=== PATIENT | female | born 1930 | race Caucasian/White ===

== ENCOUNTER 2016-05-28 09:22 | Inpatient (IN) | payer OTHER ==
[~2016-05-28] VITALS: Ht 162.6 cm; Wt 70.2 kg
[~2016-05-28 09:22] MED LIST: AMLO-110 PO; ASPCH81X PO; CARV12.52 PO; GLIP-199 PO; HYDR25TA5 PO; ISR/30 PO; LOSA1TAB38 PO; MAGN400T6 PO; METF-384 PO; MULT-506 PO; SIMV20TA2 PO
[2016-05-28 10:20] VITALS: BP 138/69; PULSE 80; TEMP 36.6; O2SAT 95; Ht 162.6 cm; Wt 70.2 kg
[2016-05-28 11:13] VITALS: BP 124/74; PULSE 73; TEMP 36.6; O2SAT 95
[2016-05-28] MEDS ORDERED: DOCU-94 PO (11:26)
[2016-05-28] MEDS ORDERED: ACET325T30 PO (11:26)
[2016-05-28] MEDS ORDERED: ZNTT/150 PO (11:26)
[2016-05-28] MEDS ORDERED: ISOS20TA4 PO (11:26)
[2016-05-28] MEDS ORDERED: ONDA4TAB10 SL (11:26)
[2016-05-28] MEDS ORDERED: METO2.5T PO (11:26)
[2016-05-28] MEDS ORDERED: HYDR-5688 PO (11:26)
[2016-05-28] MEDS ORDERED: ALUM-80 PO (11:26)
[2016-05-28] MEDS ORDERED: INSU100I SQ (11:26)
[2016-05-28] MEDS ORDERED: INSDGI SC (11:26)
[2016-05-28] MEDS ORDERED: POTA10PO PO (11:26)
[2016-05-28] MEDS ORDERED: NITROGLYCERIN 0.4 MG SL PER TAB CHARGE SL PRN (11:30)
[2016-05-28] MEDS ORDERED: METO25TA3 PO (11:32)
[2016-05-28] MEDS ORDERED: POLY3350 PO (11:32)
[2016-05-28] MEDS ORDERED: PRT40 PO (11:32)
[2016-05-28] MEDS ORDERED: GLUCAGON FOR INJ 1 MG VIAL SQ PRN (11:45)
[2016-05-28] MEDS ORDERED: DEXTROSE 50% 50 ML SYR IV PRN (11:45)
[2016-05-28] MEDS ORDERED: GLUCOSE 10 TABS/TUBE PO PRN (11:45)
[2016-05-28] MEDS ORDERED: GLUCOSE 40% GEL 15 GM TUBE PO PRN (11:45)
[2016-05-28] MEDS ORDERED: HYDROCODONE/ACETAMOPHEN 5/325MG TAB PO PRN (11:45)
[2016-05-28 12:08] LABS: BASO % 0.6 %; BASO ABS # 0.03 K/uL (0-0.2); EOS % 5.4 %; HEMATOCRIT 31.6 % (37-47); IG% 0.2 %; LYMPH % 17.7 %; LYMPH ABS # 0.91 K/uL (1.2-3.4); MEAN CORPUSCULAR HEMOGLOBIN 24.7 pg (25-34); MEAN PLATELET VOLUME 9.3 fL (7.4-10.4); MONO % 9.7 %; NEUT % 66.4 %; PLATELET COUNT 177 K/uL (130-400); RED BLOOD COUNT 4.05 M/uL (4.2-5.4); WHITE BLOOD COUNT 5.14 K/uL (4.8-10.8)
[2016-05-28 12:11] LABS: COMPLETE YES; MEAN CORPUSCULAR HGB CONC 31.6 g/dl (32-36)
[2016-05-28 12:20] LABS: INR 1.1 (0.9-1.1); PROTHROMBIN TIME (PATIENT) 12.3 SECONDS (9.0-12.0)
[2016-05-28 12:31] LABS: ALT/SGPT 21 U/L (12-78); BLOOD UREA NITROGEN 30 mg/dl (7-18); CALCIUM 8.6 mg/dl (8.5-10.1); CARBON DIOXIDE 34 mmol/L (21-32); CHLORIDE 95 mmol/L (98-107); GLUCOSE 90 mg/dl (70-99); POTASSIUM 3.4 mmol/L (3.5-5.1); SODIUM 137 mmol/L (136-145)
[2016-05-28 12:40] LABS: ALB/GLOB RATIO 0.8 (0.9-2); ALKALINE PHOSPHATASE 75 U/L (45-117); AST/SGOT 29 U/L (15-37)
--- NOTE | 2016-05-28 12:50 | History and Physical ---
History & Physical Date & Time of Service: May 28, 2016 at 11:55 Chief Complaint: Congestive Heart Failure Primary Care Physician: Bernadette Pugh M.D. History of Present Illness Source: patient This is an 85 y/o female with PMHx of systolic CHF on Lasix, CAD, CKD stage 3, insulin-dependent DM 2, PAF, moderate MR, HTN, Dyslipidemia and other problems as outlined below who presents as a direct admission from cardiology (Dr. Hollis) office with worsening LE edema. Pt reports that she has noticed worsening LE edema for the past month. Her sxs are assoc with 30lb weight gain, occasional chest "heaviness" with exertion and SOB that is worse with exertion and laying flat. The SOB worsened to the point that patient was placed on 2L continuous oxygen. Patient was recently started on Lasix 20mg daily which only offered minimal relief of sxs. Patient was seen in the cardiology office this morning where it was recommended that patient go to the hospital for diuresis and close monitoring. Pt denies fever/chills, palpitations, wheezing, abd pain, N/V, bowel or bladder issues, lightheadedness/dizziness. Past Medical/Surgical History Medical Problems: (1) CAD (coronary artery disease) Status: Chronic (2) CKD (chronic kidney disease) stage 3, GFR 30-59 ml/min Status: Chronic (3) Diabetes mellitus type II, controlled Status: Chronic (4) Dyslipidemia Status: Chronic (5) GERD (gastroesophageal reflux disease) Status: Chronic (6) PAF (paroxysmal atrial fibrillation) Status: Chronic (7) Systolic CHF, chronic Status: Chronic Surgical Problems: (1) H/O heart artery stent Status: Resolved (2) History of appendectomy Status: Resolved (3) History of section Status: Resolved (4) History of cholecystectomy Status: Resolved (5) History of hysterectomy Status: Resolved (6) History of total left hip arthroplasty Status: Resolved Social History Smoking Status: Former Smoker (1 pack year history; quit in early 20s ) Alcohol Use: none Drug Use: none Housing status: [facility] ([facility]) Allergies Coded Allergies: Fexofenadine (Verified Allergy, Unknown, CONGESTION, 05/14/15) Home Medications Scheduled Acetaminophen (Acetaminophen), 2 TABS PO Q4 Alum & Mag Hydrox-Simethicone (Maalox Advanced Maximum S), 30 ML PO HS Aspirin (Aspirin Chewable), 81 MG PO QAM Docusate Sodium (Colace), 1 CAP PO BID Insulin Glargine (Lantus), 10 SC QPM Insulin Lispro (Human) (Humalog), 8 SQ before meals TID Isosorbide Mononitrate (Isosorbide Mononitrate), 30 MG PO DAILY Metolazone (Zaroxolyn), 2.5 MG PO 3XWK Metoprolol Succ (Toprol Xl) (Toprol-Xl), 0.5 TAB PO DAILY Ondasetron Odt (Zofran Odt), 4 MG SL Q8 Pantoprazole (Pantoprazole Sodium), 20 MG PO BID Polyethylene Glycol 3350 (Polyethylene Glycol 3350), 17 GM PO DAILY Potassium Chloride (Potassium Chloride), 1 TAB PO DAILY Ranitidine (Zantac), 150 MG PO BID Simvastatin (Zocor), 20 MG PO DAILY Scheduled PRN Hydrocodone/Acetaminophen 5MG/325MG ([place] 5MG/325MG), 1 TABLET PO Q4 PRN for Moderate Pain Review of Systems Constitutional: + fatigue, No chills, No fever, No sweats, No weakness Eyes: No worsening of vision ENT: No hearing loss Respiratory: + cough, + dyspnea at rest, + dyspnea on exertion, + shortness of breath, No sputum, No wheezing Cardiovascular: + edema, No claudication, No palpitations Abdomen: No constipation, No diarrhea, No nausea, No pain, No vomiting Musculoskeletal: + swelling, No calf pain Genitourinary - Female: No dysuria Neurologic: No weakness Psychiatric: No depression symptoms Endocrine: + fatigue Hematologic / Lymphatic: No abnormal bleeding/bruising Integumentary: No new/changing skin lesions Physical Exam Vital Signs Date Time Temp Pulse Resp B/P Pulse Ox O2 Delivery O2 Flow Rate FiO2 05/28/16 11:13 36.6 73 24 124/74 95 Nasal Cannula 2.0 Humidified Oxygen 05/28/16 10:20 36.6 80 22 138/69 95 Nasal Cannula 2.0 05/28/16 10:20 36.6 80 22 138/69 95 Nasal Cannula 2.0 Humidified Air General Appearance: WD/WN, no apparent distress, + pertinent finding (Pt is sitting up in bed with daughter at bedside) Head: normocephalic, atraumatic Eyes: normal inspection ENT: hearing grossly normal Neck: supple Respiratory/Chest: chest non-tender, no respiratory distress, no accessory muscle use, + crackles, + pertinent finding (no wheezing) Cardiovascular: regular rate, rhythm Abdomen/GI: normal bowel sounds, non tender, soft Back: normal inspection Extremities/Musculoskelatal: normal inspection, + pertinent finding (3+ pitting edema to bilat LE extending into thighs) Neurologic/Psych: alert, normal mood/affect, oriented x 3 Skin: normal color, warm/dry Diagnostics Laboratory Results Results Past 24 Hours Test 05/28/16 11:11 05/28/16 11:16 05/28/16 11:30 05/28/16 11:37 Range/Units Bedside Glucose 95 70-90 mg/dl Microbiology Results 05/28/16 MRSA DNA Surveillance Screen, Received Pending Impression Assessment and Plan ACUTE ON CHRONIC SYSTOLIC CHF EXACERBATION pt presented with worsening LE edema, SOB and cough; h/o mod mitral regurg and systolic CHF on Lasix and metolazone -admit to telemetry -vitals are stable; pt is saturating well on 2L -last echo 10/2015 EF 20% with dilated and hypokinetic LV with severe LV dysfunction. Anterior/septal and apical severe hypokinesis and mod mitral regurg -obtain initial bloodwork, CXR and EKG -hold Metolazone -start IV Lasix 40mg BID -consult cardiology, Dr. Salazar-pending input -cont supplemental O2 -monitor closely CKD STAGE 3 -baseline creatinine 1.4 -monitor prp closely while on IV Lasix and avoid nephrotoxic agents when able INSULIN-DEPENDENT DM 2 -recent A1C 6.4 -cont Lantus -start ISS -monitor BSG AC HS CAD -NSTEMI 07/2015 s/p stent placement -cont ASA, BB and statin -pt currently denies chest pain PAF -NSR on monitor -discontinued Xarelto 6 months ago due to GI bleed -cont ASA and BB GERD -cont ranitidine and PPI DYSLIPIDEMIA -cont statin DVT PROPHYLAXIS -subq heparin CODE STATUS -FULL CODE status per discussion with patient upon admission DISPO Pt seen in collaboration with Dr. Coelho. Please see her addendum for further details. Thanks! -Of note: patient will be followed by Dr. Valverde starting tomorrow morning. ADDENDUM: I have seen and examined the patient and have discussed the case with the provider above. I agree with the assessment and plan as stated with the following exceptions. 85 yo F with known ICM and EF of 20% presents with acute heart failure. She has had worsening SOB, abdominal and LE swelling with significant edema and weight gain over the last month. She lives at [facility] and was being seen by [facility] after NSTEMI last year, however, she had not sought care since the onset of symptoms until now. She is currently hypoxic without tachypnea. She obese with signs of right heart failure including pleural effusion (R>L), abdominal and LE edema. She was seen by Dr. Hollis as outpatient today who sent her into the hospital for IV diuresis. This was started at 40mg twice daily. Initial labs reveal an anemiairon studies ordered in am, mildly elevated troponin which may reflect strain from heart failurewill trend enzymes with ongoing chest painpatient is currently on good medical therapy for CAD which she has had for years including stents placed years ago per notes. Ordered updated TTE today which has not been updated since Oct 2015 (results as above). There is no discussion of ICD placement in the notes thus far, which will surely be addressed by the Cardiology team when they see her. Cont telemetry monitoring and appreciate Cards recs. Claire Coelho, DO Hospitalist Level of Care Telemetry Advanced Directives Existing Living Will: Yes Existing Power of Electric Sign Wirer: Yes Resuscitation Status FULL RESUSCITATION VTE Prophylaxis VTE Risk Assessment Done? Y/N: Yes Risk Level: High Given or contraindicated: Unfractionated heparin SQ
[2016-05-28] MEDS ORDERED: FUROSEMIDE 10 MG/ML 10 ML VIAL IV SCH (14:30)
--- NOTE | 2016-05-28 14:43 | DIAGNOSTIC IMAGING REPORT ---
CHEST ONE VIEW PORTABLE CLINICAL HISTORY: progressive SOB for past month dyspnea COMPARISON STUDY: No previous studies for comparison. FINDINGS: Moderate cardiac enlargement. Prominent pulmonary vasculature. Probable right and to lesser extent left pleural effusion. IMPRESSION: Pulmonary edema and/or congestive failure Electronically signed by: Lebron Greenfield M.D. 05/28/2016 2:41 PM Dictated Date/Time: 05/28/2016 2:41 PM
[2016-05-28] MEDS ORDERED: FUROSEMIDE INJ 40 MG in SYRINGE 0 ML IV ONE (15:00)
[2016-05-28] MEDS ORDERED: PERFLUTREN LIPID MICROSPHERE (DEFINITY) IV ONE (15:23)
[2016-05-28 15:43] VITALS: BP 124/62; PULSE 75; TEMP 37; O2SAT 98
[2016-05-28] MEDS ORDERED: SPIRONOLACTONE 25 MG TAB PO ONE (15:55)
--- NOTE | 2016-05-28 16:29 | CARDIOLOGY CONSULTATION ---
DATE OF CONSULTATION: 05/28/2016 REFERRING: Dr. Coelho. INDICATIONS: Decompensated congestive heart failure. PRIMARY CARE PHYSICIAN: Dr. Enio Phan. HISTORY OF PRESENT ILLNESS: The patient is an 85-year-old female here for first recent admission to [facility]. She carries a history per review of outpatient records of presumed ischemic cardiomyopathy with severe LV dysfunction, last echocardiography EF 15-20%. She carries a history of past atrial fibrillation on chronic anticoagulation with Xarelto, history of past GI bleed, chronic anemia. She is currently a resident of [facility]. She has been on oxygen for chronic hypoxia, wheelchair and bed bound due to marked disability. She was referred to the outpatient evaluation clinic for cardiology today and evaluation revealed evidence of acute on chronic decompensated heart failure, right greater than left with extended abdomen and lower extremity edema, and chronic dyspnea. She is referred for further management. The patient is a rather poor historian and additional information has been obtained from the chart, and discussing the patient, she notes occasional tightness in her chest, worsening shortness of breath over the past weeks, increasing abdominal bloating and girth. She has had difficulties of obstipation as well as pain in her lower extremities. She is not aware of any fevers or chills. Has been wearing oxygen recently per her description. She is unaware of her medications due to extended care facility administration. She notes no overt signs of bleeding. Notes no dizziness, lightheadedness, syncope or near syncope, though occasionally feels head swirl when sudden standing, but the patient now doing very little standing. REVIEW OF SYSTEMS: Otherwise unobtainable. ALLERGIES: NOTED TO BE FEXOFENADINE. MEDICATIONS: Prior to hospitalization per review of outpatient records, potassium chloride 20 mg p.o. daily, ranitidine 150 mg 2 tablets per day, metolazone 2.5 mg 3 days per week, hydrocodone p.r.n. pain, aspirin 81 mg per day, insulin, Lantus 100 units at bedtime and 100 units of Humulin t.i.d., furosemide 20 mg p.o. every day p.r.n. fluid retention, isosorbide mononitrate 30 mg p.o. every day, Colace 100 mg p.o. every day, metoprolol succinate 12.5 mg p.o. every day, Protonix 20 mg p.o. every day, simvastatin 20 mg p.o. every day. PAST MEDICAL HISTORY: As described above. In addition, the patient carries a history of longstanding type 2 diabetes mellitus insulin requiring with diabetic retinopathy, lumbar degenerative disease, chronic iron deficiency anemia, past decubitus ulcers. PAST SURGICAL HISTORY: Notable for prior , cholecystectomy, appendectomy, hysterectomy, photocoagulation of retinopathy, past history of prior coronary intervention in 2007. FAMILY HISTORY: Positive for diabetes and heart disease and renal disease. SOCIAL HISTORY: The patient is a current resident of [facility]. She is a lifelong nonsmoker. She is usually attended by family. She is a nondrinker. PHYSICAL EXAMINATION: GENERAL: The patient is an elderly female, currently denying acute distress but noting abdominal bloating and girth increased as well as lower extremity edema. VITAL SIGNS: Heart rate 73, blood pressure is 124/74, O2 saturation is 95% on 2 liters nasal cannula. HEENT: Normocephalic, atraumatic. Nares without discharge. Throat was clear. NECK: Supple without thyromegaly or lymphadenopathy. There is mild jugular venous distention at 30 degrees. LUNGS: Reveal few scattered crackles with diminished breath sounds diffusely. CARDIOVASCULAR: Regular. There is no S3 gallop. Apical heave is present with some displacement of PMI laterally. There is no audible murmur or rub. ABDOMEN: Soft with moderate distention. EXTREMITIES: Without cyanosis or clubbing. There is 2-3+ lower extremity edema and presacral edema present. NEUROLOGIC: The patient does answer some questions appropriately, is oriented to person and place. LABORATORY DATA: White cell count is 5.1, hemoglobin is 10.0, hematocrit 31.6, MCV 78. Sodium is 137, potassium is 3.4, chloride is 95, bicarbonate 34, BUN is 30, creatinine is 1.3. BNP is 26,000. Troponin is mildly elevated at 0.04, albumin level is 3.2. IMAGING DATA: Chest x-ray reveals cardiomegaly with increased vascular markings consistent with congestive heart failure and probable small pleural effusions. Echocardiogram preliminary demonstrates severe diffuse LV dysfunction, EF less than 15% with expanded apex, further review pending. IMPRESSION: An 85-year-old female with history of past congestive heart failure, past atrial fibrillation, currently in sinus rhythm, presents now with acute decompensated biventricular heart failure, right greater than left manifesting increased abdominal girth, bloating and lower extremity edema. Preliminary echo during imaging demonstrates severe diffuse left ventricular dysfunction, ejection fraction less than 15%. RECOMMENDATIONS: We will continue IV diuretics as ordered. Due to history of GI blood loss and anemia, we will hold all anticoagulation, though we would add low threshold for instituting it chronically given the degree of LV dysfunction. No signs of atrial fibrillation, currently or acute ischemia despite minimal elevation in troponin. We will supplement potassium and add in spironolactone. Overall, prognosis is extremely limited given the degree of LV dysfunction. We will follow patient in the hospital. May consider readdressing code status. In the interim, we will continue low dose Toprol without plans for any increase nitrates, diuretics as ordered and as described, potassium has been supplemented. We will add a low dose spironolactone given the right greater than left degree of heart failure. Oxygen supplementation will be manifest. [facility]
--- NOTE | 2016-05-28 17:26 | ECHOCARDIOGRAM REPORT ---
*NOTICE TO RECEIVING REPUBLICAN AGENCY This information is strictly Confidential and protected under [place] law. [place] law prohibits you from making any further disclosure of this information unless further disclosure is expressly permitted by the written consent of the person to whom it pertains or is authorized by law. A general authorization for the release of medical or other information is not sufficient for this purpose. Hospital accepts no responsibility if the information is made available to any other person, INCLUDING THE PATIENT. Interpretation Summary * Name: JOYCE GOMEZ Study Date: 05/28/2016 02:57 PM BP: 124/74 mmHg * Patient Location: C.2E\S\E203\S\1 HR: 73 * : 1930 (M/d/yyyy) Gender: Female Height: 64 in * Age: 85 yrs Ethnicity: CA Weight: 186 lb * Ordering Physician: Claire Coelho * Referring Physician: Bernadette Pugh * Performed By: Zaira Marie RDCS * * Reason For Study: CHF * BSA: 1.9 m2 * History: CHF * -- Conclusions -- * The left ventricle is moderately dilated. * Left ventricular systolic function is severely reduced. * There is septal akinesis. * There is apical dyskinesis. * There is severe global hypokinesis of the left ventricle. * Ejection Fraction = <15%. * The left atrium is mildly dilated. * There is mild to moderate mitral regurgitation. * There is moderate tricuspid regurgitation. Procedure Details * A contrast injection of Definity was performed to improve assessment of LV function. * Contrast was injected into an intravenous site in the right arm. * One vial of Definity ultrasound contrast was diluted in normal saline to a total volume of 10 ml. A total of '2' ml of solution was administered during imaging. * Lot # [id number] of Definity utilized for procedure. * Expiration date 1 MAY 10. * The attending nurse who injected the contrast agent was FUNMILAYO FONTANEZ. Left Ventricle * The left ventricle is moderately dilated. * Ejection Fraction = <15%. * Left ventricular systolic function is severely reduced. * There is severe global hypokinesis of the left ventricle. * There is septal akinesis. * There is apical dyskinesis. Atria * The left atrium is mildly dilated. * Right atrial size is normal. * There is no evidence of atrial septal defect, but resolution does not allow assessment for a patent foramen ovale. Mitral Valve * The mitral valve is grossly normal. * There is mild to moderate mitral regurgitation. Tricuspid Valve * The tricuspid valve is not well visualized, but is grossly normal. * There is moderate tricuspid regurgitation. Aortic Valve * Aortic valve sclerosis mild, without significant aortic valvular stenosis. * There is no significant aortic regurgitation. Pulmonic Valve * The pulmonic valve is not well visualized. Great Vessels * The inferior vena cava is severely dilated. MMode 2D Measurements and Calculations Ao root diam 3.3 cm Ao root area 8.6 cm\S\2 LA dimension 3.7 cm LA/Ao 1.1 LVAd ap4 53.8 cm\S\2 LVLd ap4 9.7 cm EDV(MOD-sp4) 234.1 ml EDV(sp4-el) 253.0 ml LVAs ap4 43.0 cm\S\2 LVLs ap4 9.0 cm ESV(MOD-sp4) 165.0 ml ESV(sp4-el) 173.4 ml EF(MOD-sp4) 29.5 % EF(sp4-el) 31.4 % LVAd ap2 51.9 cm\S\2 LVLd ap2 9.9 cm EDV(MOD-sp2) 226.3 ml EDV(sp2-el) 231.8 ml LVAs ap2 42.0 cm\S\2 LVLs ap2 9.1 cm ESV(MOD-sp2) 161.5 ml ESV(sp2-el) 164.7 ml EF(MOD-sp2) 28.6 % EF(sp2-el) 29.0 % LVLd %diff 1.5 % EDV(MOD-bp) 232.5 ml LVLs %diff 0.71 % ESV(MOD-bp) 163.9 ml EF(MOD-bp) 29.5 % SV(MOD-sp4) 69.1 ml SI(MOD-sp4) 36.4 ml/m\S\2 SV(MOD-sp2) 64.8 ml SI(MOD-sp2) 34.2 ml/m\S\2 SV(MOD-bp) 68.5 ml SI(MOD-bp) 36.1 ml/m\S\2 SV(sp4-el) 79.5 ml SI(sp4-el) 41.9 ml/m\S\2 SV(sp2-el) 67.1 ml SI(sp2-el) 35.4 ml/m\S\2 Doppler Measurements and Calculations MV E max miguelangel 86.8 cm/sec MV A max miguelangel 70.8 cm/sec MV E/A 1.2 MV dec time 0.15 sec Ao V2 max 99.0 cm/sec Ao max PG 3.9 mmHg Ao max PG (full) 2.5 mmHg LV V1 max PG 1.4 mmHg LV V1 max 60.1 cm/sec MR max miguelangel 427.8 cm/sec MR max PG 73.2 mmHg TR max miguelangel 218.4 cm/sec
[2016-05-28] MEDS: HEPARIN SOD 5000 UNIT/0.5 ML CARP SQ SCH ×2 (17:39→22:29)
[2016-05-28] MEDS: INSULIN ASPART 100 UNITS/ML 3 ML PEN SC SCH ×2 (17:42→20:40)
[2016-05-28 18:07] LABS: URINE APPEARANCE CLEAR (CLEAR); URINE BILIRUBIN NEG (NEG); URINE COLOR YELLOW; URINE EPITHELIAL CELL AUTO >30 /lpf (0-5); URINE NITRITE NEG (NEG); URINE PH 6.5 (4.5-7.5); URINE SPECIFIC GRAVITY 1.004 (1.000-1.030); UROBILINOGEN NEG (NEG)
[2016-05-28 18:16] LABS: MANUAL MICROSCOPIC REQUIRED? NO; REVIEW REQ? NO
[2016-05-28 19:45] VITALS: BP 131/63; PULSE 80; TEMP 36.8; O2SAT 97
[2016-05-28] MEDS: DOCUSATE SODIUM 100 MG CAP PO SCH (20:37)
[2016-05-28] MEDS: RANITIDINE HCL 150 MG TAB PO SCH (20:37)
[2016-05-28] MEDS: FUROSEMIDE INJ 40 MG in SYRINGE 0 ML IV SCH (20:37)
[2016-05-28] MEDS: ALUMINUM/MAGNESIUM/SIMETH (MAALOX MAX) 30 ML UDC PO SCH (20:38)
[2016-05-28] MEDS: INSULIN GLARGINE SOLOSTAR 100 UNITS/ML 3 ML PEN SC SCH (20:43)
[2016-05-28] MEDS ORDERED: PANTOprazole SOD 40 MG TAB PO SCH ×2 (21:00)
[2016-05-28 23:59] VITALS: O2SAT 97
[2016-05-29] VITALS (11 sets, daily range): BP systolic 99–121; BP diastolic 49–77; PULSE 75–84; TEMP 36.5–36.7; O2SAT 95–100
[2016-05-29] MEDS: ACETAMINOPHEN 325 MG TAB PO PRN (00:48)
[2016-05-29] MEDS ORDERED: HEPARIN IV LOW DOSE NO BOLUS SCH (02:00)
[2016-05-29 02:10] LABS: INR 1.2 (0.9-1.1); PARTIAL THROMBOPLASTIN RATIO 1.1; PROTHROMBIN TIME (PATIENT) 12.8 SECONDS (9.0-12.0)
[2016-05-29] MEDS: HEPARIN 25,000 UNIT/500ML D5W 500 ML IV PRN (02:12)
[2016-05-29] MEDS: DOCUSATE SODIUM 100 MG CAP PO SCH ×2 (07:59→20:56)
[2016-05-29] MEDS: POTASSIUM CHLORIDE PWD 20 MEQ PACK PO SCH (08:17)
[2016-05-29] MEDS: POLYETHYLENE (MIRALAX) 17 GM PACK PO SCH (08:18)
[2016-05-29] MEDS: ISOSORBIDE MONONITRATE 30 MG TABCR PO SCH (08:19)
[2016-05-29] MEDS: FUROSEMIDE INJ 40 MG in SYRINGE 0 ML IV SCH ×2 (08:20→20:56)
[2016-05-29] MEDS: ASPIRIN 81 MG ECTAB PO SCH (08:20)
[2016-05-29] MEDS: INSULIN ASPART 100 UNITS/ML 3 ML PEN SC SCH ×4 (08:23→21:00)
[2016-05-29] MEDS ORDERED: METOPROLOL SUCC 25MG EXT REL TAB PO SCH (09:00)
[2016-05-29] MEDS ORDERED: ISOSORBIDE MONONITRATE 20 MG TAB PO SCH (09:00)
[2016-05-29] MEDS ORDERED: SPIRONOLACTONE 25 MG TAB PO SCH (09:00)
[2016-05-29] MEDS ORDERED: PANTOprazole INJ 40 MG in SYRINGE 0 ML IV SCH (09:00)
[2016-05-29 09:16] LABS: FERRITIN 27.5 ng/ml (8.0-388.0); THYROID STIMULATING HORMONE 5.06 uIu/ml (0.300-4.500)
[2016-05-29] MEDS: RANITIDINE HCL 150 MG TAB PO SCH ×2 (10:24→20:58)
[2016-05-29 11:37] LABS: MEAN CELL VOLUME 77.5 fL (80-100); MEAN CORPUSCULAR HGB CONC 32.3 g/dl (32-36); MEAN PLATELET VOLUME 9.3 fL (7.4-10.4); PLATELET COUNT 166 K/uL (130-400); WHITE BLOOD COUNT 4.73 K/uL (4.8-10.8)
[2016-05-29 12:15] LABS: BUN/CREATININE RATIO 18.5 (10-20); CALCIUM 8.6 mg/dl (8.5-10.1); CREATININE 1.4 mg/dl (0.60-1.20)
--- NOTE | 2016-05-29 12:28 | Progress Note ---
Internal Med Progress Note Date of Service: May 29, 2016. Provider Documentation: SUBJECTIVE: Patient is feeling better than on admission. SOB improved. Cough + but no sputum production, leg/abdominal distension improved. Denies any chest pain, fever, chills, nausea, vomiting. Good urine output per foleys OBJECTIVE: Vital Signs-as noted below Exam: General Appearance: WD/WN, no apparent distress, Head: normocephalic, atraumatic ENT: hearing grossly normal Neck: supple Respiratory/Chest: chest non-tender, no respiratory distress, no accessory muscle use, + crackles, + pertinent finding (no wheezing) Cardiovascular: regular rate, rhythm; Murmur + Abdomen/GI: Soft, distension- improved, normal bowel sounds, non tender, soft Extremities/Musculoskelatal: normal inspection, + pertinent finding (3+ pitting edema to bilat LE extending into thighs) Neurologic/Psych: alert, normal mood/affect, oriented x 3 Lab data as noted below. ASSESSMENT & PLAN: ACUTE ON CHRONIC SYSTOLIC CHF EXACERBATION/ SEVERE CARDIOMYOPATHY WITH LVEF <15 % : Pt presented with worsening LE edema, SOB and cough; h/o mod mitral regurg and systolic CHF on Lasix and metolazone from Dr Hollis office. -Clinically improved - SOB better, leg swelling down, diuresing well -IV Lasix 40 mg BID (Day 2); Spironolactone daily -Troponin- 0.049,0.084, 0.094, Echo- LV- moderately dilated, severely reduced, septal/apical/severe global hypokinesis of left ventricle with EF <15%, LA- Mildly dilated, Mild-moderate MR, Moderate TR -Cardiology on board, appreciate inputs PAROXYSMAL ATRIAL FIBRILLATION Patient is in and out of Atrial fibrillation -Low dose IV Heparin started by cardiology. In past was taken off xarelto (6 months ago) due to GI bleeding/anemia and thought to be at a higher risk of bleeding -Continue with Beta james -Cardiology on board CKD STAGE 3 -baseline creatinine 1.4 , near baseline -monitor prp closely while on IV Lasix and avoid nephrotoxic agents when able ANEMIA,CHRONIC Likely iron deficiency. Had GI bleeding few months ago (no scopes done)- resolved spontaneously after stopping xarelto. -Ferritin/Iron low- Will start her on Ferrous sulphate. No signs of GI bleeding -Monitor INSULIN-DEPENDENT DM 2 -recent A1C 6.4 -cont Lantus -ISS , Accuchecks -monitor BSG AC HS CAD -NSTEMI 07/2015 s/p stent placement -Cont ASA, BB and statin -Pt currently denies chest pain GERD -Cont ranitidine and PPI BID- changed to PO DYSLIPIDEMIA -Cont statin DVT PROPHYLAXIS -Heparin IV CODE STATUS -FULL CODE status per discussion with patient upon admission DISPO Continue with tele monitoring PT/OT ordered Plan is back to [facility] once medically stable Vital Signs: Date Time Temp Pulse Resp B/P Pulse Ox O2 Delivery O2 Flow Rate FiO2 05/29/16 12:10 36.5 84 18 109/63 98 Nasal Cannula 2.0 05/29/16 08:00 98 Nasal Cannula 2.0 05/29/16 07:11 36.6 78 18 106/60 98 Nasal Cannula 2.0 05/29/16 04:00 Nasal Cannula 2.0 05/29/16 03:17 36.7 83 20 121/65 100 Nasal Cannula 2.0 05/29/16 00:32 36.6 77 28 114/73 97 Nasal Cannula 2.0 05/28/16 23:59 97 Nasal Cannula 2.0 05/28/16 20:00 Nasal Cannula 2.0 05/28/16 19:45 36.8 80 18 131/63 97 05/28/16 16:00 Nasal Cannula 2.0 05/28/16 15:43 37.0 75 16 124/62 98 Nasal Cannula 2.0 Lab Results: Results Past 24 Hours Test 05/28/16 16:06 05/28/16 17:35 05/28/16 17:37 05/28/16 20:09 Range/Units Bedside Glucose 151 259 70-90 mg/dl Creatine Kinase MB 1.4 0.5-3.6 ng/ml Troponin I 0.084 0-0.045 ng/ml Creatine Kinase MB Ratio 0-3.0 Test 05/28/16 23:37 05/29/16 00:03 05/29/16 01:53 05/29/16 06:43 Range/Units Creatine Kinase MB Ratio 0-3.0 Creatine Kinase MB 1.1 0.5-3.6 ng/ml Troponin I 0.094 0-0.045 ng/ml Prothrombin Time 12.8 9.0-12.0 SECONDS Prothromb Time International Ratio 1.2 0.9-1.1 Activated Partial Thromboplast Time 28.4 21.0-31.0 SECONDS Partial Thromboplastin Ratio 1.1 Bedside Glucose 119 70-90 mg/dl Test 05/29/16 08:20 05/29/16 11:04 05/29/16 11:27 Range/Units Activated Partial Thromboplast Time 51.8 21.0-31.0 SECONDS Partial Thromboplastin Ratio 2.0 Iron Level 30 35-150 mcg/dl Total Iron Binding Capacity 441 250-450 mcg/dl Ferritin 27.5 8.0-388.0 ng/ml 25-Hydroxy Vitamin D Total 41.2 30-100 ng/ml Thyroid Stimulating Hormone (TSH) 5.060 0.300-4.500 uIu/ml Bedside Glucose 200 70-90 mg/dl White Blood Count 4.73 4.8-10.8 K/uL Red Blood Count 4.00 4.2-5.4 M/uL Hemoglobin 10.0 12.0-16.0 g/dL Hematocrit 31.0 37-47 % Mean Corpuscular Volume 77.5 80-100 fL Mean Corpuscular Hemoglobin 25.0 25-34 pg Mean Corpuscular Hemoglobin Concent 32.3 32-36 g/dl RDW Standard Deviation 50.8 36.4-46.3 fL RDW Coefficient of Variation 17.9 11.5-14.5 % Platelet Count 166 130-400 K/uL Mean Platelet Volume 9.3 7.4-10.4 fL Sodium Level 137 136-145 mmol/L Potassium Level 3.0 3.5-5.1 mmol/L Chloride Level 94 98-107 mmol/L Carbon Dioxide Level 35 21-32 mmol/L Anion Gap 8.0 3-11 mmol/L Blood Urea Nitrogen 26 7-18 mg/dl Creatinine 1.40 0.60-1.20 mg/dl Est Creatinine Clear Calc Drug Dose 29.8 ml/min Estimated GFR () 39.1 Estimated GFR (Non- 33.7 BUN/Creatinine Ratio 18.5 10-20 Random Glucose 176 70-99 mg/dl Calcium Level 8.6 8.5-10.1 mg/dl Pro-B-Type Natriuretic Peptide 00305 0-1800 pg/ml
[2016-05-29] MEDS ORDERED: POTASSIUM CHLORIDE 10 MEQ TABCR PO STA (12:31)
--- NOTE | 2016-05-29 13:02 | PROGRESS NOTE ---
DATE: 05/29/2016 HISTORY OF PRESENT ILLNESS: The patient seen and examined. Chart and telemetry reviewed. Events of past evening noted with the patient lapsing into atrial fibrillation and intermittent this morning. The patient notes no overt symptoms or complaints, has diuresed overnight, feels less breathless, notes no chest pain, abdominal bloating and distention remains present though less pronounced, and lower extremity edema has improved. Both legs remain tender per patient. OBJECTIVE: VITAL SIGNS: Heart rate is 84. Blood pressure is 109/63. NECK: Thin. There is mild jugular venous distention at 30 degrees. LUNGS: Reveal mildly diminished breath sounds at the bases. CARDIOVASCULAR: Currently irregular. There is no S3 gallop. ABDOMEN: Soft with moderate distention. EXTREMITIES: Revealed 2+ lower extremity edema. LABORATORY STUDIES: Sodium is 137, potassium is 3.0, chloride 94, bicarbonate 35, BUN 26, and creatinine is 1.4. IMPRESSION: An 85-year-old female, with severe ischemic cardiomyopathy, admitted with severe decompensated acute on chronic biventricular heart failure, right greater than left, great than 20-pound weight gain. She carries a history of known ischemic heart disease as well as paroxysmal atrial fibrillation, previously anticoagulated, but held due to past history of gastrointestinal bleeding and microcytic anemia. RECOMMENDATIONS: Anticoagulation initiated last night with IV heparin. We would continue until clinical stability assured. In the interim, we will supplement potassium to get potassium elevate to hopefully aid in atrial fibrillation. We will increase Toprol-XL to 12.5 mg twice per day. Continue IV diuretics with anticipated additional dose this evening. We will hold a.m. dosing until reassessed. Spironolactone will be increased to 12.5 mg twice per day.
[2016-05-29] MEDS: SPIRONOLACTONE 25 MG TAB PO SCH (17:05)
[2016-05-29] MEDS: CIPROFLOXACIN 250 MG TAB PO SCH (17:06)
[2016-05-29] MEDS ORDERED: CIPROFLOXACIN 250 MG TAB PO SCH (18:00)
[2016-05-29] MEDS: PANTOprazole SOD 40 MG TAB PO SCH (20:57)
[2016-05-29] MEDS: METOPROLOL SUCC 25MG EXT REL TAB PO SCH (20:57)
[2016-05-29] MEDS: SIMVASTATIN 20 MG TAB PO SCH (20:58)
[2016-05-29] MEDS: INSULIN GLARGINE SOLOSTAR 100 UNITS/ML 3 ML PEN SC SCH (21:03)
[2016-05-29] MEDS: ALUMINUM/MAGNESIUM/SIMETH (MAALOX MAX) 30 ML UDC PO SCH (21:42)
[2016-05-30] VITALS (12 sets, daily range): BP systolic 93–126; BP diastolic 53–70; PULSE 66–75; TEMP 36.4–37; O2SAT 93–100
[2016-05-30] MEDS: CIPROFLOXACIN 250 MG TAB PO SCH ×2 (05:55→16:52)
[2016-05-30 06:35] LABS: HEMATOCRIT 31.2 % (37-47); MEAN CELL VOLUME 77.4 fL (80-100); MEAN CORPUSCULAR HEMOGLOBIN 24.3 pg (25-34); MEAN CORPUSCULAR HGB CONC 31.4 g/dl (32-36); PLATELET COUNT 175 K/uL (130-400); RED BLOOD COUNT 4.03 M/uL (4.2-5.4); WHITE BLOOD COUNT 4.74 K/uL (4.8-10.8)
[2016-05-30 06:54] LABS: PARTIAL THROMBOPLASTIN RATIO 3.1
[2016-05-30 07:01] LABS: BUN/CREATININE RATIO 20.2 (10-20); CALCIUM 8.7 mg/dl (8.5-10.1); CREATININE 1.3 mg/dl (0.60-1.20); POTASSIUM 2.9 mmol/L (3.5-5.1)
[2016-05-30] MEDS: INSULIN ASPART 100 UNITS/ML 3 ML PEN SC SCH ×4 (07:40→20:03)
[2016-05-30] MEDS: HEPARIN 25,000 UNIT/500ML D5W 500 ML IV PRN (07:40)
[2016-05-30] MEDS: PANTOprazole SOD 40 MG TAB PO SCH ×2 (07:42→19:53)
[2016-05-30] MEDS: METOPROLOL SUCC 25MG EXT REL TAB PO SCH ×2 (07:42→19:54)
[2016-05-30] MEDS: POTASSIUM CHLORIDE PWD 20 MEQ PACK PO SCH ×3 (07:43→13:01)
[2016-05-30] MEDS: SPIRONOLACTONE 25 MG TAB PO SCH ×2 (07:43→16:51)
[2016-05-30] MEDS: FERROUS SULFATE 325 MG TAB PO SCH (07:44)
[2016-05-30] MEDS: ASPIRIN 81 MG ECTAB PO SCH (07:44)
[2016-05-30] MEDS: ISOSORBIDE MONONITRATE 30 MG TABCR PO SCH (07:44)
[2016-05-30] MEDS: POLYETHYLENE (MIRALAX) 17 GM PACK PO SCH (07:45)
[2016-05-30] MEDS: DOCUSATE SODIUM 100 MG CAP PO SCH ×2 (07:45→19:53)
[2016-05-30] MEDS: FUROSEMIDE INJ 40 MG in SYRINGE 0 ML IV SCH ×2 (07:45→19:52)
[2016-05-30] MEDS: RANITIDINE HCL 150 MG TAB PO SCH ×2 (07:45→19:53)
--- NOTE | 2016-05-30 10:23 | PROGRESS NOTE ---
DATE: 05/30/2016 CARDIOLOGY CONSULTATION FOLLOWUP NOTE The patient seen and examined. Chart, medications, telemetry reviewed. SUBJECTIVE: The patient feels substantially improved today, did manifest a relatively good diuresis overnight, greater than 2 liters. Abdomen is less distended. Lower extremities are less tender. Notes no dizziness or lightheadedness. Not aware of any tachypalpitations. Notes no bleeding difficulties. PHYSICAL EXAMINATION: VITAL SIGNS: Heart rate is 73, blood pressure is 122/78. The patient had a very brief transient run of atrial arrhythmias this morning, but no sustained atrial fibrillation overnight. HEENT: Normocephalic, atraumatic. NECK: Thin. There is no jugular venous distension with the patient examined mostly upright. LUNGS: Reveal better aeration to the bases. CARDIOVASCULAR: Regular. There is no S3 gallop. There is a grade 2/6 systolic murmur. ABDOMEN: Soft, less distended but still with fluid retention. EXTREMITIES: Reveal 2-3+ indurated lower extremity edema. LABORATORY DATA: White cell count is 4.7, hemoglobin is 9.8. Sodium is 138, potassium is 2.9, chloride is 95, bicarbonate is 33, BUN is 26, creatinine is 1.3, glucose is 104. IMPRESSION: An 85-year-old female with severe left ventricular dysfunction secondary to ischemic cardiomyopathy admitted with acutely decompensated biventricular heart failure, right greater than left. The patient is gradually improving with IV diuretics. Will supplement potassium. Continue newly added spironolactone. Increased dose of metoprolol. Ultimate goal of keeping potassium above 4, for aiding arrhythmias. She will continue on IV anticoagulation until clinical stability assured. May consider reinstituting long-term anticoagulation with the patient previously on Xarelto, per review of records with attention to the patient's baseline microcytic anemia. MTDD
--- NOTE | 2016-05-30 10:29 | Progress Note ---
Internal Med Progress Note Date of Service: May 30, 2016. Provider Documentation: SUBJECTIVE: Patient is feeling better today. SOB improved. Cough + but no sputum production, leg/abdominal distension improved. Denies any chest pain, fever, chills, nausea, vomiting. Good urine output + OBJECTIVE: Vital Signs-as noted below Exam: General Appearance: WD/WN, no apparent distress, Head: normocephalic, atraumatic ENT: hearing grossly normal Neck: supple Respiratory/Chest: chest non-tender, no respiratory distress, no accessory muscle use, + crackles, + pertinent finding (no wheezing) Cardiovascular: regular rate, rhythm; Murmur + Abdomen/GI: Soft, distension- improved, normal bowel sounds, non tender, soft Extremities/Musculoskelatal: normal inspection, + pertinent finding (3+ pitting edema to bilat LE extending into thighs)- Improved Neurologic/Psych: alert, normal mood/affect, oriented x 3 Lab data as noted below. ASSESSMENT & PLAN: ACUTE ON CHRONIC SYSTOLIC CHF EXACERBATION (Biventricular Right >Left)/ SEVERE CARDIOMYOPATHY WITH LVEF <15% : Pt presented with worsening LE edema, SOB and cough; h/o mod mitral regurg and systolic CHF on Lasix and metolazone from Dr Hollis office. -Clinically improved - SOB better, leg swelling down, diuresing well -IV Lasix 40 mg BID (Day 3); Spironolactone increased to 12.5 mg PO BID, Toprol increased to 12.5 mg PO BID -Troponin- 0.049,0.084, 0.094, Echo- LV- moderately dilated, severely reduced, septal/apical/severe global hypokinesis of left ventricle with EF <15%, LA- Mildly dilated, Mild-moderate MR, Moderate TR -Cardiology on board, appreciate inputs HYPOKALEMIA K 2.9 today. Replace- 80 meq total (prefers powder over pill) -K daily supplement -Monitor Mg, K PAROXYSMAL ATRIAL FIBRILLATION Patient is in and out of Atrial fibrillation -Low dose IV Heparin started by cardiology. In past was taken off xarelto (6 months ago) due to GI bleeding/anemia and thought to be at a higher risk of bleeding -Continue with Beta james- increased toprol to 12.5 mg PO BID -Cardiology on board UTI, Klebsiella -On ciprofloxacin BID (Day 2) per c/s CKD STAGE 3 -baseline creatinine 1.4 , near baseline -monitor prp closely while on IV Lasix and avoid nephrotoxic agents when able ANEMIA,CHRONIC Likely iron deficiency. Had GI bleeding few months ago (no scopes done)- resolved spontaneously after stopping xarelto. -Ferritin/Iron low- Started her on Ferrous sulphate. No signs of GI bleeding -Monitor INSULIN-DEPENDENT DM 2 -Recent A1C 6.4 -cont Lantus -ISS , Accuchecks -monitor BSG AC HS CAD -NSTEMI 07/2015 s/p stent placement -Cont ASA, BB and statin -Pt currently denies chest pain GERD -Cont ranitidine and PPI BID- changed to PO DYSLIPIDEMIA -Cont statin DVT PROPHYLAXIS -Heparin IV CODE STATUS -FULL CODE status per discussion with patient upon admission DISPO Continue with tele monitoring PT/OT ordered Plan is back to [facility] once medically stable Vital Signs: Date Time Temp Pulse Resp B/P Pulse Ox O2 Delivery O2 Flow Rate FiO2 05/30/16 08:00 98 Nasal Cannula 2.0 05/30/16 07:00 36.5 73 15 122/58 96 Nasal Cannula 2.0 05/30/16 05:23 36.7 66 18 126/56 94 Nasal Cannula 2.0 05/30/16 04:19 100 Nasal Cannula 2.0 05/30/16 00:16 37.0 71 18 114/55 98 05/30/16 00:00 100 Nasal Cannula 2.0 05/29/16 20:00 100 Nasal Cannula 2.0 05/29/16 19:15 36.5 77 19 120/77 99 Nasal Cannula 2.0 05/29/16 16:00 100 Nasal Cannula 2.0 05/29/16 15:10 36.7 79 15 99/49 100 Nasal Cannula 2.0 05/29/16 14:01 75 95 Lab Results: Results Past 24 Hours Test 05/29/16 15:56 05/29/16 20:20 05/30/16 06:17 05/30/16 07:04 Range/Units Bedside Glucose 225 139 121 70-90 mg/dl White Blood Count 4.74 4.8-10.8 K/uL Red Blood Count 4.03 4.2-5.4 M/uL Hemoglobin 9.8 12.0-16.0 g/dL Hematocrit 31.2 37-47 % Mean Corpuscular Volume 77.4 80-100 fL Mean Corpuscular Hemoglobin 24.3 25-34 pg Mean Corpuscular Hemoglobin Concent 31.4 32-36 g/dl RDW Standard Deviation 50.8 36.4-46.3 fL RDW Coefficient of Variation 18.0 11.5-14.5 % Platelet Count 175 130-400 K/uL Mean Platelet Volume 9.0 7.4-10.4 fL Activated Partial Thromboplast Time 81.8 21.0-31.0 SECONDS Partial Thromboplastin Ratio 3.1 Sodium Level 138 136-145 mmol/L Potassium Level 2.9 3.5-5.1 mmol/L Chloride Level 95 98-107 mmol/L Carbon Dioxide Level 33 21-32 mmol/L Anion Gap 10.0 3-11 mmol/L Blood Urea Nitrogen 26 7-18 mg/dl Creatinine 1.30 0.60-1.20 mg/dl Est Creatinine Clear Calc Drug Dose 32.0 ml/min Estimated GFR () 42.7 Estimated GFR (Non- 36.9 BUN/Creatinine Ratio 20.2 10-20 Random Glucose 104 70-99 mg/dl Calcium Level 8.7 8.5-10.1 mg/dl Test 05/30/16 11:10 05/30/16 11:48 Range/Units Bedside Glucose 136 70-90 mg/dl White Blood Count 4.89 4.8-10.8 K/uL Red Blood Count 4.19 4.2-5.4 M/uL Hemoglobin 10.3 12.0-16.0 g/dL Hematocrit 32.4 37-47 % Mean Corpuscular Volume 77.3 80-100 fL Mean Corpuscular Hemoglobin 24.6 25-34 pg Mean Corpuscular Hemoglobin Concent 31.8 32-36 g/dl RDW Standard Deviation 51.1 36.4-46.3 fL RDW Coefficient of Variation 18.0 11.5-14.5 % Platelet Count 167 130-400 K/uL Mean Platelet Volume 8.6 7.4-10.4 fL Sodium Level 138 136-145 mmol/L Potassium Level 3.3 3.5-5.1 mmol/L Chloride Level 95 98-107 mmol/L Carbon Dioxide Level 34 21-32 mmol/L Anion Gap 9.0 3-11 mmol/L Blood Urea Nitrogen 27 7-18 mg/dl Creatinine 1.30 0.60-1.20 mg/dl Est Creatinine Clear Calc Drug Dose 32.0 ml/min Estimated GFR () 42.7 Estimated GFR (Non- 36.9 BUN/Creatinine Ratio 20.5 10-20 Random Glucose 150 70-99 mg/dl Calcium Level 8.8 8.5-10.1 mg/dl
[2016-05-30] MEDS ORDERED: POTASSIUM CHLORIDE 10 MEQ TABCR PO SCH (10:30)
[2016-05-30 11:58] LABS: HEMATOCRIT 32.4 % (37-47); MEAN CELL VOLUME 77.3 fL (80-100); MEAN CORPUSCULAR HEMOGLOBIN 24.6 pg (25-34); MEAN CORPUSCULAR HGB CONC 31.8 g/dl (32-36); MEAN PLATELET VOLUME 8.6 fL (7.4-10.4); PLATELET COUNT 167 K/uL (130-400); RED BLOOD COUNT 4.19 M/uL (4.2-5.4); WHITE BLOOD COUNT 4.89 K/uL (4.8-10.8)
[2016-05-30 12:27] LABS: BUN/CREATININE RATIO 20.5 (10-20); CALCIUM 8.8 mg/dl (8.5-10.1); CREATININE 1.3 mg/dl (0.60-1.20); POTASSIUM 3.3 mmol/L (3.5-5.1)
[2016-05-30 15:01] LABS: PARTIAL THROMBOPLASTIN RATIO 2.1
[2016-05-30] MEDS: SIMVASTATIN 20 MG TAB PO SCH (19:53)
[2016-05-30] MEDS: ALUMINUM/MAGNESIUM/SIMETH (MAALOX MAX) 30 ML UDC PO SCH (19:53)
[2016-05-30] MEDS: INSULIN GLARGINE SOLOSTAR 100 UNITS/ML 3 ML PEN SC SCH (20:03)
[2016-05-31 04:26] VITALS: BP 103/65; PULSE 77; TEMP 36.4; O2SAT 97
[2016-05-31] MEDS: CIPROFLOXACIN 250 MG TAB PO SCH ×2 (05:28→17:23)
[2016-05-31 06:13] LABS: HEMATOCRIT 30.8 % (37-47); MEAN CELL VOLUME 76.8 fL (80-100); MEAN CORPUSCULAR HEMOGLOBIN 24.7 pg (25-34); MEAN CORPUSCULAR HGB CONC 32.1 g/dl (32-36); MEAN PLATELET VOLUME 9.2 fL (7.4-10.4); PLATELET COUNT 174 K/uL (130-400); RED BLOOD COUNT 4.01 M/uL (4.2-5.4); WHITE BLOOD COUNT 4.62 K/uL (4.8-10.8)
[2016-05-31 06:54] LABS: BUN/CREATININE RATIO 23.4 (10-20); CALCIUM 8.3 mg/dl (8.5-10.1); CREATININE 1.3 mg/dl (0.60-1.20); MAGNESIUM 2.3 mg/dl (1.8-2.4); POTASSIUM 4.3 mmol/L (3.5-5.1)
[2016-05-31 07:45] VITALS: BP 104/52; PULSE 71; TEMP 36.7; O2SAT 99
[2016-05-31] MEDS: POLYETHYLENE (MIRALAX) 17 GM PACK PO SCH (07:45)
[2016-05-31] MEDS: PANTOprazole SOD 40 MG TAB PO SCH ×2 (07:45→21:21)
[2016-05-31] MEDS: SPIRONOLACTONE 25 MG TAB PO SCH ×2 (07:45→17:23)
[2016-05-31] MEDS: ISOSORBIDE MONONITRATE 30 MG TABCR PO SCH (07:45)
[2016-05-31] MEDS: ASPIRIN 81 MG ECTAB PO SCH (07:45)
[2016-05-31] MEDS: FUROSEMIDE INJ 40 MG in SYRINGE 0 ML IV SCH ×2 (07:45→21:21)
[2016-05-31] MEDS: POTASSIUM CHLORIDE PWD 20 MEQ PACK PO SCH (07:45)
[2016-05-31] MEDS: FERROUS SULFATE 325 MG TAB PO SCH (07:45)
[2016-05-31] MEDS: DOCUSATE SODIUM 100 MG CAP PO SCH ×2 (07:45→21:21)
[2016-05-31] MEDS: RANITIDINE HCL 150 MG TAB PO SCH ×2 (07:46→21:21)
[2016-05-31] MEDS: METOPROLOL SUCC 25MG EXT REL TAB PO SCH ×2 (07:46→21:22)
[2016-05-31] MEDS: INSULIN ASPART 100 UNITS/ML 3 ML PEN SC SCH ×4 (07:58→21:23)
[2016-05-31 09:14] LABS: PARTIAL THROMBOPLASTIN RATIO 2.2
--- NOTE | 2016-05-31 11:16 | Cardiology Follow-Up ---
Subjective Subjective Date of Service: May 31, 2016. Pt evaluation today including: conversation w/ patient, physical exam, chart review, lab review, review of studies, review of inpatient medication list Additional Details: Pt seen and examined, oob in chair. States that legs are still swollen and painful but improved from admission. Still dyspnic with minimal exertion but not at rest. Denies cp, palpitations, lightheadedness or dizziness. Tele reviewed: atrial fibrillation without other arrhythmia Review of Systems Respiratory: + dyspnea on exertion, + shortness of breath, No cough, No dyspnea at rest, No hemoptysis, No problem reported, No see HPI, No sputum, No wheezing Cardiac: + PND, + edema, + orthopnea, No chest pain, No claudication, No palpitations, No problem reported, No see HPI Objective Vital Signs Last Vital Signs Documentation Date Time Temp Pulse Resp B/P Pulse Ox O2 Delivery O2 Flow Rate FiO2 05/31/16 08:01 Nasal Cannula 2.0 05/31/16 07:45 36.7 71 20 104/52 99 Physical Exam: General Appearance: WD/WN, no apparent distress Eyes: bilateral eyes EOMI, bilateral eyes PERRL, bilateral eyes normal inspection ENT: normal ENT inspection, TMs normal, pharynx normal, + pertinent finding ( somewhat hard of hearing) Neck: supple, no adenopathy, thyroid normal, no JVD, no carotid bruits, trachea midline Respiratory/Chest: chest non-tender, no respiratory distress, no accessory muscle use, + crackles, + rhonchi Cardiovascular: no JVD, no murmur, + irregularly irregular Abdomen: normal bowel sounds, non tender, soft, no organomegaly, no pulsatile mass Extremities: + calf tenderness, + inflammation, + pedal edema (+1 b/l pitting edema) Neurologic/Psychiatric: cut off sawyer II-XII nml as tested, no motor/sensory deficits, alert, normal mood/affect, oriented x 3 Skin: normal color, warm/dry, no rash Lymphatic: no adenopathy Assessment and Plan 1. acute decompensated systolic heart failure diuresing well will cont with current bid lasix dosing cont spironolactone strict I/O's daily weight on same scale 2. cad stable cont asa, simvastatin, toprol, imdur 3. atrial fibrillation converted from sinus last pm tolerating wll rates controlled on heparin gtt, previously on Xarelto will cont heparin for now cont to monitor on tele
[2016-05-31 11:45] VITALS: BP 122/49; PULSE 77; TEMP 36.6; O2SAT 97
[2016-05-31 12:09] LABS: HEMATOCRIT 31.8 % (37-47); MEAN CELL VOLUME 78.7 fL (80-100); MEAN CORPUSCULAR HEMOGLOBIN 24.5 pg (25-34); MEAN CORPUSCULAR HGB CONC 31.1 g/dl (32-36); MEAN PLATELET VOLUME 9.6 fL (7.4-10.4); PLATELET COUNT 173 K/uL (130-400); RED BLOOD COUNT 4.04 M/uL (4.2-5.4)
[2016-05-31 12:38] LABS: BUN/CREATININE RATIO 19.3 (10-20); CALCIUM 8.6 mg/dl (8.5-10.1); CREATININE 1.5 mg/dl (0.60-1.20); POTASSIUM 4.1 mmol/L (3.5-5.1)
--- NOTE | 2016-05-31 12:48 | Progress Note ---
Internal Med Progress Note Date of Service: May 31, 2016. Provider Documentation: SUBJECTIVE: Patient is feeling better today. SOB improved. Cough + but no sputum production, leg/abdominal distension improved. Denies any chest pain, fever, chills, nausea, vomiting. Good urine output + OBJECTIVE: Vital Signs-as noted below Exam: General Appearance: AAOX2, No apparent distress, Head: normocephalic, atraumatic ENT: hearing grossly normal Neck: supple Respiratory/Chest: chest non-tender, no respiratory distress, no accessory muscle use, + crackles, + pertinent finding (no wheezing) Cardiovascular: regular rate, rhythm; Murmur + Abdomen/GI: Soft, distension- improved, normal bowel sounds, non tender, soft Extremities/Musculoskelatal: normal inspection, + pertinent finding (3+ pitting edema to bilat LE extending into thighs)- Improved Neurologic/Psych: alert, normal mood/affect, oriented x 3 Lab data as noted below. ASSESSMENT & PLAN: ACUTE ON CHRONIC SYSTOLIC CHF EXACERBATION (Biventricular Right >Left)/ SEVERE CARDIOMYOPATHY WITH LVEF <15% : Pt presented with worsening LE edema, SOB and cough; h/o mod mitral regurg and systolic CHF on Lasix and metolazone from Dr Hollis office. -Clinically improved - SOB better, leg swelling down, diuresing well -IV Lasix 40 mg BID (Day 4); Spironolactone increased to 12.5 mg PO BID, Toprol increased to 12.5 mg PO BID on 05/29/16 -Troponin- 0.049,0.084, 0.094, Echo- LV- moderately dilated, severely reduced, septal/apical/severe global hypokinesis of left ventricle with EF <15%, LA- Mildly dilated, Mild-moderate MR, Moderate TR -Cardiology on board, appreciate inputs HYPOKALEMIA Resolved. -K daily supplement while on lasix PAROXYSMAL ATRIAL FIBRILLATION Patient is in and out of Atrial fibrillation -Low dose IV Heparin started by cardiology. In past was taken off xarelto (6 months ago) due to GI bleeding/anemia and thought to be at a higher risk of bleeding -Continue with Beta james- increased toprol to 12.5 mg PO BID -Cardiology on board UTI, Klebsiella -On ciprofloxacin BID (Day 3) per c/s CKD STAGE 3 -baseline creatinine 1.4 , near baseline -monitor prp closely while on IV Lasix and avoid nephrotoxic agents when able ANEMIA, CHRONIC : Likely iron deficiency. Had GI bleeding few months ago (no scopes done)- resolved spontaneously after stopping xarelto. -Ferritin/Iron low- Started her on Ferrous sulphate. No signs of GI bleeding -Monitor INSULIN-DEPENDENT DM 2 -Recent A1C 6.4 -cont Lantus -ISS , Accuchecks -monitor BSG AC HS CAD -NSTEMI 07/2015 s/p stent placement -Cont ASA, BB and statin -Pt currently denies chest pain GERD -Cont ranitidine and PPI BID- changed to PO DYSLIPIDEMIA -Cont statin DVT PROPHYLAXIS -Heparin IV CODE STATUS -FULL CODE status per discussion with patient upon admission DISPO Continue with tele monitoring PT/OT ordered Plan is back to [facility] once medically stable Vital Signs: Date Time Temp Pulse Resp B/P Pulse Ox O2 Delivery O2 Flow Rate FiO2 05/31/16 12:24 Nasal Cannula 2.0 05/31/16 11:45 36.6 77 20 122/49 97 2.0 05/31/16 08:01 Nasal Cannula 2.0 05/31/16 07:45 36.7 71 20 104/52 99 2.0 05/31/16 04:26 36.4 77 28 103/65 97 3.0 05/31/16 04:06 Nasal Cannula 2.0 05/31/16 00:00 Nasal Cannula 2.0 05/30/16 23:50 36.5 71 34 116/56 98 Nasal Cannula 3.0 05/30/16 20:00 Nasal Cannula 2.0 05/30/16 18:55 36.4 75 18 104/66 93 Nasal Cannula 2.0 05/30/16 16:00 98 Nasal Cannula 2.0 05/30/16 15:00 36.5 75 23 93/70 94 Nasal Cannula 2.0 Lab Results: Results Past 24 Hours Test 05/30/16 14:29 05/30/16 16:17 05/30/16 19:53 05/31/16 05:30 Range/Units Activated Partial Thromboplast Time 54.0 21.0-31.0 SECONDS Partial Thromboplastin Ratio 2.1 Bedside Glucose 171 220 70-90 mg/dl White Blood Count 4.62 4.8-10.8 K/uL Red Blood Count 4.01 4.2-5.4 M/uL Hemoglobin 9.9 12.0-16.0 g/dL Hematocrit 30.8 37-47 % Mean Corpuscular Volume 76.8 80-100 fL Mean Corpuscular Hemoglobin 24.7 25-34 pg Mean Corpuscular Hemoglobin Concent 32.1 32-36 g/dl RDW Standard Deviation 50.8 36.4-46.3 fL RDW Coefficient of Variation 18.1 11.5-14.5 % Platelet Count 174 130-400 K/uL Mean Platelet Volume 9.2 7.4-10.4 fL Sodium Level 138 136-145 mmol/L Potassium Level 4.3 3.5-5.1 mmol/L Chloride Level 96 98-107 mmol/L Carbon Dioxide Level 35 21-32 mmol/L Anion Gap 7.0 3-11 mmol/L Blood Urea Nitrogen 30 7-18 mg/dl Creatinine 1.30 0.60-1.20 mg/dl Est Creatinine Clear Calc Drug Dose 31.6 ml/min Estimated GFR () 42.7 Estimated GFR (Non- 36.9 BUN/Creatinine Ratio 23.4 10-20 Random Glucose 96 70-99 mg/dl Calcium Level 8.3 8.5-10.1 mg/dl Magnesium Level 2.3 1.8-2.4 mg/dl Test 05/31/16 06:40 05/31/16 08:45 05/31/16 11:26 05/31/16 11:36 Range/Units Bedside Glucose 108 179 70-90 mg/dl Activated Partial Thromboplast Time 56.3 21.0-31.0 SECONDS Partial Thromboplastin Ratio 2.2 White Blood Count 4.90 4.8-10.8 K/uL Red Blood Count 4.04 4.2-5.4 M/uL Hemoglobin 9.9 12.0-16.0 g/dL Hematocrit 31.8 37-47 % Mean Corpuscular Volume 78.7 80-100 fL Mean Corpuscular Hemoglobin 24.5 25-34 pg Mean Corpuscular Hemoglobin Concent 31.1 32-36 g/dl RDW Standard Deviation 51.7 36.4-46.3 fL RDW Coefficient of Variation 18.2 11.5-14.5 % Platelet Count 173 130-400 K/uL Mean Platelet Volume 9.6 7.4-10.4 fL Sodium Level 138 136-145 mmol/L Potassium Level 4.1 3.5-5.1 mmol/L Chloride Level 96 98-107 mmol/L Carbon Dioxide Level 33 21-32 mmol/L Anion Gap 9.0 3-11 mmol/L Blood Urea Nitrogen 29 7-18 mg/dl Creatinine 1.50 0.60-1.20 mg/dl Est Creatinine Clear Calc Drug Dose 27.4 ml/min Estimated GFR () 35.9 Estimated GFR (Non- 31.0 BUN/Creatinine Ratio 19.3 10-20 Random Glucose 153 70-99 mg/dl Calcium Level 8.6 8.5-10.1 mg/dl
[2016-05-31 15:59] VITALS: BP 107/66; PULSE 70; TEMP 36.5; O2SAT 97
[2016-05-31 19:55] VITALS: BP 109/83; PULSE 81; TEMP 36.7; O2SAT 96
[2016-05-31] MEDS: ALUMINUM/MAGNESIUM/SIMETH (MAALOX MAX) 30 ML UDC PO SCH (21:00)
[2016-05-31] MEDS: SIMVASTATIN 20 MG TAB PO SCH (21:21)
[2016-05-31] MEDS: INSULIN GLARGINE SOLOSTAR 100 UNITS/ML 3 ML PEN SC SCH (21:24)
[2016-05-31] MEDS: HEPARIN 25,000 UNIT/500ML D5W 500 ML IV PRN (21:44)
[2016-05-31 23:05] VITALS: BP 123/55; PULSE 77; TEMP 36.8; O2SAT 97
[2016-06-01 04:00] VITALS: BP 118/51; PULSE 74; TEMP 36.5; O2SAT 99
[2016-06-01] MEDS: CIPROFLOXACIN 250 MG TAB PO SCH ×2 (05:43→17:28)
[2016-06-01 06:52] LABS: PARTIAL THROMBOPLASTIN RATIO 1.9
[2016-06-01] MEDS: INSULIN ASPART 100 UNITS/ML 3 ML PEN SC SCH ×4 (07:00→20:36)
[2016-06-01 07:45] VITALS: BP 105/56; PULSE 70; TEMP 36.9; O2SAT 97
[2016-06-01] MEDS: FUROSEMIDE INJ 40 MG in SYRINGE 0 ML IV SCH ×2 (08:18→20:35)
[2016-06-01] MEDS: ASPIRIN 81 MG ECTAB PO SCH (08:19)
[2016-06-01] MEDS: SPIRONOLACTONE 25 MG TAB PO SCH ×2 (08:19→17:28)
[2016-06-01] MEDS: DOCUSATE SODIUM 100 MG CAP PO SCH ×2 (08:19→20:35)
[2016-06-01] MEDS: FERROUS SULFATE 325 MG TAB PO SCH (08:19)
[2016-06-01] MEDS: POTASSIUM CHLORIDE PWD 20 MEQ PACK PO SCH (08:19)
[2016-06-01] MEDS: POLYETHYLENE (MIRALAX) 17 GM PACK PO SCH (08:19)
[2016-06-01] MEDS: RANITIDINE HCL 150 MG TAB PO SCH ×2 (08:19→20:35)
[2016-06-01] MEDS: PANTOprazole SOD 40 MG TAB PO SCH ×2 (08:19→20:35)
[2016-06-01] MEDS: METOPROLOL SUCC 25MG EXT REL TAB PO SCH ×2 (08:19→20:35)
[2016-06-01] MEDS: ISOSORBIDE MONONITRATE 30 MG TABCR PO SCH (09:00)
[2016-06-01 10:35] VITALS: BP 115/67; PULSE 74; TEMP 36.4; O2SAT 96
--- NOTE | 2016-06-01 11:57 | Progress Note ---
Internal Med Progress Note Date of Service: Jun 01, 2016. Provider Documentation: SUBJECTIVE: Patient is feeling better today. SOB improved. Cough + but no sputum production, leg/abdominal distension improved. Denies any chest pain, fever, chills, nausea, vomiting. Good urine output + On low dose IV Heparin OBJECTIVE: Vital Signs-as noted below Exam: General Appearance: AAOX2, No apparent distress, Head: normocephalic, atraumatic ENT: hearing grossly normal Neck: supple Respiratory/Chest: chest non-tender, no respiratory distress, no accessory muscle use, + crackles, + pertinent finding (no wheezing) Cardiovascular: regular rate, rhythm; Murmur + Abdomen/GI: Soft, distension- improved, normal bowel sounds, non tender, soft Extremities/Musculoskelatal: normal inspection, + pertinent finding (3+ pitting edema to bilat LE extending into thighs)- Improved slightly, sensitive to touch Neurologic/Psych: alert, normal mood/affect, oriented x 3 Lab data as noted below. ASSESSMENT & PLAN: ACUTE ON CHRONIC SYSTOLIC CHF EXACERBATION (Biventricular Right >Left)/ SEVERE CARDIOMYOPATHY WITH LVEF <15% : Pt presented with worsening LE edema, SOB and cough; h/o mod mitral regurg and systolic CHF on Lasix and metolazone from Dr Hollis office. -Clinically improved - SOB better, leg swelling down, diuresing well -IV Lasix 40 mg BID (Day 5); Spironolactone increased to 12.5 mg PO BID, Toprol increased to 12.5 mg PO BID on 05/29/16 -Troponin- 0.049,0.084, 0.094, Echo- LV- moderately dilated, severely reduced, septal/apical/severe global hypokinesis of left ventricle with EF <15%, LA- Mildly dilated, Mild-moderate MR, Moderate TR -Cardiology on board, appreciate inputs PLAN: Hold IV lasix. Re assess in AM and switch to PO. Discussed with cardiology. Appreciate inputs TOMMY ON CKD STAGE 3 - Slight increase in creatinine today- 1.5 -baseline creatinine 1.4 . -Lasix mx as above -monitor prp closely while on IV Lasix and avoid nephrotoxic agents when able HYPOKALEMIA Resolved. -K daily supplement while on lasix PAROXYSMAL ATRIAL FIBRILLATION Patient is in and out of Atrial fibrillation -Low dose IV Heparin started by cardiology. In past was taken off xarelto (6 months ago) due to GI bleeding/anemia and thought to be at a higher risk of bleeding -Continue with Beta james- increased toprol to 12.5 mg PO BID -Cardiology on board UTI, Klebsiella -On ciprofloxacin BID (Day 05/27) per c/s ANEMIA, CHRONIC : Likely iron deficiency. Had GI bleeding few months ago (no scopes done)- resolved spontaneously after stopping xarelto. -Ferritin/Iron low- Started her on Ferrous sulphate. No signs of GI bleeding -Monitor INSULIN-DEPENDENT DM 2 -Recent A1C 6.4 -cont Lantus -ISS , Accuchecks -monitor BSG AC HS CAD -NSTEMI 07/2015 s/p stent placement -Cont ASA, BB and statin -Pt currently denies chest pain GERD -Cont ranitidine and PPI BID- changed to PO DYSLIPIDEMIA -Cont statin DVT PROPHYLAXIS -Heparin IV CODE STATUS -FULL CODE status per discussion with patient upon admission DISPO Continue with tele monitoring PT/OT ordered Plan is back to [facility] once medically stable Vital Signs: Date Time Temp Pulse Resp B/P Pulse Ox O2 Delivery O2 Flow Rate FiO2 06/01/16 10:35 36.4 74 24 115/67 96 2.0 06/01/16 08:01 Nasal Cannula 2.0 06/01/16 07:45 36.9 70 24 105/56 97 2.0 06/01/16 04:00 36.5 74 16 118/51 99 Nasal Cannula 3.0 06/01/16 04:00 Nasal Cannula 2.0 06/01/16 00:00 Nasal Cannula 2.0 05/31/16 23:05 36.8 77 16 123/55 97 Nasal Cannula 2.0 Humidified Oxygen 05/31/16 20:00 Nasal Cannula 2.0 05/31/16 19:55 36.7 81 31 109/83 96 Nasal Cannula 3.0 05/31/16 16:01 Nasal Cannula 2.0 05/31/16 15:59 36.5 70 30 107/66 97 Nasal Cannula 3.0 05/31/16 12:24 Nasal Cannula 2.0 Lab Results: Results Past 24 Hours Test 05/31/16 16:38 05/31/16 20:31 06/01/16 05:25 06/01/16 06:41 Range/Units Bedside Glucose 126 162 141 70-90 mg/dl Activated Partial Thromboplast Time 48.3 21.0-31.0 SECONDS Partial Thromboplastin Ratio 1.9 Test 06/01/16 11:23 Range/Units Bedside Glucose 208 70-90 mg/dl
[2016-06-01] MEDS ORDERED: AMIODARONE IV BOLUS / DRIP IV STA (12:31)
--- NOTE | 2016-06-01 12:31 | Cardiology Follow-Up ---
Subjective Subjective Date of Service: Jun 01, 2016. Pt evaluation today including: conversation w/ patient, physical exam, chart review, lab review, review of studies, review of inpatient medication list Additional Details: Pt seen and examined, oob in chair eating lunch. States that she's feeling better, LE edema/pain improving but not yet resolved. Breathing also improving. Denies cp, palpitations, lightheadedness or dizziness. Tele reviewed: atrial fibrillation, rate controlled. Review of Systems Respiratory: + dyspnea on exertion, + shortness of breath, No cough, No dyspnea at rest, No hemoptysis, No problem reported, No see HPI, No sputum, No wheezing Cardiac: + PND, + edema, + orthopnea, No chest pain, No claudication, No palpitations, No problem reported, No see HPI Objective Vital Signs Last Vital Signs Documentation Date Time Temp Pulse Resp B/P Pulse Ox O2 Delivery O2 Flow Rate FiO2 06/01/16 12:21 Nasal Cannula 2.0 06/01/16 10:35 36.4 74 24 115/67 96 Physical Exam: General Appearance: WD/WN, no apparent distress Eyes: bilateral eyes EOMI, bilateral eyes PERRL, bilateral eyes normal inspection ENT: normal ENT inspection, TMs normal, pharynx normal, + pertinent finding ( somewhat hard of hearing) Neck: supple, no adenopathy, thyroid normal, no JVD, no carotid bruits, trachea midline Respiratory/Chest: chest non-tender, no respiratory distress, no accessory muscle use, + crackles, + rhonchi Cardiovascular: no JVD, no murmur, + irregularly irregular Abdomen: normal bowel sounds, non tender, soft, no organomegaly, no pulsatile mass Extremities: + calf tenderness, + inflammation, + pedal edema (+1 b/l pitting edema) Neurologic/Psychiatric: acute care assistant II-XII nml as tested, no motor/sensory deficits, alert, normal mood/affect, oriented x 3 Skin: normal color, warm/dry, no rash Lymphatic: no adenopathy Assessment and Plan 1. acute decompensated systolic heart failure diuresing well now prerenal will hold further diuretics and follow volume status clinically cont spironolactone strict I/O's daily weight on same scale 2. cad stable cont asa, simvastatin, toprol, imdur 3. atrial fibrillation converted from sinus last 3/10 tolerating well rates controlled on heparin gtt, previously on Xarelto will cont heparin for now will attempt chemical cardioversion with IV amio was documented to be in sinus this admission so, low risk for HECTOR thrombus formation cont to monitor on tele
[2016-06-01] MEDS ORDERED: AMIODARONE / D5W 100 ML IV SCH (13:00)
[2016-06-01] MEDS ORDERED: AMIODARONE / D5W 200 ML IV SCH (13:10)
[2016-06-01 15:10] VITALS: BP 102/53; PULSE 66; TEMP 36.5; O2SAT 100
[2016-06-01 19:30] VITALS: BP 108/85; PULSE 65; TEMP 36.8; O2SAT 99
[2016-06-01] MEDS: AMIODARONE / D5W 200 ML IV SCH (19:50)
[2016-06-01] MEDS: ALUMINUM/MAGNESIUM/SIMETH (MAALOX MAX) 30 ML UDC PO SCH (20:32)
[2016-06-01] MEDS: SIMVASTATIN 20 MG TAB PO SCH (20:35)
[2016-06-01] MEDS: INSULIN GLARGINE SOLOSTAR 100 UNITS/ML 3 ML PEN SC SCH (20:36)
[2016-06-02] VITALS: BP 115/66; PULSE 64; TEMP 37; O2SAT 98
[2016-06-02 04:00] VITALS: BP 112/56; PULSE 62; TEMP 36.8; O2SAT 100
[2016-06-02] MEDS: CIPROFLOXACIN 250 MG TAB PO SCH ×2 (05:31→17:28)
[2016-06-02 06:21] LABS: PARTIAL THROMBOPLASTIN RATIO 1.8
[2016-06-02 06:35] LABS: BUN/CREATININE RATIO 18.9 (10-20); CALCIUM 8.4 mg/dl (8.5-10.1); CREATININE 1.7 mg/dl (0.60-1.20); POTASSIUM 4.2 mmol/L (3.5-5.1)
[2016-06-02] MEDS ORDERED: HEPARIN IV BOLUS 3,000 UNIT in SYRINGE 0 ML IV ONE (06:45)
[2016-06-02] MEDS: ISOSORBIDE MONONITRATE 30 MG TABCR PO SCH (07:26)
[2016-06-02] MEDS: FERROUS SULFATE 325 MG TAB PO SCH (07:26)
[2016-06-02] MEDS: POTASSIUM CHLORIDE PWD 20 MEQ PACK PO SCH (07:26)
[2016-06-02] MEDS: PANTOprazole SOD 40 MG TAB PO SCH ×2 (07:26→20:05)
[2016-06-02] MEDS: POLYETHYLENE (MIRALAX) 17 GM PACK PO SCH (07:26)
[2016-06-02] MEDS: RANITIDINE HCL 150 MG TAB PO SCH ×2 (07:26→20:02)
[2016-06-02] MEDS: SPIRONOLACTONE 25 MG TAB PO SCH ×2 (07:26→15:49)
[2016-06-02] MEDS: ASPIRIN 81 MG ECTAB PO SCH (07:26)
[2016-06-02] MEDS: DOCUSATE SODIUM 100 MG CAP PO SCH ×2 (07:26→20:02)
[2016-06-02] MEDS: METOPROLOL SUCC 25MG EXT REL TAB PO SCH ×2 (07:26→20:01)
[2016-06-02 07:43] VITALS: BP 106/59; PULSE 60; TEMP 36.6; O2SAT 100
[2016-06-02] MEDS: FUROSEMIDE INJ 40 MG in SYRINGE 0 ML IV SCH (08:49)
[2016-06-02] MEDS: INSULIN ASPART 100 UNITS/ML 3 ML PEN SC SCH ×4 (08:49→19:58)
[2016-06-02] MEDS: AMIODARONE / D5W 200 ML IV SCH ×2 (08:51→19:58)
[2016-06-02 11:18] VITALS: BP 109/59; PULSE 58; TEMP 36.3; O2SAT 97
--- NOTE | 2016-06-02 12:13 | Progress Note ---
Internal Med Progress Note Date of Service: Jun 02, 2016. Provider Documentation: SUBJECTIVE: Patient is feeling better today. SOB improved. Cough + but no sputum production, leg/abdominal distension improved. Denies any chest pain, fever, chills, nausea, vomiting. Good urine output + On low dose IV Heparin OBJECTIVE: Vital Signs-as noted below Exam: General Appearance: AAOX2, No apparent distress, Head: normocephalic, atraumatic ENT: hearing grossly normal Neck: supple Respiratory/Chest: chest non-tender, no respiratory distress, no accessory muscle use, + crackles, + pertinent finding (no wheezing) Cardiovascular: regular rate, rhythm; Murmur + Abdomen/GI: Soft, distension- improved, normal bowel sounds, non tender, soft Extremities/Musculoskelatal: normal inspection, + pertinent finding (3+ pitting edema to bilat LE extending into thighs)- Improved slightly, sensitive to touch Neurologic/Psych: alert, normal mood/affect, oriented x 3 Lab data as noted below. ASSESSMENT & PLAN: ACUTE ON CHRONIC SYSTOLIC CHF EXACERBATION (Biventricular Right >Left)/ SEVERE CARDIOMYOPATHY WITH LVEF <15% : Slow improvement Pt presented with worsening LE edema, SOB and cough; h/o mod mitral regurg and systolic CHF on Lasix and metolazone from Dr Hollis office. -Clinically improved - SOB better, leg swelling down, diuresing well -IV Lasix 40 mg BID (Day 6); Spironolactone increased to 12.5 mg PO BID, Toprol increased to 12.5 mg PO BID on 05/29/16 -Troponin- 0.049,0.084, 0.094, Echo- LV- moderately dilated, severely reduced, septal/apical/severe global hypokinesis of left ventricle with EF <15%, LA- Mildly dilated, Mild-moderate MR, Moderate TR -Cardiology on board, appreciate inputs PLAN: Hold lasix today as creatinine going up and received IV lasix one dose in AM. Continue with spironolactone 12.5 mg PO BID. Monitor creatinine closely. TOMMY ON CKD STAGE 3 - Slight increase in creatinine today- 1.7 -baseline creatinine 1.4 . -Lasix mx as above -monitor prp closely while on Lasix and avoid nephrotoxic agents when able ATRIAL FIBRILLATION -- Patient is in and out of Atrial fibrillation -Low dose IV Heparin started by cardiology. In past was taken off xarelto (6 months ago) due to GI bleeding/anemia and thought to be at a higher risk of bleeding -Continue with Beta james- increased toprol to 12.5 mg PO BID -Started on IV Amiodarone on 06/02/[address] Honeycutt -Cardiology on board UTI, Klebsiella -On ciprofloxacin BID (Day 4) per c/s ANEMIA, CHRONIC : Likely iron deficiency. Had GI bleeding few months ago (no scopes done)- resolved spontaneously after stopping xarelto. -Ferritin/Iron low- Started her on Ferrous sulphate. No signs of GI bleeding -Monitor INSULIN-DEPENDENT DM 2 -Recent A1C 6.4 -cont Lantus -ISS , Accuchecks -monitor BSG AC HS CAD -NSTEMI 07/2015 s/p stent placement -Cont ASA, BB (toprol dose increased as above) and statin -Pt currently denies chest pain GERD -Cont ranitidine and PPI BID- changed to PO DYSLIPIDEMIA -Cont statin DVT PROPHYLAXIS -Heparin IV CODE STATUS -FULL CODE status per discussion with patient upon admission DISPO Continue with tele monitoring PT/OT ordered [facility] once medically stable- bed on hold Updated daughter by bedside. Vital Signs: Date Time Temp Pulse Resp B/P Pulse Ox O2 Delivery O2 Flow Rate FiO2 06/02/16 12:02 Nasal Cannula 2.0 06/02/16 11:18 36.3 58 25 109/59 97 3.0 06/02/16 08:01 Nasal Cannula 2.0 06/02/16 07:43 36.6 60 28 106/59 100 2.0 06/02/16 04:00 Nasal Cannula 2.0 06/02/16 04:00 36.8 62 20 112/56 100 Nasal Cannula 3.0 06/02/16 00:00 Nasal Cannula 2.0 06/02/16 00:00 37.0 64 18 115/66 98 Nasal Cannula 3.0 06/01/16 20:00 Nasal Cannula 2.0 06/01/16 19:30 36.8 65 24 108/85 99 Nasal Cannula 3.0 06/01/16 16:08 Nasal Cannula 2.0 06/01/16 15:10 36.5 66 33 102/53 100 Nasal Cannula 3.0 06/01/16 12:21 Nasal Cannula 2.0 Lab Results: Results Past 24 Hours Test 06/01/16 15:58 06/01/16 20:12 06/02/16 05:20 06/02/16 06:31 Range/Units Bedside Glucose 174 278 190 70-90 mg/dl Activated Partial Thromboplast Time 45.5 21.0-31.0 SECONDS Partial Thromboplastin Ratio 1.8 Sodium Level 136 136-145 mmol/L Potassium Level 4.2 3.5-5.1 mmol/L Chloride Level 94 98-107 mmol/L Carbon Dioxide Level 33 21-32 mmol/L Anion Gap 9.0 3-11 mmol/L Blood Urea Nitrogen 32 7-18 mg/dl Creatinine 1.70 0.60-1.20 mg/dl Est Creatinine Clear Calc Drug Dose 24.3 ml/min Estimated GFR () 30.9 Estimated GFR (Non- 26.6 BUN/Creatinine Ratio 18.9 10-20 Random Glucose 158 70-99 mg/dl Calcium Level 8.4 8.5-10.1 mg/dl Test 06/02/16 11:16 Range/Units Bedside Glucose 159 70-90 mg/dl
[2016-06-02 13:53] LABS: PARTIAL THROMBOPLASTIN RATIO 4.1
[2016-06-02] MEDS: HEPARIN 25,000 UNIT/500ML D5W 500 ML IV PRN ×2 (15:02→21:52)
[2016-06-02 15:05] VITALS: BP 102/62; PULSE 78; TEMP 36.8; O2SAT 98
[2016-06-02 19:05] VITALS: BP 114/59; PULSE 67; TEMP 36.9; O2SAT 98
[2016-06-02] MEDS: INSULIN GLARGINE SOLOSTAR 100 UNITS/ML 3 ML PEN SC SCH (19:57)
[2016-06-02] MEDS: SIMVASTATIN 20 MG TAB PO SCH (20:01)
[2016-06-02] MEDS: ALUMINUM/MAGNESIUM/SIMETH (MAALOX MAX) 30 ML UDC PO SCH (20:02)
[2016-06-02 21:31] LABS: PARTIAL THROMBOPLASTIN RATIO 1.6
[2016-06-02] MEDS ORDERED: HEPARIN IV BOLUS 4,500 UNIT in SYRINGE 0 ML IV ONE (22:00)
[2016-06-02] MEDS: ONDANSETRON INJ 2 MG/ML 2 ML VIAL IV PRN (23:38)
[2016-06-03] VITALS (9 sets, daily range): BP systolic 100–126; BP diastolic 50–85; PULSE 57–82; TEMP 36.2–36.5; O2SAT 91–99
[2016-06-03 04:06] LABS: HEMATOCRIT 31.6 % (37-47); MEAN CELL VOLUME 76.1 fL (80-100); MEAN CORPUSCULAR HEMOGLOBIN 24.6 pg (25-34); MEAN CORPUSCULAR HGB CONC 32.3 g/dl (32-36); MEAN PLATELET VOLUME 9.4 fL (7.4-10.4); PLATELET COUNT 141 K/uL (130-400); RED BLOOD COUNT 4.15 M/uL (4.2-5.4); WHITE BLOOD COUNT 6.54 K/uL (4.8-10.8)
[2016-06-03 04:23] LABS: BUN/CREATININE RATIO 18.2 (10-20); CALCIUM 8.3 mg/dl (8.5-10.1); CREATININE 1.8 mg/dl (0.60-1.20); POTASSIUM 4.5 mmol/L (3.5-5.1)
[2016-06-03 04:33] LABS: PARTIAL THROMBOPLASTIN RATIO 5.4
[2016-06-03] MEDS: CIPROFLOXACIN 250 MG TAB PO SCH (05:49)
[2016-06-03 06:18] LABS: PARTIAL THROMBOPLASTIN RATIO 2.6
[2016-06-03] MEDS: HEPARIN 25,000 UNIT/500ML D5W 500 ML IV PRN ×2 (06:27→14:33)
[2016-06-03] MEDS: INSULIN ASPART 100 UNITS/ML 3 ML PEN SC SCH ×4 (08:15→21:54)
[2016-06-03] MEDS: AMIODARONE / D5W 200 ML IV SCH (08:15)
[2016-06-03] MEDS: SPIRONOLACTONE 25 MG TAB PO SCH ×2 (08:24→18:33)
[2016-06-03] MEDS: PANTOprazole SOD 40 MG TAB PO SCH ×2 (08:25→21:56)
[2016-06-03] MEDS: ISOSORBIDE MONONITRATE 30 MG TABCR PO SCH (08:25)
[2016-06-03] MEDS: METOPROLOL SUCC 25MG EXT REL TAB PO SCH ×2 (08:26→21:53)
[2016-06-03] MEDS: DOCUSATE SODIUM 100 MG CAP PO SCH ×2 (08:26→21:53)
[2016-06-03] MEDS: ASPIRIN 81 MG ECTAB PO SCH (08:27)
[2016-06-03] MEDS: FERROUS SULFATE 325 MG TAB PO SCH (08:27)
[2016-06-03] MEDS: RANITIDINE HCL 150 MG TAB PO SCH ×2 (08:28→21:54)
[2016-06-03] MEDS: POTASSIUM CHLORIDE PWD 20 MEQ PACK PO SCH (08:28)
[2016-06-03] MEDS: POLYETHYLENE (MIRALAX) 17 GM PACK PO SCH (08:31)
--- NOTE | 2016-06-03 10:59 | Cardiology Follow-Up ---
Subjective Subjective Date of Service: Jun 03, 2016. Pt evaluation today including: conversation w/ patient, physical exam, chart review, lab review, review of studies, review of inpatient medication list Additional Details: Pt seen and examined, oob in chair, sleeping. States legs are still painful to the touch but otherwise feels well. Denies cp, sob, palpitations, lightheadedness or dizziness. Tele reviewed: alternating sinus with pac's and afib rate controlled Review of Systems Respiratory: + dyspnea on exertion, + shortness of breath, No cough, No dyspnea at rest, No hemoptysis, No problem reported, No see HPI, No sputum, No wheezing Cardiac: + PND, + edema, + orthopnea, No chest pain, No claudication, No palpitations, No problem reported, No see HPI Objective Vital Signs Last Vital Signs Documentation Date Time Temp Pulse Resp B/P Pulse Ox O2 Delivery O2 Flow Rate FiO2 06/03/16 07:44 36.3 61 24 126/67 96 Nasal Cannula 2.0 Physical Exam: General Appearance: WD/WN, no apparent distress Eyes: bilateral eyes EOMI, bilateral eyes PERRL, bilateral eyes normal inspection ENT: normal ENT inspection, TMs normal, pharynx normal, + pertinent finding ( somewhat hard of hearing) Neck: supple, no adenopathy, thyroid normal, no JVD, no carotid bruits, trachea midline Respiratory/Chest: chest non-tender, no respiratory distress, no accessory muscle use, + crackles, + rhonchi Cardiovascular: no JVD, no murmur, + irregularly irregular Abdomen: normal bowel sounds, non tender, soft, no organomegaly, no pulsatile mass Extremities: + calf tenderness, + inflammation, + pedal edema (+1 b/l pitting edema) Neurologic/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 acute decompensated systolic heart failure diuresed well does not examine as volume overloaded cont to hold lasix, follow volume status clinically 2. cad stable cont asa, simvastatin, toprol, imdur 3. atrial fibrillation paroxysmal will change amio to po cont heparin for now but not fci anticoagulation candidate secondary to unsteady gait and history of GI bleed 4. LE erythma concern for cellulitis will ask wound care to evaluate cont to monitor on tele
--- NOTE | 2016-06-03 12:07 | Progress Note ---
Medicine Progress Note Date & Time of Visit: Jun 03, 2016 at 11:58. Subjective patient seen resting in bedside chair states her appetite is poor today, reports some nausea last BM yesterday denies chest pain, dyspnea, palpitations, dizziness has mild leg pain no other symptoms Objective Last 8 Hrs Date Time Temp Pulse Resp B/P Pulse Ox O2 Delivery O2 Flow Rate FiO2 06/03/16 11:51 36.2 57 19 117/62 93 Nasal Cannula 2.0 06/03/16 08:00 96 Nasal Cannula 2.0 06/03/16 07:44 36.3 61 24 126/67 96 Nasal Cannula 2.0 06/03/16 04:00 36.5 64 22 111/63 98 Nasal Cannula 2.0 06/03/16 04:00 Nasal Cannula 2.0 Physical Exam: General- oriented x 2, not in distress, speaks in sentences with no effort Eyes- EOMI, anicteric Neck- supple, no JVD, no adenopathy Lungs- clear to auscultation b/l Heart- normal rate, regular rhythm; no murmurs Abdomen- normal bowel sounds, soft, nontender Extremities-grade 2 lower leg edema with moderate erythema, warmth, tenderness Neuro- alert, oriented x 2, no other gross deficits Skin- warm & dry Laboratory Results: Last 24 Hours Test 06/02/16 13:00 06/02/16 15:50 06/02/16 19:53 06/02/16 21:10 Activated Partial Thromboplast Time 107.8 SECONDS 40.7 SECONDS Partial Thromboplastin Ratio 4.1 1.6 Bedside Glucose 171 mg/dl 289 mg/dl Test 06/03/16 03:55 06/03/16 05:46 06/03/16 06:44 06/03/16 10:32 White Blood Count 6.54 K/uL Red Blood Count 4.15 M/uL Hemoglobin 10.2 g/dL Hematocrit 31.6 % Mean Corpuscular Volume 76.1 fL Mean Corpuscular Hemoglobin 24.6 pg Mean Corpuscular Hemoglobin Concent 32.3 g/dl RDW Standard Deviation 51.1 fL RDW Coefficient of Variation 18.5 % Platelet Count 141 K/uL Mean Platelet Volume 9.4 fL Activated Partial Thromboplast Time 141.0 SECONDS 67.1 SECONDS Partial Thromboplastin Ratio 5.4 2.6 Sodium Level 135 mmol/L Potassium Level 4.5 mmol/L Chloride Level 95 mmol/L Carbon Dioxide Level 36 mmol/L Anion Gap 4.0 mmol/L Blood Urea Nitrogen 33 mg/dl Creatinine 1.80 mg/dl Est Creatinine Clear Calc Drug Dose 22.9 ml/min Estimated GFR () 28.8 Estimated GFR (Non- 24.9 BUN/Creatinine Ratio 18.2 Random Glucose 150 mg/dl Calcium Level 8.3 mg/dl Bedside Glucose 145 mg/dl 218 mg/dl Test 06/03/16 11:40 Assessment & Plan ACUTE ON CHRONIC SYSTOLIC CHF EXACERBATION (Biventricular Right >Left)/ SEVERE CARDIOMYOPATHY WITH LVEF <15% : Pt presented with worsening LE edema, SOB and cough; h/o mod mitral regurg and systolic CHF on Lasix and metolazone from Dr Hollis office. -IV Lasix 40 mg BID Spironolactone increased to 12.5 mg PO BID, Toprol increased to 12.5 mg PO BID on 05/29/16 -Troponin- 0.049,0.084, 0.094, Echo- LV- moderately dilated, severely reduced, septal/apical/severe global hypokinesis of left ventricle with EF <15%, LA- Mildly dilated, Mild-moderate MR, Moderate TR -- Lasix IV on hold due to elevated Crea on Spironolactone -- monitor Cardio on board TOMMY ON CKD STAGE 3 - baseline creatinine 1.4 now 1.8 - hold Lasix ATRIAL FIBRILLATION -Low dose IV Heparin started by cardiology. In past was taken off xarelto (6 months ago) due to GI bleeding/anemia and thought to be at a higher risk of bleeding increased toprol to 12.5 mg PO BID -Started on IV Amiodarone on 06/02/16--> changed to PO -Cardiology on board UTI, Klebsiella -On ciprofloxacin BID (Day 07/25) per c/s will be changed to Cefuroxime Day 1 to cover possible Lower Leg Cellulitis as well Possible Lower Leg Cellulitis start Cefuroxime Day 1 wound care consult ANEMIA, CHRONIC : Likely iron deficiency - History of GI bleeding few months ago (no scopes done)- resolved spontaneously after stopping xarelto. -Ferritin/Iron low- Started her on Ferrous sulphate. No signs of GI bleeding - Hg stable INSULIN-DEPENDENT DM 2 -Recent A1C 6.4 -cont Lantus -ISS , Accuchecks -monitor BSG AC HS CAD -NSTEMI 07/2015 s/p stent placement -Cont ASA, BB (toprol dose increased as above) and statin - stable GERD -Cont ranitidine and PPI BID- changed to PO DYSLIPIDEMIA -Cont statin DVT PROPHYLAXIS -Heparin IV CODE STATUS -FULL CODE status per discussion with patient upon admission DISPO Continue with tele monitoring PT/OT ordered Plan is back to [facility] once medically stable- bed on hold Current Inpatient Medications: Current Inpatient Medications Medications (Trade) Dose Ordered Sig/Brock Route Start Time Stop Time Status Last Admin Dose Admin Acetaminophen (Tylenol Tab) 650 mg Q4H PRN PO 05/28/16 11:30 06/27/16 11:29 05/29/16 00:48 650 MG Ondansetron HCl (Zofran Inj) 4 mg Q6H PRN IV 05/28/16 11:30 06/27/16 11:29 06/02/16 23:38 4 MG Nitroglycerin (Nitrostat Tab) 0.4 mg UD PRN SL 05/28/16 11:30 06/27/16 11:29 Insulin Aspart (novoLOG ASPART) SLIDING SCALE If C... ACHS SC 05/28/16 16:15 06/27/16 16:14 06/03/16 08:15 4 UNITS Glucose (Glucose 40% Gel) 15-30 GRAMS 15 GRAMS... UD PRN PO 05/28/16 11:45 06/27/16 11:44 Glucose (Glucose Chew Tab) 4-8 Tablets 4 Tabl... UD PRN PO 05/28/16 11:45 06/27/16 11:44 Dextrose (Dextrose 50% 50ML Syringe) 25-50ML OF 50% DW IV FOR... UD PRN IV 05/28/16 11:45 06/27/16 11:44 Glucagon (Glucagon Inj) 1 mg UD PRN SQ 05/28/16 11:45 06/27/16 11:44 Al Hydrox/Mg Hydrox/Simethicone (Maalox Max Susp) 30 ml HS PO 05/28/16 21:00 06/27/16 20:59 Aspirin (Ecotrin Tab) 81 mg QAM PO 05/29/16 09:00 06/28/16 08:59 3/14/17 08:27 81 MG Docusate Sodium (coLACE CAP) 100 mg BID PO 05/28/16 21:00 06/27/16 20:59 06/03/16 08:26 100 MG Acetaminophen/ Hydrocodone Bitart ([place] 5/325 Tab) 1 tab Q4 PRN PO 05/28/16 11:45 06/11/16 11:44 Insulin Glargine (Lantus Solostar Pen) 10 unit QPM SC 05/28/16 21:00 06/27/16 20:59 06/02/16 19:57 10 UNIT Potassium Chloride (Klor-Con Pwd) 20 meq DAILY PO 05/29/16 09:00 06/28/16 08:59 06/03/16 08:28 20 MEQ Ranitidine HCl (zANTac TAB) 150 mg BID PO 05/28/16 21:00 06/27/16 20:59 06/03/16 08:28 150 MG Simvastatin (Zocor Tab) 20 mg PM PO 05/29/16 21:00 06/28/16 20:59 06/02/16 20:01 20 MG Polyethylene (Miralax Powder Packet) 17 gm DAILY PO 05/29/16 09:00 06/28/16 08:59 06/03/16 08:31 17 GM Isosorbide Mononitrate 30 mg 30 mg DAILY PO 05/29/16 09:00 06/28/16 08:59 06/03/16 08:25 30 MG Heparin Sodium/ Dextrose (Heparin 25,000 Unit/500ml D5W) 500 ml @ 10 mls/hr Q24H PRN IV 05/29/16 02:00 06/28/16 01:59 06/03/16 06:27 10 MLS/HR Pantoprazole Sodium (Protonix Tab) 40 mg BID PO 05/29/16 21:00 06/28/16 20:59 06/03/16 08:25 40 MG Spironolactone (Aldactone Tab) 12.5 mg BID17 PO 05/29/16 17:00 06/28/16 16:59 06/03/16 08:24 12.5 MG Metoprolol Succinate (Toprol Xl Tab) 12.5 mg BID PO 05/29/16 21:00 06/28/16 20:59 06/03/16 08:26 12.5 MG Ferrous Sulfate (Feosol Tab) 325 mg QAM PO 05/30/16 09:00 06/29/16 08:59 06/03/16 08:27 325 MG Ciprofloxacin (Ciprofloxacin Tab) 250 mg Q12H PO 05/29/16 18:00 06/03/16 17:59 06/03/16 05:49 250 MG Amiodarone HCl (Cordarone Tab) 200 mg BID PO 06/03/16 21:00 07/03/16 20:59
[2016-06-03 12:13] LABS: PARTIAL THROMBOPLASTIN RATIO 1.6
[2016-06-03] MEDS ORDERED: [UNRECOGNIZED DRUG - REMARK] PRN (13:00)
[2016-06-03] MEDS: ACETAMINOPHEN 325 MG TAB PO PRN (13:05)
[2016-06-03] MEDS ORDERED: HEPARIN IV BOLUS 4,500 UNIT in SYRINGE 0 ML IV ONE (13:15)
[2016-06-03] MEDS ORDERED: CEFUROXIME AXETIL 500 MG TAB PO ONE (13:30)
[2016-06-03 15:31] LABS: BASO % 0.6 %; BASO ABS # 0.04 K/uL (0-0.2); EOS % 2.3 %; HEMATOCRIT 30.4 % (37-47); IG% 0.2 %; LYMPH % 17.6 %; LYMPH ABS # 1.15 K/uL (1.2-3.4); MEAN CELL VOLUME 77.7 fL (80-100); MEAN CORPUSCULAR HEMOGLOBIN 25.1 pg (25-34); MEAN PLATELET VOLUME 9.5 fL (7.4-10.4); MONO % 12.7 %; NEUT % 66.6 %; PLATELET COUNT 139 K/uL (130-400); RED BLOOD COUNT 3.91 M/uL (4.2-5.4); WHITE BLOOD COUNT 6.55 K/uL (4.8-10.8)
[2016-06-03 15:36] LABS: COMPLETE YES; MEAN CORPUSCULAR HGB CONC 32.2 g/dl (32-36)
--- NOTE | 2016-06-03 15:41 | DIAGNOSTIC IMAGING REPORT ---
CT OF THE HEAD WITHOUT CONTRAST CLINICAL HISTORY: Altered mental status. Evaluate for cerebrovascular accident. COMPARISON STUDY: No previous studies for comparison. CT DOSE: 2174.50 mGy.cm TECHNIQUE: Helical axial images of the head were obtained without IV contrast. Automated exposure control was utilized for the study. FINDINGS: This exam is mildly compromised by motion artifact. No acute intracranial hemorrhage, midline shift or mass effect is present. Ventricular system is normal. The basilar cisterns are patent. There are no extra axial collections. White matter hypodensities likely reflect small vessel disease. There are no findings to suggest acute dural sinus thrombosis or acute territorial infarct. Visualized portions of the sinuses and mastoid air cells are clear. There are no significant calvarial abnormalities. IMPRESSION: No acute intracranial findings. Findings discussed with Dr. Santana at 3:15 PM. Electronically signed by: Chris Jurado M.D. 06/03/2016 3:40 PM Dictated Date/Time: 06/03/2016 3:05 PM
[2016-06-03 15:47] LABS: ARTERIAL BLOOD GAS HCO3 30 mmol/L (19-24); ARTERIAL BLOOD GAS PO2 135 mmHg (80-95); ARTERIAL BLOOD GAS pH 7.49 (7.35-7.45)
[2016-06-03 15:48] LABS: ALLEN TEST POS (POS); ARTERIAL BLOOD GAS BASE EXCESS 5.7 mEq/L (-9-1.8); O2 ADMINISTRATION 2L O2
[2016-06-03 15:49] LABS: ALB/GLOB RATIO 0.8 (0.9-2); BUN/CREATININE RATIO 18.6 (10-20); CALCIUM 8.6 mg/dl (8.5-10.1); CREATININE 1.7 mg/dl (0.60-1.20); MAGNESIUM 2.3 mg/dl (1.8-2.4); POTASSIUM 4.3 mmol/L (3.5-5.1)
[2016-06-03 15:58] LABS: INR 1.3 (0.9-1.1); PROTHROMBIN TIME (PATIENT) 14.6 SECONDS (9.0-12.0)
[2016-06-03 15:59] LABS: PARTIAL THROMBOPLASTIN RATIO > 11.0
[2016-06-03] MEDS ORDERED: PHARMACIST DISCHARGE MED REC CONSULT PRN (16:15)
--- NOTE | 2016-06-03 16:20 | Progress Note ---
Medicine Progress Note Date & Time of Visit: Jun 03, 2016 at 16:21. Subjective delayed entry date of service as noted above around 240pm, RN called me as patient was having altered mental status on exam, patient was awake, alert, but appears anxious, not following commands, tries to speak but is unable to moves all extremities equally- no sedatives, narcotics, BSG normal stroke alert called CT head: no bleed, acute CVA Telestroke Conference performed with Dr. Ellsworth from [place] agree with possible ischemic CVA not TPA candidate as patient's PTT is supratherapeutic recommend additional Mg , goal 2.5-3--> Mg 1g IV given small volume of IV fluids--> NSS 250cc given resume Heparin according to protocol, continue Aspirin Carotid US at around 345, patient started to become conversant, alert, oriented x [address] Ellsworth updated continue above recommendations a/p> POSSIBLE TIA in the Setting of A fib - management as noted above Objective Last 8 Hrs Date Time Temp Pulse Resp B/P Pulse Ox O2 Delivery O2 Flow Rate FiO2 06/03/16 12:00 95 Nasal Cannula 2.0 06/03/16 11:51 36.2 57 19 117/62 93 Nasal Cannula 2.0 Laboratory Results: Last 24 Hours Test 06/02/16 19:53 06/02/16 21:10 06/03/16 03:55 06/03/16 05:46 Bedside Glucose 289 mg/dl Activated Partial Thromboplast Time 40.7 SECONDS 141.0 SECONDS 67.1 SECONDS Partial Thromboplastin Ratio 1.6 5.4 2.6 White Blood Count 6.54 K/uL Red Blood Count 4.15 M/uL Hemoglobin 10.2 g/dL Hematocrit 31.6 % Mean Corpuscular Volume 76.1 fL Mean Corpuscular Hemoglobin 24.6 pg Mean Corpuscular Hemoglobin Concent 32.3 g/dl RDW Standard Deviation 51.1 fL RDW Coefficient of Variation 18.5 % Platelet Count 141 K/uL Mean Platelet Volume 9.4 fL Sodium Level 135 mmol/L Potassium Level 4.5 mmol/L Chloride Level 95 mmol/L Carbon Dioxide Level 36 mmol/L Anion Gap 4.0 mmol/L Blood Urea Nitrogen 33 mg/dl Creatinine 1.80 mg/dl Est Creatinine Clear Calc Drug Dose 22.9 ml/min Estimated GFR () 28.8 Estimated GFR (Non- 24.9 BUN/Creatinine Ratio 18.2 Random Glucose 150 mg/dl Calcium Level 8.3 mg/dl Test 06/03/16 06:44 06/03/16 10:32 06/03/16 11:40 06/03/16 14:42 Bedside Glucose 145 mg/dl 218 mg/dl 199 mg/dl Activated Partial Thromboplast Time 40.4 SECONDS Partial Thromboplastin Ratio 1.6 Test 06/03/16 15:11 06/03/16 16:11 White Blood Count 6.55 K/uL Red Blood Count 3.91 M/uL Hemoglobin 9.8 g/dL Hematocrit 30.4 % Mean Corpuscular Volume 77.7 fL Mean Corpuscular Hemoglobin 25.1 pg Mean Corpuscular Hemoglobin Concent 32.2 g/dl Platelet Count 139 K/uL Mean Platelet Volume 9.5 fL Neutrophils (%) (Auto) 66.6 % Lymphocytes (%) (Auto) 17.6 % Monocytes (%) (Auto) 12.7 % Eosinophils (%) (Auto) 2.3 % Basophils (%) (Auto) 0.6 % Neutrophils # (Auto) 4.37 K/uL Lymphocytes # (Auto) 1.15 K/uL Monocytes # (Auto) 0.83 K/uL Eosinophils # (Auto) 0.15 K/uL Basophils # (Auto) 0.04 K/uL RDW Standard Deviation 52.0 fL RDW Coefficient of Variation 18.7 % Immature Granulocyte % (Auto) 0.2 % Immature Granulocyte # (Auto) 0.01 K/uL Prothrombin Time 14.6 SECONDS Prothromb Time International Ratio 1.3 Activated Partial Thromboplast Time > 300.0 SECONDS Partial Thromboplastin Ratio > 11.0 Arterial Blood pH 7.49 Arterial Blood Partial Pressure CO2 40 mmHg Arterial Blood Partial Pressure O2 135 mmHg Arterial Blood HCO3 30 mmol/L Arterial Blood Oxygen Saturation 99.0 % Arterial Blood Base Excess 5.7 mEq/L Arterial Blood Gas Delivery 2L O2 Chance Test POS Sodium Level 134 mmol/L Potassium Level 4.3 mmol/L Chloride Level 94 mmol/L Carbon Dioxide Level 32 mmol/L Anion Gap 8.0 mmol/L Blood Urea Nitrogen 32 mg/dl Creatinine 1.70 mg/dl Est Creatinine Clear Calc Drug Dose 24.2 ml/min Estimated GFR () 30.9 Estimated GFR (Non- 26.6 BUN/Creatinine Ratio 18.6 Random Glucose 144 mg/dl Calcium Level 8.6 mg/dl Magnesium Level 2.3 mg/dl Total Bilirubin 0.5 mg/dl Aspartate Amino Transf (AST/SGOT) 19 U/L Alanine Aminotransferase (ALT/SGPT) 19 U/L Alkaline Phosphatase 74 U/L Total Protein 6.4 gm/dl Albumin 2.8 gm/dl Globulin 3.6 gm/dl Albumin/Globulin Ratio 0.8 Assessment & Plan Current Inpatient Medications: Current Inpatient Medications Medications (Trade) Dose Ordered Sig/Brock Route Start Time Stop Time Status Last Admin Dose Admin Acetaminophen (Tylenol Tab) 650 mg Q4H PRN PO 05/28/16 11:30 06/27/16 11:29 06/03/16 13:05 650 MG Ondansetron HCl (Zofran Inj) 4 mg Q6H PRN IV 05/28/16 11:30 06/27/16 11:29 06/02/16 23:38 4 MG Nitroglycerin (Nitrostat Tab) 0.4 mg UD PRN SL 05/28/16 11:30 06/27/16 11:29 Insulin Aspart (novoLOG ASPART) SLIDING SCALE If C... ACHS SC 05/28/16 16:15 06/27/16 16:14 06/03/16 12:21 5 UNITS Glucose (Glucose 40% Gel) 15-30 GRAMS 15 GRAMS... UD PRN PO 05/28/16 11:45 06/27/16 11:44 Glucose (Glucose Chew Tab) 4-8 Tablets 4 Tabl... UD PRN PO 05/28/16 11:45 06/27/16 11:44 Dextrose (Dextrose 50% 50ML Syringe) 25-50ML OF 50% DW IV FOR... UD PRN IV 05/28/16 11:45 06/27/16 11:44 Glucagon (Glucagon Inj) 1 mg UD PRN SQ 05/28/16 11:45 06/27/16 11:44 Al Hydrox/Mg Hydrox/Simethicone (Maalox Max Susp) 30 ml HS PO 05/28/16 21:00 06/27/16 20:59 Aspirin (Ecotrin Tab) 81 mg QAM PO 05/29/16 09:00 06/28/16 08:59 06/03/16 08:27 81 MG Docusate Sodium (coLACE CAP) 100 mg BID PO 05/28/16 21:00 06/27/16 20:59 06/03/16 08:26 100 MG Insulin Glargine (Lantus Solostar Pen) 10 unit QPM SC 05/28/16 21:00 06/27/16 20:59 06/02/16 19:57 10 UNIT Potassium Chloride (Klor-Con Pwd) 20 meq DAILY PO 05/29/16 09:00 06/28/16 08:59 06/03/16 08:28 20 MEQ Ranitidine HCl (zANTac TAB) 150 mg BID PO 05/28/16 21:00 06/27/16 20:59 06/03/16 08:28 150 MG Simvastatin (Zocor Tab) 20 mg PM PO 05/29/16 21:00 06/28/16 20:59 06/02/16 20:01 20 MG Polyethylene (Miralax Powder Packet) 17 gm DAILY PO 05/29/16 09:00 06/28/16 08:59 06/03/16 08:31 17 GM Isosorbide Mononitrate 30 mg 30 mg DAILY PO 05/29/16 09:00 06/28/16 08:59 06/03/16 08:25 30 MG Heparin Sodium/ Dextrose (Heparin 25,000 Unit/500ml D5W) 500 ml @ 13 mls/hr Q24H PRN IV 05/29/16 02:00 06/28/16 01:59 06/03/16 14:33 13 MLS/HR Pantoprazole Sodium (Protonix Tab) 40 mg BID PO 05/29/16 21:00 06/28/16 20:59 06/03/16 08:25 40 MG Metoprolol Succinate (Toprol Xl Tab) 12.5 mg BID PO 05/29/16 21:00 06/28/16 20:59 06/03/16 08:26 12.5 MG Ferrous Sulfate (Feosol Tab) 325 mg QAM PO 05/30/16 09:00 06/29/16 08:59 06/03/16 08:27 325 MG Ciprofloxacin (Ciprofloxacin Tab) 250 mg Q12H PO 05/29/16 18:00 06/03/16 17:59 06/03/16 05:49 250 MG Amiodarone HCl (Cordarone Tab) 200 mg BID PO 06/03/16 21:00 07/03/16 20:59 Spironolactone (Aldactone Tab) 12.5 mg BID17 PO 06/03/16 17:00 07/03/16 16:59 Miscellaneous Information 1 ea UD PRN N/A 06/03/16 13:00 07/03/16 12:59 Cefuroxime Axetil 500 mg 500 mg QAM PO 06/04/16 09:00 06/13/16 08:59 Magnesium Sulfate/ Prmx (Magnesium Sulfate/Premixed D5W) 100 ml @ 100 mls/hr TODAY@1630 ONCE IV 06/03/16 16:30 06/03/16 17:29
[2016-06-03] MEDS ORDERED: MAGNESIUM SULFATE 1GM / D5W 1 GM in PREMIXED IN D5W 100 ML IV ONE (16:30)
[2016-06-03 18:22] LABS: PARTIAL THROMBOPLASTIN RATIO 2.6
[2016-06-03] MEDS: ALUMINUM/MAGNESIUM/SIMETH (MAALOX MAX) 30 ML UDC PO SCH (21:00)
[2016-06-03] MEDS: SIMVASTATIN 20 MG TAB PO SCH (21:54)
[2016-06-03] MEDS: AMIODARONE 200 MG TAB PO SCH (21:55)
[2016-06-03] MEDS: INSULIN GLARGINE SOLOSTAR 100 UNITS/ML 3 ML PEN SC SCH (21:58)
--- NOTE | 2016-06-03 23:04 | DIAGNOSTIC IMAGING REPORT ---
ULTRASOUND OF THE CAROTID ARTERIES CLINICAL HISTORY: Change in mental status. COMPARISON STUDY: No priors. TECHNIQUE: Real-time, grayscale, and color Doppler sonography of the carotid arteries is performed. Images are reviewed in the transverse and longitudinal planes. FINDINGS: Blood pressures were not assessed due to portable examination. The carotid arteries are patent bilaterally and demonstrate antegrade flow. There is moderate echogenic shadowing atherosclerotic plaque seen bilaterally. Normal doppler arterial waveforms are seen throughout. The cardiac pulsations appear irregularly irregular on the tracings. Velocity measurements are listed below. Common carotid peak systolic velocity (cm/sec): RIGHT: 35 LEFT: 73 ICA proximal peak systolic velocity (cm/sec): RIGHT: 49 LEFT: 100 ICA mid peak systolic velocity (cm/sec): RIGHT: 50 LEFT: 92 ICA distal peak systolic velocity (cm/sec): RIGHT: 45 LEFT: 72 ICA/CC peak systolic ratio: RIGHT: 1.4 LEFT: 1.4 Antegrade flow was shown in the vertebral arteries. The external carotid arteries are patent. IMPRESSION: 1. Atherosclerotic plaque with no sonographic evidence of hemodynamically significant stenosis in the right or left carotid arterial system. 2. Antegrade flow is shown in the vertebral arteries. 3. The cardiac pulsations appear irregularly irregular. Correlate clinically and with EKG for evidence of atrial fibrillation/arrhythmia. Electronically signed by: Anish Guerra M.D. 06/03/2016 11:02 PM Dictated Date/Time: 06/03/2016 11:00 PM
[2016-06-04] VITALS (8 sets, daily range): BP systolic 102–136; BP diastolic 56–86; PULSE 61–73; TEMP 36.4–36.8; O2SAT 95–100
[2016-06-04 01:19] LABS: PARTIAL THROMBOPLASTIN RATIO 1.6
[2016-06-04] MEDS: HEPARIN 25,000 UNIT/500ML D5W 500 ML IV PRN ×2 (01:42→17:18)
[2016-06-04] MEDS ORDERED: HEPARIN IV BOLUS 4,500 UNIT in SYRINGE 0 ML IV ONE ×2 (01:45→17:00)
[2016-06-04 07:40] LABS: BASO % 0.5 %; BASO ABS # 0.03 K/uL (0-0.2); COMPLETE YES; EOS % 5.1 %; HEMATOCRIT 30.4 % (37-47); IG% 0.2 %; LYMPH % 16.1 %; LYMPH ABS # 0.89 K/uL (1.2-3.4); MEAN CELL VOLUME 77.6 fL (80-100); MEAN CORPUSCULAR HGB CONC 32.2 g/dl (32-36); MONO % 16.1 %; PLATELET COUNT 133 K/uL (130-400); RED BLOOD COUNT 3.92 M/uL (4.2-5.4); WHITE BLOOD COUNT 5.54 K/uL (4.8-10.8)
[2016-06-04] MEDS: INSULIN ASPART 100 UNITS/ML 3 ML PEN SC SCH ×4 (07:57→21:31)
[2016-06-04] MEDS: ISOSORBIDE MONONITRATE 30 MG TABCR PO SCH (07:58)
[2016-06-04] MEDS: POLYETHYLENE (MIRALAX) 17 GM PACK PO SCH (07:58)
[2016-06-04] MEDS: PANTOprazole SOD 40 MG TAB PO SCH ×2 (07:58→21:00)
[2016-06-04] MEDS: POTASSIUM CHLORIDE PWD 20 MEQ PACK PO SCH (07:58)
[2016-06-04] MEDS: CEFUROXIME AXETIL 500 MG TAB PO SCH (07:59)
[2016-06-04] MEDS: SPIRONOLACTONE 25 MG TAB PO SCH ×2 (07:59→17:59)
[2016-06-04 08:00] LABS: PARTIAL THROMBOPLASTIN RATIO 4.2
[2016-06-04] MEDS: RANITIDINE HCL 150 MG TAB PO SCH ×2 (08:00→21:30)
[2016-06-04] MEDS: AMIODARONE 200 MG TAB PO SCH ×2 (08:00→21:00)
[2016-06-04] MEDS: FERROUS SULFATE 325 MG TAB PO SCH (08:00)
[2016-06-04 08:07] LABS: BUN/CREATININE RATIO 19.9 (10-20); CALCIUM 8.5 mg/dl (8.5-10.1); CREATININE 1.6 mg/dl (0.60-1.20); MAGNESIUM 2.6 mg/dl (1.8-2.4); POTASSIUM 4.4 mmol/L (3.5-5.1)
[2016-06-04] MEDS: ASPIRIN 81 MG ECTAB PO SCH (08:09)
[2016-06-04] MEDS: METOPROLOL SUCC 25MG EXT REL TAB PO SCH ×2 (08:09→21:30)
[2016-06-04] MEDS: DOCUSATE SODIUM 100 MG CAP PO SCH ×2 (08:09→21:00)
[2016-06-04] MEDS: ACETAMINOPHEN 325 MG TAB PO PRN (10:35)
--- NOTE | 2016-06-04 12:36 | Progress Note ---
Medicine Progress Note Date & Time of Visit: Jun 04, 2016 at 12:28. Subjective patient seen sitting up in chair, having lunch no recurrence of aphasia or other neuro symptoms denies dyspnea, chest pain, cough no leg pain no other symptoms Objective Last 8 Hrs Date Time Temp Pulse Resp B/P Pulse Ox O2 Delivery O2 Flow Rate FiO2 06/04/16 12:00 Nasal Cannula 2.5 06/04/16 11:43 36.5 66 16 129/66 96 Nasal Cannula 2.0 06/04/16 08:00 Nasal Cannula 2.5 06/04/16 07:47 36.5 67 18 123/57 95 Nasal Cannula 2.0 Physical Exam: General- oriented x 2, not in distress, speaks in sentences with no effort Eyes- anicteric Neck- no JVD, no adenopathy Lungs- clear to auscultation , no rales/wheezes bilaterally Heart- normal rate, regular rhythm; no murmurs Abdomen- normal bowel sounds, soft, nontender Extremities-grade 2 lower leg edema with mild erythema, warmth, tenderness Neuro- alert, oriented x 2, no other gross deficits Skin- warm & dry Laboratory Results: Last 24 Hours Test 06/03/16 14:42 06/03/16 15:11 06/03/16 16:16 06/03/16 16:34 Bedside Glucose 199 mg/dl 114 mg/dl White Blood Count 6.55 K/uL Red Blood Count 3.91 M/uL Hemoglobin 9.8 g/dL Hematocrit 30.4 % Mean Corpuscular Volume 77.7 fL Mean Corpuscular Hemoglobin 25.1 pg Mean Corpuscular Hemoglobin Concent 32.2 g/dl Platelet Count 139 K/uL Mean Platelet Volume 9.5 fL Neutrophils (%) (Auto) 66.6 % Lymphocytes (%) (Auto) 17.6 % Monocytes (%) (Auto) 12.7 % Eosinophils (%) (Auto) 2.3 % Basophils (%) (Auto) 0.6 % Neutrophils # (Auto) 4.37 K/uL Lymphocytes # (Auto) 1.15 K/uL Monocytes # (Auto) 0.83 K/uL Eosinophils # (Auto) 0.15 K/uL Basophils # (Auto) 0.04 K/uL RDW Standard Deviation 52.0 fL RDW Coefficient of Variation 18.7 % Immature Granulocyte % (Auto) 0.2 % Immature Granulocyte # (Auto) 0.01 K/uL Prothrombin Time 14.6 SECONDS Prothromb Time International Ratio 1.3 Activated Partial Thromboplast Time > 300.0 SECONDS 102.8 SECONDS Partial Thromboplastin Ratio > 11.0 4.0 Arterial Blood pH 7.49 Arterial Blood Partial Pressure CO2 40 mmHg Arterial Blood Partial Pressure O2 135 mmHg Arterial Blood HCO3 30 mmol/L Arterial Blood Oxygen Saturation 99.0 % Arterial Blood Base Excess 5.7 mEq/L Arterial Blood Gas Delivery 2L O2 Chance Test POS Sodium Level 134 mmol/L Potassium Level 4.3 mmol/L Chloride Level 94 mmol/L Carbon Dioxide Level 32 mmol/L Anion Gap 8.0 mmol/L Blood Urea Nitrogen 32 mg/dl Creatinine 1.70 mg/dl Est Creatinine Clear Calc Drug Dose 24.2 ml/min Estimated GFR () 30.9 Estimated GFR (Non- 26.6 BUN/Creatinine Ratio 18.6 Random Glucose 144 mg/dl Calcium Level 8.6 mg/dl Magnesium Level 2.3 mg/dl Total Bilirubin 0.5 mg/dl Aspartate Amino Transf (AST/SGOT) 19 U/L Alanine Aminotransferase (ALT/SGPT) 19 U/L Alkaline Phosphatase 74 U/L Total Protein 6.4 gm/dl Albumin 2.8 gm/dl Globulin 3.6 gm/dl Albumin/Globulin Ratio 0.8 Test 06/03/16 17:45 06/03/16 21:20 06/04/16 00:52 06/04/16 06:55 Activated Partial Thromboplast Time 67.8 SECONDS 40.9 SECONDS Partial Thromboplastin Ratio 2.6 1.6 Bedside Glucose 115 mg/dl 115 mg/dl Test 06/04/16 07:33 06/04/16 11:27 White Blood Count 5.54 K/uL Red Blood Count 3.92 M/uL Hemoglobin 9.8 g/dL Hematocrit 30.4 % Mean Corpuscular Volume 77.6 fL Mean Corpuscular Hemoglobin 25.0 pg Mean Corpuscular Hemoglobin Concent 32.2 g/dl Platelet Count 133 K/uL Mean Platelet Volume 10.0 fL Neutrophils (%) (Auto) 62.0 % Lymphocytes (%) (Auto) 16.1 % Monocytes (%) (Auto) 16.1 % Eosinophils (%) (Auto) 5.1 % Basophils (%) (Auto) 0.5 % Neutrophils # (Auto) 3.44 K/uL Lymphocytes # (Auto) 0.89 K/uL Monocytes # (Auto) 0.89 K/uL Eosinophils # (Auto) 0.28 K/uL Basophils # (Auto) 0.03 K/uL RDW Standard Deviation 52.2 fL RDW Coefficient of Variation 18.6 % Immature Granulocyte % (Auto) 0.2 % Immature Granulocyte # (Auto) 0.01 K/uL Activated Partial Thromboplast Time 109.9 SECONDS Partial Thromboplastin Ratio 4.2 Sodium Level 133 mmol/L Potassium Level 4.4 mmol/L Chloride Level 96 mmol/L Carbon Dioxide Level 30 mmol/L Anion Gap 7.0 mmol/L Blood Urea Nitrogen 32 mg/dl Creatinine 1.60 mg/dl Est Creatinine Clear Calc Drug Dose 25.8 ml/min Estimated GFR () 33.2 Estimated GFR (Non- 28.7 BUN/Creatinine Ratio 19.9 Random Glucose 117 mg/dl Calcium Level 8.5 mg/dl Magnesium Level 2.6 mg/dl Bedside Glucose 210 mg/dl Assessment & Plan ACUTE ON CHRONIC SYSTOLIC CHF EXACERBATION (Biventricular Right >Left)/ SEVERE CARDIOMYOPATHY WITH LVEF <15% : Pt presented with worsening LE edema, SOB and cough; h/o mod mitral regurg and systolic CHF on Lasix and metolazone from Dr Hollis office. -IV Lasix 40 mg BID Spironolactone increased to 12.5 mg PO BID, Toprol increased to 12.5 mg PO BID on 05/29/16 -Troponin- 0.049,0.084, 0.094, Echo- LV- moderately dilated, severely reduced, septal/apical/severe global hypokinesis of left ventricle with EF <15%, LA- Mildly dilated, Mild-moderate MR, Moderate TR -- Lasix IV on hold due to elevated Crea on Spironolactone -- monitor Cardio on board TOMMY ON CKD STAGE 3 - baseline creatinine 1.4 now 1.6 - Lasix on Hold ATRIAL FIBRILLATION - In past was taken off xarelto (6 months ago) due to GI bleeding/anemia and thought to be at a higher risk of bleeding -Low dose IV Heparin started increased toprol to 12.5 mg PO BID IV Amiodarone on 06/02/16--> changed to PO -Cardiology on board POSSIBLE TIA in the setting of Atrial Fibrillation - (+) aphasia lasting for about an hour yesterday CT head: no bleed, no new CVA Telestroke conference performed- not a tpa candidate, recommend to resume Heparin and continue Aspirin Carotid US: no significant stenosis - Neurology consulted UTI, Klebsiella -On ciprofloxacin BID (Day 07/25) per c/s changed to Cefuroxime Day 2 to cover possible Lower Leg Cellulitis as well Possible Lower Leg Cellulitis Cefuroxime Day 2 wound care consult -- improving ANEMIA, CHRONIC : Likely iron deficiency - History of GI bleeding few months ago, requiring blood transfusion, declined EGD/Colonoscopy- resolved spontaneously after stopping xarelto. -Ferritin/Iron low- Started her on Ferrous sulphate - Hg stable INSULIN-DEPENDENT DM 2 -Recent A1C 6.4 -cont Lantus -ISS , Accuchecks -monitor BSG AC HS CAD -NSTEMI 07/2015 s/p stent placement -Cont ASA, BB (toprol dose increased as above) and statin - stable GERD -Cont ranitidine and PPI BID- changed to PO DYSLIPIDEMIA -Cont statin DVT PROPHYLAXIS -Heparin IV CODE STATUS -FULL CODE status per discussion with patient upon admission DISPO Continue with tele monitoring PT/OT ordered Plan is back to [facility] once medically stable- bed on hold Current Inpatient Medications: Current Inpatient Medications Medications (Trade) Dose Ordered Sig/Brock Route Start Time Stop Time Status Last Admin Dose Admin Acetaminophen (Tylenol Tab) 650 mg Q4H PRN PO 05/28/16 11:30 06/27/16 11:29 06/04/16 10:35 650 MG Ondansetron HCl (Zofran Inj) 4 mg Q6H PRN IV 05/28/16 11:30 06/27/16 11:29 06/02/16 23:38 4 MG Nitroglycerin (Nitrostat Tab) 0.4 mg UD PRN SL 05/28/16 11:30 06/27/16 11:29 Insulin Aspart (novoLOG ASPART) SLIDING SCALE If C... ACHS SC 05/28/16 16:15 06/27/16 16:14 06/04/16 11:59 3 UNITS Glucose (Glucose 40% Gel) 15-30 GRAMS 15 GRAMS... UD PRN PO 05/28/16 11:45 06/27/16 11:44 Glucose (Glucose Chew Tab) 4-8 Tablets 4 Tabl... UD PRN PO 05/28/16 11:45 06/27/16 11:44 Dextrose (Dextrose 50% 50ML Syringe) 25-50ML OF 50% DW IV FOR... UD PRN IV 05/28/16 11:45 06/27/16 11:44 Glucagon (Glucagon Inj) 1 mg UD PRN SQ 05/28/16 11:45 06/27/16 11:44 Al Hydrox/Mg Hydrox/Simethicone (Maalox Max Susp) 30 ml HS PO 05/28/16 21:00 06/27/16 20:59 Aspirin (Ecotrin Tab) 81 mg QAM PO 05/29/16 09:00 06/28/16 08:59 06/04/16 08:09 81 MG Docusate Sodium (coLACE CAP) 100 mg BID PO 05/28/16 21:00 06/27/16 20:59 06/04/16 08:09 100 MG Insulin Glargine (Lantus Solostar Pen) 10 unit QPM SC 05/28/16 21:00 06/27/16 20:59 06/03/16 21:58 10 UNIT Potassium Chloride (Klor-Con Pwd) 20 meq DAILY PO 05/29/16 09:00 06/28/16 08:59 06/04/16 07:58 20 MEQ Ranitidine HCl (zANTac TAB) 150 mg BID PO 05/28/16 21:00 06/27/16 20:59 06/04/16 08:00 150 MG Simvastatin (Zocor Tab) 20 mg PM PO 05/29/16 21:00 06/28/16 20:59 06/03/16 21:54 20 MG Polyethylene (Miralax Powder Packet) 17 gm DAILY PO 05/29/16 09:00 06/28/16 08:59 06/04/16 07:58 17 GM Isosorbide Mononitrate 30 mg 30 mg DAILY PO 05/29/16 09:00 06/28/16 08:59 06/04/16 07:58 30 MG Heparin Sodium/ Dextrose (Heparin 25,000 Unit/500ml D5W) 500 ml @ 9 mls/hr Q24H PRN IV 05/29/16 02:00 06/28/16 01:59 Future hold 06/04/16 01:42 12 MLS/HR Pantoprazole Sodium (Protonix Tab) 40 mg BID PO 05/29/16 21:00 06/28/16 20:59 06/04/16 07:58 40 MG Metoprolol Succinate (Toprol Xl Tab) 12.5 mg BID PO 05/29/16 21:00 06/28/16 20:59 06/04/16 08:09 12.5 MG Ferrous Sulfate (Feosol Tab) 325 mg QAM PO 05/30/16 09:00 06/29/16 08:59 06/04/16 08:00 325 MG Amiodarone HCl (Cordarone Tab) 200 mg BID PO 06/03/16 21:00 07/03/16 20:59 06/04/16 08:00 200 MG Spironolactone (Aldactone Tab) 12.5 mg BID17 PO 06/03/16 17:00 07/03/16 16:59 06/04/16 07:59 12.5 MG Miscellaneous Information 1 ea UD PRN N/A 06/03/16 13:00 07/03/16 12:59 Cefuroxime Axetil (Ceftin Tab) 500 mg QAM PO 06/04/16 09:00 06/13/16 08:59 06/04/16 07:59 500 MG Miscellaneous Information (Pharmacist Discharge Med Rec Consult) 1 ea UD PRN N/A 06/03/16 16:15 07/03/16 16:14
--- NOTE | 2016-06-04 14:01 | Neurology Consultation ---
Neurology Consultation Date of Consultation: Jun 04, 2016. Attending Physician: Steven Santana MD Primary Care Physician: Bernadette Pugh M.D. Reason for Consultation: possible acute CVA History of Present Illness Source: patient, hospital records Laila is an 85 year old female PMH of systolic CHF on Lasix, CAD, CKD stage 3, insulin-dependent DM 2, PAF, moderate MR, HTN, Dyslipidemia.. She was admitted from cardiology (Dr. Hollis) office with worsening LE edema , chest "heaviness " with exertion and SOB that is worse with exertion and laying flat.. Yesterday she had an episode of aphasia and weakness and was unresponsive. A stroke alert 06/03/16 at 1455 was called for evaluation. IT was found that her PTT was high so tPa was not offered. she was back to baseline at 1655 per nursing notes. Denies fever/chills, palpitations, wheezing, abd pain, N/V, bowel or bladder issues, lightheadedness/dizziness. She is sitting bedside and states she has been unable to ambulate for several weakness due to LE edema. Social History Alcohol Use: none Drug Use: none Allergies Coded Allergies: Fexofenadine (Verified Allergy, Unknown, CONGESTION, 05/14/15) Hydromorphone (Verified Adverse Reaction, Unknown, Lethargic, 06/05/16) MD order Pain medication on 11 to 7 shift. Patient received once at 2AM with relief. When this RN came in, patient was crying in pain. Restless with agitation. Mental status unchanged. VSS. Medication was given per order. Monitor closely r/t renal function. MD was made aware of medication and pain. Order received to hold Dilaudid and other medication ordered r/t kidney function. Found lethargic with VSS. MD was made aware and Narcan was ordered. Current Inpatient Medications Current Inpatient Medications Medications (Trade) Dose Ordered Sig/Brock Route Start Time Stop Time Status Last Admin Dose Admin Acetaminophen (Tylenol Tab) 650 mg Q4H PRN PO 05/28/16 11:30 06/27/16 11:29 06/04/16 10:35 650 MG Ondansetron HCl (Zofran Inj) 4 mg Q6H PRN IV 05/28/16 11:30 06/27/16 11:29 06/02/16 23:38 4 MG Nitroglycerin (Nitrostat Tab) 0.4 mg UD PRN SL 05/28/16 11:30 06/27/16 11:29 Insulin Aspart (novoLOG ASPART) SLIDING SCALE If C... ACHS SC 05/28/16 16:15 06/27/16 16:14 06/04/16 11:59 3 UNITS Glucose (Glucose 40% Gel) 15-30 GRAMS 15 GRAMS... UD PRN PO 05/28/16 11:45 06/27/16 11:44 Glucose (Glucose Chew Tab) 4-8 Tablets 4 Tabl... UD PRN PO 05/28/16 11:45 06/27/16 11:44 Dextrose (Dextrose 50% 50ML Syringe) 25-50ML OF 50% DW IV FOR... UD PRN IV 05/28/16 11:45 06/27/16 11:44 Glucagon (Glucagon Inj) 1 mg UD PRN SQ 05/28/16 11:45 06/27/16 11:44 Al Hydrox/Mg Hydrox/Simethicone (Maalox Max Susp) 30 ml HS PO 05/28/16 21:00 06/27/16 20:59 Aspirin (Ecotrin Tab) 81 mg QAM PO 05/29/16 09:00 06/28/16 08:59 06/04/16 08:09 81 MG Docusate Sodium (coLACE CAP) 100 mg BID PO 05/28/16 21:00 06/27/16 20:59 06/04/16 08:09 100 MG Insulin Glargine (Lantus Solostar Pen) 10 unit QPM SC 05/28/16 21:00 06/27/16 20:59 06/03/16 21:58 10 UNIT Potassium Chloride (Klor-Con Pwd) 20 meq DAILY PO 05/29/16 09:00 06/28/16 08:59 06/04/16 07:58 20 MEQ Ranitidine HCl (zANTac TAB) 150 mg BID PO 05/28/16 21:00 06/27/16 20:59 06/04/16 08:00 150 MG Simvastatin (Zocor Tab) 20 mg PM PO 05/29/16 21:00 06/28/16 20:59 06/03/16 21:54 20 MG Polyethylene (Miralax Powder Packet) 17 gm DAILY PO 05/29/16 09:00 06/28/16 08:59 06/04/16 07:58 17 GM Isosorbide Mononitrate 30 mg 30 mg DAILY PO 05/29/16 09:00 06/28/16 08:59 06/04/16 07:58 30 MG Heparin Sodium/ Dextrose (Heparin 25,000 Unit/500ml D5W) 500 ml @ 9 mls/hr Q24H PRN IV 05/29/16 02:00 06/28/16 01:59 Future hold 06/04/16 01:42 12 MLS/HR Pantoprazole Sodium (Protonix Tab) 40 mg BID PO 05/29/16 21:00 06/28/16 20:59 06/04/16 07:58 40 MG Metoprolol Succinate (Toprol Xl Tab) 12.5 mg BID PO 05/29/16 21:00 06/28/16 20:59 06/04/16 08:09 12.5 MG Ferrous Sulfate (Feosol Tab) 325 mg QAM PO 05/30/16 09:00 06/29/16 08:59 06/04/16 08:00 325 MG Amiodarone HCl (Cordarone Tab) 200 mg BID PO 06/03/16 21:00 07/03/16 20:59 06/04/16 08:00 200 MG Spironolactone (Aldactone Tab) 12.5 mg BID17 PO 06/03/16 17:00 07/03/16 16:59 06/04/16 07:59 12.5 MG Miscellaneous Information 1 UD PRN N/A 06/03/16 13:00 07/03/16 12:59 Cefuroxime Axetil (Ceftin Tab) 500 mg QAM PO 06/04/16 09:00 06/13/16 08:59 06/04/16 07:59 500 MG Miscellaneous Information (Pharmacist Discharge Med Rec Consult) 1 UD PRN N/A 06/03/16 16:15 07/03/16 16:14 Tramadol HCl (Ultram Tab) 50 mg Q8H PRN PO 06/04/16 13:15 07/04/16 13:14 Physical Exam Vital Signs (Past 24 Hrs): Date Time Temp Pulse Resp B/P Pulse Ox O2 Delivery O2 Flow Rate FiO2 06/04/16 12:00 Nasal Cannula 2.5 06/04/16 11:43 36.5 66 16 129/66 96 Nasal Cannula 2.0 06/04/16 08:00 Nasal Cannula 2.5 06/04/16 07:47 36.5 67 18 123/57 95 Nasal Cannula 2.0 06/04/16 04:06 36.8 61 22 108/60 97 Nasal Cannula 3.0 06/04/16 04:00 Nasal Cannula 2.5 06/04/16 00:01 36.7 61 22 127/57 100 Nasal Cannula 3.0 06/03/16 23:59 Nasal Cannula 2.0 06/03/16 20:00 Nasal Cannula 2.5 06/03/16 19:20 36.5 82 20 107/83 91 Nasal Cannula 2.5 06/03/16 17:57 36.5 60 18 100/50 99 Nasal Cannula 2.5 06/03/16 16:00 99 Nasal Cannula 2.0 Physical Exam: Constitutional: appearance pale NAD Ears, Nose, Mouth and Throat: mucous membranes moist, no injection and skin normal, eyes normal Cardiovascular: irregular irregular Respiratory: clear to auscultation (CTA) and no rales, rhonchi or wheeze Musculoskeletal: 2++ pitting edema to thigh, tender with palpation of right LE Skin: no stigmata of neurocutaneous disease noted and normal and intact Eyes: extraocular muscles intact (EOMI) and pupils equal, round and reactive to light (PERRL), miotic NEUROLOGIC EXAMINATION: Mental status: Alert and interactive Oriented 2017, [facility], lives at [facility] Oriented to person Speech fluent with no evidence of aphasia Cranial Nerves smile eye brow raise symmetric tongue midline Reflexes: Deep tendon reflexes were symmetrical and graded 2/5. Plantar responses were flexor. Sensory: cool deficit LE bilaterally, GT proprioception in tact. 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 triceps 5/5 bilaterally, able to lift legs against gravity but can not sustain against gravity Laboratory Results Past 24 Hours: 06/04/16 07:33 Red Blood Count 3.92, Mean Corpuscular Volume 77.6, Mean Corpuscular Hemoglobin 25.0, Mean Corpuscular Hemoglobin Concent 32.2, Mean Platelet Volume 10.0, Neutrophils (%) (Auto) 62.0, Lymphocytes (%) (Auto) 16.1, Monocytes (%) (Auto) 16.1, Eosinophils (%) (Auto) 5.1, Basophils (%) (Auto) 0.5, Neutrophils # (Auto ) 3.44, Lymphocytes # (Auto) 0.89, Monocytes # (Auto) 0.89, Eosinophils # (Auto ) 0.28, Basophils # (Auto) 0.03 06/04/16 07:33 Test 06/03/16 15:11 06/04/16 07:33 06/04/16 11:27 Prothrombin Time 14.6 SECONDS (9.0-12.0) Prothromb Time International Ratio 1.3 (0.9-1.1) Arterial Blood pH 7.49 (7.35-7.45) Arterial Blood Partial Pressure CO2 40 mmHg (35-46) Arterial Blood Partial Pressure O2 135 mmHg (80-95) Arterial Blood HCO3 30 mmol/L (19-24) Arterial Blood Oxygen Saturation 99.0 % (90-95) Arterial Blood Base Excess 5.7 mEq/L (-9-1.8) Arterial Blood Gas Delivery 2L O2 Chance Test POS (POS) Total Bilirubin 0.5 mg/dl (0.2-1) Aspartate Amino Transf (AST/SGOT) 19 U/L (15-37) Alanine Aminotransferase (ALT/SGPT) 19 U/L (12-78) Alkaline Phosphatase 74 U/L (45-117) Total Protein 6.4 gm/dl (6.4-8.2) Albumin 2.8 gm/dl (3.4-5.0) Globulin 3.6 gm/dl (2.5-4.0) Albumin/Globulin Ratio 0.8 (0.9-2) White Blood Count 5.54 K/uL (4.8-10.8) Red Blood Count 3.92 M/uL (4.2-5.4) Hemoglobin 9.8 g/dL (12.0-16.0) Hematocrit 30.4 % (37-47) Mean Corpuscular Volume 77.6 fL (80-100) Mean Corpuscular Hemoglobin 25.0 pg (25-34) Mean Corpuscular Hemoglobin Concent 32.2 g/dl (32-36) Platelet Count 133 K/uL (130-400) Mean Platelet Volume 10.0 fL (7.4-10.4) Neutrophils (%) (Auto) 62.0 % Lymphocytes (%) (Auto) 16.1 % Monocytes (%) (Auto) 16.1 % Eosinophils (%) (Auto) 5.1 % Basophils (%) (Auto) 0.5 % Neutrophils # (Auto) 3.44 K/uL (1.4-6.5) Lymphocytes # (Auto) 0.89 K/uL (1.2-3.4) Monocytes # (Auto) 0.89 K/uL (0.11-0.59) Eosinophils # (Auto) 0.28 K/uL (0-0.5) Basophils # (Auto) 0.03 K/uL (0-0.2) RDW Standard Deviation 52.2 fL (36.4-46.3) RDW Coefficient of Variation 18.6 % (11.5-14.5) Immature Granulocyte % (Auto) 0.2 % Immature Granulocyte # (Auto) 0.01 K/uL (0.00-0.02) Activated Partial Thromboplast Time 109.9 SECONDS (21.0-31.0) Partial Thromboplastin Ratio 4.2 Anion Gap 7.0 mmol/L (3-11) Est Creatinine Clear Calc Drug Dose 25.8 ml/min Estimated GFR () 33.2 Estimated GFR (Non- 28.7 BUN/Creatinine Ratio 19.9 (10-20) Calcium Level 8.5 mg/dl (8.5-10.1) Magnesium Level 2.6 mg/dl (1.8-2.4) Bedside Glucose 210 mg/dl (70-90) Imaging TTE- The left ventricle is moderately dilated. Left ventricular systolic function is severely reduced. There is septal akinesis. There is apical dyskinesis. There is severe global hypokinesis of the left ventricle. Ejection Fraction = <15%. The left atrium is mildly dilated. There is mild to moderate mitral regurgitation. There is moderate tricuspid regurgitation. Procedure Details A contrast injection of Definity was performed to improve assessment of LV function. Contrast was injected into an intravenous site in the right arm. NO ASD carotid doppler-. Atherosclerotic plaque with no sonographic evidence of hemodynamically significant stenosis in the right or left carotid arterial system. Antegrade flow is shown in the vertebral arteries. The cardiac pulsations appear irregularly irregular. Correlate clinically and with EKG for evidence of atrial fibrillation/arrhythmia. CT head-No acute intracranial findings Impression 85 year old female with possible CVA Plan 1. CT head- no acute findings 2. PT/OT speech therapy for discharge needs 3. EEG pending 4. carotid doppler with no significant stenosis some arthrosclerosis plaques 5. continue aspirin 81 mg - was previously on Xarelto but stopped for GI bleed 6. cardiology on board patient with EF 15 7. MRI would be helpful to define area of infarct 8. optimize medical management 9. further recommendations to follow I have seen and discussed above patient with Dr Carley Ng, neurology Pt seen and examined, exam nonfocal. No prior hx of stroke. Pt has a fib and had transient episode of aphasia while therapeutic on heparin. The pt is not currently able to be ambulated but was previously taken off Xarelto bc of fall risk. In this setting I would simply continue asa and confirm that there is no carotid stenosis. RACH Ng MD
[2016-06-04 16:05] LABS: PARTIAL THROMBOPLASTIN RATIO 1.5
[2016-06-04] MEDS: ALUMINUM/MAGNESIUM/SIMETH (MAALOX MAX) 30 ML UDC PO SCH (20:44)
[2016-06-04] MEDS: SIMVASTATIN 20 MG TAB PO SCH (21:30)
[2016-06-04] MEDS: INSULIN GLARGINE SOLOSTAR 100 UNITS/ML 3 ML PEN SC SCH (21:30)
[2016-06-04] MEDS ORDERED: HALOPERIDOL 1 MG TAB PO PRN (22:30)
[2016-06-04] MEDS: HALOPERIDOL LACTATE 5 MG/ML 1 ML VIAL IM PRN (22:39)
[2016-06-05] VITALS (11 sets, daily range): BP systolic 110–146; BP diastolic 52–88; PULSE 61–103; TEMP 36.3–36.7; O2SAT 90–100
[2016-06-05] MEDS: ACETAMINOPHEN 325 MG TAB PO PRN (00:20)
[2016-06-05] MEDS: HYDROmorphone INJ 0.5 MG/0.5 ML SYR IV PRN ×2 (02:09→07:50)
[2016-06-05 04:25] LABS: BASO % 0.3 %; BASO ABS # 0.02 K/uL (0-0.2); COMPLETE YES; EOS % 0.6 %; HEMATOCRIT 29.9 % (37-47); IG% 0.2 %; LYMPH % 9.7 %; MEAN CELL VOLUME 78.1 fL (80-100); MEAN CORPUSCULAR HEMOGLOBIN 25.3 pg (25-34); MEAN CORPUSCULAR HGB CONC 32.4 g/dl (32-36); MONO % 12.1 %; NEUT % 77.1 %; PLATELET COUNT 147 K/uL (130-400); RED BLOOD COUNT 3.83 M/uL (4.2-5.4)
[2016-06-05 04:45] LABS: PARTIAL THROMBOPLASTIN RATIO 1.5
[2016-06-05 04:51] LABS: BUN/CREATININE RATIO 19.9 (10-20); CALCIUM 8.6 mg/dl (8.5-10.1); CREATININE 1.8 mg/dl (0.60-1.20); MAGNESIUM 2.7 mg/dl (1.8-2.4); POTASSIUM 5.1 mmol/L (3.5-5.1)
[2016-06-05] MEDS ORDERED: HEPARIN IV BOLUS 4,500 UNIT in SYRINGE 0 ML IV ONE (05:15)
--- NOTE | 2016-06-05 07:33 | DIAGNOSTIC IMAGING REPORT ---
CT OF THE ABDOMEN AND PELVIS WITHOUT CONTRAST CLINICAL HISTORY: Back pain. Congestive heart failure. COMPARISON STUDY: No previous studies for comparison. TECHNIQUE: Axial images of the abdomen and pelvis were obtained without IV contrast. Images were reviewed in the axial, sagittal, and coronal planes. FINDINGS: Generalized anasarca is noted. Visualized portions of the chest demonstrate large right and moderate left pleural effusions with associated airspace opacities that likely reflect compressive atelectasis. There is moderate cardiomegaly and extensive coronary artery calcification. Evaluation of the abdomen and pelvis is suboptimal given the lack of IV and oral contrast. There is a small amount of ascites. There is sigmoid diverticulosis without evidence for acute diverticulitis. There is no evidence for a bowel obstruction. Unenhanced images of the liver, spleen, adrenal glands are unremarkable. There is no pneumatosis, free air or portal venous gas. There is no lymphadenopathy. Images of the pelvis are degraded by streak artifact from a left hip arthroplasty. A Ward balloon is present within the bladder. Multilevel degenerative changes within the lumbar spine are noted. There is mild loss of height with irregularity and lucency within the inferior endplate of T12. There is no retropulsion. There is extensive atherosclerotic plaque. Left psoas atrophy is incidentally noted. IMPRESSION: 1. Large right and moderate left pleural effusions with subtotal right lower lobe collapse. This likely reflects compressive atelectasis. 2. Generalized anasarca with a small amount of ascites. 3. Suboptimal evaluation given the lack of IV and oral contrast. 4. No bowel obstruction. 5. Mild loss of height with lucency and irregularity of the inferior endplate of T12. This may reflect a subacute compression fracture. Moderate to severe multilevel degenerative disc disease of the lumbar spine. 6. Moderate cardiomegaly and extensive coronary artery calcification. Mild ground glass opacity within the lungs which favors pulmonary edema. Electronically signed by: Chris Jurado M.D. 06/05/2016 7:31 AM Dictated Date/Time: 06/05/2016 7:22 AM
--- NOTE | 2016-06-05 08:52 | Progress Note ---
Medicine Progress Note Date & Time of Visit: Jun 05, 2016 at 08:45. Subjective reported increased pain last night CT abd/pelvis showed anasarca, possible T12 compression fracture this AM,main symptom is lower back pain no leg pain, weakness denies hip pain no chest pain, dyspnea, palpitations, dizziness no other symptoms Objective Last 8 Hrs Date Time Temp Pulse Resp B/P Pulse Ox O2 Delivery O2 Flow Rate FiO2 06/05/16 07:01 36.3 66 23 120/78 99 Nasal Cannula 4.0 06/05/16 04:00 96 Nasal Cannula 4.0 06/05/16 03:21 96 Nasal Cannula 4.0 06/05/16 03:10 36.6 61 18 124/69 97 Nasal Cannula 4.0 Humidified Oxygen Physical Exam: General- oriented x 2, not in distress, speaks in sentences with no effort Eyes- anicteric Neck- no JVD, Lungs- decreased breath sounds on the right mid-base, clear on the left, no wheeze Heart- normal rate, regular rhythm; no murmurs Abdomen- normal bowel sounds, soft, nontender Extremities-grade 2 lower leg edema with mild erythema, warmth, tenderness Neuro- alert, oriented x 2, no other gross deficits Skin- warm & dry Laboratory Results: Last 24 Hours Test 06/04/16 11:27 06/04/16 15:40 06/04/16 16:17 06/04/16 20:13 Bedside Glucose 210 mg/dl 192 mg/dl 225 mg/dl Activated Partial Thromboplast Time 38.5 SECONDS Partial Thromboplastin Ratio 1.5 Test 06/05/16 04:15 06/05/16 06:41 White Blood Count 6.20 K/uL Red Blood Count 3.83 M/uL Hemoglobin 9.7 g/dL Hematocrit 29.9 % Mean Corpuscular Volume 78.1 fL Mean Corpuscular Hemoglobin 25.3 pg Mean Corpuscular Hemoglobin Concent 32.4 g/dl Platelet Count 147 K/uL Mean Platelet Volume 10.0 fL Neutrophils (%) (Auto) 77.1 % Lymphocytes (%) (Auto) 9.7 % Monocytes (%) (Auto) 12.1 % Eosinophils (%) (Auto) 0.6 % Basophils (%) (Auto) 0.3 % Neutrophils # (Auto) 4.78 K/uL Lymphocytes # (Auto) 0.60 K/uL Monocytes # (Auto) 0.75 K/uL Eosinophils # (Auto) 0.04 K/uL Basophils # (Auto) 0.02 K/uL RDW Standard Deviation 52.5 fL RDW Coefficient of Variation 18.5 % Immature Granulocyte % (Auto) 0.2 % Immature Granulocyte # (Auto) 0.01 K/uL Activated Partial Thromboplast Time 39.6 SECONDS Partial Thromboplastin Ratio 1.5 Sodium Level 132 mmol/L Potassium Level 5.1 mmol/L Chloride Level 94 mmol/L Carbon Dioxide Level 34 mmol/L Anion Gap 4.0 mmol/L Blood Urea Nitrogen 36 mg/dl Creatinine 1.80 mg/dl Est Creatinine Clear Calc Drug Dose 22.9 ml/min Estimated GFR () 28.8 Estimated GFR (Non- 24.9 BUN/Creatinine Ratio 19.9 Random Glucose 191 mg/dl Calcium Level 8.6 mg/dl Magnesium Level 2.7 mg/dl Bedside Glucose 198 mg/dl Assessment & Plan ACUTE ON CHRONIC SYSTOLIC CHF EXACERBATION (Biventricular Right >Left)/ SEVERE CARDIOMYOPATHY WITH LVEF <15% : Pt presented with worsening LE edema, SOB and cough; h/o mod mitral regurg and systolic CHF on Lasix and metolazone from Dr Hollis office. -IV Lasix 40 mg BID Spironolactone increased to 12.5 mg PO BID, Toprol increased to 12.5 mg PO BID on 05/29/16 -Troponin- 0.049,0.084, 0.094, Echo- LV- moderately dilated, severely reduced, septal/apical/severe global hypokinesis of left ventricle with EF <15%, LA- Mildly dilated, Mild-moderate MR, Moderate TR -- Lasix IV on hold due to elevated Crea on Spironolactone -- discussed with Cardiology Xaroxylyn to be started today TOMMY ON CKD STAGE 3 - baseline creatinine 1.4 now 1.8 - Lasix on Hold Xaroxylyn to be started today ATRIAL FIBRILLATION - In past was taken off xarelto (6 months ago) due to GI bleeding/anemia and thought to be at a higher risk of bleeding -Low dose IV Heparin started increased toprol to 12.5 mg PO BID IV Amiodarone on 06/02/16--> changed to PO -Cardiology on board POSSIBLE TIA in the setting of Atrial Fibrillation - (+) aphasia lasting for about an hour yesterday CT head: no bleed, no new CVA Telestroke conference performed- not a tpa candidate, recommend to resume Heparin and continue Aspirin Carotid US: no significant stenosis - Neurology consulted, appreciate the recommendations - not a good watermaster candidate for anticoagulation continue Aspirin Low Back Pain, Intermittent L Hip Pain - CT abd/pelvis: possible T12 compression fracture - check left hip xray - start Lidoderm patch PRN tramadol PRN dilaudid for very severe pain Possible Lower Leg Cellulitis Cefuroxime Day 3 wound care consult -- improving UTI, Klebsiella -On ciprofloxacin BID (Day 07/25) per c/s changed to Cefuroxime to cover possible Lower Leg Cellulitis as well ANEMIA, CHRONIC : Likely iron deficiency - History of GI bleeding few months ago, requiring blood transfusion, declined EGD/Colonoscopy- resolved spontaneously after stopping xarelto. -Ferritin/Iron low- Started her on Ferrous sulphate - Hg stable INSULIN-DEPENDENT DM 2 -Recent A1C 6.4 -cont Lantus -ISS , Accuchecks -monitor BSG AC HS CAD -NSTEMI 07/2015 s/p stent placement -Cont ASA, BB (toprol dose increased as above) and statin - stable GERD -Cont ranitidine and PPI BID- changed to PO DYSLIPIDEMIA -Cont statin DVT PROPHYLAXIS -Heparin IV CODE STATUS -FULL CODE status per discussion with patient upon admission DISPO Continue with tele monitoring PT/OT ordered Plan is back to [facility] once medically stable- bed on hold Current Inpatient Medications: Current Inpatient Medications Medications (Trade) Dose Ordered Sig/Brock Route Start Time Stop Time Status Last Admin Dose Admin Acetaminophen (Tylenol Tab) 650 mg Q4H PRN PO 05/28/16 11:30 06/27/16 11:29 06/05/16 00:20 650 MG Ondansetron HCl (Zofran Inj) 4 mg Q6H PRN IV 05/28/16 11:30 06/27/16 11:29 06/02/16 23:38 4 MG Nitroglycerin (Nitrostat Tab) 0.4 mg UD PRN SL 05/28/16 11:30 06/27/16 11:29 Insulin Aspart (novoLOG ASPART) SLIDING SCALE If C... ACHS SC 05/28/16 16:15 06/27/16 16:14 06/04/16 17:54 2 UNITS Glucose (Glucose 40% Gel) 15-30 GRAMS 15 GRAMS... UD PRN PO 05/28/16 11:45 06/27/16 11:44 Glucose (Glucose Chew Tab) 4-8 Tablets 4 Tabl... UD PRN PO 05/28/16 11:45 06/27/16 11:44 Dextrose (Dextrose 50% 50ML Syringe) 25-50ML OF 50% DW IV FOR... UD PRN IV 05/28/16 11:45 06/27/16 11:44 Glucagon (Glucagon Inj) 1 mg UD PRN SQ 05/28/16 11:45 06/27/16 11:44 Al Hydrox/Mg Hydrox/Simethicone (Maalox Max Susp) 30 ml HS PO 05/28/16 21:00 06/27/16 20:59 Aspirin (Ecotrin Tab) 81 mg QAM PO 05/29/16 09:00 06/28/16 08:59 06/04/16 08:09 81 MG Docusate Sodium (coLACE CAP) 100 mg BID PO 05/28/16 21:00 06/27/16 20:59 06/04/16 08:09 100 MG Insulin Glargine (Lantus Solostar Pen) 10 unit QPM SC 05/28/16 21:00 06/27/16 20:59 06/03/16 21:58 10 UNIT Potassium Chloride (Klor-Con Pwd) 20 meq DAILY PO 05/29/16 09:00 06/28/16 08:59 06/04/16 07:58 20 MEQ Ranitidine HCl (zANTac TAB) 150 mg BID PO 05/28/16 21:00 06/27/16 20:59 06/04/16 08:00 150 MG Simvastatin (Zocor Tab) 20 mg PM PO 05/29/16 21:00 06/28/16 20:59 06/03/16 21:54 20 MG Polyethylene (Miralax Powder Packet) 17 gm DAILY PO 05/29/16 09:00 06/28/16 08:59 06/04/16 07:58 17 GM Isosorbide Mononitrate 30 mg 30 mg DAILY PO 05/29/16 09:00 06/28/16 08:59 06/04/16 07:58 30 MG Heparin Sodium/ Dextrose (Heparin 25,000 Unit/500ml D5W) 500 ml @ 15 mls/hr Q24H PRN IV 05/29/16 02:00 06/28/16 01:59 Future hold 06/04/16 17:18 12 MLS/HR Pantoprazole Sodium (Protonix Tab) 40 mg BID PO 05/29/16 21:00 06/28/16 20:59 06/04/16 07:58 40 MG Metoprolol Succinate (Toprol Xl Tab) 12.5 mg BID PO 05/29/16 21:00 06/28/16 20:59 06/04/16 08:09 12.5 MG Ferrous Sulfate (Feosol Tab) 325 mg QAM PO 05/30/16 09:00 06/29/16 08:59 06/04/16 08:00 325 MG Amiodarone HCl (Cordarone Tab) 200 mg BID PO 06/03/16 21:00 07/03/16 20:59 06/04/16 08:00 200 MG Spironolactone (Aldactone Tab) 12.5 mg BID17 PO 06/03/16 17:00 07/03/16 16:59 06/04/16 17:59 12.5 MG Miscellaneous Information 1 ea UD PRN N/A 06/03/16 13:00 07/03/16 12:59 Cefuroxime Axetil (Ceftin Tab) 500 mg QAM PO 06/04/16 09:00 06/13/16 08:59 06/04/16 07:59 500 MG Miscellaneous Information (Pharmacist Discharge Med Rec Consult) 1 ea UD PRN N/A 06/03/16 16:15 07/03/16 16:14 Tramadol HCl (Ultram Tab) 50 mg Q8H PRN PO 06/04/16 13:15 07/04/16 13:14 Haloperidol (Haldol Tab) 2 mg Q4H PRN PO 06/04/16 22:30 07/04/16 22:29 Haloperidol Lactate (Haldol Inj) 2 mg Q2H PRN IM 06/04/16 22:30 07/04/16 22:29 06/04/16 22:39 2 MG Hydromorphone HCl (Dilaudid Inj) 0.5 mg Q3H PRN IV 06/05/16 01:45 06/19/16 01:44 06/05/16 07:50 0.5 MG
[2016-06-05] MEDS ORDERED: METOLAZONE 2.5 MG TAB PO ONE (09:00)
--- NOTE | 2016-06-05 09:04 | PROGRESS NOTE ---
DATE: 06/05/2016 FOLLOWUP VISIT SUBJECTIVE: The patient is an 85-year-old with severe systolic heart failure. She had an uneventful evening; however, this morning she is complaining that she has fluid in her belly and legs. Her diuretics were held several days ago and have not been restarted. At [facility] she is on Zaroxolyn 3 times per week. OBJECTIVE: VITAL SIGNS: Blood pressure is 120/80, pulse is regular at 66. GENERAL: She is afebrile. HEENT: She is normocephalic. Pupils are equal and reactive to light. Extraocular muscles are intact bilaterally. NECK: The neck veins are flat. Carotids have good upstrokes bilaterally without bruits. Thyroid is nonpalpable. RESPIRATORY: Breath sounds are equal bilaterally. CARDIOVASCULAR: Heart has a regular rhythm. There are diminished heart sounds. No S3, S4. ABDOMEN: Abdomen is distended. Bowel sounds are present. NEUROLOGIC: Grossly intact. SKIN: Warm to touch. EXTREMITIES: The lower extremities have edema to mid calves bilaterally. LYMPH NODES: Negative to palpation. LABORATORY DATA: Potassium is 5.1, creatinine is 1.8, hemoglobin is 9.7. IMPRESSION: 1. Decompensated systolic heart failure. 2. Severe cardiomyopathy with an estimated left ventricular ejection fraction of 15%. 3. CAD. 4. Atrial fibrillation. 5. Recent TIA while on heparin. 6. History of GI bleeding while anticoagulated. RECOMMENDATIONS: The neurology note is appreciated. I agree with conservative management. We will restart patient's diuretics and I will give her a dose of Zaroxolyn today and see what her response is.
[2016-06-05] MEDS: SPIRONOLACTONE 25 MG TAB PO SCH ×2 (10:26→17:35)
[2016-06-05] MEDS: CEFUROXIME AXETIL 500 MG TAB PO SCH (10:27)
[2016-06-05] MEDS: DOCUSATE SODIUM 100 MG CAP PO SCH ×2 (10:28→20:16)
[2016-06-05] MEDS: AMIODARONE 200 MG TAB PO SCH ×2 (10:29→20:16)
[2016-06-05] MEDS: ASPIRIN 81 MG ECTAB PO SCH (10:30)
[2016-06-05] MEDS: FERROUS SULFATE 325 MG TAB PO SCH (10:30)
[2016-06-05] MEDS: ISOSORBIDE MONONITRATE 30 MG TABCR PO SCH (10:31)
[2016-06-05] MEDS: POTASSIUM CHLORIDE PWD 20 MEQ PACK PO SCH (10:31)
[2016-06-05] MEDS ORDERED: NALOXONE HCL 0.4 MG/1 ML VIAL/CARP ONE (10:32)
[2016-06-05] MEDS ORDERED: NALOXONE HCL 0.4 MG/1 ML VIAL/CARP IV STA (10:33)
[2016-06-05] MEDS: POLYETHYLENE (MIRALAX) 17 GM PACK PO SCH (10:34)
[2016-06-05 11:06] LABS: PARTIAL THROMBOPLASTIN RATIO 5.2
--- NOTE | 2016-06-05 11:37 | ELECTROENCEPHALOGRAPH REPORT ---
FOR: Dr. Santana. CLINICAL DIAGNOSIS: Confusion and possible cerebrovascular accident. ELECTROENCEPHALOGRAM DIAGNOSIS: Essentially normal during wakefulness. DESCRIPTION OF TRACING: This EEG was done as a bedside recording. No activation procedures were utilized. A simultaneous video analysis of patient's movement and behavior was obtained. There is a quite a bit of muscle movement activity early on in the recording and this does recur periodically thereafter, but there are long intervals of time during which the recording is artifact free. During this interval, there appears to be evidence for a background rhythm in the alpha range of up to 10 Hz of maximum frequency and 30 microvolts of maximum amplitude. This is maximum posterior head regions and bilaterally symmetrical. Polymorphic mid frequency theta activity is seen over all head regions without clear focal or regional predominance. Anterior head region maximum bilaterally symmetrical low voltage fast activity in the beta range is present. At no time during the waking tracing is there evidence for potentially epileptogenic activity in the form of polyspike or spike wave bursts, focal sharp waves or focal spikes. INTERPRETATION: This EEG is essentially normal during wakefulness without evidence for focal or generalized abnormalities and without evidence for potentially epileptogenic activity.
[2016-06-05] MEDS ORDERED: HYDROmorphone INJ 0.5 MG/0.5 ML SYR IV PRN (11:45)
--- NOTE | 2016-06-05 11:53 | DIAGNOSTIC IMAGING REPORT ---
CT SCAN OF THE BRAIN WITHOUT IV CONTRAST CLINICAL HISTORY: Change in mental status. COMPARISON STUDY: CT of the brain dated 06/03/2016. TECHNIQUE: Unenhanced axial CT scan of the brain is performed from the vertex to the skull base. The skull base was scanned twice due to motion artifact. CT DOSE: 1601.70 mGy.cm FINDINGS: Brain parenchyma: There are age-related involutional changes noting moderate subcortical and periventricular microangiopathic change. There is no hemorrhage, mass effect, or evidence of acute territorial ischemia by CT criteria. Foote-white matter is preserved. No extra-axial fluid collection is seen. Ventricles, sulci, cisterns: Prominent secondary to involutional change. Intracranial vasculature: There is atherosclerotic calcification of the cavernous carotid and vertebral arteries. Calvarium: Unremarkable. Sinuses and mastoids: The visualized paranasal sinuses are clear. The mastoid air cells are well pneumatized. Orbits: The bony orbits are grossly intact. There are bilateral ocular lens implants. IMPRESSION: There is no hemorrhage, mass effect, or evidence of acute territorial ischemia by CT criteria noting a motion degraded examination. Electronically signed by: Anish Guerra M.D. 06/05/2016 11:52 AM Dictated Date/Time: 06/05/2016 11:50 AM
[2016-06-05] MEDS ORDERED: NURSING VERBAL MED ORDER ONE (12:00)
[2016-06-05] MEDS: PANTOprazole SOD 40 MG TAB PO SCH ×2 (12:37→20:16)
[2016-06-05] MEDS: LIDODERM (LIDOCAINE) PATCH 5% TD SCH (12:37)
[2016-06-05] MEDS: METOPROLOL SUCC 25MG EXT REL TAB PO SCH ×2 (12:38→20:16)
[2016-06-05] MEDS: RANITIDINE HCL 150 MG TAB PO SCH ×2 (12:39→20:16)
[2016-06-05] MEDS: TRAMADOL HCL 50 MG TAB PO PRN (12:44)
[2016-06-05 12:53] LABS: PARTIAL THROMBOPLASTIN RATIO 2.7
[2016-06-05] MEDS: INSULIN ASPART 100 UNITS/ML 3 ML PEN SC SCH ×4 (13:08→20:08)
[2016-06-05] MEDS ORDERED: CYCLOBENZAPRINE HCL 5 MG TAB PO ONE (13:56)
--- NOTE | 2016-06-05 14:04 | DIAGNOSTIC IMAGING REPORT ---
PELVIS AND LEFT HIP RADIOGRAPHS CLINICAL HISTORY: Left hip pain. Evaluate for fracture. COMPARISON: CT of the abdomen and pelvis June 05, 2016. FINDINGS: Alignment of the total left hip arthroplasty is anatomic. There is no acute fracture within the pelvis or the hips. Sacroiliac joints and symphysis pubis are intact. There is extensive vascular calcification. IMPRESSION: 1. No acute fracture within the pelvis or hips. 2. Status post total left hip arthroplasty. Hardware intact. No periprosthetic fracture identified. Electronically signed by: Chris Jurado M.D. 06/05/2016 2:03 PM Dictated Date/Time: 06/05/2016 1:58 PM
[2016-06-05] MEDS ORDERED: ACETAMINOPHEN IV 100 ML IV ONE (14:15)
--- NOTE | 2016-06-05 14:47 | Neurology Progress Notes ---
Neurology Progress Note Date of Service Jun 05, 2016. Jeff Ulloa is an 85 year old female PMH of systolic CHF on Lasix, CAD, CKD stage 3, insulin-dependent DM 2, PAF, moderate MR, HTN, Dyslipidemia.. She was admitted from cardiology (Dr. Hollis) office with worsening LE edema , chest "heaviness " with exertion and SOB that is worse with exertion and laying flat.. Yesterday she had an episode of aphasia and weakness and was unresponsive. A stroke alert 06/03/16 at 1455 was called for evaluation. IT was found that her PTT was high so tPa was not offered. she was back to baseline at 1655 per nursing notes. Today her daughters are in the room and she is awake and alert. She is lying in bed today and states she is comfortable right now. She has been having ongoing back and hip pain states she is having some SOB. She really couldn't eat today her stomach was upset and she vomited this am and she just doesn't feel like eating now. Denies fever/chills, palpitations, wheezing, abd pain, bowel or bladder issues, lightheadedness/dizziness. Objective Date Time Temp Pulse Resp B/P Pulse Ox O2 Delivery O2 Flow Rate FiO2 06/05/16 14:28 103 32 140/53 06/05/16 12:00 36.7 78 18 135/64 90 Nasal Cannula 5.0 06/05/16 12:00 90 Nasal Cannula 5.0 06/05/16 08:00 94 Nasal Cannula 4.0 06/05/16 07:01 36.3 66 23 120/78 99 Nasal Cannula 4.0 06/05/16 04:00 96 Nasal Cannula 4.0 06/05/16 03:21 96 Nasal Cannula 4.0 06/05/16 03:10 36.6 61 18 124/69 97 Nasal Cannula 4.0 Humidified Oxygen 06/04/16 23:59 96 Nasal Cannula 4.0 06/04/16 23:06 36.4 73 22 136/86 100 Nasal Cannula 4.0 Humidified Oxygen 06/04/16 20:00 Nasal Cannula 3.0 06/04/16 19:43 36.6 67 20 126/64 98 Nasal Cannula 3.0 06/04/16 16:00 Nasal Cannula 3.0 06/04/16 14:55 36.6 61 20 102/56 98 Nasal Cannula 3.0 Last 24 Hours Test 06/04/16 15:40 06/04/16 16:17 06/04/16 20:13 06/05/16 04:15 Activated Partial Thromboplast Time 38.5 SECONDS 39.6 SECONDS Partial Thromboplastin Ratio 1.5 1.5 Bedside Glucose 192 mg/dl 225 mg/dl White Blood Count 6.20 K/uL Red Blood Count 3.83 M/uL Hemoglobin 9.7 g/dL Hematocrit 29.9 % Mean Corpuscular Volume 78.1 fL Mean Corpuscular Hemoglobin 25.3 pg Mean Corpuscular Hemoglobin Concent 32.4 g/dl Platelet Count 147 K/uL Mean Platelet Volume 10.0 fL Neutrophils (%) (Auto) 77.1 % Lymphocytes (%) (Auto) 9.7 % Monocytes (%) (Auto) 12.1 % Eosinophils (%) (Auto) 0.6 % Basophils (%) (Auto) 0.3 % Neutrophils # (Auto) 4.78 K/uL Lymphocytes # (Auto) 0.60 K/uL Monocytes # (Auto) 0.75 K/uL Eosinophils # (Auto) 0.04 K/uL Basophils # (Auto) 0.02 K/uL RDW Standard Deviation 52.5 fL RDW Coefficient of Variation 18.5 % Immature Granulocyte % (Auto) 0.2 % Immature Granulocyte # (Auto) 0.01 K/uL Sodium Level 132 mmol/L Potassium Level 5.1 mmol/L Chloride Level 94 mmol/L Carbon Dioxide Level 34 mmol/L Anion Gap 4.0 mmol/L Blood Urea Nitrogen 36 mg/dl Creatinine 1.80 mg/dl Est Creatinine Clear Calc Drug Dose 22.9 ml/min Estimated GFR () 28.8 Estimated GFR (Non- 24.9 BUN/Creatinine Ratio 19.9 Random Glucose 191 mg/dl Calcium Level 8.6 mg/dl Magnesium Level 2.7 mg/dl Test 06/05/16 06:41 06/05/16 10:31 06/05/16 11:10 06/05/16 12:30 Bedside Glucose 198 mg/dl 232 mg/dl Activated Partial Thromboplast Time 134.0 SECONDS 68.9 SECONDS Partial Thromboplastin Ratio 5.2 2.7 Imaging: follow up CT head- There is no hemorrhage, mass effect, or evidence of acute territorial ischemia by CT criteria noting a motion degraded examination. This EEG is essentially normal during wakefulness without evidence for focal or generalized abnormalities and without evidence for potentially epileptogenic activity. Exam: Physical Exam: Constitutional: appearance nourished, obese, speech with breathy sounds Ears, Nose, Mouth and Throat: mucous membranes moist, no injection and skin normal, eyes normal Cardiovascular: normal S-1 and S-2 and regular rate and rhythm Respiratory: clear to auscultation (CTA) and no rales, ronchi or wheeze Musculoskeletal: 2++ pitting edema bilaterally LE to hips, Skin: oozing and erythema at level of ankles and tender to touch Eyes: extraocular muscles intact (EOMI) and pupils equal, round and reactive to light (PERRL) NEUROLOGIC EXAMINATION: Mental status: Alert and interactive Oriented to full date and location Oriented to person Speech fluent with no evidence of aphasia Cranial Nerves facial symmetry, tongue midline Sensory: to cool touch or light touch Coordination: finger to nose without bi pass Gait/Stance: Posture lying in bed Motor: Negative for pronator drift of out stretched arms with eyes closed. 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 ACHS SC 05/28/16 16:15 06/27/16 16:14 06/05/16 13:14 2 UNITS Glucose (Glucose 40% Gel) 15-30 GRAMS 15 GRAMS... UD PRN PO 05/28/16 11:45 06/27/16 11:44 Glucose (Glucose Chew Tab) 4-8 Tablets 4 Tabl... UD PRN PO 05/28/16 11:45 06/27/16 11:44 Dextrose (Dextrose 50% 50ML Syringe) 25-50ML OF 50% DW IV FOR... UD PRN IV 05/28/16 11:45 06/27/16 11:44 Glucagon (Glucagon Inj) 1 mg UD PRN SQ 05/28/16 11:45 06/27/16 11:44 Al Hydrox/Mg Hydrox/Simethicone (Maalox Max Susp) 30 ml HS PO 05/28/16 21:00 06/27/16 20:59 Aspirin (Ecotrin Tab) 81 mg QAM PO 05/29/16 09:00 06/28/16 08:59 06/05/16 10:30 81 MG Docusate Sodium (coLACE CAP) 100 mg BID PO 05/28/16 21:00 06/27/16 20:59 06/05/16 10:28 100 MG Insulin Glargine (Lantus Solostar Pen) 10 unit QPM SC 05/28/16 21:00 06/27/16 20:59 06/03/16 21:58 10 UNIT Potassium Chloride (Klor-Con Pwd) 20 meq DAILY PO 05/29/16 09:00 06/28/16 08:59 06/05/16 10:31 20 MEQ Ranitidine HCl (zANTac TAB) 150 mg BID PO 05/28/16 21:00 06/27/16 20:59 06/05/16 12:39 150 MG Simvastatin (Zocor Tab) 20 mg PM PO 05/29/16 21:00 06/28/16 20:59 06/03/16 21:54 20 MG Polyethylene (Miralax Powder Packet) 17 gm DAILY PO 05/29/16 09:00 06/28/16 08:59 06/05/16 10:34 17 GM Isosorbide Mononitrate 30 mg 30 mg DAILY PO 05/29/16 09:00 06/28/16 08:59 06/05/16 10:31 30 MG Heparin Sodium/ Dextrose (Heparin 25,000 Unit/500ml D5W) 500 ml @ 11 mls/hr Q24H PRN IV 05/29/16 02:00 06/28/16 01:59 Future hold 06/04/16 17:18 12 MLS/HR Pantoprazole Sodium (Protonix Tab) 40 mg BID PO 05/29/16 21:00 06/28/16 20:59 06/05/16 12:37 40 MG Metoprolol Succinate (Toprol Xl Tab) 12.5 mg BID PO 05/29/16 21:00 06/28/16 20:59 06/05/16 12:38 12.5 MG Ferrous Sulfate (Feosol Tab) 325 mg QAM PO 05/30/16 09:00 06/29/16 08:59 06/05/16 10:30 325 MG Amiodarone HCl (Cordarone Tab) 200 mg BID PO 06/03/16 21:00 07/03/16 20:59 06/05/16 10:29 200 MG Spironolactone (Aldactone Tab) 12.5 mg BID17 PO 06/03/16 17:00 07/03/16 16:59 06/05/16 10:26 12.5 MG Miscellaneous Information 1 ea UD PRN N/A 06/03/16 13:00 07/03/16 12:59 Cefuroxime Axetil (Ceftin Tab) 500 mg QAM PO 06/04/16 09:00 06/13/16 08:59 06/05/16 10:27 500 MG Miscellaneous Information (Pharmacist Discharge Med Rec Consult) 1 ea UD PRN N/A 06/03/16 16:15 07/03/16 16:14 Tramadol HCl (Ultram Tab) 50 mg Q8H PRN PO 06/04/16 13:15 07/04/16 13:14 06/05/16 12:44 50 MG Haloperidol (Haldol Tab) 2 mg Q4H PRN PO 06/04/16 22:30 07/04/16 22:29 Haloperidol Lactate (Haldol Inj) 2 mg Q2H PRN IM 06/04/16 22:30 07/04/16 22:29 06/04/16 22:39 2 MG Lidocaine (Lidoderm Patch 5%) 1 patch QAM TD 06/05/16 09:00 07/05/16 08:59 06/05/16 12:37 1 PATCH Miscellaneous (Remove Lidoderm Patch) 1 ea DAILY@21 N/A 06/05/16 21:00 07/05/16 20:59 Cyclobenzaprine HCl (Flexeril Tab) 5 mg TID PRN PO 06/05/16 14:00 07/05/16 13:59 Impression 85 year old female with possible CVA Plan 1. CT head- no acute findings 2. PT/OT speech therapy for discharge needs 3. EEG no seizure activity 4. carotid doppler with no significant stenosis some arthrosclerosis plaques 5. continue aspirin 81 mg - was previously on Xarelto but stopped for GI bleed 6. cardiology on board patient with EF 15 7. MRI would be helpful to define area of infarct 8. optimize medical management 9. will sign off for now will be available if questions concerns I have discussed above patient with Dr Carley Ng, neurology L MCA TIAon asa and heparin at time in setting afib. No carotid stenosis. Agree with antiplt tx. Will sign off, RACH Ng MD
[2016-06-05] MEDS: ONDANSETRON INJ 2 MG/ML 2 ML VIAL IV PRN (15:06)
[2016-06-05 20:05] LABS: PARTIAL THROMBOPLASTIN RATIO 1.7
[2016-06-05] MEDS: INSULIN GLARGINE SOLOSTAR 100 UNITS/ML 3 ML PEN SC SCH (20:09)
[2016-06-05] MEDS: SIMVASTATIN 20 MG TAB PO SCH (20:16)
[2016-06-05] MEDS: CYCLOBENZAPRINE HCL 5 MG TAB PO PRN (20:17)
[2016-06-05] MEDS: ALUMINUM/MAGNESIUM/SIMETH (MAALOX MAX) 30 ML UDC PO SCH (20:17)
[2016-06-05] MEDS ORDERED: HEPARIN IV BOLUS 3,000 UNIT in SYRINGE 0 ML IV ONE (21:45)
[2016-06-05] MEDS: HEPARIN 25,000 UNIT/500ML D5W 500 ML IV PRN (21:49)
[2016-06-06] VITALS (7 sets, daily range): BP systolic 105–123; BP diastolic 54–63; PULSE 65–74; TEMP 36.2–37.3; O2SAT 95–98
[2016-06-06 04:05] LABS: BASO % 0.5 %; BASO ABS # 0.03 K/uL (0-0.2); COMPLETE YES; EOS % 3.2 %; HEMATOCRIT 28.7 % (37-47); IG% 0.3 %; LYMPH % 16.5 %; LYMPH ABS # 1.04 K/uL (1.2-3.4); MEAN CELL VOLUME 75.9 fL (80-100); MEAN CORPUSCULAR HEMOGLOBIN 24.6 pg (25-34); MEAN CORPUSCULAR HGB CONC 32.4 g/dl (32-36); MEAN PLATELET VOLUME 9.4 fL (7.4-10.4); MONO % 14.9 %; NEUT % 64.6 %; PLATELET COUNT 151 K/uL (130-400); RED BLOOD COUNT 3.78 M/uL (4.2-5.4); WHITE BLOOD COUNT 6.32 K/uL (4.8-10.8)
[2016-06-06 04:23] LABS: BUN/CREATININE RATIO 22.4 (10-20); CALCIUM 8.3 mg/dl (8.5-10.1); CREATININE 1.9 mg/dl (0.60-1.20); MAGNESIUM 2.7 mg/dl (1.8-2.4); POTASSIUM 4.9 mmol/L (3.5-5.1)
[2016-06-06 04:25] LABS: PARTIAL THROMBOPLASTIN RATIO 2.9
[2016-06-06] MEDS: HEPARIN 25,000 UNIT/500ML D5W 500 ML IV PRN ×3 (06:35→22:22)
[2016-06-06] MEDS: INSULIN ASPART 100 UNITS/ML 3 ML PEN SC SCH ×4 (07:00→21:02)
[2016-06-06] MEDS: LIDODERM (LIDOCAINE) PATCH 5% TD SCH (07:54)
[2016-06-06] MEDS: PANTOprazole SOD 40 MG TAB PO SCH ×2 (07:54→19:55)
[2016-06-06] MEDS: DOCUSATE SODIUM 100 MG CAP PO SCH ×2 (07:54→19:52)
[2016-06-06] MEDS: SPIRONOLACTONE 25 MG TAB PO SCH ×2 (07:55→17:00)
[2016-06-06] MEDS: AMIODARONE 200 MG TAB PO SCH ×2 (07:56→19:56)
[2016-06-06] MEDS: CEFUROXIME AXETIL 500 MG TAB PO SCH (07:56)
[2016-06-06] MEDS: ASPIRIN 81 MG ECTAB PO SCH (07:56)
[2016-06-06] MEDS: ISOSORBIDE MONONITRATE 30 MG TABCR PO SCH (07:57)
[2016-06-06] MEDS: FERROUS SULFATE 325 MG TAB PO SCH (07:57)
[2016-06-06] MEDS: POTASSIUM CHLORIDE PWD 20 MEQ PACK PO SCH (07:58)
[2016-06-06] MEDS: POLYETHYLENE (MIRALAX) 17 GM PACK PO SCH (07:58)
[2016-06-06] MEDS: METOPROLOL SUCC 25MG EXT REL TAB PO SCH ×2 (07:58→19:56)
[2016-06-06] MEDS: RANITIDINE HCL 150 MG TAB PO SCH ×2 (07:58→19:55)
[2016-06-06] MEDS: CYCLOBENZAPRINE HCL 5 MG TAB PO PRN (07:59)
[2016-06-06] MEDS: TRAMADOL HCL 50 MG TAB PO PRN (08:00)
[2016-06-06] MEDS: HYDROCODONE/ACETAMOPHEN 5/325MG TAB PO PRN ×3 (09:37→18:34)
--- NOTE | 2016-06-06 09:40 | Pain Management Consultation ---
Pain Management Consultation Date of Consultation Jun 06, 2016. Reason for Consultation Low back/right hip pain History Mrs. Nicole is an 85 year old white female that has been admitted to the [facility] for an acute CHF exacerbation. Patient states that she has been developing right low back and right hip pain over the last several days. She describes a sharp and stabbing pain that is intermittent. Pain episodes occur every 5 minutes or so. Patient rates her pain 10/10. There are no alleviating symptoms. Patient has taken Tramadol 50mg once last night and once this morning which has not been effective towards diminishing her pain. Patient states that the pain radiates along the right lateral thigh. She does not recall experiencing this pain before. She does have chronic leg weakness. + urinary catheter is present. No bowel incontinence, saddle anesthesia, foot drop, or falls. Case discussed with Dr. Saucedo Past Medical/Surgical History (1) CHF exacerbation (2) Dyslipidemia (3) Diabetes mellitus type II, controlled (4) CKD (chronic kidney disease) stage 3, GFR 30-59 ml/min (5) CAD (coronary artery disease) (6) Systolic CHF, chronic (7) PAF (paroxysmal atrial fibrillation) (8) GERD (gastroesophageal reflux disease) (9) H/O heart artery stent (10) History of section (11) History of hysterectomy (12) History of appendectomy (13) History of total left hip arthroplasty (14) History of cholecystectomy Social / Work History Smoking Status: Never smoker Smokeless Tobacco Use: No Alcohol Use: none Drug Use: none Marital Status: (has one daughter) Housing Status: halfway ([facility]) Occupation: retired Allergies Coded Allergies: Fexofenadine (Verified Allergy, Unknown, CONGESTION, 05/14/15) Hydromorphone (Verified Adverse Reaction, Unknown, Lethargic, 06/05/16) MD order Pain medication on 11 to 7 shift. Patient received once at 2AM with relief. When this RN came in, patient was crying in pain. Restless with agitation. Mental status unchanged. VSS. Medication was given per order. Monitor closely r/t renal function. MD was made aware of medication and pain. Order received to hold Dilaudid and other medication ordered r/t kidney function. Found lethargic with VSS. MD was made aware and Narcan was ordered. Medications Current Inpatient Medications Medications (Trade) Dose Ordered Sig/Brock Route Start Time Stop Time Status Last Admin Dose Admin Acetaminophen (Tylenol Tab) 650 mg Q4H PRN PO 05/28/16 11:30 06/27/16 11:29 06/05/16 00:20 650 MG Ondansetron HCl (Zofran Inj) 4 mg Q6H PRN IV 05/28/16 11:30 06/27/16 11:29 06/05/16 15:06 4 MG Nitroglycerin (Nitrostat Tab) 0.4 mg UD PRN SL 05/28/16 11:30 06/27/16 11:29 Insulin Aspart (novoLOG ASPART) SLIDING SCALE If C... ACHS SC 05/28/16 16:15 06/27/16 16:14 06/05/16 20:08 2 UNITS Glucose (Glucose 40% Gel) 15-30 GRAMS 15 GRAMS... UD PRN PO 05/28/16 11:45 06/27/16 11:44 Glucose (Glucose Chew Tab) 4-8 Tablets 4 Tabl... UD PRN PO 05/28/16 11:45 06/27/16 11:44 Dextrose (Dextrose 50% 50ML Syringe) 25-50ML OF 50% DW IV FOR... UD PRN IV 05/28/16 11:45 06/27/16 11:44 Glucagon (Glucagon Inj) 1 mg UD PRN SQ 05/28/16 11:45 06/27/16 11:44 Al Hydrox/Mg Hydrox/Simethicone (Maalox Max Susp) 30 ml HS PO 05/28/16 21:00 06/27/16 20:59 Aspirin (Ecotrin Tab) 81 mg QAM PO 05/29/16 09:00 06/28/16 08:59 06/06/16 07:56 81 MG Docusate Sodium (coLACE CAP) 100 mg BID PO 05/28/16 21:00 06/27/16 20:59 06/06/16 07:54 100 MG Insulin Glargine (Lantus Solostar Pen) 10 unit QPM SC 05/28/16 21:00 06/27/16 20:59 06/05/16 20:09 10 UNIT Potassium Chloride (Klor-Con Pwd) 20 meq DAILY PO 05/29/16 09:00 06/28/16 08:59 06/06/16 07:58 20 MEQ Ranitidine HCl (zANTac TAB) 150 mg BID PO 05/28/16 21:00 06/27/16 20:59 06/06/16 07:58 150 MG Simvastatin (Zocor Tab) 20 mg PM PO 05/29/16 21:00 06/28/16 20:59 06/05/16 20:16 20 MG Polyethylene (Miralax Powder Packet) 17 gm DAILY PO 05/29/16 09:00 06/28/16 08:59 06/06/16 07:58 17 GM Isosorbide Mononitrate 30 mg 30 mg DAILY PO 05/29/16 09:00 06/28/16 08:59 06/06/16 07:57 30 MG Heparin Sodium/ Dextrose (Heparin 25,000 Unit/500ml D5W) 500 ml @ 11 mls/hr Q24H PRN IV 05/29/16 02:00 06/28/16 01:59 Future hold 06/06/16 06:35 11 MLS/HR Pantoprazole Sodium (Protonix Tab) 40 mg BID PO 05/29/16 21:00 06/28/16 20:59 06/06/16 07:54 40 MG Metoprolol Succinate (Toprol Xl Tab) 12.5 mg BID PO 05/29/16 21:00 06/28/16 20:59 06/06/16 07:58 12.5 MG Ferrous Sulfate (Feosol Tab) 325 mg QAM PO 05/30/16 09:00 06/29/16 08:59 06/06/16 07:57 325 MG Amiodarone HCl (Cordarone Tab) 200 mg BID PO 06/03/16 21:00 07/03/16 20:59 06/06/16 07:56 200 MG Spironolactone (Aldactone Tab) 12.5 mg BID17 PO 06/03/16 17:00 07/03/16 16:59 06/06/16 07:55 12.5 MG Miscellaneous Information 1 ea UD PRN N/A 06/03/16 13:00 07/03/16 12:59 Cefuroxime Axetil (Ceftin Tab) 500 mg QAM PO 06/04/16 09:00 06/13/16 08:59 06/06/16 07:56 500 MG Tramadol HCl (Ultram Tab) 50 mg Q8H PRN PO 06/04/16 13:15 07/04/16 13:14 06/06/16 08:00 50 MG Haloperidol (Haldol Tab) 2 mg Q4H PRN PO 06/04/16 22:30 07/04/16 22:29 Haloperidol Lactate (Haldol Inj) 2 mg Q2H PRN IM 06/04/16 22:30 07/04/16 22:29 06/04/16 22:39 2 MG Lidocaine (Lidoderm Patch 5%) 1 patch QAM TD 06/05/16 09:00 07/05/16 08:59 06/06/16 07:54 1 PATCH Miscellaneous (Remove Lidoderm Patch) 1 ea DAILY@21 N/A 06/05/16 21:00 07/05/16 20:59 06/05/16 20:17 1 EA Cyclobenzaprine HCl (Flexeril Tab) 5 mg TID PRN PO 06/05/16 14:00 07/05/16 13:59 06/06/16 07:59 5 MG Review of Systems Denies any constitutional, cardiac, pulmonary, neurological, GI, , extremity, endocrine, neuro, ENT, dermatological, or musculoskeletal complaints other than stated in HPI Physical Exam Height & Weight: Height 5 feet, 4.00 inches. Weight 85.200 (Kilograms) 187 (Pounds) Last Vital Signs Documentation Date Time Temp Pulse Resp B/P Pulse Ox O2 Delivery O2 Flow Rate FiO2 06/06/16 07:16 36.7 67 22 115/54 98 Nasal Cannula 3.0 Exam: GENERAL: Mrs. Nicole is an 85 y/o white female that appears her stated age. Speech and cognition is intact. Patient is tearful and inconsolable. Patient appears to be in acute distress. HEAD: Normocephalic; atraumatic. EYES: Pupils are round, equal, and reactive to light; EOM intact. ENT: No external ear discharge or lesions. No rhinorrhea or epistaxis. Dry buccal mucosa. CHEST: Regular chest respiration and excursion. EXTREMITIES: There is 4/5 strength of the bilateral legs. Lifting up legs increases pain/hip pain. 2+ pitting edema of the lower extremities. No tenderness of the right greater trochanteric bursa. Fair ROM of the right hip but patient is guarding in fear of pain. BACK: Loss of lumbar lordosis. There is no tenderness of the midline, SI joints , or facet joints. No paravertebral, quadratus lumborum spasm or trigger points. NEURO: CN II-XII grossly intact with no focal deficits noted. AAO x 3 SKIN: No lesions, erythema, or rashes noted. + multiple areas of ecchymosis. Laboratory / Imaging Results Laboratory Results (Last CBC): 06/06/16 04:00 Red Blood Count 3.78 L, Mean Corpuscular Volume 75.9 L, Mean Corpuscular Hemoglobin 24.6 L, Mean Corpuscular Hemoglobin Concent 32.4, Mean Platelet Volume 9.4, Neutrophils (%) (Auto) 64.6, Lymphocytes (%) (Auto) 16.5, Monocytes (%) (Auto) 14.9, Eosinophils (%) (Auto) 3.2, Basophils (%) (Auto) 0.5, Neutrophils # (Auto) 4.09, Lymphocytes # (Auto) 1.04 L, Monocytes # (Auto) 0.94 H, Eosinophils # (Auto) 0.20, Basophils # (Auto) 0.03 Imagin06/05/[address] 1. Large right and moderate left pleural effusions with subtotal right lower lobe collapse. This likely reflects compressive atelectasis. 2. Generalized anasarca with a small amount of ascites. 3. Suboptimal evaluation given the lack of IV and oral contrast. 4. No bowel obstruction. 5. Mild loss of height with lucency and irregularity of the inferior endplate of T12. This may reflect a subacute compression fracture. Moderate to severe multilevel degenerative disc disease of the lumbar spine. 6. Moderate cardiomegaly and extensive coronary artery calcification. Mild ground glass opacity within the lungs which favors pulmonary edema. 06/05/16 Pelvis x-ray 1. No acute fracture within the pelvis or hips. 2. Status post total left hip arthroplasty. Hardware intact. No periprosthetic fracture identified. Assessment 1. Myofascial pain 2. Low back/hip pain 3. Subacute T12 compression fracture 4. Acute Congestive Heart Failure Exacerbation 5. Coronary Artery Disease 6. Diabetes Mellitus 7. Chronic Kidney Disease Recommendations 1. According to records, at home medications included Hydrocodone which the patient states she was able to previously tolerate. Will plan to discontinue Tramadol as she does not find it efficacious and will initiate patient on Hydrocodone 5/325 x 4 hrs PRN pain. 2. Initiate the patient on Gabapentin 100mg BID for possible neuropathic component to pain. 3. Continue Lidocaine patches Dragon Voice Recognition This chart was completed in part utilizing [employer]io Voice Recognition Software. Random word insertions, pronoun errors, and incomplete sentences are an occasional consequence of this system due to software limitations and ambient noise. Any questions or concerns about the content, text or information contained within the body of this dictation should be directly addressed to the provider for clarification. Additional Copies To Bernadette Pugh M.D.
--- NOTE | 2016-06-06 09:44 | PROGRESS NOTE ---
DATE: 06/06/2016 FOLLOWUP VISIT SUBJECTIVE: The patient is an 85-year-old with severe systolic heart failure. Last evening she was given Dilaudid for hip discomfort and later on required Narcan due to unresponsiveness. Yesterday, I started her on Zaroxolyn which she had been taking as an outpatient. She has not had much response from this medication and her weight is up again today. She is sitting in a chair. She is alert but not completely oriented. OBJECTIVE: VITAL SIGNS: Blood pressure is 115/50, pulse is regular at 67, she is afebrile. HEENT: She is normocephalic. Pupils are equal and reactive to light. Extraocular muscles are intact bilaterally. NECK: The neck veins are flat. Carotids have good upstrokes bilaterally without bruits. Thyroid is nonpalpable. RESPIRATORY: Breath sounds equal bilaterally and clear to auscultation. CARDIOVASCULAR: Heart has a regular rhythm. No systolic murmurs or rubs. GASTROINTESTINAL: Abdomen is distended. Bowel sounds are present. NEUROLOGIC: Grossly intact. EXTREMITIES: Have edema of the legs bilaterally. SKIN: Warm to touch. LYMPH NODES: Negative to palpation. LABORATORY DATA: Potassium is 5.1, creatinine is 1.9, BUN 43. Hemoglobin is 9.3. IMPRESSION: 1. Decompensated systolic heart failure. 2. Severe cardiomyopathy with an estimated left ventricular ejection fraction 15%. 3. Atrial fibrillation. 4. Coronary artery disease. 5. Recent transient ischemic attack while on heparin. 6. History of gastrointestinal bleeding with outpatient anticoagulation. RECOMMENDATIONS: As mentioned above, she did not have a good response with the Zaroxolyn. I am going to add Lasix to her medical regimen. Hopefully, she will start to diurese.
[2016-06-06] MEDS ORDERED: FUROSEMIDE INJ 40 MG in SYRINGE 0 ML IV ONE (10:00)
[2016-06-06] MEDS: GABAPENTIN 100 MG CAP PO SCH ×2 (11:06→19:55)
[2016-06-06 11:18] LABS: PARTIAL THROMBOPLASTIN RATIO 1.3
[2016-06-06] MEDS: ONDANSETRON INJ 2 MG/ML 2 ML VIAL IV PRN (11:19)
[2016-06-06] MEDS ORDERED: HEPARIN IV BOLUS 4,500 UNIT in SYRINGE 0 ML IV ONE (13:00)
[2016-06-06] MEDS: ALUMINUM/MAGNESIUM/SIMETH (MAALOX MAX) 30 ML UDC PO SCH (19:53)
[2016-06-06] MEDS: SIMVASTATIN 20 MG TAB PO SCH (19:56)
[2016-06-06] MEDS ORDERED: FUROSEMIDE INJ 40 MG in SYRINGE 0 ML IV SCH (21:00)
[2016-06-06] MEDS: INSULIN GLARGINE SOLOSTAR 100 UNITS/ML 3 ML PEN SC SCH (21:02)
[2016-06-07] MEDS: HYDROCODONE/ACETAMOPHEN 5/325MG TAB PO PRN ×2 (01:17→15:50)
--- NOTE | 2016-06-07 02:01 | Progress Note ---
Medicine Progress Note Date & Time of Visit: Jun 07, 2016 at 02:01. delayed entry date of service 06/06/16 Subjective seen with daughter at bedside main symptom is low back pain no leg weakness/numbness denies chest pain, dyspnea Objective Last 8 Hrs Date Time Temp Pulse Resp B/P Pulse Ox O2 Delivery O2 Flow Rate FiO2 06/07/16 00:00 Nasal Cannula 4.0 06/06/16 22:57 36.2 69 22 111/59 97 Nasal Cannula 2.0 06/06/16 20:00 Nasal Cannula 4.0 06/06/16 18:57 37.3 65 22 105/60 98 Nasal Cannula 2.0 Physical Exam: General- oriented x 2, not in distress, speaks in sentences with no effort Lungs- decreased breath sounds on the right mid-base, clear on the left, no wheezing Heart- normal rate, regular rhythm; no murmurs Abdomen- normal bowel sounds, soft, nontender Extremities-grade 1-2 lower leg edema with mild erythema, warmth, tenderness Neuro- alert, oriented x 2, no other gross deficits Skin- warm & dry Laboratory Results: Last 24 Hours Test 06/06/16 04:00 06/06/16 06:59 06/06/16 10:56 06/06/16 11:36 White Blood Count 6.32 K/uL Red Blood Count 3.78 M/uL Hemoglobin 9.3 g/dL Hematocrit 28.7 % Mean Corpuscular Volume 75.9 fL Mean Corpuscular Hemoglobin 24.6 pg Mean Corpuscular Hemoglobin Concent 32.4 g/dl Platelet Count 151 K/uL Mean Platelet Volume 9.4 fL Neutrophils (%) (Auto) 64.6 % Lymphocytes (%) (Auto) 16.5 % Monocytes (%) (Auto) 14.9 % Eosinophils (%) (Auto) 3.2 % Basophils (%) (Auto) 0.5 % Neutrophils # (Auto) 4.09 K/uL Lymphocytes # (Auto) 1.04 K/uL Monocytes # (Auto) 0.94 K/uL Eosinophils # (Auto) 0.20 K/uL Basophils # (Auto) 0.03 K/uL RDW Standard Deviation 51.2 fL RDW Coefficient of Variation 18.7 % Immature Granulocyte % (Auto) 0.3 % Immature Granulocyte # (Auto) 0.02 K/uL Activated Partial Thromboplast Time 74.8 SECONDS 34.4 SECONDS Partial Thromboplastin Ratio 2.9 1.3 Sodium Level 134 mmol/L Potassium Level 4.9 mmol/L Chloride Level 95 mmol/L Carbon Dioxide Level 31 mmol/L Anion Gap 8.0 mmol/L Blood Urea Nitrogen 43 mg/dl Creatinine 1.90 mg/dl Est Creatinine Clear Calc Drug Dose 21.8 ml/min Estimated GFR () 27.0 Estimated GFR (Non- 23.3 BUN/Creatinine Ratio 22.4 Random Glucose 167 mg/dl Calcium Level 8.3 mg/dl Magnesium Level 2.7 mg/dl Bedside Glucose 185 mg/dl 200 mg/dl Test 06/06/16 16:04 06/06/16 19:45 06/06/16 20:42 Bedside Glucose 219 mg/dl 211 mg/dl Activated Partial Thromboplast Time 129.0 SECONDS Partial Thromboplastin Ratio 5.0 Assessment & Plan ACUTE ON CHRONIC SYSTOLIC CHF EXACERBATION (Biventricular Right >Left)/ SEVERE CARDIOMYOPATHY WITH LVEF <15% : Pt presented with worsening LE edema, SOB and cough; h/o mod mitral regurg and systolic CHF on Lasix and metolazone from Dr Hollis office. -IV Lasix 40 mg BID Spironolactone increased to 12.5 mg PO BID, Toprol increased to 12.5 mg PO BID on 05/29/16 -Troponin- 0.049,0.084, 0.094, Echo- LV- moderately dilated, severely reduced, septal/apical/severe global hypokinesis of left ventricle with EF <15%, LA- Mildly dilated, Mild-moderate MR, Moderate TR -- Lasix IV restarted on Spironolactone -- monitor crea TOMMY ON CKD STAGE 3 - baseline creatinine 1.4 now 1.8 - Lasix restarted monitor crea ATRIAL FIBRILLATION - In past was taken off xarelto (6 months ago) due to GI bleeding/anemia and thought to be at a higher risk of bleeding -Low dose IV Heparin started increased toprol to 12.5 mg PO BID IV Amiodarone on 06/02/16--> changed to PO -Cardiology on board POSSIBLE TIA in the setting of Atrial Fibrillation - (+) aphasia lasting for about an hour yesterday CT head: no bleed, no new CVA Telestroke conference performed- not a tpa candidate, recommend to resume Heparin and continue Aspirin Carotid US: no significant stenosis - Neurology consulted, appreciate the recommendations - 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 continue Aspirin Low Back Pain, Intermittent L Hip Pain - CT abd/pelvis: possible T12 compression fracture - left hip xray: no fracture - Lidoderm patch PRN tramadol PRN [place] Gabapentin started - appreciate pain management recommendations Possible Lower Leg Cellulitis Cefuroxime Day 4 wound care consult -- improving UTI, Klebsiella -On ciprofloxacin BID (Day 07/25) per c/s changed to Cefuroxime to cover possible Lower Leg Cellulitis as well ANEMIA, CHRONIC : Likely iron deficiency - History of GI bleeding few months ago, requiring blood transfusion, declined EGD/Colonoscopy- resolved spontaneously after stopping xarelto. -Ferritin/Iron low- Started her on Ferrous sulphate - Hg stable INSULIN-DEPENDENT DM 2 -Recent A1C 6.4 -cont Lantus -ISS , Accuchecks -monitor BSG AC HS CAD -NSTEMI 07/2015 s/p stent placement -Cont ASA, BB (toprol dose increased as above) and statin - stable GERD -Cont ranitidine and PPI BID- changed to PO DYSLIPIDEMIA -Cont statin DVT PROPHYLAXIS -Heparin IV CODE STATUS -FULL CODE status per discussion with patient upon admission DISPO Continue with tele monitoring PT/OT ordered Plan is back to [facility] once medically stable- bed on hold Current Inpatient Medications: Current Inpatient Medications Medications (Trade) Dose Ordered Sig/Brock Route Start Time Stop Time Status Last Admin Dose Admin Acetaminophen (Tylenol Tab) 650 mg Q4H PRN PO 05/28/16 11:30 06/27/16 11:29 06/05/16 00:20 650 MG Ondansetron HCl (Zofran Inj) 4 mg Q6H PRN IV 05/28/16 11:30 06/27/16 11:29 06/06/16 11:19 4 MG Nitroglycerin (Nitrostat Tab) 0.4 mg UD PRN SL 05/28/16 11:30 06/27/16 11:29 Insulin Aspart (novoLOG ASPART) SLIDING SCALE If C... ACHS SC 05/28/16 16:15 06/27/16 16:14 06/06/16 21:02 2 UNITS Glucose (Glucose 40% Gel) 15-30 GRAMS 15 GRAMS... UD PRN PO 05/28/16 11:45 06/27/16 11:44 Glucose (Glucose Chew Tab) 4-8 Tablets 4 Tabl... UD PRN PO 05/28/16 11:45 06/27/16 11:44 Dextrose (Dextrose 50% 50ML Syringe) 25-50ML OF 50% DW IV FOR... UD PRN IV 05/28/16 11:45 06/27/16 11:44 Glucagon (Glucagon Inj) 1 mg UD PRN SQ 05/28/16 11:45 06/27/16 11:44 Al Hydrox/Mg Hydrox/Simethicone (Maalox Max Susp) 30 ml HS PO 05/28/16 21:00 06/27/16 20:59 Aspirin (Ecotrin Tab) 81 mg QAM PO 05/29/16 09:00 06/28/16 08:59 06/06/16 07:56 81 MG Docusate Sodium (coLACE CAP) 100 mg BID PO 05/28/16 21:00 06/27/16 20:59 06/06/16 07:54 100 MG Insulin Glargine (Lantus Solostar Pen) 10 unit QPM SC 05/28/16 21:00 06/27/16 20:59 06/06/16 21:02 10 UNIT Potassium Chloride (Klor-Con Pwd) 20 meq DAILY PO 05/29/16 09:00 06/28/16 08:59 06/06/16 07:58 20 MEQ Ranitidine HCl (zANTac TAB) 150 mg BID PO 05/28/16 21:00 06/27/16 20:59 06/06/16 19:55 150 MG Simvastatin (Zocor Tab) 20 mg PM PO 05/29/16 21:00 06/28/16 20:59 06/06/16 19:56 20 MG Polyethylene (Miralax Powder Packet) 17 gm DAILY PO 05/29/16 09:00 06/28/16 08:59 06/06/16 07:58 17 GM Isosorbide Mononitrate 30 mg 30 mg DAILY PO 05/29/16 09:00 06/28/16 08:59 06/06/16 07:57 30 MG Heparin Sodium/ Dextrose (Heparin 25,000 Unit/500ml D5W) 500 ml @ 10 mls/hr Q24H PRN IV 05/29/16 02:00 06/28/16 01:59 Future hold 06/06/16 22:22 10 MLS/HR Pantoprazole Sodium (Protonix Tab) 40 mg BID PO 05/29/16 21:00 06/28/16 20:59 06/06/16 19:55 40 MG Metoprolol Succinate (Toprol Xl Tab) 12.5 mg BID PO 05/29/16 21:00 06/28/16 20:59 06/06/16 19:56 12.5 MG Ferrous Sulfate (Feosol Tab) 325 mg QAM PO 05/30/16 09:00 06/29/16 08:59 06/06/16 07:57 325 MG Amiodarone HCl (Cordarone Tab) 200 mg BID PO 06/03/16 21:00 07/03/16 20:59 06/06/16 19:56 200 MG Spironolactone (Aldactone Tab) 12.5 mg BID17 PO 06/03/16 17:00 07/03/16 16:59 06/06/16 17:00 12.5 MG Miscellaneous Information 1 ea UD PRN N/A 06/03/16 13:00 07/03/16 12:59 Cefuroxime Axetil (Ceftin Tab) 500 mg QAM PO 06/04/16 09:00 06/13/16 08:59 06/06/16 07:56 500 MG Haloperidol (Haldol Tab) 2 mg Q4H PRN PO 06/04/16 22:30 07/04/16 22:29 06/06/16 12:34 2 MG Haloperidol Lactate (Haldol Inj) 2 mg Q2H PRN IM 06/04/16 22:30 07/04/16 22:29 06/04/16 22:39 2 MG Lidocaine (Lidoderm Patch 5%) 1 patch QAM TD 06/05/16 09:00 07/05/16 08:59 06/06/16 07:54 1 PATCH Miscellaneous (Remove Lidoderm Patch) 1 ea DAILY@21 N/A 06/05/16 21:00 07/05/16 20:59 06/06/16 19:52 1 EA Cyclobenzaprine HCl (Flexeril Tab) 5 mg TID PRN PO 06/05/16 14:00 07/05/16 13:59 06/06/16 07:59 5 MG Acetaminophen/ Hydrocodone Bitart ([place] 5/325 Tab) 1 tab Q4 PRN PO 06/06/16 08:45 06/20/16 08:44 06/07/16 01:17 1 TAB Gabapentin 100 mg 100 mg BID PO 06/06/16 09:00 07/06/16 08:59 06/06/16 19:55 100 MG Furosemide/Syringe (Lasix Inj/ Syringe) 4 ml @ 4 mls/min BID17 IV 06/06/16 21:00 07/06/16 20:59 06/06/16 19:54 4 MLS/MIN
[2016-06-07 03:37] LABS: BASO % 0.4 %; BASO ABS # 0.03 K/uL (0-0.2); COMPLETE YES; EOS % 3.8 %; HEMATOCRIT 28.1 % (37-47); IG% 0.3 %; LYMPH % 10.9 %; LYMPH ABS # 0.77 K/uL (1.2-3.4); MEAN CELL VOLUME 75.9 fL (80-100); MEAN CORPUSCULAR HEMOGLOBIN 25.1 pg (25-34); MEAN CORPUSCULAR HGB CONC 33.1 g/dl (32-36); MEAN PLATELET VOLUME 9.3 fL (7.4-10.4); MONO % 17.1 %; NEUT % 67.5 %; PLATELET COUNT 161 K/uL (130-400); WHITE BLOOD COUNT 7.08 K/uL (4.8-10.8)
[2016-06-07 03:43] VITALS: BP 103/61; PULSE 63; TEMP 36.4; O2SAT 98
[2016-06-07 03:50] LABS: PARTIAL THROMBOPLASTIN RATIO 1.7
[2016-06-07 03:58] LABS: BUN/CREATININE RATIO 23.7 (10-20); CALCIUM 8.3 mg/dl (8.5-10.1); MAGNESIUM 2.5 mg/dl (1.8-2.4); POTASSIUM 4.2 mmol/L (3.5-5.1)
[2016-06-07] MEDS ORDERED: HEPARIN IV BOLUS 3,000 UNIT in SYRINGE 0 ML IV ONE (04:15)
[2016-06-07] MEDS: HEPARIN 25,000 UNIT/500ML D5W 500 ML IV PRN (04:26)
[2016-06-07 07:48] VITALS: BP 111/72; PULSE 60; TEMP 36.2; O2SAT 98
[2016-06-07] MEDS: POTASSIUM CHLORIDE PWD 20 MEQ PACK PO SCH (09:31)
[2016-06-07] MEDS: METOPROLOL SUCC 25MG EXT REL TAB PO SCH ×2 (09:31→21:00)
[2016-06-07] MEDS: ASPIRIN 81 MG ECTAB PO SCH (09:31)
[2016-06-07] MEDS: POLYETHYLENE (MIRALAX) 17 GM PACK PO SCH (09:31)
[2016-06-07] MEDS: LIDODERM (LIDOCAINE) PATCH 5% TD SCH (09:31)
[2016-06-07] MEDS: ISOSORBIDE MONONITRATE 30 MG TABCR PO SCH (09:31)
[2016-06-07] MEDS: PANTOprazole SOD 40 MG TAB PO SCH ×2 (09:32→21:18)
[2016-06-07] MEDS: RANITIDINE HCL 150 MG TAB PO SCH ×2 (09:32→21:17)
[2016-06-07] MEDS: AMIODARONE 200 MG TAB PO SCH ×2 (09:32→21:17)
[2016-06-07] MEDS: SPIRONOLACTONE 25 MG TAB PO SCH ×2 (09:32→17:21)
[2016-06-07] MEDS: GABAPENTIN 100 MG CAP PO SCH ×2 (09:32→21:18)
[2016-06-07] MEDS: CEFUROXIME AXETIL 500 MG TAB PO SCH (09:33)
[2016-06-07] MEDS: DOCUSATE SODIUM 100 MG CAP PO SCH ×2 (09:33→21:16)
[2016-06-07] MEDS: FERROUS SULFATE 325 MG TAB PO SCH (09:33)
--- NOTE | 2016-06-07 09:33 | CARDIOLOGY PROGRESS NOTE ---
DATE: 06/07/2016 DATE: 06/07/2016. FOLLOW-UP VISIT SUBJECTIVE: The patient is an 85-year-old with severe systolic heart failure. She was admitted with decompensated CHF. Yesterday we increased her diuretics. Her I\T\O did not reflect any improvement in her urine output; however, her weight is down and I wonder about the accuracy of the I\T\O. She is lying comfortably in bed. She has no complaints. OBJECTIVE: VITAL SIGNS: Blood pressure is 110/70, pulse is regular at 60. She is afebrile. GENERAL: She is alert. HEAD, EYES, EARS, NOSE, AND THROAT: She is normocephalic. Pupils are equal and reactive to light. Extraocular muscles are intact bilaterally. NECK: The neck veins are flat. Carotids have good upstrokes bilaterally without bruits. Thyroid is nonpalpable. RESPIRATORY: Breath sounds equal bilaterally and clear to auscultation. CARDIOVASCULAR: Heart has a regular rhythm. Normal S1, S2. No S3, S4. No cardiac rubs or murmurs. GASTROINTESTINAL: Abdomen is soft, nontender without organomegaly. It seems to be less distended today. EXTREMITIES: Decreased edema. NEUROLOGIC: Grossly intact. SKIN: Warm to touch. LYMPH NODES: Negative to palpation. LABORATORY DATA: Creatinine is 2.0, BUN is 47. Potassium is 4.2, hemoglobin is 9.3. IMPRESSION: 1. Decompensated systolic heart failure. 2. Severe cardiomyopathy with an estimated left ventricular ejection fraction 15%. 3. Atrial fibrillation. 4. Coronary artery disease. 5. Recent transient ischemic attack while on heparin. 6. History of gastroesophageal bleeding with outpatient anticoagulation. RECOMMENDATIONS: The patient's creatinine has increased a bit, although I still believe that this is her baseline. I will decrease her furosemide to 40 mg IV daily. Although the I\T\O does not reflect it, it appears that she is less volume overloaded with her edema improving and her weight trending down.
[2016-06-07] MEDS: INSULIN ASPART 100 UNITS/ML 3 ML PEN SC SCH ×4 (09:34→21:25)
[2016-06-07 10:42] LABS: PARTIAL THROMBOPLASTIN RATIO 2.6
[2016-06-07 11:56] VITALS: BP 117/63; PULSE 59; TEMP 36.6; O2SAT 100
[2016-06-07 15:06] VITALS: BP 117/59; PULSE 61; TEMP 36.4; O2SAT 100
[2016-06-07 19:28] VITALS: BP 124/58; PULSE 60; TEMP 37.2; O2SAT 96
[2016-06-07] MEDS: ALUMINUM/MAGNESIUM/SIMETH (MAALOX MAX) 30 ML UDC PO SCH (21:00)
[2016-06-07] MEDS: SIMVASTATIN 20 MG TAB PO SCH (21:17)
[2016-06-07] MEDS: INSULIN GLARGINE SOLOSTAR 100 UNITS/ML 3 ML PEN SC SCH (21:25)
[2016-06-07 23:42] VITALS: BP 113/59; PULSE 62; TEMP 36.5; O2SAT 97
[2016-06-08] VITALS (8 sets, daily range): BP systolic 111–129; BP diastolic 53–72; PULSE 61–69; TEMP 36.4–37.7; O2SAT 97–99
[2016-06-08 05:59] LABS: BASO % 0.3 %; BASO ABS # 0.03 K/uL (0-0.2); COMPLETE YES; EOS % 5.2 %; HEMATOCRIT 29.4 % (37-47); IG% 0.2 %; LYMPH % 9.7 %; LYMPH ABS # 0.84 K/uL (1.2-3.4); MEAN CELL VOLUME 78.8 fL (80-100); MEAN CORPUSCULAR HEMOGLOBIN 25.7 pg (25-34); MEAN CORPUSCULAR HGB CONC 32.7 g/dl (32-36); MEAN PLATELET VOLUME 9.8 fL (7.4-10.4); MONO % 14.3 %; NEUT % 70.3 %; PLATELET COUNT 183 K/uL (130-400); RED BLOOD COUNT 3.73 M/uL (4.2-5.4); WHITE BLOOD COUNT 8.63 K/uL (4.8-10.8)
[2016-06-08 06:10] LABS: PARTIAL THROMBOPLASTIN RATIO 1.4
[2016-06-08 06:34] LABS: BUN/CREATININE RATIO 24.8 (10-20); CALCIUM 8.4 mg/dl (8.5-10.1); CREATININE 1.9 mg/dl (0.60-1.20); MAGNESIUM 2.7 mg/dl (1.8-2.4); POTASSIUM 4.4 mmol/L (3.5-5.1)
[2016-06-08] MEDS: INSULIN ASPART 100 UNITS/ML 3 ML PEN SC SCH ×4 (07:00→20:40)
[2016-06-08] MEDS: RANITIDINE HCL 150 MG TAB PO SCH ×2 (08:15→20:35)
[2016-06-08] MEDS: FUROSEMIDE INJ 40 MG in SYRINGE 0 ML IV SCH (08:15)
[2016-06-08] MEDS: POTASSIUM CHLORIDE PWD 20 MEQ PACK PO SCH (08:16)
[2016-06-08] MEDS: SPIRONOLACTONE 25 MG TAB PO SCH ×2 (08:16→16:26)
[2016-06-08] MEDS: AMIODARONE 200 MG TAB PO SCH ×2 (08:16→20:36)
[2016-06-08] MEDS: GABAPENTIN 100 MG CAP PO SCH ×2 (08:16→20:36)
[2016-06-08] MEDS: FERROUS SULFATE 325 MG TAB PO SCH (08:17)
[2016-06-08] MEDS: METOPROLOL SUCC 25MG EXT REL TAB PO SCH ×2 (08:17→20:36)
[2016-06-08] MEDS: ISOSORBIDE MONONITRATE 30 MG TABCR PO SCH (08:18)
[2016-06-08] MEDS: CEFUROXIME AXETIL 500 MG TAB PO SCH (08:18)
[2016-06-08] MEDS: DOCUSATE SODIUM 100 MG CAP PO SCH ×2 (08:18→20:36)
[2016-06-08] MEDS: POLYETHYLENE (MIRALAX) 17 GM PACK PO SCH (08:19)
[2016-06-08] MEDS: ASPIRIN 81 MG ECTAB PO SCH (08:19)
[2016-06-08] MEDS: PANTOprazole SOD 40 MG TAB PO SCH ×2 (08:20→20:36)
[2016-06-08] MEDS: LIDODERM (LIDOCAINE) PATCH 5% TD SCH (08:20)
--- NOTE | 2016-06-08 12:24 | PROGRESS NOTE ---
DATE: 06/08/2016 FOLLOWUP VISIT SUBJECTIVE: The patient is an 85-year-old with severe systolic heart failure. She has been slowly improving. Her diuretics were increased and her weight is trending down. She is alert, but not very conversive. Her family is with her today and overall, she seems to be doing better. OBJECTIVE: GENERAL: She is alert. VITAL SIGNS: Blood pressure is 110/70. Pulse is regular at 60. She is afebrile. HEENT: She is normocephalic. Pupils are equal and reactive to light. Extraocular muscles are intact bilaterally. NECK: The neck veins are flat. Carotids have good upstrokes bilaterally without bruits. Thyroid is nonpalpable. RESPIRATORY: Breath sounds equal bilaterally and clear to auscultation. CARDIOVASCULAR: Heart has a regular rhythm. Normal S1 and S2. No S3 or S4. No cardiac rubs or murmurs. GASTROINTESTINAL: Abdomen is soft and nontender without organomegaly. EXTREMITIES: Free of edema, digit clubbing, or cyanosis. NEUROLOGIC: Grossly intact. SKIN: Warm to touch. LYMPH NODES: Negative to palpation. LABORATORY DATA: Creatinine is 1.9. IMPRESSION: 1. Decompensated systolic heart failure. 2. Severe cardiomyopathy with an estimated left ventricular ejection fraction of 15%. 3. Atrial fibrillation. 4. Coronary artery disease. 5. Recent transient ischemic attack while on heparin. 6. History of gastroesophageal bleeding on outpatient anticoagulation. RECOMMENDATIONS: Clinically, the patient is slowly improving. I think we can make medication adjustments and hopefully, place her back in a fdc when appropriate.
[2016-06-08 13:26] LABS: PARTIAL THROMBOPLASTIN RATIO 1.3
[2016-06-08] MEDS ORDERED: HEPARIN IV BOLUS 4,500 UNIT in SYRINGE 0 ML IV ONE (14:45)
--- NOTE | 2016-06-08 18:56 | Progress Note ---
Medicine Progress Note Date & Time of Visit: Jun 08, 2016 at 18:51. Subjective seen resting in bed, more alert, in good spirits states pain is better breathing is about the same, has occasional cough no other symptoms Objective Last 8 Hrs Date Time Temp Pulse Resp B/P Pulse Ox O2 Delivery O2 Flow Rate FiO2 06/08/16 16:00 Nasal Cannula 2.0 06/08/16 15:23 36.4 61 18 116/55 99 Nasal Cannula 4.0 Humidified Oxygen 06/08/16 12:00 Nasal Cannula 2.0 06/08/16 11:08 37.3 65 20 119/58 98 2.0 Physical Exam: General- oriented x 2, not in distress, speaks in sentences with no effort Lungs- decreased breath sounds on the right base, clear left, no wheezing Heart- normal rate, regular rhythm; no murmurs Abdomen- normal bowel sounds, soft, nontender Extremities-grade 1-2 lower leg edema with mild erythema, warmth, tenderness Neuro- alert, oriented x 2, no other gross deficits Skin- warm & dry Laboratory Results: Last 24 Hours Test 06/07/16 20:33 06/08/16 05:10 06/08/16 06:56 06/08/16 11:08 Bedside Glucose 194 mg/dl 108 mg/dl 127 mg/dl White Blood Count 8.63 K/uL Red Blood Count 3.73 M/uL Hemoglobin 9.6 g/dL Hematocrit 29.4 % Mean Corpuscular Volume 78.8 fL Mean Corpuscular Hemoglobin 25.7 pg Mean Corpuscular Hemoglobin Concent 32.7 g/dl Platelet Count 183 K/uL Mean Platelet Volume 9.8 fL Neutrophils (%) (Auto) 70.3 % Lymphocytes (%) (Auto) 9.7 % Monocytes (%) (Auto) 14.3 % Eosinophils (%) (Auto) 5.2 % Basophils (%) (Auto) 0.3 % Neutrophils # (Auto) 6.06 K/uL Lymphocytes # (Auto) 0.84 K/uL Monocytes # (Auto) 1.23 K/uL Eosinophils # (Auto) 0.45 K/uL Basophils # (Auto) 0.03 K/uL RDW Standard Deviation 55.1 fL RDW Coefficient of Variation 19.3 % Immature Granulocyte % (Auto) 0.2 % Immature Granulocyte # (Auto) 0.02 K/uL Activated Partial Thromboplast Time 36.7 SECONDS Partial Thromboplastin Ratio 1.4 Sodium Level 134 mmol/L Potassium Level 4.4 mmol/L Chloride Level 95 mmol/L Carbon Dioxide Level 34 mmol/L Anion Gap 5.0 mmol/L Blood Urea Nitrogen 47 mg/dl Creatinine 1.90 mg/dl Est Creatinine Clear Calc Drug Dose 21.8 ml/min Estimated GFR () 27.0 Estimated GFR (Non- 23.3 BUN/Creatinine Ratio 24.8 Random Glucose 110 mg/dl Calcium Level 8.4 mg/dl Magnesium Level 2.7 mg/dl Test 06/08/16 12:47 06/08/16 16:11 Activated Partial Thromboplast Time 33.9 SECONDS Partial Thromboplastin Ratio 1.3 Bedside Glucose 143 mg/dl Assessment & Plan ACUTE ON CHRONIC SYSTOLIC CHF EXACERBATION (Biventricular Right >Left)/ SEVERE CARDIOMYOPATHY WITH LVEF <15% : Pt presented with worsening LE edema, SOB and cough; h/o mod mitral regurg and systolic CHF on Lasix and metolazone from Dr Hollis office. -IV Lasix 40 mg BID Spironolactone increased to 12.5 mg PO BID, Toprol increased to 12.5 mg PO BID on 05/29/16 -Troponin- 0.049,0.084, 0.094, Echo- LV- moderately dilated, severely reduced, septal/apical/severe global hypokinesis of left ventricle with EF <15%, LA- Mildly dilated, Mild-moderate MR, Moderate TR -- Lasix IV restarted diuresing gradually weight decreased on Spironolactone -- repeat CXR in AM monitor crea TOMMY ON CKD STAGE 3 - baseline creatinine 1.4 now 1.9 - Lasix restarted monitor crea ATRIAL FIBRILLATION - In past was taken off xarelto (6 months ago) due to GI bleeding/anemia and thought to be at a higher risk of bleeding -Low dose IV Heparin toprol to 12.5 mg PO BID IV Amiodarone on 06/02/16--> changed to PO -Cardiology on board POSSIBLE TIA in the setting of Atrial Fibrillation - (+) aphasia lasting for about an hour yesterday CT head: no bleed, no new CVA Telestroke conference performed- not a tpa candidate, recommend to resume Heparin and continue Aspirin Carotid US: no significant stenosis - Neurology consulted, appreciate the recommendations - not a good fdc candidate for anticoagulation continue Aspirin Low Back Pain, Intermittent L Hip Pain - CT abd/pelvis: possible T12 compression fracture - left hip xray: no fracture - Lidoderm patch PRN tramadol PRN [place] Gabapentin started - improving - appreciate pain management recommendations Possible Lower Leg Cellulitis Cefuroxime Day 5 wound care consult -- improving UTI, Klebsiella -On ciprofloxacin BID (Day 07/25) per c/s changed to Cefuroxime to cover possible Lower Leg Cellulitis as well ANEMIA, CHRONIC : Likely iron deficiency - History of GI bleeding few months ago, requiring blood transfusion, declined EGD/Colonoscopy- resolved spontaneously after stopping xarelto. -Ferritin/Iron low- Started her on Ferrous sulphate - Hg stable INSULIN-DEPENDENT DM 2 -Recent A1C 6.4 -cont Lantus -ISS , Accuchecks -monitor BSG AC HS CAD -NSTEMI 07/2015 s/p stent placement -Cont ASA, BB (toprol dose increased as above) and statin - stable GERD -Cont ranitidine and PPI BID- changed to PO DYSLIPIDEMIA -Cont statin DVT PROPHYLAXIS -Heparin IV CODE STATUS -FULL CODE status per discussion with patient upon admission DISPO Continue with tele monitoring PT/OT ordered Plan is back to [facility] once medically stable- bed on hold Current Inpatient Medications: Current Inpatient Medications Medications (Trade) Dose Ordered Sig/Brock Route Start Time Stop Time Status Last Admin Dose Admin Acetaminophen (Tylenol Tab) 650 mg Q4H PRN PO 05/28/16 11:30 06/27/16 11:29 06/05/16 00:20 650 MG Ondansetron HCl (Zofran Inj) 4 mg Q6H PRN IV 05/28/16 11:30 06/27/16 11:29 06/06/16 11:19 4 MG Nitroglycerin (Nitrostat Tab) 0.4 mg UD PRN SL 05/28/16 11:30 06/27/16 11:29 Insulin Aspart (novoLOG ASPART) SLIDING SCALE If C... ACHS SC 05/28/16 16:15 06/27/16 16:14 06/08/16 17:14 2 UNITS Glucose (Glucose 40% Gel) 15-30 GRAMS 15 GRAMS... UD PRN PO 05/28/16 11:45 06/27/16 11:44 Glucose (Glucose Chew Tab) 4-8 Tablets 4 Tabl... UD PRN PO 05/28/16 11:45 06/27/16 11:44 Dextrose (Dextrose 50% 50ML Syringe) 25-50ML OF 50% DW IV FOR... UD PRN IV 05/28/16 11:45 06/27/16 11:44 Glucagon (Glucagon Inj) 1 mg UD PRN SQ 05/28/16 11:45 06/27/16 11:44 Al Hydrox/Mg Hydrox/Simethicone (Maalox Max Susp) 30 ml HS PO 05/28/16 21:00 06/27/16 20:59 Aspirin (Ecotrin Tab) 81 mg QAM PO 05/29/16 09:00 06/28/16 08:59 06/08/16 08:19 81 MG Docusate Sodium (coLACE CAP) 100 mg BID PO 05/28/16 21:00 06/27/16 20:59 06/07/16 21:16 100 MG Insulin Glargine (Lantus Solostar Pen) 10 unit QPM SC 05/28/16 21:00 06/27/16 20:59 06/07/16 21:25 10 UNIT Potassium Chloride (Klor-Con Pwd) 20 meq DAILY PO 05/29/16 09:00 06/28/16 08:59 06/08/16 08:16 20 MEQ Ranitidine HCl (zANTac TAB) 150 mg BID PO 05/28/16 21:00 06/27/16 20:59 06/08/16 08:15 150 MG Simvastatin (Zocor Tab) 20 mg PM PO 05/29/16 21:00 06/28/16 20:59 06/07/16 21:17 20 MG Polyethylene (Miralax Powder Packet) 17 gm DAILY PO 05/29/16 09:00 06/28/16 08:59 06/07/16 09:31 17 GM Isosorbide Mononitrate 30 mg 30 mg DAILY PO 05/29/16 09:00 06/28/16 08:59 06/08/16 08:18 30 MG Heparin Sodium/ Dextrose (Heparin 25,000 Unit/500ml D5W) 500 ml @ 14 mls/hr Q24H PRN IV 05/29/16 02:00 06/28/16 01:59 Future hold 06/07/16 04:26 11 MLS/HR Pantoprazole Sodium (Protonix Tab) 40 mg BID PO 05/29/16 21:00 06/28/16 20:59 06/08/16 08:20 40 MG Metoprolol Succinate (Toprol Xl Tab) 12.5 mg BID PO 05/29/16 21:00 06/28/16 20:59 06/08/16 08:17 12.5 MG Ferrous Sulfate (Feosol Tab) 325 mg QAM PO 05/30/16 09:00 06/29/16 08:59 06/08/16 08:17 325 MG Amiodarone HCl (Cordarone Tab) 200 mg BID PO 06/03/16 21:00 07/03/16 20:59 06/08/16 08:16 200 MG Spironolactone (Aldactone Tab) 12.5 mg BID17 PO 06/03/16 17:00 07/03/16 16:59 06/08/16 16:26 12.5 MG Miscellaneous Information 1 ea UD PRN N/A 06/03/16 13:00 07/03/16 12:59 Cefuroxime Axetil (Ceftin Tab) 500 mg QAM PO 06/04/16 09:00 06/13/16 08:59 06/08/16 08:18 500 MG Haloperidol (Haldol Tab) 2 mg Q4H PRN PO 06/04/16 22:30 07/04/16 22:29 06/06/16 12:34 2 MG Haloperidol Lactate (Haldol Inj) 2 mg Q2H PRN IM 06/04/16 22:30 07/04/16 22:29 06/04/16 22:39 2 MG Lidocaine (Lidoderm Patch 5%) 1 patch QAM TD 06/05/16 09:00 07/05/16 08:59 06/08/16 08:20 1 PATCH Miscellaneous (Remove Lidoderm Patch) 1 ea DAILY@21 N/A 06/05/16 21:00 07/05/16 20:59 06/07/16 21:10 1 EA Cyclobenzaprine HCl (Flexeril Tab) 5 mg TID PRN PO 06/05/16 14:00 07/05/16 13:59 06/06/16 07:59 5 MG Acetaminophen/ Hydrocodone Bitart ([place] 5/325 Tab) 1 tab Q4 PRN PO 06/06/16 08:45 06/20/16 08:44 06/07/16 15:50 1 TAB Gabapentin 100 mg 100 mg BID PO 06/06/16 09:00 07/06/16 08:59 06/08/16 08:16 100 MG Furosemide/Syringe (Lasix Inj/ Syringe) 4 ml @ 4 mls/min DAILY@0900 IV 06/08/16 09:00 07/08/16 08:59 06/08/16 08:15 4 MLS/MIN
[2016-06-08] MEDS: ALUMINUM/MAGNESIUM/SIMETH (MAALOX MAX) 30 ML UDC PO SCH (20:35)
[2016-06-08] MEDS: SIMVASTATIN 20 MG TAB PO SCH (20:35)
[2016-06-08] MEDS: INSULIN GLARGINE SOLOSTAR 100 UNITS/ML 3 ML PEN SC SCH (20:39)
[2016-06-08 21:50] LABS: PARTIAL THROMBOPLASTIN RATIO 3.2
[2016-06-09] VITALS (14 sets, daily range): BP systolic 96–126; BP diastolic 50–67; PULSE 59–68; TEMP 36.5–36.8; O2SAT 95–100
[2016-06-09] MEDS: HEPARIN 25,000 UNIT/500ML D5W 500 ML IV PRN ×2 (00:44→06:26)
[2016-06-09 05:33] LABS: PARTIAL THROMBOPLASTIN RATIO 1.7
[2016-06-09] MEDS ORDERED: HEPARIN IV BOLUS 3,000 UNIT in SYRINGE 0 ML IV ONE (06:30)
--- NOTE | 2016-06-09 07:51 | DIAGNOSTIC IMAGING REPORT ---
SINGLE VIEW CHEST CLINICAL HISTORY: Cough. FINDINGS: An AP, portable, semierect chest radiograph is compared to study dated 05/28/2016. The examination is degraded by portable technique, large body habitus, and patient rotation. The heart is enlarged and there is atherosclerotic calcification of the thoracic aorta. There is pulmonary vascular congestion and interstitial edema. There are layering pleural effusions with bibasilar consolidation. No pneumothorax is seen. The skeletal structures are osteopenic. Advanced arthritic change is noted in the shoulders. IMPRESSION: 1. Cardiomegaly with evidence of congestive failure and interstitial edema. This is similar in appearance to the 05/28/2016 examination. 2. Layering pleural effusions with bibasilar consolidation. This likely represents atelectasis. Clinical correlation will be required. Electronically signed by: Anish Guerra M.D. 06/09/2016 7:50 AM Dictated Date/Time: 06/09/2016 7:49 AM
[2016-06-09] MEDS: FUROSEMIDE INJ 40 MG in SYRINGE 0 ML IV SCH (08:04)
[2016-06-09] MEDS: LIDODERM (LIDOCAINE) PATCH 5% TD SCH (08:04)
[2016-06-09] MEDS: PANTOprazole SOD 40 MG TAB PO SCH ×2 (08:05→20:49)
[2016-06-09] MEDS: RANITIDINE HCL 150 MG TAB PO SCH ×2 (08:05→20:48)
[2016-06-09] MEDS: METOPROLOL SUCC 25MG EXT REL TAB PO SCH ×2 (08:05→20:47)
[2016-06-09] MEDS: POTASSIUM CHLORIDE PWD 20 MEQ PACK PO SCH (08:05)
[2016-06-09] MEDS: ASPIRIN 81 MG ECTAB PO SCH (08:05)
[2016-06-09] MEDS: GABAPENTIN 100 MG CAP PO SCH ×2 (08:06→20:48)
[2016-06-09] MEDS: FERROUS SULFATE 325 MG TAB PO SCH (08:06)
[2016-06-09] MEDS: ISOSORBIDE MONONITRATE 30 MG TABCR PO SCH (08:06)
[2016-06-09] MEDS: CEFUROXIME AXETIL 500 MG TAB PO SCH (08:07)
[2016-06-09] MEDS: SPIRONOLACTONE 25 MG TAB PO SCH ×2 (08:07→17:11)
[2016-06-09] MEDS: AMIODARONE 200 MG TAB PO SCH ×2 (08:07→20:49)
[2016-06-09] MEDS: POLYETHYLENE (MIRALAX) 17 GM PACK PO SCH (08:09)
[2016-06-09] MEDS: DOCUSATE SODIUM 100 MG CAP PO SCH ×2 (08:09→20:47)
[2016-06-09] MEDS: INSULIN ASPART 100 UNITS/ML 3 ML PEN SC SCH ×4 (08:13→20:45)
[2016-06-09 08:30] LABS: BUN/CREATININE RATIO 26.6 (10-20); CALCIUM 8.3 mg/dl (8.5-10.1); CREATININE 1.7 mg/dl (0.60-1.20); POTASSIUM 4.7 mmol/L (3.5-5.1)
[2016-06-09 09:52] LABS: BASO % 0.1 %; BASO ABS # 0.01 K/uL (0-0.2); EOS % 4.8 %; HEMATOCRIT 27.8 % (37-47); IG% 0.3 %; LYMPH % 11.4 %; LYMPH ABS # 0.88 K/uL (1.2-3.4); MEAN CELL VOLUME 77.2 fL (80-100); MEAN CORPUSCULAR HEMOGLOBIN 24.7 pg (25-34); MEAN PLATELET VOLUME 10.2 fL (7.4-10.4); NEUT % 67.4 %; PLATELET COUNT 193 K/uL (130-400); WHITE BLOOD COUNT 7.73 K/uL (4.8-10.8)
[2016-06-09 10:39] LABS: ACANTHOCYTES 1+; COMPLETE YES
--- NOTE | 2016-06-09 10:42 | PROGRESS NOTE ---
DATE: 06/09/2016 SUBJECTIVE: The patient is an elderly 85-year-old female admitted with decompensated systolic heart failure. She has been diuresing and although her I and O and daily weights do not reflect her clinical course, she is slowly improving. She had severe abdominal distention and extremity edema which is slowly improving. She is more alert today. OBJECTIVE: GENERAL: She is alert and oriented. VITAL SIGNS: Blood pressure is 114/53, pulse is regular at 60. She is afebrile. HEENT: She is normocephalic. Pupils are equal and reactive to light. Extraocular muscles are intact bilaterally. NECK: The neck veins are flat. Carotids have good upstrokes bilaterally without bruits. Thyroid is nonpalpable. RESPIRATORY: Breath sounds equal bilaterally and clear to auscultation. CARDIOVASCULAR: Heart has a regular rhythm. Normal S1, S2. No S3, S4. No cardiac rubs or murmurs. GASTROINTESTINAL: Abdomen is soft, nontender without organomegaly. EXTREMITIES: There is no fluid wave. NEUROLOGIC: Grossly intact. EXTREMITIES: Decreased edema. SKIN: Warm to touch. LYMPH NODES: Negative to palpation. IMPRESSION: 1. Decompensated systolic heart failure, improving. 2. Severe cardiomyopathy with an estimated left ventricular ejection fraction 15%. 3. Atrial fibrillation. 4. Coronary artery disease. 5. Recent transient ischemic attack while on heparin. 6. History of gastroesophageal bleeding on outpatient anticoagulation. RECOMMENDATIONS: As outlined above, the patient is slowly clinically improving. I think that we should continue her current therapy.
[2016-06-09 12:32] LABS: PARTIAL THROMBOPLASTIN RATIO 2.1
--- NOTE | 2016-06-09 18:02 | Progress Note ---
Medicine Progress Note Date & Time of Visit: Jun 09, 2016 at 17:55. Subjective resting in bed has episodes of confusion on exam oriented x 2, cooperative denies chest pain, dyspnea hip and back pain better today no other symptoms Objective Last 8 Hrs Date Time Temp Pulse Resp B/P Pulse Ox O2 Delivery O2 Flow Rate FiO2 06/09/16 15:44 36.6 61 20 107/62 98 Nasal Cannula 2.0 06/09/16 15:12 62 99 06/09/16 12:00 Nasal Cannula 2.0 06/09/16 11:11 36.6 59 20 116/50 99 Nasal Cannula 3.0 Physical Exam: General- oriented x 2, not in distress, speaks in sentences with no effort Lungs- decreased breath sounds on the right base, clear on the left, no wheezes Heart- normal rate, regular rhythm; no murmurs Abdomen- normal bowel sounds, soft, nontender Extremities-grade 1-2 lower leg edema with mild erythema, warmth, tenderness Neuro- alert, oriented x 2, no other gross deficits Skin- warm & dry Laboratory Results: Last 24 Hours Test 06/08/16 20:15 06/08/16 20:55 06/09/16 05:09 06/09/16 06:27 Bedside Glucose 194 mg/dl 159 mg/dl Activated Partial Thromboplast Time 83.6 SECONDS 45.3 SECONDS Partial Thromboplastin Ratio 3.2 1.7 White Blood Count 7.73 K/uL Red Blood Count 3.60 M/uL Hemoglobin 8.9 g/dL Hematocrit 27.8 % Mean Corpuscular Volume 77.2 fL Mean Corpuscular Hemoglobin 24.7 pg Mean Corpuscular Hemoglobin Concent 32.0 g/dl Platelet Count 193 K/uL Mean Platelet Volume 10.2 fL Neutrophils (%) (Auto) 67.4 % Lymphocytes (%) (Auto) 11.4 % Monocytes (%) (Auto) 16.0 % Eosinophils (%) (Auto) 4.8 % Basophils (%) (Auto) 0.1 % Neutrophils # (Auto) 5.21 K/uL Lymphocytes # (Auto) 0.88 K/uL Monocytes # (Auto) 1.24 K/uL Eosinophils # (Auto) 0.37 K/uL Basophils # (Auto) 0.01 K/uL RDW Standard Deviation 54.2 fL RDW Coefficient of Variation 19.6 % Immature Granulocyte % (Auto) 0.3 % Immature Granulocyte # (Auto) 0.02 K/uL Acanthocytes 1+ Sodium Level 132 mmol/L Potassium Level 4.7 mmol/L Chloride Level 95 mmol/L Carbon Dioxide Level 30 mmol/L Anion Gap 7.0 mmol/L Blood Urea Nitrogen 45 mg/dl Creatinine 1.70 mg/dl Est Creatinine Clear Calc Drug Dose 24.5 ml/min Estimated GFR () 30.9 Estimated GFR (Non- 26.6 BUN/Creatinine Ratio 26.6 Random Glucose 152 mg/dl Calcium Level 8.3 mg/dl Test 06/09/16 11:35 06/09/16 11:50 06/09/16 16:21 Bedside Glucose 302 mg/dl 182 mg/dl Activated Partial Thromboplast Time 55.1 SECONDS Partial Thromboplastin Ratio 2.1 Assessment & Plan ACUTE ON CHRONIC SYSTOLIC CHF EXACERBATION (Biventricular Right >Left)/ SEVERE CARDIOMYOPATHY WITH LVEF <15% : Pt presented with worsening LE edema, SOB and cough; h/o mod mitral regurg and systolic CHF on Lasix and metolazone from Dr Hollis office. -IV Lasix 40 mg BID Spironolactone increased to 12.5 mg PO BID, Toprol increased to 12.5 mg PO BID on 05/29/16 -Troponin- 0.049,0.084, 0.094, Echo- LV- moderately dilated, severely reduced, septal/apical/severe global hypokinesis of left ventricle with EF <15%, LA- Mildly dilated, Mild-moderate MR, Moderate TR -- Lasix IV restarted 06/06/16 diuresing gradually weight decreasing leg swelling improved CXR about the same though also on Spironolactone -- continue Lasix 40mg IV daily further diuretic dose per Cardiology monitor crea TOMMY ON CKD STAGE 3 - baseline creatinine 1.4 now 1.7-1.9 monitor crea ATRIAL FIBRILLATION - In past was taken off xarelto (6 months ago) due to GI bleeding/anemia and thought to be at a higher risk of bleeding - continued on Low dose IV Heparin toprol 12.5 mg PO BID Amiodarone PO -Cardiology on board POSSIBLE TIA in the setting of Atrial Fibrillation - 06/03/16 (+) aphasia lasting for about an hour CT head: no bleed, no new CVA Telestroke conference performed- not a tpa candidate, recommend to resume Heparin and continue Aspirin Carotid US: no significant stenosis - Neurology consulted - not a good long-term candidate for anticoagulation continue Aspirin Low Back Pain, Intermittent L Hip Pain - CT abd/pelvis: possible T12 compression fracture - left hip xray: no fracture - Lidoderm patch PRN tramadol PRN [place] Gabapentin started - improving - pain management consulted Possible Lower Leg Cellulitis Cefuroxime Day 08/27 wound care consult -- leg erythema/warmth/tenderness resolved monitor UTI, Klebsiella -received ciprofloxacin BID (Day 07/25) per c/s changed to Cefuroxime to cover possible Lower Leg Cellulitis as well ANEMIA, CHRONIC : Likely iron deficiency - History of GI bleeding few months ago, requiring blood transfusion, declined EGD/Colonoscopy- resolved spontaneously after stopping xarelto. -Ferritin/Iron low- Started her on Ferrous sulphate - Hg stable INSULIN-DEPENDENT DM 2 -Recent A1C 6.4 -cont Lantus -ISS , Accuchecks -monitor BSG AC HS CAD -NSTEMI 07/2015 s/p stent placement -Cont ASA, BB (toprol dose increased as above) and statin - stable GERD -Cont ranitidine and PPI BID DYSLIPIDEMIA -Cont statin DVT PROPHYLAXIS -Heparin IV drip CODE STATUS -FULL CODE status per discussion with patient upon admission DISPO Continue with tele monitoring [facility] once medically [facility]- bed on hold Current Inpatient Medications: Current Inpatient Medications Medications (Trade) Dose Ordered Sig/Brock Route Start Time Stop Time Status Last Admin Dose Admin Acetaminophen (Tylenol Tab) 650 mg Q4H PRN PO 05/28/16 11:30 06/27/16 11:29 06/05/16 00:20 650 MG Ondansetron HCl (Zofran Inj) 4 mg Q6H PRN IV 05/28/16 11:30 06/27/16 11:29 06/06/16 11:19 4 MG Nitroglycerin (Nitrostat Tab) 0.4 mg UD PRN SL 05/28/16 11:30 06/27/16 11:29 Insulin Aspart (novoLOG ASPART) SLIDING SCALE If C... ACHS SC 05/28/16 16:15 06/27/16 16:14 06/09/16 17:14 2 UNITS Glucose (Glucose 40% Gel) 15-30 GRAMS 15 GRAMS... UD PRN PO 05/28/16 11:45 06/27/16 11:44 Glucose (Glucose Chew Tab) 4-8 Tablets 4 Tabl... UD PRN PO 05/28/16 11:45 06/27/16 11:44 Dextrose (Dextrose 50% 50ML Syringe) 25-50ML OF 50% DW IV FOR... UD PRN IV 05/28/16 11:45 06/27/16 11:44 Glucagon (Glucagon Inj) 1 mg UD PRN SQ 05/28/16 11:45 06/27/16 11:44 Al Hydrox/Mg Hydrox/Simethicone (Maalox Max Susp) 30 ml HS PO 05/28/16 21:00 06/27/16 20:59 06/08/16 20:35 30 ML Aspirin (Ecotrin Tab) 81 mg QAM PO 05/29/16 09:00 06/28/16 08:59 06/09/16 08:05 81 MG Docusate Sodium (coLACE CAP) 100 mg BID PO 05/28/16 21:00 06/27/16 20:59 06/07/16 21:16 100 MG Insulin Glargine (Lantus Solostar Pen) 10 unit QPM SC 05/28/16 21:00 06/27/16 20:59 06/08/16 20:39 10 UNIT Potassium Chloride (Klor-Con Pwd) 20 meq DAILY PO 05/29/16 09:00 06/28/16 08:59 06/09/16 08:05 20 MEQ Ranitidine HCl (zANTac TAB) 150 mg BID PO 05/28/16 21:00 06/27/16 20:59 06/09/16 08:05 150 MG Simvastatin (Zocor Tab) 20 mg PM PO 05/29/16 21:00 06/28/16 20:59 06/08/16 20:35 20 MG Polyethylene (Miralax Powder Packet) 17 gm DAILY PO 05/29/16 09:00 06/28/16 08:59 06/07/16 09:31 17 GM Isosorbide Mononitrate 30 mg 30 mg DAILY PO 05/29/16 09:00 06/28/16 08:59 06/09/16 08:06 30 MG Heparin Sodium/ Dextrose (Heparin 25,000 Unit/500ml D5W) 500 ml @ 12 mls/hr Q24H PRN IV 05/29/16 02:00 06/28/16 01:59 Future hold 06/09/16 06:26 12 MLS/HR Pantoprazole Sodium (Protonix Tab) 40 mg BID PO 05/29/16 21:00 06/28/16 20:59 06/09/16 08:05 40 MG Metoprolol Succinate (Toprol Xl Tab) 12.5 mg BID PO 05/29/16 21:00 06/28/16 20:59 06/09/16 08:05 12.5 MG Ferrous Sulfate (Feosol Tab) 325 mg QAM PO 05/30/16 09:00 06/29/16 08:59 06/09/16 08:06 325 MG Amiodarone HCl (Cordarone Tab) 200 mg BID PO 06/03/16 21:00 07/03/16 20:59 06/09/16 08:07 200 MG Spironolactone (Aldactone Tab) 12.5 mg BID17 PO 06/03/16 17:00 07/03/16 16:59 06/09/16 17:11 12.5 MG Miscellaneous Information 1 ea UD PRN N/A 06/03/16 13:00 07/03/16 12:59 Cefuroxime Axetil (Ceftin Tab) 500 mg QAM PO 06/04/16 09:00 06/13/16 08:59 06/09/16 08:07 500 MG Haloperidol (Haldol Tab) 2 mg Q4H PRN PO 06/04/16 22:30 07/04/16 22:29 06/06/16 12:34 2 MG Haloperidol Lactate (Haldol Inj) 2 mg Q2H PRN IM 06/04/16 22:30 07/04/16 22:29 06/04/16 22:39 2 MG Lidocaine (Lidoderm Patch 5%) 1 patch QAM TD 06/05/16 09:00 07/05/16 08:59 06/09/16 08:04 1 PATCH Miscellaneous (Remove Lidoderm Patch) 1 ea DAILY@21 N/A 06/05/16 21:00 07/05/16 20:59 06/08/16 20:36 1 EA Cyclobenzaprine HCl (Flexeril Tab) 5 mg TID PRN PO 06/05/16 14:00 07/05/16 13:59 06/06/16 07:59 5 MG Acetaminophen/ Hydrocodone Bitart ([place] 5/325 Tab) 1 tab Q4 PRN PO 06/06/16 08:45 06/20/16 08:44 06/07/16 15:50 1 TAB Gabapentin 100 mg 100 mg BID PO 06/06/16 09:00 07/06/16 08:59 06/09/16 08:06 100 MG Furosemide/Syringe (Lasix Inj/ Syringe) 4 ml @ 4 mls/min DAILY@0900 IV 06/08/16 09:00 07/08/16 08:59 06/09/16 08:04 4 MLS/MIN
[2016-06-09] MEDS: INSULIN GLARGINE SOLOSTAR 100 UNITS/ML 3 ML PEN SC SCH (20:46)
[2016-06-09] MEDS: SIMVASTATIN 20 MG TAB PO SCH (20:48)
[2016-06-09] MEDS: ALUMINUM/MAGNESIUM/SIMETH (MAALOX MAX) 30 ML UDC PO SCH (20:51)
[2016-06-09] MEDS ORDERED: ALBUT/IPRATROP 3MG/0.5MG NEB 3 ML VIAL INH PRN (21:15)
[2016-06-09] MEDS ORDERED: ALBUT/IPRATROP 3MG/0.5MG NEB 3 ML VIAL INH STA (21:20)
--- NOTE | 2016-06-09 22:32 | DIAGNOSTIC IMAGING REPORT ---
CHEST ONE VIEW PORTABLE CLINICAL HISTORY: Abnormal physical examination. Cough. COMPARISON STUDY: Earlier in the day FINDINGS: The heart remains clinically enlarged. There are bilateral pleural effusions. There is radiographic evidence of congestive failure/fluid overload. There are bibasal opacities likely are presenting compressive atelectatic change.[ There is mild prominence of the right paratracheal soft tissues. IMPRESSION: Cardiomegaly, bilateral pleural effusions, and radiographic evidence of congestive failure/fluid overload. Electronically signed by: Jeromy Quinones M.D. 06/09/2016 10:31 PM Dictated Date/Time: 06/09/2016 10:30 PM
[2016-06-10] VITALS (15 sets, daily range): BP systolic 110–126; BP diastolic 43–75; PULSE 62–68; TEMP 36.3–36.8; O2SAT 2–99
[2016-06-10] MEDS: HYDROCODONE/ACETAMOPHEN 5/325MG TAB PO PRN (02:34)
[2016-06-10] MEDS: FUROSEMIDE INJ 40 MG in SYRINGE 0 ML IV SCH (07:13)
[2016-06-10 07:16] LABS: PARTIAL THROMBOPLASTIN RATIO 1.2
[2016-06-10 07:30] LABS: BUN/CREATININE RATIO 27.9 (10-20); CALCIUM 8.4 mg/dl (8.5-10.1); CREATININE 1.5 mg/dl (0.60-1.20); POTASSIUM 4.9 mmol/L (3.5-5.1)
[2016-06-10 09:27] LABS: BASO % 0.3 %; BASO ABS # 0.02 K/uL (0-0.2); COMPLETE YES; EOS % 5.2 %; HEMATOCRIT 28.9 % (37-47); HOWELL-JOLLY BODIES OCCASIONAL; IG% 0.3 %; LYMPH % 14.3 %; LYMPH ABS # 0.96 K/uL (1.2-3.4); MEAN CELL VOLUME 79.2 fL (80-100); MEAN CORPUSCULAR HEMOGLOBIN 25.2 pg (25-34); MEAN CORPUSCULAR HGB CONC 31.8 g/dl (32-36); MEAN PLATELET VOLUME 9.5 fL (7.4-10.4); MONO % 14.6 %; NEUT % 65.3 %; PLATELET COUNT 196 K/uL (130-400); PLT ESTIMATE NORMAL; POIKILOCYTOSIS PRESENT; RED BLOOD COUNT 3.65 M/uL (4.2-5.4); WHITE BLOOD COUNT 6.71 K/uL (4.8-10.8)
[2016-06-10] MEDS: INSULIN ASPART 100 UNITS/ML 3 ML PEN SC SCH ×4 (09:32→21:00)
[2016-06-10] MEDS: SPIRONOLACTONE 25 MG TAB PO SCH ×2 (09:40→18:19)
[2016-06-10] MEDS: PANTOprazole SOD 40 MG TAB PO SCH ×2 (09:40→21:04)
[2016-06-10] MEDS: POLYETHYLENE (MIRALAX) 17 GM PACK PO SCH (09:40)
[2016-06-10] MEDS: GABAPENTIN 100 MG CAP PO SCH ×2 (09:40→21:04)
[2016-06-10] MEDS: DOCUSATE SODIUM 100 MG CAP PO SCH ×2 (09:41→21:03)
[2016-06-10] MEDS: POTASSIUM CHLORIDE PWD 20 MEQ PACK PO SCH (09:41)
[2016-06-10] MEDS: METOPROLOL SUCC 25MG EXT REL TAB PO SCH ×2 (09:41→21:05)
[2016-06-10] MEDS: FERROUS SULFATE 325 MG TAB PO SCH (09:41)
[2016-06-10] MEDS: RANITIDINE HCL 150 MG TAB PO SCH ×2 (09:41→21:06)
[2016-06-10] MEDS: AMIODARONE 200 MG TAB PO SCH ×2 (09:42→21:04)
[2016-06-10] MEDS: ASPIRIN 81 MG ECTAB PO SCH (09:42)
[2016-06-10] MEDS: CEFUROXIME AXETIL 500 MG TAB PO SCH (09:42)
[2016-06-10] MEDS: ISOSORBIDE MONONITRATE 30 MG TABCR PO SCH (09:42)
[2016-06-10] MEDS: LIDODERM (LIDOCAINE) PATCH 5% TD SCH (09:43)
--- NOTE | 2016-06-10 12:01 | PROGRESS NOTE ---
DATE: 06/10/2016 FOLLOWUP VISIT SUBJECTIVE: The patient is an 85-year-old female with decompensated systolic heart failure with severe cardiomyopathy and an estimated left ventricular ejection fraction of 15%. She also has cardiorenal syndrome. She has been diuresing. She seems to be improving, but slowly. She has no new complaints this morning. OBJECTIVE: GENERAL: She is alert. VITAL SIGNS: Blood pressure is 110/50 and pulse is regular at 60. She is afebrile. HEENT: She is normocephalic. Pupils are equal and reactive to light. Extraocular muscles are intact bilaterally. NECK: The neck veins are flat. Carotids have good upstrokes bilaterally without bruits. Thyroid is nonpalpable. RESPIRATORY: Breath sounds equal bilaterally and clear to auscultation. CARDIOVASCULAR: Heart has a regular rhythm. Normal S1 and S2. No S3 or S4. No cardiac rubs or murmurs. GASTROINTESTINAL: Abdomen is soft. There is no fluid wave. EXTREMITIES: There is edema of the lower extremities bilaterally. NEUROLOGIC: Grossly intact. SKIN: Warm to touch. LYMPH NODES: Negative to palpation. IMPRESSION: 1. Decompensated systolic heart failure. 2. Severe cardiomyopathy with an estimated left ventricular ejection fraction of 15%. 3. Atrial fibrillation. 4. Coronary artery disease. 5. Transient ischemic attack while on heparin. 6. History of gastrointestinal bleeding, on an outpatient anticoagulation. RECOMMENDATIONS: Today, I will give the patient additional diuretics with Zaroxolyn. Our options are to start her on low-dose dobutamine to help augment her cardiac output and hopefully have her put out more urine, which will ____ her heart and make it more efficient. The other option is to give her albumin followed by her diuretics. We will see what her response is to the Zaroxolyn.
[2016-06-10] MEDS ORDERED: METOLAZONE 5 MG TAB PO ONE (12:30)
[2016-06-10] MEDS ORDERED: HEPARIN IV BOLUS 4,500 UNIT in SYRINGE 0 ML IV ONE (12:30)
[2016-06-10] MEDS: HEPARIN 25,000 UNIT/500ML D5W 500 ML IV PRN ×2 (12:46→13:29)
--- NOTE | 2016-06-10 13:24 | Progress Note ---
Internal Med Progress Note Date of Service: Jun 10, 2016. Provider Documentation: SUBJECTIVE: Patient is feeling better today. SOB improved. Cough + but no sputum production, leg/abdominal distension improved. Denies any chest pain, fever, chills, nausea, vomiting. Good urine output + On low dose IV Heparin OBJECTIVE: Vital Signs-as noted below Exam: General Appearance: AAOX2, No apparent distress, Head: normocephalic, atraumatic ENT: hearing grossly normal Neck: supple Respiratory/Chest: chest non-tender, no respiratory distress, no accessory muscle use, + crackles, + pertinent finding (no wheezing) Cardiovascular: regular rate, rhythm; Murmur + Abdomen/GI: Soft, distension- improved, normal bowel sounds, non tender, soft Extremities/Musculoskelatal: normal inspection, + pertinent finding (3+ pitting edema to bilat LE extending into thighs)- Improved slightly, sensitive to touch Neurologic/Psych: alert, normal mood/affect, oriented x 3 Lab data as noted below. ASSESSMENT & PLAN: ACUTE ON CHRONIC SYSTOLIC CHF EXACERBATION (Biventricular Right >Left) / SEVERE CARDIOMYOPATHY WITH LVEF <15% : Pt presented with worsening LE edema, SOB and cough; h/o mod mitral regurg and systolic CHF on Lasix and metolazone from Dr Hollis office. Slow improvement. -Still on IV lasix 40 mg daily (re started on 06/06/16); Spironolactone increased to 12.5 mg PO BID this admission, Added metolazone 5 mg daily. Toprol increased to 12.5 mg PO BID on 05/29/16 -Troponin- 0.049,0.084, 0.094, Echo- LV- moderately dilated, severely reduced, septal/apical/severe global hypokinesis of left ventricle with EF <15%, LA- Mildly dilated, Mild-moderate MR, Moderate TR -Repeat CXR about the same PLAN: Per cardiology- options are low dose dobutamine vs albumin followed by diuretics. Will defer mx to cardiology TOMMY ON CKD STAGE 3 - baseline creatinine 1.4 - Now 1.7-1.9-expected to rise with diuresis - Monitor ATRIAL FIBRILLATION - In past was taken off Xarelto (6 months ago) due to GI bleeding/anemia and thought to be at a higher risk of bleeding - continued on Low dose IV Heparin - Continue on toprol 12.5 mg PO BID; Amiodarone PO 200 mg BID - Cardiology on board POSSIBLE TIA In the setting of Atrial Fibrillation - 06/03/16 (+) aphasia lasting for about an hour - CT head: no bleed, no new CVA - Telestroke conference performed- not a TPA candidate, recommend to resume Heparin and continue Aspirin - Work up- Carotid US: no significant stenosis - Neurology consulted - 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 Gabapentin started - Appreciate pain mx consult POSSIBLE LOWER EXTREMITY CELLULITIS Cefuroxime Day 09/26- redness, tenderness resolved. wound care consult UTI, Klebsiella -received ciprofloxacin BID (Day 07/25) per c/s changed to Cefuroxime to cover possible Lower Leg Cellulitis as well ANEMIA, CHRONIC : Likely iron deficiency - History of GI bleeding few months ago, requiring blood transfusion, declined EGD/Colonoscopy- resolved spontaneously after stopping xarelto. -Ferritin/Iron low- Started her on Ferrous sulphate - Hg stable INSULIN-DEPENDENT DM 2 -Recent A1C 6.4 -cont Lantus -ISS , Accuchecks -monitor BSG AC HS CAD -NSTEMI 07/2015 s/p stent placement -Cont ASA, BB (toprol dose increased as above) and statin - stable GERD -Cont ranitidine and PPI BID DYSLIPIDEMIA -Cont statin DVT PROPHYLAXIS -Heparin IV drip CODE STATUS -FULL CODE status per discussion with patient upon admission DISPO Continue with tele monitoring Plan is back to [facility] once medically stable- bed on hold Vital Signs: Date Time Temp Pulse Resp B/P Pulse Ox O2 Delivery O2 Flow Rate FiO2 06/10/16 12:01 36.4 66 31 117/75 95 Nasal Cannula 2.0 06/10/16 12:00 95 Nasal Cannula 2.0 06/10/16 08:00 Nasal Cannula 2.0 06/10/16 07:36 36.3 62 33 117/43 97 Room Air 06/10/16 04:00 99 Nasal Cannula 2.0 06/10/16 02:31 36.5 62 25 117/52 99 Nasal Cannula 2.0 06/10/16 00:00 95 Nasal Cannula 2.0 06/09/16 23:39 36.6 68 22 96/65 95 Nasal Cannula 2.0 06/09/16 21:41 64 18 98 Nasal Cannula 3.0 06/09/16 21:00 99 Nasal Cannula 2.0 06/09/16 20:53 62 16 122/56 99 06/09/16 20:20 98 Nasal Cannula 3.0 06/09/16 20:00 98 Nasal Cannula 06/09/16 19:16 36.8 60 23 119/52 100 Nasal Cannula 3.0 06/09/16 16:00 98 Nasal Cannula 06/09/16 15:44 36.6 61 20 107/62 98 Nasal Cannula 2.0 06/09/16 15:12 62 99 Lab Results: Results Past 24 Hours Test 06/09/16 16:21 06/09/16 20:41 06/10/16 06:19 06/10/16 06:43 Range/Units Bedside Glucose 182 162 140 70-90 mg/dl White Blood Count 6.71 4.8-10.8 K/uL Red Blood Count 3.65 4.2-5.4 M/uL Hemoglobin 9.2 12.0-16.0 g/dL Hematocrit 28.9 37-47 % Mean Corpuscular Volume 79.2 80-100 fL Mean Corpuscular Hemoglobin 25.2 25-34 pg Mean Corpuscular Hemoglobin Concent 31.8 32-36 g/dl Platelet Count 196 130-400 K/uL Mean Platelet Volume 9.5 7.4-10.4 fL Neutrophils (%) (Auto) 65.3 % Lymphocytes (%) (Auto) 14.3 % Monocytes (%) (Auto) 14.6 % Eosinophils (%) (Auto) 5.2 % Basophils (%) (Auto) 0.3 % Neutrophils # (Auto) 4.38 1.4-6.5 K/uL Lymphocytes # (Auto) 0.96 1.2-3.4 K/uL Monocytes # (Auto) 0.98 0.11-0.59 K/uL Eosinophils # (Auto) 0.35 0-0.5 K/uL Basophils # (Auto) 0.02 0-0.2 K/uL RDW Standard Deviation 57.1 36.4-46.3 fL RDW Coefficient of Variation 19.9 11.5-14.5 % Immature Granulocyte % (Auto) 0.3 % Immature Granulocyte # (Auto) 0.02 0.00-0.02 K/uL Platelet Estimate NORMAL Poikilocytosis PRESENT [place] Bodies OCCASIONAL Activated Partial Thromboplast Time 30.8 21.0-31.0 SECONDS Partial Thromboplastin Ratio 1.2 Sodium Level 133 136-145 mmol/L Potassium Level 4.9 3.5-5.1 mmol/L Chloride Level 96 98-107 mmol/L Carbon Dioxide Level 29 21-32 mmol/L Anion Gap 8.0 3-11 mmol/L Blood Urea Nitrogen 42 7-18 mg/dl Creatinine 1.50 0.60-1.20 mg/dl Est Creatinine Clear Calc Drug Dose 27.7 ml/min Estimated GFR () 35.9 Estimated GFR (Non- 31.0 BUN/Creatinine Ratio 27.9 10-20 Random Glucose 124 70-99 mg/dl Calcium Level 8.4 8.5-10.1 mg/dl Test 06/10/16 11:06 Range/Units Bedside Glucose 177 70-90 mg/dl
[2016-06-10 19:40] LABS: PARTIAL THROMBOPLASTIN RATIO 2.9
[2016-06-10] MEDS: INSULIN GLARGINE SOLOSTAR 100 UNITS/ML 3 ML PEN SC SCH (21:01)
[2016-06-10] MEDS: ALUMINUM/MAGNESIUM/SIMETH (MAALOX MAX) 30 ML UDC PO SCH (21:03)
[2016-06-10] MEDS: SIMVASTATIN 20 MG TAB PO SCH (21:06)
[2016-06-11] VITALS (8 sets, daily range): BP systolic 108–125; BP diastolic 51–87; PULSE 66–71; TEMP 36.5–37.2; O2SAT 93–100
[2016-06-11 02:53] LABS: PARTIAL THROMBOPLASTIN RATIO 2.1
[2016-06-11] MEDS: HALOPERIDOL LACTATE 5 MG/ML 1 ML VIAL IM PRN (04:53)
[2016-06-11 05:50] LABS: BASO % 0.7 %; BASO ABS # 0.04 K/uL (0-0.2); EOS % 3.6 %; HEMATOCRIT 29.4 % (37-47); IG% 0.3 %; LYMPH % 10.8 %; LYMPH ABS # 0.63 K/uL (1.2-3.4); MEAN CELL VOLUME 77.2 fL (80-100); MEAN CORPUSCULAR HEMOGLOBIN 24.7 pg (25-34); MEAN PLATELET VOLUME 8.9 fL (7.4-10.4); MONO % 15.8 %; NEUT % 68.8 %; PLATELET COUNT 210 K/uL (130-400); RED BLOOD COUNT 3.81 M/uL (4.2-5.4); WHITE BLOOD COUNT 5.82 K/uL (4.8-10.8)
[2016-06-11 06:20] LABS: BUN/CREATININE RATIO 25.9 (10-20); CALCIUM 8.2 mg/dl (8.5-10.1); CREATININE 1.6 mg/dl (0.60-1.20); POTASSIUM 4.6 mmol/L (3.5-5.1)
[2016-06-11 06:55] LABS: ACANTHOCYTES 1+; ANISOCYTOSIS PRESENT; COMPLETE YES; POIKILOCYTOSIS PRESENT; POLYCHROMASIA 1+
[2016-06-11] MEDS: INSULIN ASPART 100 UNITS/ML 3 ML PEN SC SCH ×4 (07:00→21:31)
--- NOTE | 2016-06-11 09:06 | CARDIOLOGY PROGRESS NOTE ---
DATE: 06/11/2016 DATE: 06/11/2016. FOLLOW-UP VISIT SUBJECTIVE: The patient is an 85-year-old with decompensated systolic heart failure and a severe cardiomyopathy with an estimated left ventricular ejection fraction 15%. She also has cardiorenal syndrome. She has had a prolonged hospital stay with difficulty removing excess fluid. Yesterday I gave her 5 of Zaroxolyn. I believe that she did have a good output of urine and her weight is down again today. OBJECTIVE: GENERAL: She is resting comfortably. VITAL SIGNS: Blood pressure is 113/74, pulse is regular at 66. She is afebrile. HEAD, EYES, EARS, NOSE, AND THROAT: Normocephalic. Pupils are equal and reactive to light. Extraocular muscles are intact bilaterally. NECK: The neck veins are flat. Carotids have good upstrokes bilaterally without bruits. Thyroid is nonpalpable. RESPIRATORY: Breath sounds equal bilaterally and clear to auscultation. CARDIOVASCULAR: Heart has a regular rhythm. Normal S1, S2. No S3, S4. No cardiac rubs or murmurs. GASTROINTESTINAL: Abdomen is nondistended. Bowel sounds are present. EXTREMITIES: Have decreasing edema. NEUROLOGIC: Grossly intact. SKIN: Warm to touch. LYMPH NODES: Negative to palpation. LABORATORY DATA: Hemoglobin is 9.4, potassium is 4.6, creatinine is 1.6, sodium is 134. IMPRESSION: 1. Decompensated systolic heart failure. 2. Severe cardiomyopathy with an estimated left ventricular ejection fraction 15%. 3. Atrial fibrillation. 4. Coronary artery disease. 5. Transient ischemic attack while on heparin. 6. History of gastrointestinal bleeding on an outpatient anticoagulation regimen. RECOMMENDATIONS: The patient had a decent response with Zaroxolyn. We will continue 5 of Zaroxolyn every other day. If we cannot continue diuresis due to progressive renal failure, then we will consider adding inotropic agent such as dobutamine.
--- NOTE | 2016-06-11 09:29 | Progress Note ---
Internal Med Progress Note Date of Service: Jun 11, 2016. Provider Documentation: SUBJECTIVE: Patient is feeling sleepy. SOB improved. Cough + but no sputum production, leg/abdominal distension improved. Denies any chest pain, fever, chills, nausea, vomiting. Good urine output + Weight in down On low dose IV Heparin OBJECTIVE: Vital Signs-as noted below Exam: General Appearance: AAOX2, No apparent distress, Head: normocephalic, atraumatic ENT: hearing grossly normal Neck: supple Respiratory/Chest: chest non-tender, no respiratory distress, no accessory muscle use, + crackles, + pertinent finding (no wheezing) Cardiovascular: regular rate, rhythm; Murmur + Abdomen/GI: Soft, distension- improved, normal bowel sounds, non tender, soft Extremities/Musculoskelatal: normal inspection, + pertinent finding (3+ pitting edema to bilat LE extending into thighs)- Improved slightly, sensitive to touch Neurologic/Psych: alert, normal mood/affect, oriented x 3 Lab data as noted below. ASSESSMENT & PLAN: ACUTE ON CHRONIC SYSTOLIC CHF EXACERBATION (Biventricular Right >Left) / SEVERE CARDIOMYOPATHY WITH LVEF <15% : Pt presented with worsening LE edema, SOB and cough; h/o mod mitral regurg and systolic CHF on Lasix and metolazone from Dr Hollis office. Slow improvement. Urine output better, Weight down -Still on IV lasix 40 mg daily (re started on 06/06/16); Spironolactone increased to 12.5 mg PO BID this admission, Added metolazone 5 mg every other day on 06/10 with good response Toprol increased to 12.5 mg PO BID on 05/29/16 -Troponin- 0.049,0.084, 0.094, Echo- LV- moderately dilated, severely reduced, septal/apical/severe global hypokinesis of left ventricle with EF <15%, LA- Mildly dilated, Mild-moderate MR, Moderate TR -Repeat CXR about the same PLAN: Per cardiology- continue with metolazone every other day--> if no improvement may consider low dose dobutamine. TOMMY ON CKD STAGE 3 - baseline creatinine 1.4 --> 1.6 - Expected to rise with diuresis - Monitor ATRIAL FIBRILLATION - In past was taken off Xarelto (6 months ago) due to GI bleeding/anemia and thought to be at a higher risk of bleeding - continued on Low dose IV Heparin - Continue on Toprol 12.5 mg PO BID; Amiodarone PO 200 mg BID - Cardiology on board POSSIBLE TIA In the setting of Atrial Fibrillation - 06/03/16 (+) aphasia lasting for about an hour - CT head: no bleed, no new CVA - Telestroke conference performed- not a TPA candidate, recommend to resume Heparin and continue Aspirin - Work up- Carotid US: no significant stenosis - Neurology consulted - 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 Gabapentin started - Appreciate pain mx consult POSSIBLE LOWER EXTREMITY CELLULITIS - Resolved Cefuroxime Day 09/26- redness, tenderness resolved. wound care consult UTI, Klebsiella -received ciprofloxacin BID (Day 07/25) per c/s changed to Cefuroxime to cover possible Lower Leg Cellulitis as well ANEMIA, CHRONIC : Likely iron deficiency - History of GI bleeding few months ago, requiring blood transfusion, declined EGD/Colonoscopy- resolved spontaneously after stopping xarelto. -Ferritin/Iron low- Started her on Ferrous sulphate - Hg stable INSULIN-DEPENDENT DM 2 -Recent A1C 6.4 -cont Lantus -ISS , Accuchecks -monitor BSG AC HS CAD -NSTEMI 07/2015 s/p stent placement -Cont ASA, BB (toprol dose increased as above) and statin - stable GERD -Cont ranitidine and PPI BID DYSLIPIDEMIA -Cont statin DVT PROPHYLAXIS -Heparin IV drip CODE STATUS -FULL CODE status per discussion with patient upon admission DISPO Continue with tele monitoring Plan is back to [facility] once medically stable- bed on hold Discussed with Dr Davis today Vital Signs: Date Time Temp Pulse Resp B/P Pulse Ox O2 Delivery O2 Flow Rate FiO2 06/11/16 07:56 66 22 113/74 99 Nasal Cannula 2.0 06/11/16 04:00 99 Nasal Cannula 2.0 06/11/16 03:18 36.8 68 24 125/87 99 Nasal Cannula 2.0 06/11/16 00:01 93 Nasal Cannula 2.0 06/10/16 23:20 36.6 67 26 116/62 93 Nasal Cannula 2.0 06/10/16 22:25 94 Nasal Cannula 2.0 06/10/16 21:06 68 120/65 06/10/16 20:00 94 Nasal Cannula 2.0 06/10/16 19:24 36.8 67 18 110/65 98 06/10/16 16:12 36.8 68 18 126/49 94 06/10/16 16:00 94 Nasal Cannula 2.0 06/10/16 15:30 2 Nasal Cannula 06/10/16 12:01 36.4 66 31 117/75 95 Nasal Cannula 2.0 06/10/16 12:00 95 Nasal Cannula 2.0 Lab Results: Results Past 24 Hours Test 06/10/16 11:06 06/10/16 16:06 06/10/16 19:00 06/10/16 19:55 Range/Units Bedside Glucose 177 192 158 70-90 mg/dl Activated Partial Thromboplast Time 74.6 21.0-31.0 SECONDS Partial Thromboplastin Ratio 2.9 Test 06/11/16 02:15 06/11/16 05:29 06/11/16 06:42 Range/Units Activated Partial Thromboplast Time 54.6 21.0-31.0 SECONDS Partial Thromboplastin Ratio 2.1 White Blood Count 5.82 4.8-10.8 K/uL Red Blood Count 3.81 4.2-5.4 M/uL Hemoglobin 9.4 12.0-16.0 g/dL Hematocrit 29.4 37-47 % Mean Corpuscular Volume 77.2 80-100 fL Mean Corpuscular Hemoglobin 24.7 25-34 pg Mean Corpuscular Hemoglobin Concent 32.0 32-36 g/dl Platelet Count 210 130-400 K/uL Mean Platelet Volume 8.9 7.4-10.4 fL Neutrophils (%) (Auto) 68.8 % Lymphocytes (%) (Auto) 10.8 % Monocytes (%) (Auto) 15.8 % Eosinophils (%) (Auto) 3.6 % Basophils (%) (Auto) 0.7 % Neutrophils # (Auto) 4.00 1.4-6.5 K/uL Lymphocytes # (Auto) 0.63 1.2-3.4 K/uL Monocytes # (Auto) 0.92 0.11-0.59 K/uL Eosinophils # (Auto) 0.21 0-0.5 K/uL Basophils # (Auto) 0.04 0-0.2 K/uL RDW Standard Deviation 55.9 36.4-46.3 fL RDW Coefficient of Variation 20.0 11.5-14.5 % Immature Granulocyte % (Auto) 0.3 % Immature Granulocyte # (Auto) 0.02 0.00-0.02 K/uL Polychromasia 1+ Poikilocytosis PRESENT Anisocytosis PRESENT Acanthocytes 1+ Sodium Level 134 136-145 mmol/L Potassium Level 4.6 3.5-5.1 mmol/L Chloride Level 94 98-107 mmol/L Carbon Dioxide Level 36 21-32 mmol/L Anion Gap 4.0 3-11 mmol/L Blood Urea Nitrogen 42 7-18 mg/dl Creatinine 1.60 0.60-1.20 mg/dl Est Creatinine Clear Calc Drug Dose 25.5 ml/min Estimated GFR () 33.2 Estimated GFR (Non- 28.7 BUN/Creatinine Ratio 25.9 10-20 Random Glucose 83 70-99 mg/dl Calcium Level 8.2 8.5-10.1 mg/dl Bedside Glucose 92 70-90 mg/dl
[2016-06-11] MEDS: FUROSEMIDE INJ 40 MG in SYRINGE 0 ML IV SCH (09:46)
[2016-06-11] MEDS: SPIRONOLACTONE 25 MG TAB PO SCH ×2 (09:47→17:53)
[2016-06-11] MEDS: LIDODERM (LIDOCAINE) PATCH 5% TD SCH (09:49)
[2016-06-11] MEDS: METOPROLOL SUCC 25MG EXT REL TAB PO SCH ×2 (09:49→22:08)
[2016-06-11] MEDS: AMIODARONE 200 MG TAB PO SCH ×2 (09:50→22:07)
[2016-06-11] MEDS: DOCUSATE SODIUM 100 MG CAP PO SCH ×2 (09:50→22:07)
[2016-06-11] MEDS: POLYETHYLENE (MIRALAX) 17 GM PACK PO SCH (09:51)
[2016-06-11] MEDS: ISOSORBIDE MONONITRATE 30 MG TABCR PO SCH (09:51)
[2016-06-11] MEDS: PANTOprazole SOD 40 MG TAB PO SCH ×2 (09:51→22:08)
[2016-06-11] MEDS: POTASSIUM CHLORIDE PWD 20 MEQ PACK PO SCH (09:51)
[2016-06-11] MEDS: RANITIDINE HCL 150 MG TAB PO SCH ×2 (09:51→22:08)
[2016-06-11] MEDS: FERROUS SULFATE 325 MG TAB PO SCH (09:51)
[2016-06-11] MEDS: ASPIRIN 81 MG ECTAB PO SCH (09:52)
[2016-06-11] MEDS: GABAPENTIN 100 MG CAP PO SCH ×2 (09:52→22:08)
[2016-06-11] MEDS: INSULIN GLARGINE SOLOSTAR 100 UNITS/ML 3 ML PEN SC SCH (21:52)
[2016-06-11] MEDS: ALUMINUM/MAGNESIUM/SIMETH (MAALOX MAX) 30 ML UDC PO SCH (22:07)
[2016-06-11] MEDS: SIMVASTATIN 20 MG TAB PO SCH (22:08)
[2016-06-12] MEDS: HEPARIN 25,000 UNIT/500ML D5W 500 ML IV PRN (03:24)
[2016-06-12 03:25] VITALS: BP 129/73; PULSE 69; TEMP 36.5; O2SAT 96
[2016-06-12 06:48] LABS: BUN/CREATININE RATIO 22.9 (10-20); CALCIUM 8.6 mg/dl (8.5-10.1); CREATININE 1.6 mg/dl (0.60-1.20); POTASSIUM 4.9 mmol/L (3.5-5.1)
[2016-06-12] MEDS: INSULIN ASPART 100 UNITS/ML 3 ML PEN SC SCH ×4 (07:00→21:00)
[2016-06-12] MEDS: FUROSEMIDE INJ 40 MG in SYRINGE 0 ML IV SCH (08:38)
[2016-06-12] MEDS: SPIRONOLACTONE 25 MG TAB PO SCH ×2 (08:40→17:31)
[2016-06-12] MEDS: DOCUSATE SODIUM 100 MG CAP PO SCH ×2 (08:41→20:50)
[2016-06-12] MEDS: AMIODARONE 200 MG TAB PO SCH ×2 (08:42→20:48)
[2016-06-12] MEDS: ASPIRIN 81 MG ECTAB PO SCH (08:43)
[2016-06-12] MEDS: ISOSORBIDE MONONITRATE 30 MG TABCR PO SCH (08:43)
[2016-06-12] MEDS: FERROUS SULFATE 325 MG TAB PO SCH (08:43)
[2016-06-12] MEDS: POLYETHYLENE (MIRALAX) 17 GM PACK PO SCH (08:44)
[2016-06-12] MEDS: POTASSIUM CHLORIDE PWD 20 MEQ PACK PO SCH (08:44)
[2016-06-12] MEDS: GABAPENTIN 100 MG CAP PO SCH ×2 (08:45→20:48)
[2016-06-12] MEDS: PANTOprazole SOD 40 MG TAB PO SCH ×2 (08:45→20:48)
[2016-06-12] MEDS: RANITIDINE HCL 150 MG TAB PO SCH ×2 (08:46→20:49)
[2016-06-12] MEDS: METOPROLOL SUCC 25MG EXT REL TAB PO SCH ×2 (08:46→20:49)
[2016-06-12] MEDS: LIDODERM (LIDOCAINE) PATCH 5% TD SCH (08:48)
--- NOTE | 2016-06-12 08:54 | CARDIOLOGY PROGRESS NOTE ---
DATE: 06/12/2016 FOLLOWUP VISIT SUBJECTIVE: The patient is an 85-year-old with severe cardiomyopathy and decompensated congestive heart failure. She had an uneventful night. Her body weight continues to trend down. I think we are finally starting to get ahead of her volume overload. The plan will be to give another dose of Zaroxolyn today. OBJECTIVE: GENERAL: She is alert but confused. VITAL SIGNS: Blood pressure is 130/70, pulse is regular at 70. She is afebrile. HEENT: She is normocephalic. Pupils are equal and reactive to light. Extraocular muscles are intact bilaterally. NECK: The neck veins are flat. Carotids have good upstrokes bilaterally without bruits. Thyroid is nonpalpable. RESPIRATORY: Breath sounds equal bilaterally and clear to auscultation. CARDIOVASCULAR: Heart has a regular rhythm. There is a systolic murmur at the apex of the heart. No S3, S4. GASTROINTESTINAL: Abdomen is soft, nontender without organomegaly. EXTREMITIES: Reduced edema. NEUROLOGIC: Grossly intact. SKIN: Warm to touch. LYMPH NODES: Negative to palpation. LABORATORY DATA: Potassium is 4.9, creatinine is 1.6, sodium is 132. Hemoglobin 9.4. IMPRESSION: 1. Decompensated systolic heart failure. 2. Severe cardiomyopathy with an estimated left ventricular ejection fraction 15%. 3. Cardiorenal syndrome. 4. Atrial fibrillation. 5. Coronary artery disease. 6. History of GI bleeding on outpatient anticoagulation. RECOMMENDATIONS: As mentioned above I will give her another dose of Zaroxolyn today. At this point I do not believe she is benefiting from IV heparin. We will discontinue the IV heparin and start her on subQ heparin for prophylaxis only.
[2016-06-12] MEDS ORDERED: METOLAZONE 5 MG TAB PO ONE (09:00)
[2016-06-12 09:20] VITALS: BP 112/53; PULSE 72; TEMP 36.5; O2SAT 97
[2016-06-12] MEDS: HEPARIN SOD 5000 UNIT/0.5 ML CARP SQ SCH ×2 (10:22→21:02)
--- NOTE | 2016-06-12 10:52 | Progress Note ---
Internal Med Progress Note Date of Service: Jun 12, 2016. Provider Documentation: SUBJECTIVE: Patient denies any new complaints. SOB improved. Cough + but no sputum production, leg/abdominal distension improved. Denies any chest pain, fever, chills, nausea, vomiting. Good urine output + Weight in down OBJECTIVE: Vital Signs-as noted below Exam: General Appearance: AAOX2, No apparent distress, Head: normocephalic, atraumatic ENT: hearing grossly normal Neck: supple Respiratory/Chest: chest non-tender, no respiratory distress, no accessory muscle use, + crackles, + pertinent finding (no wheezing) Cardiovascular: regular rate, rhythm; Murmur + Abdomen/GI: Soft, distension- improved, normal bowel sounds, non tender, soft Extremities/Musculoskelatal: normal inspection, + pertinent finding (3+ pitting edema to bilat LE extending into thighs)- Improved slightly, sensitive to touch Neurologic/Psych: alert, normal mood/affect, oriented x 3 Lab data as noted below. ASSESSMENT & PLAN: ACUTE ON CHRONIC SYSTOLIC CHF EXACERBATION (Biventricular Right >Left) / SEVERE CARDIOMYOPATHY WITH LVEF <15% : Pt presented with worsening LE edema, SOB and cough; h/o mod mitral regurg and systolic CHF on Lasix and metolazone from Dr Hollis office. Slow improvement. Urine output better, Weight down -Still on IV lasix 40 mg daily (re started on 06/06/16); Spironolactone increased to 12.5 mg PO BID this admission, Added metolazone 5 mg every other day on 06/10 with good response Toprol increased to 12.5 mg PO BID on 05/29/16 -Troponin- 0.049,0.084, 0.094, Echo- LV- moderately dilated, severely reduced, septal/apical/severe global hypokinesis of left ventricle with EF <15%, LA- Mildly dilated, Mild-moderate MR, Moderate TR -Repeat CXR about the same PLAN: Per cardiology- continue with metolazone every other day --> if no improvement may consider low dose dobutamine. TOMMY ON CKD STAGE 3 - Baseline creatinine 1.4 --> 1.6 - Expected to rise with diuresis - Monitor ATRIAL FIBRILLATION - In past was taken off Xarelto (6 months ago) due to GI bleeding/anemia and thought to be at a higher risk of bleeding - On Low dose IV Heparin --> Discontinue today and placed on SQ Heparin - Continue on Toprol 12.5 mg PO BID; Amiodarone PO 200 mg BID - Cardiology on board POSSIBLE TIA In the setting of Atrial Fibrillation - 06/03/16 (+) aphasia lasting for about an hour - CT head: no bleed, no new CVA - Tele stroke conference performed- not a TPA candidate. - Work up- Carotid US: no significant stenosis - Neurology consulted - Not a good [place] candidate for anticoagulation- continue with ASA, discontinued heparin today LOW BACK PAIN, INTERMITTENT, HIP PAIN - CT abd/pelvis: possible T12 compression fracture - Left hip xray: no fracture - Lidoderm patch; PRN tramadol; PRN [place]. Gabapentin started - Appreciate pain mx consult POSSIBLE LOWER EXTREMITY CELLULITIS - Resolved Cefuroxime Day 09/26- redness, tenderness resolved. wound care consult UTI, Klebsiella -received ciprofloxacin BID (Day 07/25) per c/s changed to Cefuroxime to cover possible Lower Leg Cellulitis as well ANEMIA, CHRONIC : Likely iron deficiency - History of GI bleeding few months ago, requiring blood transfusion, declined EGD/Colonoscopy- resolved spontaneously after stopping xarelto. -Ferritin/Iron low- Started her on Ferrous sulphate - Hg stable INSULIN-DEPENDENT DM 2 -Recent A1C 6.4 -cont Lantus -ISS , Accuchecks -monitor BSG AC HS CAD -NSTEMI 07/2015 s/p stent placement -Cont ASA, BB (toprol dose increased as above) and statin - stable GERD -Cont ranitidine and PPI BID DYSLIPIDEMIA -Cont statin DVT PROPHYLAXIS -Heparin IV drip CODE STATUS -FULL CODE status per discussion with patient upon admission DISPO Continue with tele monitoring Plan is back to [facility] once medically stable- bed on hold Vital Signs: Date Time Temp Pulse Resp B/P Pulse Ox O2 Delivery O2 Flow Rate FiO2 06/12/16 09:36 Nasal Cannula 2.0 06/12/16 09:20 36.5 72 18 112/53 97 Nasal Cannula 2.0 06/12/16 08:00 Nasal Cannula 2.0 06/12/16 04:00 Nasal Cannula 06/12/16 03:25 36.5 69 18 129/73 96 Nasal Cannula 2.0 06/11/16 23:59 Nasal Cannula 06/11/16 23:56 36.5 71 24 112/64 100 Nasal Cannula 2.0 06/11/16 20:12 36.9 66 18 108/51 95 06/11/16 20:00 Nasal Cannula 06/11/16 16:00 Nasal Cannula 2.0 06/11/16 15:42 36.7 66 18 119/68 96 06/11/16 12:00 Nasal Cannula 2.0 06/11/16 11:03 37.2 66 19 115/54 96 Nasal Cannula 2.0 Lab Results: Results Past 24 Hours Test 06/11/16 10:56 06/11/16 16:07 06/11/16 20:29 06/12/16 05:23 Range/Units Bedside Glucose 143 125 139 70-90 mg/dl Sodium Level 132 136-145 mmol/L Potassium Level 4.9 3.5-5.1 mmol/L Chloride Level 94 98-107 mmol/L Carbon Dioxide Level 34 21-32 mmol/L Anion Gap 4.0 3-11 mmol/L Blood Urea Nitrogen 37 7-18 mg/dl Creatinine 1.60 0.60-1.20 mg/dl Est Creatinine Clear Calc Drug Dose 25.2 ml/min Estimated GFR () 33.2 Estimated GFR (Non- 28.7 BUN/Creatinine Ratio 22.9 10-20 Random Glucose 107 70-99 mg/dl Calcium Level 8.6 8.5-10.1 mg/dl Test 06/12/16 06:40 Range/Units Bedside Glucose 118 70-90 mg/dl
[2016-06-12 11:24] VITALS: BP 122/57; PULSE 72; TEMP 37.2; O2SAT 95
[2016-06-12 15:49] VITALS: BP 110/56; PULSE 72; TEMP 36.5; O2SAT 98
[2016-06-12 19:21] VITALS: BP 114/52; PULSE 65; TEMP 37.2; O2SAT 99
[2016-06-12 20:00] VITALS: O2SAT 99
[2016-06-12] MEDS: SIMVASTATIN 20 MG TAB PO SCH (20:47)
[2016-06-12] MEDS: HYDROCODONE/ACETAMOPHEN 5/325MG TAB PO PRN (20:48)
[2016-06-12] MEDS: ALUMINUM/MAGNESIUM/SIMETH (MAALOX MAX) 30 ML UDC PO SCH (20:49)
[2016-06-12] MEDS: INSULIN GLARGINE SOLOSTAR 100 UNITS/ML 3 ML PEN SC SCH (21:01)
[2016-06-13] VITALS (11 sets, daily range): BP systolic 104–123; BP diastolic 43–72; PULSE 66–69; TEMP 36.3–37.4; O2SAT 94–100
[2016-06-13] MEDS: INSULIN ASPART 100 UNITS/ML 3 ML PEN SC SCH ×4 (08:01→21:25)
[2016-06-13] MEDS: FUROSEMIDE INJ 40 MG in SYRINGE 0 ML IV SCH (08:02)
[2016-06-13] MEDS: DOCUSATE SODIUM 100 MG CAP PO SCH ×2 (08:04→21:15)
[2016-06-13] MEDS: SPIRONOLACTONE 25 MG TAB PO SCH ×2 (08:04→18:44)
[2016-06-13] MEDS: AMIODARONE 200 MG TAB PO SCH ×2 (08:05→21:13)
[2016-06-13] MEDS: ASPIRIN 81 MG ECTAB PO SCH (08:06)
[2016-06-13] MEDS: ISOSORBIDE MONONITRATE 30 MG TABCR PO SCH (08:07)
[2016-06-13] MEDS: RANITIDINE HCL 150 MG TAB PO SCH ×2 (08:07→21:14)
[2016-06-13] MEDS: GABAPENTIN 100 MG CAP PO SCH ×2 (08:07→21:13)
[2016-06-13] MEDS: METOPROLOL SUCC 25MG EXT REL TAB PO SCH ×2 (08:08→21:15)
[2016-06-13] MEDS: LIDODERM (LIDOCAINE) PATCH 5% TD SCH (08:09)
[2016-06-13] MEDS: FERROUS SULFATE 325 MG TAB PO SCH (08:10)
[2016-06-13] MEDS: POTASSIUM CHLORIDE PWD 20 MEQ PACK PO SCH (08:10)
[2016-06-13] MEDS: HEPARIN SOD 5000 UNIT/0.5 ML CARP SQ SCH ×2 (08:12→21:22)
[2016-06-13] MEDS: POLYETHYLENE (MIRALAX) 17 GM PACK PO SCH (08:13)
[2016-06-13] MEDS: PANTOprazole SOD 40 MG TAB PO SCH ×2 (08:13→21:14)
--- NOTE | 2016-06-13 10:43 | CARDIOLOGY PROGRESS NOTE ---
DATE: 06/13/2016 DATE: 06/13/2016. FOLLOW-UP VISIT SUBJECTIVE: The patient is an 85-year-old with severe cardiomyopathy and decompensated heart failure. Over the past 48 hours she has had a large diuresis and is doing better. She received an additional dose of Zaroxolyn yesterday. OBJECTIVE: GENERAL: The patient is sitting in a chair, alert, confused and confabulating. VITAL SIGNS: Blood pressure is 117/50, pulse is regular at 69 beats per minute. GENERAL: She is afebrile. HEAD, EYES, EARS, NOSE, AND THROAT: Normocephalic. Pupils are equal and reactive to light. Mucous membranes are moist. NECK: The neck veins are flat. Carotids have good upstrokes bilaterally without bruits. Thyroid is nonpalpable. RESPIRATORY: Breath sounds are equal bilaterally and clear to auscultation. CARDIOVASCULAR: Heart has a regular rhythm. Normal S1, S2. No S3, S4. No cardiac rubs or murmurs. GASTROINTESTINAL: Abdomen is soft, nontender without organomegaly. EXTREMITIES: Free of edema, digit clubbing, or cyanosis. NEUROLOGIC: Grossly intact. SKIN: Warm to touch. LYMPH NODES: Negative to palpation. The patient remains in sinus rhythm on telemetry. IMPRESSION: 1. Decompensated systolic heart failure, now improving. 2. Severe cardiomyopathy with an estimated left ventricular ejection fraction 15%. 3. Cardiorenal syndrome. 4. Atrial fibrillation. 5. Coronary artery disease. 6. History of gastrointestinal bleeding on outpatient anticoagulation. RECOMMENDATIONS: Clinically, the patient is slowly improving and I would continue her current management. Tomorrow you may want to consider giving her another dose of Zaroxolyn depending on her clinical status.
--- NOTE | 2016-06-13 11:27 | Progress Note ---
Internal Med Progress Note Date of Service: Jun 13, 2016. Provider Documentation: SUBJECTIVE: Patient denies any new complaints. SOB improved. Cough + but no sputum production, leg/abdominal distension improved. Denies any chest pain, fever, chills, nausea, vomiting. Good urine output + Weight in down OBJECTIVE: Vital Signs-as noted below Exam: General Appearance: AAOX2, No apparent distress, Head: normocephalic, atraumatic ENT: hearing grossly normal Neck: supple Respiratory/Chest: chest non-tender, no respiratory distress, no accessory muscle use, + crackles, + pertinent finding (no wheezing) Cardiovascular: regular rate, rhythm; Murmur + Abdomen/GI: Soft, distension- improved, normal bowel sounds, non tender, soft Extremities/Musculoskelatal: normal inspection, + pertinent finding (3+ pitting edema to bilat LE extending into thighs)- Improved slightly, sensitive to touch Neurologic/Psych: alert, normal mood/affect, oriented x 3 Lab data as noted below. ASSESSMENT & PLAN: ACUTE ON CHRONIC SYSTOLIC CHF EXACERBATION (Biventricular Right >Left) / SEVERE CARDIOMYOPATHY WITH LVEF <15% : Pt presented with worsening LE edema, SOB and cough; h/o mod mitral regurg and systolic CHF on Lasix and metolazone from Dr Hollis office. Slow improvement. Urine output better, Weight down -Still on IV lasix 40 mg daily (re started on 06/06/16); Spironolactone increased to 12.5 mg PO BID this admission, Added metolazone 5 mg every other day on 06/10 with good response Toprol increased to 12.5 mg PO BID on 05/29/16 -Troponin- 0.049,0.084, 0.094, Echo- LV- moderately dilated, severely reduced, septal/apical/severe global hypokinesis of left ventricle with EF <15%, LA- Mildly dilated, Mild-moderate MR, Moderate TR -Repeat CXR about the same PLAN: Per cardiology- continue with metolazone every other day --> if no improvement may consider low dose dobutamine. TOMMY ON CKD STAGE 3 - Baseline creatinine 1.4 --> 1.6 - Expected to rise with diuresis - Monitor ATRIAL FIBRILLATION - In past was taken off Xarelto (6 months ago) due to GI bleeding/anemia and thought to be at a higher risk of bleeding - On Low dose IV Heparin --> Discontinue today and placed on SQ Heparin - Continue on Toprol 12.5 mg PO BID; Amiodarone PO 200 mg BID - Cardiology on board POSSIBLE TIA In the setting of Atrial Fibrillation - 06/03/16 (+) aphasia lasting for about an hour - CT head: no bleed, no new CVA - Tele stroke conference performed- not a TPA candidate. 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 Gabapentin started - Appreciate pain mx consult POSSIBLE LOWER EXTREMITY CELLULITIS - Resolved Cefuroxime Day 09/26- redness, tenderness resolved. wound care consult UTI, Klebsiella -received ciprofloxacin BID (Day 07/25) per c/s changed to Cefuroxime to cover possible Lower Leg Cellulitis as well ANEMIA, CHRONIC : Likely iron deficiency - History of GI bleeding few months ago, requiring blood transfusion, declined EGD/Colonoscopy- resolved spontaneously after stopping xarelto. -Ferritin/Iron low- Started her on Ferrous sulphate - Hg stable INSULIN-DEPENDENT DM 2 -Recent A1C 6.4 -cont Lantus -ISS , Accuchecks -monitor BSG AC HS CAD -NSTEMI 07/2015 s/p stent placement -Cont ASA, BB (toprol dose increased as above) and statin - stable GERD -Cont ranitidine and PPI BID DYSLIPIDEMIA -Cont statin DVT PROPHYLAXIS -Heparin IV drip CODE STATUS -FULL CODE status per discussion with patient upon admission DISPO Continue with tele monitoring Plan is back to [facility] once medically stable- bed on hold Vital Signs: Date Time Temp Pulse Resp B/P Pulse Ox O2 Delivery O2 Flow Rate FiO2 06/13/16 07:27 37.4 69 24 117/55 96 2.0 06/13/16 04:00 97 Nasal Cannula 2.0 06/13/16 03:38 36.7 66 20 123/69 97 Nasal Cannula 2.0 06/13/16 00:00 97 Nasal Cannula 2.0 06/13/16 00:00 36.3 67 32 112/72 97 Nasal Cannula 2.0 06/12/16 20:00 99 Nasal Cannula 2.0 06/12/16 19:21 37.2 65 24 114/52 99 2.0 06/12/16 16:00 Nasal Cannula 2.0 06/12/16 15:54 Nasal Cannula 2.0 06/12/16 15:49 36.5 72 18 110/56 98 Nasal Cannula 2.0 06/12/16 12:00 Nasal Cannula 2.0 Lab Results: Results Past 24 Hours Test 06/12/16 15:36 06/12/16 20:31 06/13/16 06:26 Range/Units Bedside Glucose 172 167 128 70-90 mg/dl
--- NOTE | 2016-06-13 12:39 | Progress Note ---
Internal Med Progress Note Date of Service: Jun 13, 2016. Provider Documentation: SUBJECTIVE: Patient is a bit confused today- disoriented x 2. SOB improved. Cough + but no sputum production, leg/abdominal distension improved. Denies any chest pain, fever, chills, nausea, vomiting. Good urine output + Weight in down OBJECTIVE: Vital Signs-as noted below Exam: General Appearance: AAOX2, No apparent distress, Head: normocephalic, atraumatic ENT: hearing grossly normal Neck: supple Respiratory/Chest: chest non-tender, no respiratory distress, no accessory muscle use, + crackles, + pertinent finding (no wheezing) Cardiovascular: regular rate, rhythm; Murmur + Abdomen/GI: Soft, distension- improved, normal bowel sounds, non tender, soft Extremities/Musculoskelatal: normal inspection, + pertinent finding (3+ pitting edema to bilat LE extending into thighs)- Improved , sensitive to touch Neurologic/Psych: alert, normal mood/affect, oriented x 3 Lab data as noted below. ASSESSMENT & PLAN: ACUTE ON CHRONIC SYSTOLIC CHF EXACERBATION (Biventricular Right >Left) / SEVERE CARDIOMYOPATHY WITH LVEF <15% : Pt presented with worsening LE edema, SOB and cough; h/o mod mitral regurg and systolic CHF on Lasix and metolazone from Dr Hollis office. Slow improvement. Urine output better, Weight down -Still on IV lasix 40 mg daily (re started on 06/06/16); Spironolactone increased to 12.5 mg PO BID this admission, Added metolazone 5 mg every other day on 06/10 with good response Toprol increased to 12.5 mg PO BID on 05/29/16 -Troponin- 0.049,0.084, 0.094, Echo- LV- moderately dilated, severely reduced, septal/apical/severe global hypokinesis of left ventricle with EF <15%, LA- Mildly dilated, Mild-moderate MR, Moderate TR -Repeat CXR about the same PLAN: Per cardiology- continue with metolazone every other day --> if no improvement may consider low dose dobutamine. TOMMY ON CKD STAGE 3 - Baseline creatinine 1.4 --> 1.6 - Expected to rise with diuresis - Monitor ATRIAL FIBRILLATION - In past was taken off Xarelto (6 months ago) due to GI bleeding/anemia and thought to be at a higher risk of bleeding - On Low dose IV Heparin --> Discontinue today and placed on SQ Heparin - Continue on Toprol 12.5 mg PO BID; Amiodarone PO 200 mg BID - Cardiology on board POSSIBLE TIA In the setting of Atrial Fibrillation - 06/03/16 (+) aphasia lasting for about an hour - CT head: no bleed, no new CVA - Tele stroke conference performed- not a TPA candidate. 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 Gabapentin started - Appreciate pain mx consult POSSIBLE LOWER EXTREMITY CELLULITIS - Resolved Cefuroxime Day 09/26- redness, tenderness resolved. wound care consult UTI, Klebsiella -received ciprofloxacin BID (Day 07/25) per c/s changed to Cefuroxime to cover possible Lower Leg Cellulitis as well ANEMIA, CHRONIC : Likely iron deficiency - History of GI bleeding few months ago, requiring blood transfusion, declined EGD/Colonoscopy- resolved spontaneously after stopping xarelto. -Ferritin/Iron low- Started her on Ferrous sulphate - Hg stable INSULIN-DEPENDENT DM 2 -Recent A1C 6.4 -cont Lantus -ISS , Accuchecks -monitor BSG AC HS CAD -NSTEMI 07/2015 s/p stent placement -Cont ASA, BB (toprol dose increased as above) and statin -Stable GERD -Cont ranitidine and PPI BID DYSLIPIDEMIA -Cont statin DVT PROPHYLAXIS -Heparin SQ CODE STATUS -FULL CODE status per discussion with patient upon admission DISPO Continue with tele monitoring Plan is back to [facility] once medically stable- bed on hold Discussed with daughter/son in law by bedside- updated Vital Signs: Date Time Temp Pulse Resp B/P Pulse Ox O2 Delivery O2 Flow Rate FiO2 06/13/16 11:27 36.6 68 24 122/57 100 2.0 06/13/16 07:27 37.4 69 24 117/55 96 2.0 06/13/16 04:00 97 Nasal Cannula 2.0 06/13/16 03:38 36.7 66 20 123/69 97 Nasal Cannula 2.0 06/13/16 00:00 97 Nasal Cannula 2.0 06/13/16 00:00 36.3 67 32 112/72 97 Nasal Cannula 2.0 06/12/16 20:00 99 Nasal Cannula 2.0 06/12/16 19:21 37.2 65 24 114/52 99 2.0 06/12/16 16:00 Nasal Cannula 2.0 06/12/16 15:54 Nasal Cannula 2.0 06/12/16 15:49 36.5 72 18 110/56 98 Nasal Cannula 2.0 Lab Results: Results Past 24 Hours Test 06/12/16 15:36 06/12/16 20:31 06/13/16 06:26 06/13/16 11:19 Range/Units Bedside Glucose 172 167 128 142 70-90 mg/dl
[2016-06-13] MEDS: SIMVASTATIN 20 MG TAB PO SCH (21:13)
[2016-06-13] MEDS: INSULIN GLARGINE SOLOSTAR 100 UNITS/ML 3 ML PEN SC SCH (21:22)
[2016-06-13] MEDS: ALUMINUM/MAGNESIUM/SIMETH (MAALOX MAX) 30 ML UDC PO SCH (21:25)
[2016-06-14] VITALS (7 sets, daily range): BP systolic 108–121; BP diastolic 47–56; PULSE 61–67; TEMP 36.3–37.2; O2SAT 97–100
[2016-06-14 06:17] LABS: BASO % 0.5 %; BASO ABS # 0.02 K/uL (0-0.2); EOS % 3.4 %; HEMATOCRIT 29.2 % (37-47); IG% 0.5 %; LYMPH % 17.8 %; LYMPH ABS # 0.68 K/uL (1.2-3.4); MEAN CELL VOLUME 79.3 fL (80-100); MEAN CORPUSCULAR HGB CONC 31.5 g/dl (32-36); MONO % 20.7 %; NEUT % 57.1 %; PLATELET COUNT 171 K/uL (130-400); RED BLOOD COUNT 3.68 M/uL (4.2-5.4); WHITE BLOOD COUNT 3.82 K/uL (4.8-10.8)
[2016-06-14 06:46] LABS: CALCIUM 8.6 mg/dl (8.5-10.1); CREATININE 1.5 mg/dl (0.60-1.20); POTASSIUM 5.2 mmol/L (3.5-5.1)
[2016-06-14 07:00] LABS: ANISOCYTOSIS PRESENT; COMPLETE YES; MICROCYTOSIS PRESENT; POIKILOCYTOSIS PRESENT; POLYCHROMASIA 1+
[2016-06-14] MEDS: INSULIN ASPART 100 UNITS/ML 3 ML PEN SC SCH ×4 (07:00→20:31)
[2016-06-14] MEDS: POTASSIUM CHLORIDE PWD 20 MEQ PACK PO SCH (09:00)
[2016-06-14] MEDS: PANTOprazole SOD 40 MG TAB PO SCH ×2 (09:18→20:22)
[2016-06-14] MEDS: GABAPENTIN 100 MG CAP PO SCH ×2 (09:18→20:22)
[2016-06-14] MEDS: ISOSORBIDE MONONITRATE 30 MG TABCR PO SCH (09:18)
[2016-06-14] MEDS: FUROSEMIDE INJ 40 MG in SYRINGE 0 ML IV SCH (09:18)
[2016-06-14] MEDS: FERROUS SULFATE 325 MG TAB PO SCH (09:19)
[2016-06-14] MEDS: DOCUSATE SODIUM 100 MG CAP PO SCH ×2 (09:19→20:20)
[2016-06-14] MEDS: METOPROLOL SUCC 25MG EXT REL TAB PO SCH ×2 (09:19→20:21)
[2016-06-14] MEDS: POLYETHYLENE (MIRALAX) 17 GM PACK PO SCH (09:19)
[2016-06-14] MEDS: AMIODARONE 200 MG TAB PO SCH ×2 (09:19→20:23)
[2016-06-14] MEDS: SPIRONOLACTONE 25 MG TAB PO SCH ×2 (09:21→17:00)
[2016-06-14] MEDS: LIDODERM (LIDOCAINE) PATCH 5% TD SCH (09:21)
[2016-06-14] MEDS: ASPIRIN 81 MG ECTAB PO SCH (09:21)
[2016-06-14] MEDS: RANITIDINE HCL 150 MG TAB PO SCH ×2 (09:21→20:20)
[2016-06-14] MEDS: HYDROCODONE/ACETAMOPHEN 5/325MG TAB PO PRN ×3 (09:29→18:03)
[2016-06-14] MEDS: HEPARIN SOD 5000 UNIT/0.5 ML CARP SQ SCH ×2 (09:33→20:32)
--- NOTE | 2016-06-14 10:48 | Progress Note ---
Internal Med Progress Note Date of Service: Jun 14, 2016. Provider Documentation: SUBJECTIVE: Patient's mental status is better- less confused, oriented to place, person. SOB improved. Cough + but no sputum production, leg/abdominal distension improved. Denies any chest pain, fever, chills, nausea, vomiting. Good urine output + Weight in down OBJECTIVE: Vital Signs-as noted below Exam: General Appearance: AAOX2, No apparent distress, Head: normocephalic, atraumatic ENT: hearing grossly normal Neck: supple Respiratory/Chest: chest non-tender, no respiratory distress, no accessory muscle use, + crackles, + pertinent finding (no wheezing) Cardiovascular: regular rate, rhythm; Murmur + Abdomen/GI: Soft, distension- improved, normal bowel sounds, non tender, soft Extremities/Musculoskelatal: normal inspection, + pertinent finding (3+ pitting edema to bilat LE extending into thighs)- Improved , sensitive to touch Lab data as noted below. ASSESSMENT & PLAN: ACUTE ON CHRONIC SYSTOLIC CHF EXACERBATION (Biventricular Right >Left) / SEVERE CARDIOMYOPATHY WITH LVEF <15% : Pt presented with worsening LE edema, SOB and cough; h/o mod mitral regurg and systolic CHF on Lasix and metolazone from Dr Holils office. Slow improvement. Urine output better, Weight down -Still on IV lasix 40 mg daily (re - started on 06/06/16); Spironolactone increased to 12.5 mg PO BID this admission, Added metolazone 5 mg every other day on 06/10 with good response -Toprol increased to 12.5 mg PO BID on 05/29/16 -Troponin- 0.049,0.084, 0.094, Echo- LV- moderately dilated, severely reduced, septal/apical/severe global hypokinesis of left ventricle with EF <15%, LA- Mildly dilated, Mild-moderate MR, Moderate TR PLAN: Per cardiology- continue with metolazone every other day --> if no improvement may consider low dose dobutamine. TOMMY ON CKD STAGE 3 - Baseline creatinine 1.4 --> 1.6-->1.5 - Expected to rise with diuresis - Monitor ATRIAL FIBRILLATION - In past was taken off Xarelto (6 months ago) due to GI bleeding/anemia and thought to be at a higher risk of bleeding - S/P Low dose IV Heparin --> Discontinued on 06/12/16 and placed on SQ Heparin. No plans for anticoagulation on discharge. - Continue on Toprol 12.5 mg PO BID; Amiodarone PO 200 mg BID - Cardiology on board POSSIBLE TIA In the setting of Atrial Fibrillation - 06/03/16 (+) aphasia lasting for about an hour - CT head: no bleed, no new CVA - Tele stroke conference performed- not a TPA candidate. - Work up- Carotid US: no significant stenosis - Neurology consulted - Not a good care home candidate for anticoagulation- continue with ASA, discontinued heparin on 06/12/16 S/P LOW BACK PAIN, INTERMITTENT, HIP PAIN - CT abd/pelvis: possible T12 compression fracture - Left hip xray: no fracture - Lidoderm patch; PRN tramadol; PRN [place]. Gabapentin started - Appreciate pain mx consult POSSIBLE LOWER EXTREMITY CELLULITIS - Resolved Cefuroxime Day 7 (Completed course of antibiotics) - redness, tenderness resolved. wound care consult UTI, Klebsiella -S/P ciprofloxacin BID (Day 07/25) per c/s - changed to Cefuroxime to cover possible Lower Leg Cellulitis as well- s/p antibiotic course ANEMIA, CHRONIC : Likely iron deficiency - History of GI bleeding few months ago, requiring blood transfusion, declined EGD/Colonoscopy- resolved spontaneously after stopping xarelto. - Ferritin/Iron low- Started her on Ferrous sulphate this admission - Hg stable INSULIN-DEPENDENT DM 2 -Recent A1C 6.4 -cont Lantus -ISS , Accuchecks CAD -NSTEMI 07/2015 s/p stent placement -Cont ASA, BB (toprol dose increased as above) and statin -Stable GERD -Cont ranitidine and PPI BID DYSLIPIDEMIA -Cont statin DVT PROPHYLAXIS -Heparin SQ CODE STATUS -FULL CODE status per discussion with patient upon admission DISPO Continue with tele monitoring Plan is back to [facility] once medically stable- bed on hold Discussed with daughter by bedside- updated Vital Signs: Date Time Temp Pulse Resp B/P Pulse Ox O2 Delivery O2 Flow Rate FiO2 06/14/16 08:18 36.6 67 22 110/56 98 2.0 06/14/16 04:01 36.6 65 18 108/55 99 Nasal Cannula 2.0 06/14/16 04:01 Nasal Cannula 2.0 06/14/16 00:00 Nasal Cannula 2.0 3/24/17 23:43 36.8 68 20 119/49 94 Nasal Cannula 2.0 06/13/16 20:00 Nasal Cannula 2.0 06/13/16 19:23 37.0 66 20 104/43 94 Nasal Cannula 2.0 06/13/16 16:00 98 Nasal Cannula 2.0 06/13/16 15:35 36.6 68 20 116/52 98 Nasal Cannula 2.0 06/13/16 12:00 96 Nasal Cannula 2.0 06/13/16 11:27 36.6 68 24 122/57 100 2.0 Lab Results: Results Past 24 Hours Test 06/13/16 11:19 06/13/16 16:04 06/13/16 20:01 06/14/16 01:45 Range/Units Bedside Glucose 142 159 167 138 70-90 mg/dl Test 06/14/16 05:10 06/14/16 06:33 Range/Units White Blood Count 3.82 4.8-10.8 K/uL Red Blood Count 3.68 4.2-5.4 M/uL Hemoglobin 9.2 12.0-16.0 g/dL Hematocrit 29.2 37-47 % Mean Corpuscular Volume 79.3 80-100 fL Mean Corpuscular Hemoglobin 25.0 25-34 pg Mean Corpuscular Hemoglobin Concent 31.5 32-36 g/dl Platelet Count 171 130-400 K/uL Mean Platelet Volume 9.0 7.4-10.4 fL Neutrophils (%) (Auto) 57.1 % Lymphocytes (%) (Auto) 17.8 % Monocytes (%) (Auto) 20.7 % Eosinophils (%) (Auto) 3.4 % Basophils (%) (Auto) 0.5 % Neutrophils # (Auto) 2.18 1.4-6.5 K/uL Lymphocytes # (Auto) 0.68 1.2-3.4 K/uL Monocytes # (Auto) 0.79 0.11-0.59 K/uL Eosinophils # (Auto) 0.13 0-0.5 K/uL Basophils # (Auto) 0.02 0-0.2 K/uL RDW Standard Deviation 58.4 36.4-46.3 fL RDW Coefficient of Variation 20.3 11.5-14.5 % Immature Granulocyte % (Auto) 0.5 % Immature Granulocyte # (Auto) 0.02 0.00-0.02 K/uL Polychromasia 1+ Poikilocytosis PRESENT Anisocytosis PRESENT Microcytosis PRESENT Sodium Level 134 136-145 mmol/L Potassium Level 5.2 3.5-5.1 mmol/L Chloride Level 92 98-107 mmol/L Carbon Dioxide Level 39 21-32 mmol/L Anion Gap 3.0 3-11 mmol/L Blood Urea Nitrogen 33 7-18 mg/dl Creatinine 1.50 0.60-1.20 mg/dl Est Creatinine Clear Calc Drug Dose 26.1 ml/min Estimated GFR () 35.7 Estimated GFR (Non- 30.8 BUN/Creatinine Ratio 22.0 10-20 Random Glucose 119 70-99 mg/dl Calcium Level 8.6 8.5-10.1 mg/dl Bedside Glucose 131 70-90 mg/dl
[2016-06-14] MEDS: SIMVASTATIN 20 MG TAB PO SCH (20:21)
[2016-06-14] MEDS: ALUMINUM/MAGNESIUM/SIMETH (MAALOX MAX) 30 ML UDC PO SCH (20:28)
[2016-06-14] MEDS: INSULIN GLARGINE SOLOSTAR 100 UNITS/ML 3 ML PEN SC SCH (20:32)
[2016-06-15] VITALS (7 sets, daily range): BP systolic 107–124; BP diastolic 50–74; PULSE 59–66; TEMP 36.3–37.3; O2SAT 95–100
[2016-06-15] MEDS: INSULIN ASPART 100 UNITS/ML 3 ML PEN SC SCH ×4 (07:00→20:56)
[2016-06-15] MEDS: FUROSEMIDE INJ 40 MG in SYRINGE 0 ML IV SCH (09:36)
[2016-06-15] MEDS: SPIRONOLACTONE 25 MG TAB PO SCH ×2 (09:37→16:12)
[2016-06-15] MEDS: RANITIDINE HCL 150 MG TAB PO SCH ×2 (09:37→20:55)
[2016-06-15] MEDS: AMIODARONE 200 MG TAB PO SCH ×2 (09:38→20:54)
[2016-06-15] MEDS: PANTOprazole SOD 40 MG TAB PO SCH ×2 (09:38→20:56)
[2016-06-15] MEDS: DOCUSATE SODIUM 100 MG CAP PO SCH (09:38)
[2016-06-15] MEDS: FERROUS SULFATE 325 MG TAB PO SCH (09:39)
[2016-06-15] MEDS: METOPROLOL SUCC 25MG EXT REL TAB PO SCH ×2 (09:39→20:55)
[2016-06-15] MEDS: ASPIRIN 81 MG ECTAB PO SCH (09:39)
[2016-06-15] MEDS: ISOSORBIDE MONONITRATE 30 MG TABCR PO SCH (09:39)
[2016-06-15] MEDS: POTASSIUM CHLORIDE PWD 20 MEQ PACK PO SCH (09:40)
[2016-06-15] MEDS: GABAPENTIN 100 MG CAP PO SCH ×2 (09:40→20:54)
[2016-06-15] MEDS: LIDODERM (LIDOCAINE) PATCH 5% TD SCH (09:40)
[2016-06-15] MEDS: POLYETHYLENE (MIRALAX) 17 GM PACK PO SCH (09:40)
[2016-06-15] MEDS: HEPARIN SOD 5000 UNIT/0.5 ML CARP SQ SCH ×2 (09:42→20:59)
[2016-06-15] MEDS: HYDROCODONE/ACETAMOPHEN 5/325MG TAB PO PRN ×2 (09:50→14:52)
[2016-06-15] MEDS ORDERED: METOLAZONE 5 MG TAB PO ONE (10:30)
--- NOTE | 2016-06-15 11:24 | Progress Note ---
Internal Med Progress Note Date of Service: Jun 15, 2016. Provider Documentation: SUBJECTIVE: Patient's mental status is better - less confused, oriented to place, person. SOB improved. Cough + but no sputum production, leg/abdominal distension improved. Had a loose BM + Denies any chest pain, fever, chills, nausea, vomiting. Good urine output + Weight in down. OBJECTIVE: Vital Signs-as noted below Exam: General Appearance: AAOX2, No apparent distress, Head: normocephalic, atraumatic ENT: hearing grossly normal Neck: supple Respiratory/Chest: chest non-tender, no respiratory distress, no accessory muscle use, + crackles, + pertinent finding (no wheezing) Cardiovascular: regular rate, rhythm; Murmur + Abdomen/GI: Soft, distension- improved, normal bowel sounds, non tender, soft Extremities/Musculoskelatal: normal inspection, + pertinent finding (3+ pitting edema to bilat LE extending into thighs)- Improved , sensitive to touch Lab data as noted below. ASSESSMENT & PLAN: ACUTE ON CHRONIC SYSTOLIC CHF EXACERBATION (Biventricular Right >Left) / SEVERE CARDIOMYOPATHY WITH LVEF <15% : Pt presented with worsening LE edema, SOB and cough; h/o mod mitral regurg and systolic CHF on Lasix and metolazone from Dr Hollis office. Slow improvement. Urine output better, Weight down -Still on IV lasix 40 mg daily (re - started on 06/06/16); Spironolactone increased to 12.5 mg PO BID this admission, Added metolazone 5 mg every other day on 06/10 with good response -Toprol increased to 12.5 mg PO BID on 05/29/16 -Troponin- 0.049,0.084, 0.094, Echo- LV- moderately dilated, severely reduced, septal/apical/severe global hypokinesis of left ventricle with EF <15%, LA- Mildly dilated, Mild-moderate MR, Moderate TR PLAN: Per cardiology- continue with metolazone every other day (given today) -- > if no improvement may consider low dose dobutamine. TOMMY ON CKD STAGE 3 - Baseline creatinine 1.4 --> 1.6-->1.5 - Expected to rise with diuresis - Monitor ATRIAL FIBRILLATION - In past was taken off Xarelto (6 months ago) due to GI bleeding/anemia and thought to be at a higher risk of bleeding - S/P Low dose IV Heparin --> Discontinued on 06/12/16 and placed on SQ Heparin. No plans for anticoagulation on discharge. - Continue on Toprol 12.5 mg PO BID; Amiodarone PO 200 mg BID - Cardiology on board POSSIBLE TIA In the setting of Atrial Fibrillation - 06/03/16 (+) aphasia lasting for about an hour - CT head: no bleed, no new CVA - Tele stroke conference performed- not a TPA candidate. - Work up- Carotid US: no significant stenosis - Neurology consulted - Not a good fpc candidate for anticoagulation- continue with ASA, discontinued heparin on 06/12/16 S/P LOW BACK PAIN, INTERMITTENT, HIP PAIN - CT abd/pelvis: possible T12 compression fracture - Left hip xray: no fracture - Lidoderm patch; PRN tramadol; PRN [place]. Gabapentin started - Appreciate pain mx consult POSSIBLE LOWER EXTREMITY CELLULITIS - Resolved Cefuroxime Day 09/26 (Completed course of antibiotics) - redness, tenderness resolved. wound care consult UTI, Klebsiella -S/P ciprofloxacin BID (Day 07/25) per c/s - changed to Cefuroxime to cover possible Lower Leg Cellulitis as well- s/p antibiotic course ANEMIA, CHRONIC : Likely iron deficiency - History of GI bleeding few months ago, requiring blood transfusion, declined EGD/Colonoscopy- resolved spontaneously after stopping xarelto. - Ferritin/Iron low- Started her on Ferrous sulphate this admission - Hg stable INSULIN-DEPENDENT DM 2 -Recent A1C 6.4 -cont Lantus -ISS , Accuchecks CAD -NSTEMI 07/2015 s/p stent placement -Cont ASA, BB (toprol dose increased as above) and statin -Stable GERD -Cont ranitidine and PPI BID DYSLIPIDEMIA -Cont statin DVT PROPHYLAXIS -Heparin SQ CODE STATUS -FULL CODE status per discussion with patient upon admission DISPO Continue with tele monitoring Plan is back to [facility] once medically stable- bed on hold Discussed with daughter by bedside- updated on 06/14/16 Vital Signs: Date Time Temp Pulse Resp B/P Pulse Ox O2 Delivery O2 Flow Rate FiO2 06/15/16 07:35 37.3 64 20 118/57 98 2.0 06/15/16 04:00 Nasal Cannula 2.0 06/15/16 03:55 36.3 64 24 124/58 96 Nasal Cannula 2.0 06/15/16 00:00 Nasal Cannula 2.0 06/15/16 00:00 36.3 64 20 114/50 97 Nasal Cannula 2.0 06/14/16 20:30 Nasal Cannula 2.0 06/14/16 19:06 36.3 65 26 108/56 97 Nasal Cannula 2.0 Humidified Oxygen 06/14/16 15:20 37.2 61 24 109/47 97 Nasal Cannula 2.0 Humidified Oxygen 06/14/16 12:00 100 Nasal Cannula 2.0 06/14/16 11:43 36.7 65 24 121/54 100 2.0 Lab Results: Results Past 24 Hours Test 06/14/16 11:27 06/14/16 16:15 06/14/16 20:29 06/15/16 06:30 Range/Units Bedside Glucose 149 160 248 136 70-90 mg/dl
[2016-06-15] MEDS: SIMVASTATIN 20 MG TAB PO SCH (20:55)
[2016-06-15] MEDS: INSULIN GLARGINE SOLOSTAR 100 UNITS/ML 3 ML PEN SC SCH (20:58)
[2016-06-15] MEDS: ALUMINUM/MAGNESIUM/SIMETH (MAALOX MAX) 30 ML UDC PO SCH (21:03)
[2016-06-16 03:24] VITALS: BP 102/47; PULSE 59; TEMP 37; O2SAT 93
[2016-06-16 05:59] LABS: HEMATOCRIT 30.7 % (37-47); MEAN CELL VOLUME 79.5 fL (80-100); MEAN CORPUSCULAR HEMOGLOBIN 24.4 pg (25-34); MEAN CORPUSCULAR HGB CONC 30.6 g/dl (32-36); PLATELET COUNT 155 K/uL (130-400); RED BLOOD COUNT 3.86 M/uL (4.2-5.4); WHITE BLOOD COUNT 3.07 K/uL (4.8-10.8)
[2016-06-16 06:34] LABS: BUN/CREATININE RATIO 21.2 (10-20); CALCIUM 8.5 mg/dl (8.5-10.1); CREATININE 1.2 mg/dl (0.60-1.20); POTASSIUM 4.4 mmol/L (3.5-5.1)
[2016-06-16 07:29] VITALS: BP 109/55; PULSE 67; TEMP 36.9; O2SAT 97
[2016-06-16] MEDS: HEPARIN SOD 5000 UNIT/0.5 ML CARP SQ SCH ×2 (08:00→23:23)
[2016-06-16] MEDS: ASPIRIN 81 MG ECTAB PO SCH (08:18)
[2016-06-16] MEDS: FUROSEMIDE INJ 40 MG in SYRINGE 0 ML IV SCH (08:18)
[2016-06-16] MEDS: ISOSORBIDE MONONITRATE 30 MG TABCR PO SCH (08:19)
[2016-06-16] MEDS: FERROUS SULFATE 325 MG TAB PO SCH (08:19)
[2016-06-16] MEDS: METOPROLOL SUCC 25MG EXT REL TAB PO SCH ×2 (08:20→23:25)
[2016-06-16] MEDS: PANTOprazole SOD 40 MG TAB PO SCH ×2 (08:21→23:25)
[2016-06-16] MEDS: RANITIDINE HCL 150 MG TAB PO SCH ×2 (08:22→23:26)
[2016-06-16] MEDS: GABAPENTIN 100 MG CAP PO SCH ×2 (08:22→23:24)
[2016-06-16] MEDS: AMIODARONE 200 MG TAB PO SCH ×2 (08:23→23:25)
[2016-06-16] MEDS: POTASSIUM CHLORIDE PWD 20 MEQ PACK PO SCH (08:24)
[2016-06-16] MEDS: SPIRONOLACTONE 25 MG TAB PO SCH (08:24)
[2016-06-16] MEDS: LIDODERM (LIDOCAINE) PATCH 5% TD SCH (08:25)
[2016-06-16] MEDS: INSULIN ASPART 100 UNITS/ML 3 ML PEN SC SCH ×4 (09:29→22:00)
--- NOTE | 2016-06-16 10:08 | CARDIOLOGY PROGRESS NOTE ---
DATE: 06/16/2016 SUBJECTIVE: The patient was seen and examined at the bedside. This is my first encounter with this patient since her outpatient evaluation on the day of admission. She has been in the hospital approximately 20 days. She was admitted with acute decompensated systolic heart failure. Her echocardiogram demonstrated severe cardiomyopathy. The patient has been diuresed aggressively and has lost nearly 20 pounds during hospitalization. Today, her creatinine has improved with mild hyperkalemia. Hospital course is significant for an episode of paroxysmal atrial fibrillation with controlled ventricular response. Amiodarone was initiated and is currently taking 200 mg twice daily in addition to low dose beta-james therapy. She has been on intravenous diuretics and Aldactone as well as intermittent doses of metolazone. She is somewhat confused; however, oriented to person and place, currently. Mental status has waxed and waned. Her Ward catheter is still in place. She has been bed balance and participating in physical therapy. Denies any chest discomfort or shortness of breath. She is tolerating her diet. Telemetry demonstrates sinus rhythm. REVIEW OF SYSTEMS: The pertinent positives are noted above. A 5-system review including cardiovascular, pulmonary, gastroenterology, neurologic, and endocrinologic systems otherwise negative. LABORATORY DATA: Sodium 134, potassium 5.2, chloride is 92, CO2 is 39, BUN is 33, creatinine is 1.50, and glucose is 119. White blood cell count 3.07, hemoglobin is 9.4, and platelet count is 155. INPATIENT MEDICATIONS: 1. Heparin 5000 subQ q. 12 hours. 2. Albuterol as needed. 3. Furosemide 40 mg IV twice daily. 4. Gabapentin 100 mg b.i.d. 5. [place] 1 tab q. 4 hours as needed. 6. Flexeril 5 mg t.i.d. as needed. 7. Lidoderm patch. 8. Haldol 2 mg q. 4 hours as needed. 9. Amiodarone 200 mg twice daily. 10. Aldactone 12.5 mg twice daily. 11. Ferrous sulfate 325 daily. 12. Simvastatin 20 mg at bedtime. 13. Protonix 40 mg twice daily. 14. Toprol-XL 12.5 mg twice daily. 15. Aspirin 81 mg daily. 16. Potassium chloride 20 mEq daily. 17. Imdur 30 mg daily. 18. Lantus 10 units subcutaneous at bedtime. 19. Zantac 150 mg twice daily. 20. NovoLog sliding scale. 21. Tylenol as needed. 22. Zofran as needed. Weight on admission 84.4 kilograms, weight per bed scale today is 73.7 kilograms. I's and O's are negative approximately 1200 mL over the past 24 hours. PHYSICAL EXAMINATION: VITAL SIGNS: Temperature is 36.9 degrees centigrade, pulse 67 beats per minute and regular, respiratory rate 16 breaths per minute, blood pressure 109/55 and SaO2 is 97% on 2 liters. GENERAL: NAD, awake and alert, oriented to person and place. HEENT: Mucous membranes are moist. No scleral icterus. Conjunctivae pink. NECK: Supple without JVD or HJR. No carotid bruit. HEART: Regular with a normal S1 and S2. No murmur, rub or gallop appreciated. LUNGS: Demonstrate diminished breath sounds at the bases, auscultated anteriorly. No rhonchi, rales, or wheeze. ABDOMEN: Soft and nontender. No rebound or guarding. Normal bowel sounds. EXTREMITIES: Warm and dry. +1 bilateral pedal edema. NEUROLOGIC: Demonstrates no focal motor deficit. FINAL IMPRESSION: 1. Complex 86-year-old female admitted with acute decompensated systolic heart failure with severe cardiomyopathy. She has diuresed more than 20 pounds during hospitalization. Renal function has improved with mild hyperkalemia at this time. 2. History of chronic coronary artery disease -- stable. 3. Paroxysmal atrial fibrillation, chemically converted to sinus rhythm with amiodarone. 4. Chronic kidney disease. 5. Chronic iron deficiency anemia. 6. Diabetes type 2. PLAN AND RECOMMENDATIONS: Intravenous furosemide will be discontinued today. We will begin oral furosemide 40 mg twice daily. Metolazone will be discontinued. In light of mild hyperkalemia, her potassium supplementation will be discontinued. Her evening dose of Aldactone will be held with a repeat basic metabolic panel in the a.m. Ward catheter will be removed today. PT/OT evaluation. Repeat resting 12-lead ECG. Other medications will be continued as listed above. Continue to follow closely during hospitalization with ultimate plans for discharge back to [facility]. Case was discussed at length with the hospitalist.
--- NOTE | 2016-06-16 10:22 | Progress Note ---
Internal Med Progress Note Date of Service: Jun 16, 2016. Provider Documentation: SUBJECTIVE: Patient is upset and frustrated being in the hospital so long. SOB improved. Cough + but no sputum production, leg/abdominal distension improved. Had a loose BM + Denies any chest pain, fever, chills, nausea, vomiting. Good urine output + Weight in down by 10 lbs since admission OBJECTIVE: Vital Signs-as noted below Exam: General Appearance: AAOX2, No apparent distress, Head: normocephalic, atraumatic ENT: hearing grossly normal Neck: supple Respiratory/Chest: chest non-tender, no respiratory distress, no accessory muscle use, + crackles, + pertinent finding (no wheezing) Cardiovascular: regular rate, rhythm; Murmur + Abdomen/GI: Soft, distension- improved, normal bowel sounds, non tender, soft Extremities/Musculoskelatal: normal inspection, + pertinent finding (3+ pitting edema to bilat LE extending into thighs) - Improved , sensitive to touch Lab data as noted below. ASSESSMENT & PLAN: ACUTE ON CHRONIC SYSTOLIC CHF EXACERBATION (Biventricular Right >Left) / SEVERE CARDIOMYOPATHY WITH LVEF <15% : Pt presented with worsening LE edema, SOB and cough; h/o mod mitral regurg and systolic CHF on Lasix and metolazone from Dr Hollis office. Slow improvement. Urine output better, Weight down by 10 lbs -On IV lasix 40 mg daily (re - started on 06/06/16--> till 06/16/16); Spironolactone increased to 12.5 mg PO BID this admission, Added metolazone 5 mg every other day on 06/10 with good response. -Toprol increased to 12.5 mg PO BID on 05/29/16 -Troponin- 0.049,0.084, 0.094, Echo- LV- moderately dilated, severely reduced, septal/apical/severe global hypokinesis of left ventricle with EF <15%, LA- Mildly dilated, Mild-moderate MR, Moderate TR PLAN: Discussed with cardiology---> Discontinued IV lasix today--> change to 40 mg PO BID. Hold spironolactone, metolazone which she was getting q2days. Hold K supplements as K is 5.2. Discontinue Ward's catheter. TOMMY ON CKD STAGE 3- Resolved Likely Cardio renal - Baseline creatinine 1.4 --> 1.6-->1.5-->1.20 - Improved with such aggressive diuresis - IV lasix for almost 2 weeks. - Monitor closely METABOLIC ALKALOSIS -Likely secondary to aggressive diuresis > 14 days -Hold IV and will change it to PO lasix ATRIAL FIBRILLATION - In past was taken off Xarelto (6 months ago) due to GI bleeding/anemia and thought to be at a higher risk of bleeding - S/P Low dose IV Heparin --> Discontinued on 06/12/16 and placed on SQ Heparin. No plans for anticoagulation on discharge. - Continue on Toprol 12.5 mg PO BID; Amiodarone PO 200 mg BID - Cardiology on board POSSIBLE TIA In the setting of Atrial Fibrillation - 06/03/16 (+) aphasia lasting for about an hour - CT head: no bleed, no new CVA - Tele stroke conference performed- not a TPA candidate. 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 Gabapentin started - Appreciate pain mx consult POSSIBLE LOWER EXTREMITY CELLULITIS - Resolved -Cefuroxime Day 7/7 (Completed course of antibiotics) - redness, tenderness resolved. -wound care consultED UTI, Klebsiella -S/P ciprofloxacin BID (Day 07/25) per c/s -Changed to Cefuroxime to cover possible Lower Leg Cellulitis as well- s/p antibiotic course ANEMIA, CHRONIC : Likely iron deficiency - History of GI bleeding few months ago, requiring blood transfusion, declined EGD/Colonoscopy- resolved spontaneously after stopping xarelto. - Ferritin/Iron low- Started her on Ferrous sulphate this admission - Hg stable INSULIN-DEPENDENT DM 2 -Recent A1C 6.4 -cont Lantus -ISS , Accuchecks CAD -NSTEMI 07/2015 s/p stent placement -Cont ASA, BB (toprol dose increased as above) and statin -Stable GERD -Cont ranitidine and PPI BID DYSLIPIDEMIA -Cont statin DVT PROPHYLAXIS -Heparin SQ CODE STATUS -FULL CODE status per discussion with patient upon admission DISPO Ok to transfer to med-surg today Plan is back to [facility] once medically stable- bed on hold. Significant deconditioning. Unable to get to commode without a michelle lift. Discussed with daughter by bedside- updated on 06/14/16 Vital Signs: Date Time Temp Pulse Resp B/P Pulse Ox O2 Delivery O2 Flow Rate FiO2 06/16/16 08:00 Nasal Cannula 2.0 06/16/16 07:29 36.9 67 16 109/55 97 Nasal Cannula 2.0 06/16/16 04:00 Nasal Cannula 2.0 06/16/16 03:24 37.0 59 25 102/47 93 Nasal Cannula 2.0 Humidified Oxygen 06/16/16 00:00 Nasal Cannula 2.0 06/15/16 23:54 37.2 60 24 114/58 99 Nasal Cannula 2.0 Humidified Oxygen 06/15/16 20:00 Nasal Cannula 2.0 06/15/16 19:00 36.3 60 26 114/74 99 Nasal Cannula 2.0 Humidified Oxygen 06/15/16 16:00 Nasal Cannula 2.0 100 06/15/16 15:26 36.9 59 21 107/50 100 Nasal Cannula 2.0 Humidified Oxygen 06/15/16 12:00 37.1 66 22 123/56 95 2.0 06/15/16 12:00 Nasal Cannula 2.0 Lab Results: Results Past 24 Hours Test 06/15/16 11:04 06/15/16 16:15 06/15/16 20:14 06/16/16 05:16 Range/Units Bedside Glucose 259 167 160 70-90 mg/dl White Blood Count 3.07 4.8-10.8 K/uL Red Blood Count 3.86 4.2-5.4 M/uL Hemoglobin 9.4 12.0-16.0 g/dL Hematocrit 30.7 37-47 % Mean Corpuscular Volume 79.5 80-100 fL Mean Corpuscular Hemoglobin 24.4 25-34 pg Mean Corpuscular Hemoglobin Concent 30.6 32-36 g/dl RDW Standard Deviation 57.4 36.4-46.3 fL RDW Coefficient of Variation 20.0 11.5-14.5 % Platelet Count 155 130-400 K/uL Mean Platelet Volume 9.0 7.4-10.4 fL Sodium Level 135 136-145 mmol/L Potassium Level 4.4 3.5-5.1 mmol/L Chloride Level 92 98-107 mmol/L Carbon Dioxide Level 41 21-32 mmol/L Anion Gap 2.0 3-11 mmol/L Blood Urea Nitrogen 25 7-18 mg/dl Creatinine 1.20 0.60-1.20 mg/dl Est Creatinine Clear Calc Drug Dose 31.9 ml/min Estimated GFR () 46.7 Estimated GFR (Non- 40.3 BUN/Creatinine Ratio 21.2 10-20 Random Glucose 120 70-99 mg/dl Calcium Level 8.5 8.5-10.1 mg/dl Test 06/16/16 06:21 Range/Units Bedside Glucose 132 70-90 mg/dl
[2016-06-16 11:55] VITALS: BP 107/52; PULSE 57; TEMP 36.6; O2SAT 95
[2016-06-16] MEDS: HYDROCODONE/ACETAMOPHEN 5/325MG TAB PO PRN (14:39)
[2016-06-16 15:33] VITALS: BP 109/55; PULSE 67; TEMP 36.9; O2SAT 97
[2016-06-16] MEDS: FUROSEMIDE 40 MG TAB PO SCH (16:04)
[2016-06-16 16:18] VITALS: BP 106/59; PULSE 67; TEMP 36.9; O2SAT 97
[2016-06-16 18:10] VITALS: BP 113/61; PULSE 54; TEMP 36.3; O2SAT 100
[2016-06-16] MEDS: INSULIN GLARGINE SOLOSTAR 100 UNITS/ML 3 ML PEN SC SCH (23:23)
[2016-06-16] MEDS: ALUMINUM/MAGNESIUM/SIMETH (MAALOX MAX) 30 ML UDC PO SCH (23:24)
[2016-06-16] MEDS: SIMVASTATIN 20 MG TAB PO SCH (23:26)
[2016-06-17] VITALS: BP 125/57; PULSE 61; TEMP 36.3; O2SAT 100
[2016-06-17 06:58] LABS: CALCIUM 8.5 mg/dl (8.5-10.1); CREATININE 1.3 mg/dl (0.60-1.20)
[2016-06-17 07:50] VITALS: BP 96/51; PULSE 55; TEMP 36.7; O2SAT 99
[2016-06-17] MEDS: ISOSORBIDE MONONITRATE 30 MG TABCR PO SCH ×2 (08:00→08:43)
[2016-06-17] MEDS: METOPROLOL SUCC 25MG EXT REL TAB PO SCH ×2 (08:00→20:16)
[2016-06-17] MEDS: ASPIRIN 81 MG ECTAB PO SCH (08:42)
[2016-06-17] MEDS: FERROUS SULFATE 325 MG TAB PO SCH (08:43)
[2016-06-17] MEDS: PANTOprazole SOD 40 MG TAB PO SCH ×2 (08:44→20:16)
[2016-06-17] MEDS: FUROSEMIDE 40 MG TAB PO SCH (08:44)
[2016-06-17] MEDS: GABAPENTIN 100 MG CAP PO SCH ×2 (08:44→20:16)
[2016-06-17] MEDS: RANITIDINE HCL 150 MG TAB PO SCH ×2 (08:44→20:16)
[2016-06-17] MEDS: AMIODARONE 200 MG TAB PO SCH ×2 (08:45→20:15)
[2016-06-17] MEDS: LIDODERM (LIDOCAINE) PATCH 5% TD SCH (08:46)
[2016-06-17] MEDS: HEPARIN SOD 5000 UNIT/0.5 ML CARP SQ SCH ×2 (08:47→20:17)
[2016-06-17] MEDS: INSULIN ASPART 100 UNITS/ML 3 ML PEN SC SCH ×4 (08:54→22:00)
--- NOTE | 2016-06-17 09:31 | CARDIOLOGY PROGRESS NOTE ---
DATE: 06/17/2016 SUBJECTIVE: The patient is seen and examined at the bedside. Somewhat more confused this morning, although she is extremely hard of hearing. She received a dose of narcotic medication in the evening on 06/16/2016. The patient denies chest discomfort or unusual shortness of breath. Her fluid balance not accurately checked now that her Ward has been removed. No new issues reported by the nursing. REVIEW OF SYSTEMS: Pertinent positives noted per HPI. Three system review including cardiovascular, pulmonary, and gastroenterologic systems otherwise negative. LABORATORY DATA: Sodium 136, potassium 4.0, chloride is 88, CO2 is 43, BUN is 22, and creatinine is 1.30. White blood cell count 3.07, hemoglobin is 9.4, and platelet count is 155. Telemetry discontinued. PHYSICAL EXAMINATION: VITAL SIGNS: Temperature is 36.7 degrees centigrade, pulse 55 beats per minute and regular, respiratory rate 16 breaths per minute, blood pressure 96/51 and Sa02 is 99% on 3 liters. GENERAL: NAD, confused, hard of hearing. HEENT: Mucous membranes are moist. No scleral icterus. Conjunctivae pink. NECK: Supple without JVD in the upright position. No carotid bruit. HEART: Regular with a normal S1 and S2. No murmur, rub or gallop. LUNGS: Clear. Auscultated anteriorly without rhonchi, rales, or wheeze. ABDOMEN: Soft and nontender. No rebound or guarding. Normal bowel sounds. EXTREMITIES: Warm and dry with trace pedal edema. NEUROLOGIC: Demonstrates no focal motor deficit. FINAL IMPRESSION: 1. Complex 86-year-old female admitted with acute decompensated systolic heart failure, treated with intravenous diuretic therapy as appears compensated at this time. Renal function is stable. 2. History of chronic coronary artery disease -- stable without angina. 3. Paroxysmal atrial fibrillation during hospitalization -- no recurrence on amiodarone. PLAN AND RECOMMENDATIONS: Continue oral furosemide 40 mg twice daily. We will hold her evening dose today and restart in the a.m. We will also restart Aldactone 12.5 mg daily tomorrow. Other medications will be continued as listed above. Continue PT/OT. Plan for discharge back to [facility].
--- NOTE | 2016-06-17 10:37 | Progress Note ---
Internal Med Progress Note Date of Service: Jun 17, 2016. Provider Documentation: SUBJECTIVE: Patient is a bit tired today. SOB improved. Cough + but no sputum production, leg/abdominal distension improved. Had loose BM yesterday Denies any chest pain, fever, chills, nausea, vomiting. Good urine output + Weight in down by > 10 lbs since admission OBJECTIVE: Vital Signs-as noted below Exam: General Appearance: AAOX2, No apparent distress, Head: normocephalic, atraumatic ENT: hearing grossly normal Neck: supple Respiratory/Chest: chest non-tender, no respiratory distress, no accessory muscle use, + crackles- improved + pertinent finding (no wheezing) Cardiovascular: regular rate, rhythm; Murmur + Abdomen/GI: Soft, distension- improved, normal bowel sounds, non tender, soft Extremities/Musculoskelatal: normal inspection, + pertinent finding (3+ pitting edema to bilat LE extending into thighs) - Improved , sensitive to touch Lab data as noted below. ASSESSMENT & PLAN: ACUTE ON CHRONIC SYSTOLIC CHF EXACERBATION (Biventricular Right >Left) / SEVERE CARDIOMYOPATHY WITH LVEF <15% : Pt presented with worsening LE edema, SOB and cough; h/o mod mitral regurg and systolic CHF on Lasix and metolazone from Dr Hollis office. Slow improvement. Urine output better, Weight down by > 10 lbs -S/P IV lasix 40 mg daily (re - started on 06/06/16 --> till 06/16/16); Spironolactone increased to 12.5 mg PO BID this admission, Metolazone 5 mg every other day on 06/10 with good response. Changed to PO lasix 40 mg BID and held aldactone on 06/16/16. Continue holding it today as severe metabolic alkalosis due to aggressive diuresis -Toprol increased to 12.5 mg PO BID on 05/29/16 -Troponin- 0.049,0.084, 0.094, Echo- LV- moderately dilated, severely reduced, septal/apical/severe global hypokinesis of left ventricle with EF <15%, LA- Mildly dilated, Mild-moderate MR, Moderate TR TOMMY ON CKD STAGE 3- Resolved Likely Cardio renal - Baseline creatinine 1.4 --> 1.6-->1.5-->1.20-->1.30 today - Improved with such aggressive diuresis. - Monitor METABOLIC ALKALOSIS - Worsening -Likely secondary to aggressive diuresis > 14 days -Discontinued IV lasix yesterday, Hold PO lasix, Aldactone -Monitor ATRIAL FIBRILLATION - In past was taken off Xarelto (6 months ago) due to GI bleeding/anemia and thought to be at a higher risk of bleeding - S/P Low dose IV Heparin --> Discontinued on 06/12/16 and placed on SQ Heparin. No plans for anticoagulation on discharge. - Continue on Toprol 12.5 mg PO BID; Amiodarone PO 200 mg BID - Cardiology on board POSSIBLE TIA In the setting of Atrial Fibrillation - 06/03/16 (+) aphasia lasting for about an hour - CT head: no bleed, no new CVA - Tele stroke conference performed- not a TPA candidate. 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 -wound care consulted UTI, Klebsiella -S/P ciprofloxacin BID (Day 07/25) per c/s -Changed to Cefuroxime to cover possible Lower Leg Cellulitis as well- Completed antibiotic course S/P LOW BACK PAIN, INTERMITTENT, HIP PAIN - CT abd/pelvis: possible T12 compression fracture - Left hip x ray: no fracture - Lidoderm patch; PRN tramadol; PRN [place]. Gabapentin started - Appreciate pain mx consult ANEMIA, CHRONIC : Likely iron deficiency - History of GI bleeding few months ago, requiring blood transfusion, declined EGD/Colonoscopy- resolved spontaneously after stopping xarelto. - Ferritin/Iron low- Started her on Ferrous sulphate this admission - Hg stable INSULIN-DEPENDENT DM 2 -Recent A1C 6.4 -cont Lantus -ISS , Accuchecks CAD -NSTEMI 07/2015 s/p stent placement -Cont ASA, BB (toprol dose increased as above) and statin -Stable GERD -Cont ranitidine and PPI BID DYSLIPIDEMIA -Cont statin DVT PROPHYLAXIS -Heparin SQ CODE STATUS -FULL CODE status per discussion with patient upon admission DISPO Plan is back to [facility] once medically stable- bed on hold. Significant deconditioning. Unable to get to commode without a michelle lift. Monitor labs - HCO3, Creatinine to guide adjustment of diuretics dosage for discharge- hopefully in 1-2 days Discussed with daughter and updated about discharge plans - (hopefully in 1-2 days) yesterday. Vital Signs: Date Time Temp Pulse Resp B/P Pulse Ox O2 Delivery O2 Flow Rate FiO2 06/17/16 10:20 Nasal Cannula 3.0 06/17/16 08:00 Nasal Cannula 3.0 Humidified Oxygen 06/17/16 07:50 36.7 55 16 96/51 99 3.0 06/17/16 02:15 Nasal Cannula 3.0 Humidified Oxygen 06/17/16 00:00 36.3 61 18 125/57 100 3.0 06/16/16 18:10 36.3 54 16 113/61 100 06/16/16 16:18 36.9 67 16 106/59 97 Nasal Cannula 2.0 06/16/16 15:33 36.9 67 16 97 06/16/16 15:31 Nasal Cannula 2.0 06/16/16 12:12 Nasal Cannula 2.0 06/16/16 11:55 36.6 57 16 107/52 95 Nasal Cannula 2.0 Lab Results: Results Past 24 Hours Test 06/16/16 11:13 06/16/16 16:25 06/16/16 20:29 06/17/16 05:06 Range/Units Bedside Glucose 173 157 108 70-90 mg/dl Sodium Level 136 136-145 mmol/L Potassium Level 4.0 3.5-5.1 mmol/L Chloride Level 88 98-107 mmol/L Carbon Dioxide Level 43 21-32 mmol/L Anion Gap 5.0 3-11 mmol/L Blood Urea Nitrogen 22 7-18 mg/dl Creatinine 1.30 0.60-1.20 mg/dl Est Creatinine Clear Calc Drug Dose 28.8 ml/min Estimated GFR () 42.4 Estimated GFR (Non- 36.6 BUN/Creatinine Ratio 17.0 10-20 Random Glucose 114 70-99 mg/dl Calcium Level 8.5 8.5-10.1 mg/dl Test 06/17/16 07:39 Range/Units Bedside Glucose 107 70-90 mg/dl
[2016-06-17 11:12] VITALS: BP 102/63; PULSE 55
[2016-06-17 17:19] VITALS: BP 109/61; PULSE 73; TEMP 36.5; O2SAT 92
[2016-06-17 20:13] VITALS: BP 109/59; PULSE 62
[2016-06-17] MEDS: SIMVASTATIN 20 MG TAB PO SCH (20:16)
[2016-06-17] MEDS: ALUMINUM/MAGNESIUM/SIMETH (MAALOX MAX) 30 ML UDC PO SCH (20:17)
[2016-06-17] MEDS: INSULIN GLARGINE SOLOSTAR 100 UNITS/ML 3 ML PEN SC SCH (22:07)
[2016-06-18 00:27] VITALS: BP 110/69; PULSE 63; TEMP 36.8; O2SAT 100
[2016-06-18 07:43] LABS: BUN/CREATININE RATIO 15.1 (10-20); CALCIUM 8.3 mg/dl (8.5-10.1); CREATININE 1.3 mg/dl (0.60-1.20); POTASSIUM 3.8 mmol/L (3.5-5.1)
[2016-06-18 07:45] VITALS: BP 99/50; PULSE 66; TEMP 36.6; O2SAT 93
[2016-06-18] MEDS: PANTOprazole SOD 40 MG TAB PO SCH ×2 (08:05→21:01)
[2016-06-18] MEDS: GABAPENTIN 100 MG CAP PO SCH ×2 (08:06→21:02)
[2016-06-18] MEDS: AMIODARONE 200 MG TAB PO SCH ×2 (08:06→21:02)
[2016-06-18] MEDS: FERROUS SULFATE 325 MG TAB PO SCH (08:06)
[2016-06-18] MEDS: ASPIRIN 81 MG ECTAB PO SCH (08:06)
[2016-06-18] MEDS: ISOSORBIDE MONONITRATE 30 MG TABCR PO SCH (08:06)
[2016-06-18] MEDS: RANITIDINE HCL 150 MG TAB PO SCH ×2 (08:07→21:03)
[2016-06-18] MEDS: METOPROLOL SUCC 25MG EXT REL TAB PO SCH ×2 (08:07→21:03)
[2016-06-18] MEDS: LIDODERM (LIDOCAINE) PATCH 5% TD SCH (08:08)
[2016-06-18] MEDS: HEPARIN SOD 5000 UNIT/0.5 ML CARP SQ SCH ×2 (08:18→21:10)
[2016-06-18] MEDS: INSULIN ASPART 100 UNITS/ML 3 ML PEN SC SCH ×4 (08:26→21:09)
--- NOTE | 2016-06-18 10:43 | CARDIOLOGY PROGRESS NOTE ---
DATE: 06/18/2016 SUBJECTIVE: The patient is seen and examined at the bedside. She is more alert today. Denies chest discomfort or shortness of breath. No orthopnea or PND. Diuretics placed on hold due to contraction alkalosis. The patient offers no complaints at this time. REVIEW OF SYSTEMS: The pertinent positives are noted above. A 4-system review including cardiovascular, pulmonary, gastroenterologic and musculoskeletal systems otherwise negative. LABORATORY DATA: Sodium 136, potassium 3.8, chloride is 90, CO2 is 46, BUN is 20, creatinine is 1.3. MEDICATIONS: Reviewed the EMR, please see list for details. PHYSICAL EXAMINATION: VITAL SIGNS: Temperature is 36.6 degrees centigrade, pulse 66 beats per minute and regular, respiratory rate is 18 breaths per minute, blood pressure 99/50, SaO2 is 93% on 2 liters. GENERAL: NAD, awake and alert. She is oriented to person and place. HEENT: Her mucous membranes are moist. No scleral icterus. Conjunctivae pink. NECK: Supple without JVD or HJR. No carotid bruit. HEART: Regular with normal S1 and S2. No murmur appreciated. LUNGS: Clear bilateral without rales, rhonchi or wheeze. ABDOMEN: Soft, nontender. No rebound or guarding. Normal bowel sounds. EXTREMITIES: Warm and dry with trace pedal edema. NEUROLOGIC: Demonstrates no focal motor deficit. FINAL IMPRESSION: 1. Chronic compensated systolic heart failure with mild contraction alkalosis due to diuretic therapy. Renal function remains stable. 2. History of chronic coronary artery disease -- stable. 3. Paroxysmal atrial fibrillation -- regular rhythm on exam. Tolerating amiodarone. Plan/Recommendations: Continue to hold diuretics at this time. Repeat basic metabolic panel in the a.m. Other cardiovascular medications will be continued as previously ordered. Ultimate plan for transfer back to [facility] when medically stable. We will continue to follow. [facility]
[2016-06-18 15:07] VITALS: BP 96/58; PULSE 57; TEMP 36.7; O2SAT 100
--- NOTE | 2016-06-18 16:14 | Progress Note ---
Internal Med Progress Note Date of Service: Jun 18, 2016. Provider Documentation: SUBJECTIVE: Patient is seen and examined at bedside. Has dry cough. Denies SOB, chest pain, dizziness. Diuretics on hold secondary to alkalosis. Afebrile. OBJECTIVE: Vital Signs-as noted below Physical Exam: General Appearance:AAO X2, fragile, no apparent distress Head: normocephalic, Atraumatic Eyes: normal inspection, EOMI, PERRLA Neck: supple, Trachea midline Respiratory/Chest: B/L air entry, Minimal creps bilaterally, No accessory muscle use Cardiovascular: S1, S2, No murmur Abdomen/GI:Soft, Non tender, Bowel sounds present Extremities/Musculoskelatal:normal inspection, B/L pitting edema Neurologic/Psych:AAOX2, grossly no focal neurological deficits Skin: normal color, warm Lab data as noted below. ASSESSMENT & PLAN: ACUTE ON CHRONIC SYSTOLIC CHF EXACERBATION (Biventricular Right >Left) / SEVERE CARDIOMYOPATHY WITH LVEF <15% : Patient presented with worsening LE edema, SOB and cough H/O moderate mitral regurgitation and systolic CHF Showed slow progressive improvement. Weight down by > 10 lbs since admission S/P IV lasix 40 mg daily Spironolactone increased to 12.5 mg PO BID Metolazone 5 mg every other day Currently PO lasix 40 mg BID and aldactone held secondary to metabolic alkalosis secondary to aggressive diuresis Toprol increased to 12.5 mg PO BID Troponin- 0.049,0.084, 0.094 Echo: LV- moderately dilated, severely reduced, septal/apical/severe global hypokinesis of left ventricle with EF <15%, LA-Mildly dilated, Mild-moderate MR , Moderate TR Appreciate cardiology input Continue Oxygen support per protocol Dry cough: Will check CXR in AM Currently afebrile TOMMY ON CKD STAGE 3- Resolved Likely Cardio renal Baseline creatinine 1.4 >>> 1.6 >>>1.5 >>>1.30 today Continue to monitor METABOLIC ALKALOSIS - Worsening Secondary to aggressive diuresis Diuretics on hold currently Continue to monitor ATRIAL FIBRILLATION In past was taken off Xarelto (6 months ago) due to GI bleeding/anemia and thought to be at a higher risk of bleeding S/P Low dose IV Heparin --> Discontinued on 06/12/16 and placed on SQ Heparin. No plans for anticoagulation on discharge. Continue on Toprol 12.5 mg PO BID; Amiodarone PO 200 mg BID Cardiology following POSSIBLE TIA In the setting of Atrial Fibrillation On 06/03/16 (+) aphasia lasting for about an hour CT head: no bleed, no new CVA Not a TPA candidate per Tele stroke conference. Carotid US: no significant stenosis Neurology consulted- Initially was on IV heparin but later discontinued on as not a watermaster candidate for anticoagulation continue ASA POSSIBLE LOWER EXTREMITY CELLULITIS - Resolved Cefuroxime Day 09/26 (Completed course of antibiotics) - redness, tenderness resolved. Continue wound care UTI, Klebsiella S/P ciprofloxacin BID (Day 07/25) per c/s Changed to Cefuroxime to cover possible Lower Leg Cellulitis as well- Completed antibiotic course S/P LOW BACK PAIN, INTERMITTENT, HIP PAIN CT abd/pelvis: possible T12 compression fracture Left hip x ray: no fracture Lidoderm patch; PRN tramadol; PRN [place]. continue gabapentin. Appreciate pain management consult ANEMIA, CHRONIC : Likely iron deficiency H/O GI bleeding few months ago, requiring blood transfusion, declined EGD/ Colonoscopy- resolved spontaneously after stopping xarelto. Ferritin/Iron low Continue Ferrous sulphate: started this admission Monitor Hg INSULIN-DEPENDENT DM 2 Last A1C 6.4 continue Lantus ISS, Accu checks CAD NSTEMI 07/2015 s/p stent placement Cont ASA, BB and statin Stable GERD Cont ranitidine and PPI BID DYSLIPIDEMIA Cont statin DVT PROPHYLAXIS Heparin SQ CODE STATUS FULL CODE status per discussion with patient upon admission DISPO Plan to be discharged to [facility] when medically stable. Likely discharge in next 48 hours if stable Vital Signs: Date Time Temp Pulse Resp B/P Pulse Ox O2 Delivery O2 Flow Rate FiO2 06/18/16 15:07 36.7 57 20 96/58 100 Nasal Cannula 3.0 06/18/16 08:00 Nasal Cannula 2.0 06/18/16 07:45 36.6 66 18 99/50 93 Nasal Cannula 3.0 06/18/16 01:00 Nasal Cannula 3.0 Humidified Oxygen 06/18/16 00:27 36.8 63 20 110/69 100 3.0 06/17/16 22:00 Nasal Cannula 3.0 Humidified Oxygen 06/17/16 20:13 62 18 109/59 06/17/16 17:19 36.5 73 16 109/61 92 Nasal Cannula 3.0 06/17/16 17:05 Nasal Cannula 3.0 Lab Results: Results Past 24 Hours Test 06/17/16 16:36 06/17/16 20:47 06/18/16 06:43 06/18/16 07:34 Range/Units Bedside Glucose 141 144 78 70-90 mg/dl Sodium Level 136 136-145 mmol/L Potassium Level 3.8 3.5-5.1 mmol/L Chloride Level 90 98-107 mmol/L Carbon Dioxide Level 46 21-32 mmol/L Anion Gap 0.0 3-11 mmol/L Blood Urea Nitrogen 20 7-18 mg/dl Creatinine 1.30 0.60-1.20 mg/dl Est Creatinine Clear Calc Drug Dose 28.8 ml/min Estimated GFR () 42.4 Estimated GFR (Non- 36.6 BUN/Creatinine Ratio 15.1 10-20 Random Glucose 72 70-99 mg/dl Calcium Level 8.3 8.5-10.1 mg/dl Test 06/18/16 11:27 06/18/16 16:14 Range/Units Bedside Glucose 132 166 70-90 mg/dl
[2016-06-18 16:25] VITALS: O2SAT 100
[2016-06-18] MEDS: SIMVASTATIN 20 MG TAB PO SCH (21:03)
[2016-06-18] MEDS: INSULIN GLARGINE SOLOSTAR 100 UNITS/ML 3 ML PEN SC SCH (21:09)
[2016-06-18] MEDS: ALUMINUM/MAGNESIUM/SIMETH (MAALOX MAX) 30 ML UDC PO SCH (21:11)
[2016-06-18 23:39] VITALS: BP 104/64; PULSE 65; TEMP 37.1; O2SAT 100
[2016-06-19 01:35] VITALS: O2SAT 100
[2016-06-19 07:11] VITALS: BP 103/59; PULSE 74; TEMP 36.5; O2SAT 99
--- NOTE | 2016-06-19 07:30 | DIAGNOSTIC IMAGING REPORT ---
CHEST ONE VIEW PORTABLE CLINICAL HISTORY: Cough, CHF COMPARISON STUDY: 06/09/2016 FINDINGS: The heart is enlarged. There is radiographic evidence of congestive failure with interstitial pulmonary edema. There are bilateral pleural effusions right greater than left. The findings remain similar to the preceding study. There is persistent soft tissue prominence the right paratracheal tissues.[ IMPRESSION: Continued radiographic evidence of congestive failure with mild interstitial edema, cardiomegaly, and bilateral pleural effusions right greater than left Electronically signed by: Jeromy Quinones M.D. 06/19/2016 7:28 AM Dictated Date/Time: 06/19/2016 7:27 AM
[2016-06-19] MEDS: LIDODERM (LIDOCAINE) PATCH 5% TD SCH (08:31)
[2016-06-19 08:32] LABS: BUN/CREATININE RATIO 14.7 (10-20); CALCIUM 8.3 mg/dl (8.5-10.1); CREATININE 1.1 mg/dl (0.60-1.20); POTASSIUM 3.5 mmol/L (3.5-5.1)
[2016-06-19] MEDS: ISOSORBIDE MONONITRATE 30 MG TABCR PO SCH (08:32)
[2016-06-19] MEDS: METOPROLOL SUCC 25MG EXT REL TAB PO SCH (08:32)
[2016-06-19] MEDS: RANITIDINE HCL 150 MG TAB PO SCH (08:32)
[2016-06-19] MEDS: FERROUS SULFATE 325 MG TAB PO SCH (08:32)
[2016-06-19] MEDS: GABAPENTIN 100 MG CAP PO SCH (08:32)
[2016-06-19] MEDS: ASPIRIN 81 MG ECTAB PO SCH (08:33)
[2016-06-19] MEDS: PANTOprazole SOD 40 MG TAB PO SCH (08:33)
[2016-06-19] MEDS: AMIODARONE 200 MG TAB PO SCH (08:33)
[2016-06-19] MEDS: HEPARIN SOD 5000 UNIT/0.5 ML CARP SQ SCH (08:53)
[2016-06-19] MEDS: INSULIN ASPART 100 UNITS/ML 3 ML PEN SC SCH ×2 (08:58→12:30)
[2016-06-19 09:00] VITALS: O2SAT 97
[2016-06-19 09:05] VITALS: O2SAT 92
--- NOTE | 2016-06-19 11:38 | Progress Note ---
Internal Med Progress Note Date of Service: Jun 19, 2016. Provider Documentation: SUBJECTIVE: Patient is seen and examined at bedside. Has dry cough. Denies SOB, chest pain, dizziness. Diuretics on hold secondary to alkalosis. Afebrile. OBJECTIVE: Vital Signs-as noted below Physical Exam: General Appearance:AAO X2, fragile, no apparent distress Head: normocephalic, Atraumatic Eyes: normal inspection, EOMI, PERRLA Neck: supple, Trachea midline Respiratory/Chest: B/L air entry, Minimal creps bilaterally, No accessory muscle use Cardiovascular: S1, S2, No murmur Abdomen/GI:Soft, Non tender, Bowel sounds present Extremities/Musculoskelatal:normal inspection, B/L pitting edema Neurologic/Psych:AAOX2, grossly no focal neurological deficits Skin: normal color, warm Lab data as noted below. ASSESSMENT & PLAN: ACUTE ON CHRONIC SYSTOLIC CHF EXACERBATION (Biventricular Right >Left) / SEVERE CARDIOMYOPATHY WITH LVEF <15% : Patient presented with worsening LE edema, SOB and cough H/O moderate mitral regurgitation and systolic CHF Showed slow progressive improvement. Weight down by > 10 lbs since admission S/P IV lasix 40 mg daily Metolazone 5 mg every other day To resume PO lasix 40 mg daily and aldactone daily per recommendation from cardiology Toprol increased to 12.5 mg PO BID Troponin- 0.049,0.084, 0.094 Echo: LV- moderately dilated, severely reduced, septal/apical/severe global hypokinesis of left ventricle with EF <15%, LA-Mildly dilated, Mild-moderate MR , Moderate TR Appreciate cardiology input Currently saturating well on Room air TOMMY ON CKD STAGE 3- Resolved Likely Cardio renal Baseline creatinine 1.4 >>> 1.6 >>>1.5 >>>1.10 today Continue to monitor METABOLIC ALKALOSIS - Much Improved Secondary to aggressive diuresis Plan to resume Diuretics upon discharge Continue to monitor ATRIAL FIBRILLATION In past was taken off Xarelto (6 months ago) due to GI bleeding/anemia and thought to be at a higher risk of bleeding S/P Low dose IV Heparin --> Discontinued on 06/12/16 and placed on SQ Heparin. No plans for anticoagulation on discharge. Continue on Toprol 12.5 mg PO BID; Amiodarone PO 200 mg BID Cardiology on board POSSIBLE TIA In the setting of Atrial Fibrillation On 06/03/16 (+) aphasia lasting for about an hour CT head: no bleed, no new CVA Not a TPA candidate per Tele stroke conference. Carotid US: no significant stenosis Neurology consulted- Initially was on IV heparin but later discontinued on as not a senior living candidate for anticoagulation continue ASA POSSIBLE LOWER EXTREMITY CELLULITIS - Resolved Cefuroxime Day 09/26 (Completed course of antibiotics) - redness, tenderness resolved. Continue wound care UTI, Klebsiella S/P ciprofloxacin BID (Day 07/25) per c/s Changed to Cefuroxime to cover possible Lower Leg Cellulitis as well- Completed antibiotic course S/P LOW BACK PAIN, INTERMITTENT, HIP PAIN CT abd/pelvis: possible T12 compression fracture Left hip x ray: no fracture Lidoderm patch; PRN tramadol; PRN [place]. continue gabapentin. Appreciate pain management consult ANEMIA, CHRONIC : Likely iron deficiency H/O GI bleeding few months ago, requiring blood transfusion, declined EGD/ Colonoscopy- resolved spontaneously after stopping xarelto. Ferritin/Iron low Continue Ferrous sulphate: started this admission Monitor Hg INSULIN-DEPENDENT DM 2 Last A1C 6.4 continue Lantus ISS, Accu checks CAD NSTEMI 07/2015 s/p stent placement Cont ASA, BB and statin Stable GERD Cont ranitidine and PPI BID DYSLIPIDEMIA Cont statin DVT PROPHYLAXIS Heparin SQ CODE STATUS FULL CODE status per discussion with patient upon admission DISPO Plan to be discharged to [facility] today Follow up with in 1 week after getting discharged from [facility] Follow up with cardiology with Maria Antonia Mansfield on 06/26/16 at 9:15AM at [facility] Vital Signs: Date Time Temp Pulse Resp B/P Pulse Ox O2 Delivery O2 Flow Rate FiO2 06/19/16 09:05 92 Room Air 06/19/16 09:00 97 Nasal Cannula 1.0 06/19/16 07:11 36.5 74 18 103/59 99 Nasal Cannula 2.0 Humidified Oxygen 06/19/16 01:35 100 Nasal Cannula 2.0 100 06/18/16 23:39 37.1 65 18 104/64 100 2.0 06/18/16 16:25 100 Nasal Cannula 3.0 06/18/16 15:07 36.7 57 20 96/58 100 Nasal Cannula 3.0 Lab Results: Results Past 24 Hours Test 06/18/16 16:14 06/18/16 20:08 06/19/16 07:13 06/19/16 08:01 Range/Units Bedside Glucose 166 189 105 70-90 mg/dl Sodium Level 134 136-145 mmol/L Potassium Level 3.5 3.5-5.1 mmol/L Chloride Level 91 98-107 mmol/L Carbon Dioxide Level 36 21-32 mmol/L Anion Gap 7.0 3-11 mmol/L Blood Urea Nitrogen 16 7-18 mg/dl Creatinine 1.10 0.60-1.20 mg/dl Est Creatinine Clear Calc Drug Dose 34.0 ml/min Estimated GFR () 51.9 Estimated GFR (Non- 44.8 BUN/Creatinine Ratio 14.7 10-20 Random Glucose 96 70-99 mg/dl Calcium Level 8.3 8.5-10.1 mg/dl
[2016-06-19] MEDS ORDERED: LSX40 PO (12:11)
[2016-06-19] MEDS ORDERED: HYDR-5688 PO (12:11)
[2016-06-19] MEDS ORDERED: TPRSR25 PO (12:11)
[2016-06-19] MEDS ORDERED: FRRS300 PO (12:11)
[2016-06-19] MEDS ORDERED: CRD200 PO (12:11)
[2016-06-19] MEDS ORDERED: NRN100 PO (12:11)
[2016-06-19] MEDS ORDERED: SPR25 PO (12:11)
[2016-06-19] MEDS ORDERED: ACET325T30 PO (12:15)
--- NOTE | 2016-06-19 12:23 | Discharge Summary ---
Discharge Summary Date of Service Jun 19, 2016. Discharge Summary Admission Date: May 28, 2016 at 11:30 Discharge Date: Jun 19, 2016 Discharge Disposition: halfway facility Principal Diagnosis: Acute on Chronic Systolic CHF, TOMMY, Metabolic alkalosis, Cellulitis Procedures: CXR : Pulmonary edema and/or congestive failure CT Head: : No acute intracranial findings. Findings discussed with Dr. Santana at 3:15 PM. Carotid Doppler; 1. Atherosclerotic plaque with no sonographic evidence of hemodynamically significant stenosis in the right or left carotid arterial system. 2. Antegrade flow is shown in the vertebral arteries. 3. The cardiac pulsations appear irregularly irregular. Correlate clinically and with EKG for evidence of atrial fibrillation/arrhythmia. CT ABD: 1. Large right and moderate left pleural effusions with subtotal right lower lobe collapse. This likely reflects compressive atelectasis. 2. Generalized anasarca with a small amount of ascites. 3. Suboptimal evaluation given the lack of IV and oral contrast. 4. No bowel obstruction. 5. Mild loss of height with lucency and irregularity of the inferior endplate of T12. This may reflect a subacute compression fracture. Moderate to severe multilevel degenerative disc disease of the lumbar spine. 6. Moderate cardiomegaly and extensive coronary artery calcification. Mild ground glass opacity within the lungs which favors pulmonary edema. Hip X ray: 1. No acute fracture within the pelvis or hips. 2. Status post total left hip arthroplasty. Hardware intact. No periprosthetic fracture identified. Consultations: Cardiology, Neurology Pending Studies/Follow-Up: Follow up with in 1 week after getting discharged from [facility] Follow up with cardiology with Maria Antonia Mansfield on 06/26/16 at 9:15AM at [facility] Seek immediate medical attention if your symptoms reoccur or worsen Medication Reconciliation New Medications: Amiodarone HCl (Amiodarone HCl) 200 Mg Tab 200 MG PO BID for 30 Days, #60 TAB Ferrous Sulfate (Ferrous Sulfate) 325 Mg Tab 325 MG PO QAM for 30 Days, #30 TAB Furosemide (Furosemide) 40 Mg Tab 40 MG PO DAILY for 30 Days, #30 TAB Gabapentin (Gabapentin) 100 Mg Cap 100 MG PO BID for 30 Days, #60 CAP Metoprolol Succinate (Metoprolol Succinate ER) 25 Mg Tabcr 12.5 MG PO BID for 30 Days, #30 Spironolactone (Spironolactone) 25 Mg Tab 12.5 MG PO DAILY for 30 Days, #15 TAB Changed Medications: Acetaminophen (Acetaminophen) 325 Mg Tab 2 TABS PO Q8H PRN for Pain or Fever for 7 Days, #10 (Changed from: Q4) Continued Medications: Alum & Mag Hydrox-Simethicone (Maalox Advanced Maximum S) 1 Vee Vee 30 ML PO HS Aspirin (Aspirin Chewable) 81 Mg Chew 81 MG PO QAM Docusate Sodium (Colace) 100 Mg Cap 1 CAP PO BID for 15 Days, #30 CAP Hydrocodone/Acetaminophen 5MG/325MG ([place] 5MG/325MG) Tab 1 TABLET PO Q4 PRN for Moderate Pain for 7 Days, #10 TAB (This prescription has been renewed) PRN PAIN Insulin Glargine (Lantus) 100 Unit/Ml Inj 10 SC QPM, VIAL Insulin Lispro (Human) (Humalog) 100 Unit/Ml Inj 8 SQ before meals TID Isosorbide Mononitrate (Isosorbide Mononitrate) 20 Mg Tab 30 MG PO DAILY Metolazone (Zaroxolyn) 2.5 Mg Tab 2.5 MG PO 3XWK, TAB Ondasetron Odt (Zofran Odt) 4 Mg Tab 4 MG SL Q8, #6 TAB Pantoprazole (Pantoprazole Sodium) 40 Mg Tab 20 MG PO BID Polyethylene Glycol 3350 (Polyethylene Glycol 3350) 1 Pow Pow 17 GM PO DAILY, #527 GM Potassium Chloride (Potassium Chloride) 20 Meq Pow 1 TAB PO DAILY Ranitidine (Zantac) 150 Mg Tab 150 MG PO BID, TAB Simvastatin (Zocor) 20 Mg Tab 20 MG PO DAILY, TAB Discontinued Medications: Metoprolol Succ (Toprol Xl) (Toprol-Xl) 25 Mg Tabcr 0.5 TAB PO DAILY, #30 TAB Admission Information HPI (per Admitting provider): This is an 85 y/o female with PMHx of systolic CHF on Lasix, CAD, CKD stage 3, insulin-dependent DM 2, PAF, moderate MR, HTN, Dyslipidemia and other problems as outlined below who presents as a direct admission from cardiology (Dr. Hollis) office with worsening LE edema. Pt reports that she has noticed worsening LE edema for the past month. Her sxs are assoc with 30lb weight gain, occasional chest "heaviness" with exertion and SOB that is worse with exertion and laying flat. The SOB worsened to the point that patient was placed on 2L continuous oxygen. Patient was recently started on Lasix 20mg daily which only offered minimal relief of sxs. Patient was seen in the cardiology office this morning where it was recommended that patient go to the hospital for diuresis and close monitoring. Pt denies fever/chills, palpitations, wheezing, abd pain, N/V, bowel or bladder issues, lightheadedness/dizziness. Physical Exam (per Admitting): General Appearance: WD/WN, no apparent distress, + pertinent finding (Pt is sitting up in bed with daughter at bedside) Head: normocephalic, atraumatic Eyes: normal inspection ENT: hearing grossly normal Neck: supple Respiratory/Chest: chest non-tender, no respiratory distress, no accessory muscle use, + crackles, + pertinent finding (no wheezing) Cardiovascular: regular rate, rhythm Abdomen/GI: normal bowel sounds, non tender, soft Back: normal inspection Extremities/Musculoskelatal: normal inspection, + pertinent finding (3+ pitting edema to bilat LE extending into thighs) Neurologic/Psych: alert, normal mood/affect, oriented x 3 Skin: normal color, warm/dry Hospital Course ACUTE ON CHRONIC SYSTOLIC CHF EXACERBATION (Biventricular Right >Left) / SEVERE CARDIOMYOPATHY WITH LVEF <15% : Patient presented with worsening LE edema, SOB and cough H/O moderate mitral regurgitation and systolic CHF Showed slow progressive improvement. Weight down by > 10 lbs since admission S/P IV lasix 40 mg daily Metolazone 5 mg every other day To resume PO lasix 40 mg daily and aldactone daily per recommendation from cardiology Toprol increased to 12.5 mg PO BID Troponin- 0.049,0.084, 0.094 Echo: LV- moderately dilated, severely reduced, septal/apical/severe global hypokinesis of left ventricle with EF <15%, LA-Mildly dilated, Mild-moderate MR , Moderate TR Appreciate cardiology input Currently saturating well on Room air TOMMY ON CKD STAGE 3- Resolved Likely Cardio renal Baseline creatinine 1.4 >>> 1.6 >>>1.5 >>>1.10 today Continue to monitor METABOLIC ALKALOSIS - Much Improved Secondary to aggressive diuresis Plan to resume Diuretics upon discharge Continue to monitor ATRIAL FIBRILLATION In past was taken off Xarelto (6 months ago) due to GI bleeding/anemia and thought to be at a higher risk of bleeding S/P Low dose IV Heparin --> Discontinued on 06/12/16 and placed on SQ Heparin. No plans for anticoagulation on discharge. Continue on Toprol 12.5 mg PO BID; Amiodarone PO 200 mg BID Cardiology on board POSSIBLE TIA In the setting of Atrial Fibrillation On 06/03/16 (+) aphasia lasting for about an hour CT head: no bleed, no new CVA Not a TPA candidate per Tele stroke conference. Carotid US: no significant stenosis Neurology consulted- Initially was on IV heparin but later discontinued on as not a joint terminal attack controller candidate for anticoagulation continue ASA POSSIBLE LOWER EXTREMITY CELLULITIS - Resolved Cefuroxime Day 09/26 (Completed course of antibiotics) - redness, tenderness resolved. Continue wound care UTI, Klebsiella S/P ciprofloxacin BID (Day 07/25) per c/s Changed to Cefuroxime to cover possible Lower Leg Cellulitis as well- Completed antibiotic course S/P LOW BACK PAIN, INTERMITTENT, HIP PAIN CT abd/pelvis: possible T12 compression fracture Left hip x ray: no fracture Lidoderm patch; PRN tramadol; PRN [place]. continue gabapentin. Appreciate pain management consult ANEMIA, CHRONIC : Likely iron deficiency H/O GI bleeding few months ago, requiring blood transfusion, declined EGD/ Colonoscopy- resolved spontaneously after stopping xarelto. Ferritin/Iron low Continue Ferrous sulphate: started this admission Monitor Hg INSULIN-DEPENDENT DM 2 Last A1C 6.4 continue Lantus ISS, Accu checks CAD NSTEMI 07/2015 s/p stent placement Cont ASA, BB and statin Stable GERD Cont ranitidine and PPI BID DYSLIPIDEMIA Cont statin DVT PROPHYLAXIS Heparin SQ CODE STATUS FULL CODE status per discussion with patient upon admission DISPO Plan to be discharged to [facility] today Follow up with in 1 week after getting discharged from [facility] Follow up with cardiology with Maria Antonia Mansfield on 06/26/16 at 9:15AM at [facility] Total time spent on discharge = 35 minutes This includes examination of the patient, discharge planning, medication reconciliation, and communication with other providers. Discharge Instructions Discharge Instructions Date of Service Jun 19, 2016. Admission Reason for Admission: Congestive Heart Failure Discharge Discharge Diagnosis / Problem: Acute on Chronic Systolic CHF, TOMMY, Metabolic alkalosis, Cellulitis Discharge Goals Goal(s): Decrease discomfort, Improve function Activity Recommendations Activity Limitations: resume your previous activity Exercise/Sports Limitations: as tolerated . Instructions / Follow-Up Instructions / Follow-Up Follow up with in 1 week after getting discharged from [facility] Follow up with cardiology with Maria Antonia Mansfield on 06/26/16 at 9:15AM at [facility] Seek immediate medical attention if your symptoms reoccur or worsen Current Hospital Diet Patient's current hospital diet: Low Sodium Diet (2gm Na), Diabetes Type 2 Diet Discharge Diet Recommended Diet: Low Sodium Diet (2gm Na), Diabetes Type 2 Diet Pending Studies Studies pending at discharge: no Medical Emergencies . Who to Call and When: Medical Emergencies: If at any time you feel your situation is an emergency, please call 911 immediately. . Non-Emergent Contact Non-Emergency issues call your: Primary Care Provider, [employer] [facility]mer Call Non-Emergent contact if: you have a fever, your pain is not controlled, your pain is worsening, your pain is unusual for you, you have any medication questions If shortness of breath is worsening . . "Provider Documentation" section prepared by Geoffrey Cisneros. VTE Core Measure Inpt VTE Proph given/why not?: Unfractionated heparin SQ
--- NOTE | 2016-06-19 13:09 | Cardiology Follow-Up ---
Subjective General Date of Service: Jun 19, 2016. Pt evaluation today including: conversation w/ patient, physical exam, chart review, lab review, review of studies, conversation w/ bridal stylist sales consultant, review of inpatient medication list History of Present Illness The patient is a 86 year old female seen in follow up. More alert today. Very [place]. Diuretics on hold for the past 2 days due to metabolic alkalosis. Denies CP. Poor historian. Allergies Coded Allergies: Fexofenadine (Verified Allergy, Unknown, CONGESTION, 05/14/15) Hydromorphone (Verified Adverse Reaction, Unknown, Lethargic, 06/05/16) MD order Pain medication on 11 to 7 shift. Patient received once at 2AM with relief. When this RN came in, patient was crying in pain. Restless with agitation. Mental status unchanged. VSS. Medication was given per order. Monitor closely r/t renal function. MD was made aware of medication and pain. Order received to hold Dilaudid and other medication ordered r/t kidney function. Found lethargic with VSS. MD was made aware and Narcan was ordered. Social History Smoking Status: Former Smoker (1 pack year history; quit in early 20s ) Hx Tobacco Use In Past Year?: No Hx Alcohol Use - Type And Amou: No Hx Substance Use - Type And Am: No Review of Systems Respiratory: No cough, No dyspnea at rest, No dyspnea on exertion, No hemoptysis, No shortness of breath, No wheezing Cardiac: No PND, No chest pain, No edema, No orthopnea, No palpitations Physical Exam Vital Signs Last Vital Signs Documentation Date Time Temp Pulse Resp B/P Pulse Ox O2 Delivery O2 Flow Rate FiO2 06/19/16 09:05 92 Room Air 06/19/16 09:00 1.0 06/19/16 07:11 36.5 74 18 103/59 06/19/16 01:35 100 Physical Exam Constitutional: Level of Distress: NAD Head: normocephalic, atraumatic Neck: supple, trachea midline Lungs: Auscultation: no wheezing, no rales/crackles, no rhonchi Cardiovascular: Heart Auscultation: RRR, normal S1, normal S2, no murmurs Peripheral Pulses: Radial Pulse: normal on the left, normal on the right Extremities: no cyanosis, no clubbing, no ulcers, edema (Trace pretibial edema with stasis changes) Neurologic: Cranial Nerves: grossly intact Assessment and Plan Assessment and Plan FINAL IMPRESSION: 1. Compensated systolic heart failure with cardiorenal syndrome. - mild contraction alkalosis resolving - renal function remains stable. 2. Severe cardiomyopathy with EF 15% 3. History of chronic coronary artery disease -- stable. 4. Paroxysmal atrial fibrillation -- regular rhythm on exam. Tolerating amiodarone. Plan/Recommendations: Restart lasix 40mg PO daily and aldactone 12.5mg daily. Reduce amiodarone to 200mg daily. Repeat BMP in one week as outpatient. Other cardiovascular medications will be continued as previously ordered. [facility]. I will arrange close heart failure clinic follow up in one week. Laboratory Results Last 24 Hours Test 06/18/16 16:14 06/18/16 20:08 06/19/16 07:13 06/19/16 08:01 Bedside Glucose 166 mg/dl 189 mg/dl 105 mg/dl Sodium Level 134 mmol/L Potassium Level 3.5 mmol/L Chloride Level 91 mmol/L Carbon Dioxide Level 36 mmol/L Anion Gap 7.0 mmol/L Blood Urea Nitrogen 16 mg/dl Creatinine 1.10 mg/dl Est Creatinine Clear Calc Drug Dose 34.0 ml/min Estimated GFR () 51.9 Estimated GFR (Non- 44.8 BUN/Creatinine Ratio 14.7 Random Glucose 96 mg/dl Calcium Level 8.3 mg/dl Test 06/19/16 11:45 Bedside Glucose 152 mg/dl
[2016-06-19 13:30] VITALS: O2SAT 97
[2016-06-19 13:31] VITALS: BP 103/59; PULSE 74; TEMP 36.5; O2SAT 97
[2016-06-19] MEDS: ACETAMINOPHEN 325 MG TAB PO PRN (16:27)
[2016-06-20] MEDS ORDERED: FUROSEMIDE 40 MG TAB PO SCH (08:00)
[2016-06-20] MEDS ORDERED: SPIRONOLACTONE 25 MG TAB PO SCH (08:00)
[2016-06-20] MEDS ORDERED: AMIODARONE 200 MG TAB PO SCH (08:00)
== END 2016-06-19 17:15 | DRG 291 ==
LOC: ENRESERVDT → ENRESERVTM → C.2E 09:30 → UNDOADMIN 09:30 → C.2E 11:30 → C.MS4W 06-16 17:40
PROVIDERS: ADMIT Internal Medicine Cardiovascular Disease; ATTEND Internal Medicine
DX: I13.0 Hypertensive heart and chronic kidney disease with heart failure and stage 1 through stage 4 chronic kidney disease, or unspecified chronic kidney disease (principal); I50.23 Acute on chronic systolic (congestive) heart failure; E87.3 Alkalosis; N17.9 Acute kidney failure, unspecified; L03.119 Cellulitis of unspecified part of limb; G45.9 Transient cerebral ischemic attack, unspecified; N39.0 Urinary tract infection, site not specified; B96.1 Klebsiella pneumoniae [K. pneumoniae] as the cause of diseases classified elsewhere; N18.3 Chronic kidney disease, stage 3 (moderate); I25.10 Atherosclerotic heart disease of native coronary artery without angina pectoris; I48.0 Paroxysmal atrial fibrillation; E11.9 Type 2 diabetes mellitus without complications; I34.0 Nonrheumatic mitral (valve) insufficiency; E78.5 Hyperlipidemia, unspecified; R63.5 Abnormal weight gain; M54.5 Low back pain; M25.559 Pain in unspecified hip; K21.9 Gastro-esophageal reflux disease without esophagitis; D50.9 Iron deficiency anemia, unspecified; I25.2 Old myocardial infarction; Z79.82 Long term (current) use of aspirin; Z95.5 Presence of coronary angioplasty implant and graft; Z79.4 Long term (current) use of insulin; Z87.891 Personal history of nicotine dependence; Z66 Do not resuscitate; Z74.01 Bed confinement status; Z99.3 Dependence on wheelchair; I42.9 Cardiomyopathy, unspecified; T40.2X1A Poisoning by other opioids, accidental (unintentional), initial encounter; R41.82 Altered mental status, unspecified

== ENCOUNTER 2017-02-28 22:26 | Emergency (ER) | payer OTHER ==
[~2017-02-28 22:26] MED LIST changes: +ACET325T30 PO; +ALUM-80 PO; -AMLO-110 PO; -CARV12.52 PO; +CRD200 PO; +DOCU-94 PO; +FRRS300 PO; -GLIP-199 PO; +HYDR-5688 PO; -HYDR25TA5 PO; +INSDGI SC; +INSU100I SQ; +ISOS20TA4 PO; -ISR/30 PO; -LOSA1TAB38 PO; +LSX40 PO; -MAGN400T6 PO; -METF-384 PO; +METO2.5T PO; -MULT-506 PO; +NRN100 PO; +ONDA4TAB10 SL; +POLY3350 PO; +POTA10PO PO; +PRT40 PO; +SPR25 PO; +TPRSR25 PO; +ZNTT/150 PO
[2017-02-28 22:30] VITALS: TEMP 36.9
[2017-02-28] MEDS ORDERED: SIME80CH40 PO (22:44)
[2017-02-28] MEDS ORDERED: NVLGI/PEN PO (22:44)
[2017-02-28] MEDS ORDERED: LEVO112T4 PO (22:44)
[2017-02-28] MEDS ORDERED: CITA10TA8 PO (22:44)
[2017-02-28] MEDS ORDERED: HYDROCODONE/ACETAMOPHEN 5/325MG TAB PO STA (23:07)
--- NOTE | 2017-02-28 23:10 | EMERGENCY ROOM VISIT NOTE ---
ED Visit Note First contact with patient: 22:38 Resident Physician Supervision Note: I was present with Dr. Tierney during the history and exam. I discussed the case with the resident and agree with the findings and plan as documented in the note. Documented By: Quinten Unger
--- NOTE | 2017-02-28 23:11 | EMERGENCY ROOM VISIT NOTE ---
History First contact with patient: 22:42 Chief Complaint: FALL Stated Complaint: FALL/ ABD & RT HIP PAIN, [facility] History of Present Illness The patient is a 86 year old female who presents to the Emergency Room with complaints of right hip pain following a fall yesterday. Patient is a resident at [facility]. History was provided by both the family and the care team at [facility]. They report that the patient fell yesterday afternoon while bending over to pick something off the floor.They are unsure if she hit her head when she fell. Patient has complained of right hip pain and back pain over the past day. Patient [facility] the [facility] and found to have a pelvic rami fracture. Patient states that she lost her balance. Patient' s pain is controlled with [place]. Patient is currently taking ASA. Patient normally ambulates with the assistance of a walker. Patient has a PMH significant for Dementia. She is oriented to person and place , but is a poor historian. She denies chest pain, SOB, abdominal pain, N/V/D. Review of Systems see below Respiratory: No cough, No shortness of breath Cardiovascular: No chest pain Abdomen: No pain, No nausea, No vomiting Musculoskeletal: + joint pain, + muscle pain Past Medical/Surgical History Medical Problems: (1) CAD (coronary artery disease) (2) CHF exacerbation (3) CKD (chronic kidney disease) stage 3, GFR 30-59 ml/min (4) Diabetes mellitus type II, controlled (5) Dyslipidemia (6) GERD (gastroesophageal reflux disease) (7) PAF (paroxysmal atrial fibrillation) (8) Systolic CHF, chronic Surgical Problems: (1) H/O heart artery stent (2) History of appendectomy (3) History of section (4) History of cholecystectomy (5) History of hysterectomy (6) History of total left hip arthroplasty Social History Smoking Status: Former Smoker Drug Use: none Marital Status: Occupation Status: retired Current/Historical Medications Scheduled Alum & Mag Hydrox-Simethicone (Maalox Advanced Maximum S), 30 ML PO HS Amiodarone HCl (Amiodarone HCl), 200 MG PO BID Aspirin (Aspirin Chewable), 81 MG PO QAM Citalopram Hydrobromide (Celexa), 10 MG PO DAILY Docusate Sodium (Colace), 1 CAP PO BID Ferrous Sulfate (Ferrous Sulfate), 325 MG PO QAM Furosemide (Furosemide), 40 MG PO DAILY Gabapentin (Gabapentin), 100 MG PO BID Insulin Aspart (Novolog Flexpen), 10 UNITS PO TIDM Insulin Glargine (Lantus), 16 SC HS Isosorbide Mononitrate (Isosorbide Mononitrate), 30 MG PO DAILY Levothyroxine Sodium (Levothyroxine Sodium), 112 MCG PO DAILY Metolazone (Zaroxolyn), 2.5 MG PO 3XWK Ondasetron Odt (Zofran Odt), 4 MG SL Q8 Pantoprazole (Pantoprazole Sodium), 20 MG PO BID Polyethylene Glycol 3350 (Polyethylene Glycol 3350), 17 GM PO DAILY Potassium Chloride (Potassium Chloride), 1 TAB PO DAILY Ranitidine (Zantac), 150 MG PO BID Simethicone (Cvs Gas Relief), 1 TAB PO TID Simvastatin (Zocor), 10 MG PO DAILY Spironolactone (Spironolactone), 12.5 MG PO DAILY Scheduled PRN Acetaminophen (Acetaminophen), 2 TABS PO Q8H PRN for Pain or Fever Hydrocodone/Acetaminophen 5MG/325MG ([place] 5MG/325MG), 1 TABLET PO Q4 PRN for Moderate Pain Physical Exam Vital Signs Date Time Temp Pulse Resp B/P (MAP) Pulse Ox O2 Delivery O2 Flow Rate FiO2 02/28/17 22:34 52 02/28/17 22:30 36.9 51 20 142/69 90 Room Air 3.0 Physical Exam see below General Appearance: WD/WN, no apparent distress Head: normocephalic, atraumatic Respiratory/Chest: chest non-tender, lungs clear, normal breath sounds, no respiratory distress, no accessory muscle use Cardiovascular: regular rate, rhythm, no edema, no gallop, no JVD Extremities: + inflammation (erythema overlying bilateral shins ), + pertinent finding (patient has symmetric bilateral lower extremity, no external rotation of bilateral lower extremity. Patient has pain with palpation of the right hip) Neurologic/Psych: alert, normal mood/affect, + pertinent finding (patient oriented to person and place ) Medical Decision & Procedures ER Provider Diagnostic Interpretation: CT of head; No acute intracranial abnormality, No ICH, mass effect or edema. No skull fracture. Cortico atrophy and white matter changes consistent with chronic small vessel disease. Unchanged hypodensity in the left delaney radiata CT pelvis; No evidence of acute fracture or dislocation, left hip total arthroplasty CT right hip; No acute fracture or dislocation Laboratory Results 02/28/17 22:41 Red Blood Count 3.74, Mean Corpuscular Volume 95.5, Mean Corpuscular Hemoglobin 32.4, Mean Corpuscular Hemoglobin Concent 33.9, Mean Platelet Volume 9.5, Neutrophils (%) (Auto) 66.9, Lymphocytes (%) (Auto) 17.3, Monocytes (%) (Auto) 10.6, Eosinophils (%) (Auto) 4.5, Basophils (%) (Auto) 0.4, Neutrophils # (Auto ) 4.59, Lymphocytes # (Auto) 1.19, Monocytes # (Auto) 0.73, Eosinophils # (Auto ) 0.31, Basophils # (Auto) 0.03 02/28/17 22:41 Test 02/28/17 22:41 White Blood Count 6.87 K/uL (4.8-10.8) Red Blood Count 3.74 M/uL (4.2-5.4) Hemoglobin 12.1 g/dL (12.0-16.0) Hematocrit 35.7 % (37-47) Mean Corpuscular Volume 95.5 fL (80-100) Mean Corpuscular Hemoglobin 32.4 pg (25-34) Mean Corpuscular Hemoglobin Concent 33.9 g/dl (32-36) Platelet Count 151 K/uL (130-400) Mean Platelet Volume 9.5 fL (7.4-10.4) Neutrophils (%) (Auto) 66.9 % Lymphocytes (%) (Auto) 17.3 % Monocytes (%) (Auto) 10.6 % Eosinophils (%) (Auto) 4.5 % Basophils (%) (Auto) 0.4 % Neutrophils # (Auto) 4.59 K/uL (1.4-6.5) Lymphocytes # (Auto) 1.19 K/uL (1.2-3.4) Monocytes # (Auto) 0.73 K/uL (0.11-0.59) Eosinophils # (Auto) 0.31 K/uL (0-0.5) Basophils # (Auto) 0.03 K/uL (0-0.2) RDW Standard Deviation 47.2 fL (36.4-46.3) RDW Coefficient of Variation 13.5 % (11.5-14.5) Immature Granulocyte % (Auto) 0.3 % Immature Granulocyte # (Auto) 0.02 K/uL (0.00-0.02) Anion Gap 6.0 mmol/L (3-11) Estimated GFR () 32.8 Estimated GFR (Non- 28.3 BUN/Creatinine Ratio 20.6 (10-20) Calcium Level 8.7 mg/dl (8.5-10.1) Medications Administered Medications (Trade) Dose Ordered Sig/Brock Route Start Time Stop Time Status Last Admin Dose Admin Acetaminophen/ Hydrocodone Bitart ([place] 5/325 Tab) 1 tab NOW STAT PO 02/28/17 23:07 02/28/17 23:09 DC 02/28/17 23:22 1 TAB ED Course 2300 History and physical performed 2315 ordered the following test; hip/pelvis CT, head CT, CBC, BMP 2330 reaccessed the patient Medical Decision 86 year old female comes into the ED with right hip and back pain following a fall at [facility]. Patient received Xray at [facility] and was found to have fracture of the superior pubic rami. She was subsequently transferred to [facility] for further evaluation. Considering the following differential; femoral neck fracture, femoral greater trochanteric fracture, pelvic rami fracture, compression fracture In the ED, history and physical was performed and additional imaging was order including CT of hip, pelvis and head. It is uncertain whether the patient suffered a head injury with the fall, there does not appear to be any signs of trauma on her head and scalp. CT was ordered to access for bleed or fracture. CBC was ordered to evaluate for bleeding or infection. CT of the pelvis and left hop showed no evidence of fracture or dislocation. CT of the head was unremarkable for intracranial pathology. Discussed with [facility] regarding the findings. There is no acute indication for orthopedic surgery at this time. The goal of therapy is to control patients pain and to have her follow up with orthopedics if necessary. Patient also needs to be evaluated with PT and OT. Impression Primary Impression: Right hip pain Departure Information Dispostion Transfer Acute Care Facility Condition FAIR Referrals Bernadette Pugh M.D. (PCP) Patient Instructions My [facility] Additional Instructions Ms. Nicole came into the ED with right sided hip and back pain after a fall. CT of the hip and pelvis were negative for fractures. CT of the head was negative for intracranial pathology. Please have the patient follow up with PT/OT. The goal moving forward will be to optimize her function, control her pain and to prevent further falls. Acetaminophen(Tylenol) may be used for fever or pain. Use 1000mg every eight hours as needed. Avoid using more than 3000mg in a 24 hour period. This is available over the counter. Read all the package inserts or medication information paperwork provided. If you have any questions or concerns call your primary provider, pharmacist or the ER for assistance. Rest and avoid heavy lifting until your symptoms resolve and then gradually return to full activity. A good rule of thumb is if it hurts your back to perform a certain activity, then it should be avoided until you are healthy again. A heating pad, warm compresses, or a hot shower may help with tight muscles and can be done several times a day as needed. Continue current medications. Return to the ER immediately for any numbness, tingling, severe pain, loss of control of your bowels or bladder, inability to walk, or as needed. Follow up with your primary care physician within 3-5 days for a recheck of your current condition
[2017-02-28 23:18] LABS: BASO % 0.4 %; BASO ABS # 0.03 K/uL (0-0.2); COMPLETE YES; EOS % 4.5 %; HEMATOCRIT 35.7 % (37-47); IG% 0.3 %; LYMPH % 17.3 %; LYMPH ABS # 1.19 K/uL (1.2-3.4); MEAN CELL VOLUME 95.5 fL (80-100); MEAN CORPUSCULAR HEMOGLOBIN 32.4 pg (25-34); MEAN CORPUSCULAR HGB CONC 33.9 g/dl (32-36); MEAN PLATELET VOLUME 9.5 fL (7.4-10.4); MONO % 10.6 %; NEUT % 66.9 %; PLATELET COUNT 151 K/uL (130-400); RED BLOOD COUNT 3.74 M/uL (4.2-5.4); WHITE BLOOD COUNT 6.87 K/uL (4.8-10.8)
[2017-02-28 23:40] LABS: BLOOD UREA NITROGEN 33 mg/dl (7-18); BUN/CREATININE RATIO 20.6 (10-20); CALCIUM 8.7 mg/dl (8.5-10.1); CARBON DIOXIDE 33 mmol/L (21-32); CHLORIDE 95 mmol/L (98-107); CREATININE 1.61 mg/dl (0.60-1.20); GLUCOSE 160 mg/dl (70-99); POTASSIUM 3.4 mmol/L (3.5-5.1); SODIUM 134 mmol/L (136-145)
[2017-03-01 01:20] VITALS: BP 128/56; PULSE 56; O2SAT 98
--- NOTE | 2017-03-01 06:11 | DIAGNOSTIC IMAGING REPORT ---
HEAD WITHOUT CONTRAST (CT) CLINICAL HISTORY: 86 years-old Female with fall. Acute head injury status post fall TECHNIQUE: Multiple axial CT images of the head were obtained without contrast. A dose lowering technique was utilized adhering to the principles of ALARA. CT DOSE: 614.27 mGy.cm COMPARISON: CT head 06/05/2016 and 06/03/2016. FINDINGS: No acute intracranial hemorrhage, midline shift, intracranial mass, hydrocephalus, territorial ischemia or abnormal extra-axial collection. Moderate atrophy with chronic microvascular ischemic changes. Focal area of low attenuation within the left delaney radiata is unchanged and may reflect remote infarction. The calvarium is intact. The paranasal sinuses, mastoid air cells, and middle ear cavities are clear. Prior bilateral cataract repair. IMPRESSION: No acute intracranial abnormality. The above report was generated using voice recognition software. It may contain grammatical, syntax or spelling errors. Electronically signed by: Eder Liu M.D. 03/01/2017 6:10 AM Dictated Date/Time: 03/01/2017 6:07 AM
--- NOTE | 2017-03-01 06:51 | DIAGNOSTIC IMAGING REPORT ---
PELVIS NO IV/ORAL CONT (CT) HISTORY: 86 years-old Female fall acute pelvic and right hip pain status post fall COMPARISON: CT of the right hip of same day, CT abdomen and pelvis 06/05/2016 TECHNIQUE: With axial CT images of the pelvis were obtained without contrast. A dose lowering technique was used consistent with the principals of FELICIA. FINDINGS: Bones appear mildly demineralized. Severe space narrowing with endplate spurring and facet arthropathy is noted within the imaged lower lumbar levels. Left hip arthroplasty noted without evidence of hardware complication or malalignment. Moderate right hip osteoarthritis without acute fracture or dislocation. Severe degenerative changes of the pubic symphysis with possible remote appearing fracture deformity of the right superior pubic ramus, unchanged from comparison study 06/05/2016. No acute pelvic ring fracture identified. No evidence of acute sacral insufficiency fracture. Moderate degenerative changes of the SI joints. Severe atherosclerosis of the aorta and iliac vasculature. Mild colonic diverticulosis without diverticulitis. No acute intrapelvic abnormality identified. Mild atrophy of the paraspinal, gluteal and thigh musculature. No acute soft tissue abnormality. IMPRESSION: 1. No acute fracture or dislocation. 2. Moderate right hip osteoarthritis and left hip arthroplasty noted without complication. 3. Advanced degenerative changes of the imaged lower lumbar spine. 4. Mild colonic diverticulosis without evidence of diverticulitis. The above report was generated using voice recognition software. It may contain grammatical, syntax or spelling errors. Electronically signed by: Eder Liu M.D. 03/01/2017 6:50 AM Dictated Date/Time: 03/01/2017 6:43 AM
--- NOTE | 2017-03-01 06:54 | DIAGNOSTIC IMAGING REPORT ---
R HIP-LOWER EXTREMITY WITHOUT HISTORY: 86 years-old Female fall acute right hip pain status post fall COMPARISON: Pelvis CT of same day, CT abdomen and pelvis 06/05/2016 TECHNIQUE: Multiaxial CT images of the right hip were obtained without the use of IV contrast. A dose lowering technique was used consistent with the principals of FELICIA. FINDINGS: Moderate right hip osteoarthritis. The bones appear osteopenic. No acute fracture or dislocation. Imaged femur appears intact. Vascular calcifications are noted. No fracture of the imaged right pelvic ring. No acute soft tissue abnormality. Moderate atrophy of the musculature. No large joint effusion. Likely physiologic right inguinal lymph nodes. No acute intrapelvic abnormality identified. IMPRESSION: 1. No acute fracture or dislocation. 2. Osteopenic appearance of the bones with moderate right hip osteoarthritis. 3. Peripheral vascular disease. The above report was generated using voice recognition software. It may contain grammatical, syntax or spelling errors. Electronically signed by: Eder Liu M.D. 03/01/2017 6:53 AM Dictated Date/Time: 03/01/2017 6:50 AM
== END 2017-03-01 01:22 ==
LOC: EDBD 22:26 → C.EDA 22:26
DX: M25.551 Pain in right hip (principal); M54.9 Dorsalgia, unspecified; W18.39XA Other fall on same level, initial encounter; F03.90 Unspecified dementia, unspecified severity, without behavioral disturbance, psychotic disturbance, mood disturbance, and anxiety; I25.10 Atherosclerotic heart disease of native coronary artery without angina pectoris; E11.22 Type 2 diabetes mellitus with diabetic chronic kidney disease; N18.3 Chronic kidney disease, stage 3 (moderate); E78.5 Hyperlipidemia, unspecified; K21.9 Gastro-esophageal reflux disease without esophagitis; I48.0 Paroxysmal atrial fibrillation; I50.22 Chronic systolic (congestive) heart failure; Z79.82 Long term (current) use of aspirin; Z79.4 Long term (current) use of insulin; Z95.5 Presence of coronary angioplasty implant and graft; Z96.642 Presence of left artificial hip joint; Z90.89 Acquired absence of other organs; Z90.49 Acquired absence of other specified parts of digestive tract; Z90.710 Acquired absence of both cervix and uterus; Z87.891 Personal history of nicotine dependence

== ENCOUNTER 2017-03-08 05:45 | Emergency (ER) | payer OTHER ==
[~2017-03-08] VITALS: Ht 162.6 cm; Wt 80.0 kg
[~2017-03-08 05:45] MED LIST changes: +ACET-1346 PO; -ACET325T30 PO; +CITA10TA8 PO; -INSU100I SQ; +LEVO112T4 PO; +NVLGI/PEN PO; +SIME80CH40 PO; -TPRSR25 PO
[2017-03-08 05:49] VITALS: Ht 162.6 cm; Wt 80.0 kg
--- NOTE | 2017-03-08 06:05 | EMERGENCY ROOM VISIT NOTE ---
History Report prepared by August: Vee Robertson Under the Supervision of: Con SheriffO. First contact with patient: 05:53 Chief Complaint: FALL Stated Complaint: FALL/HIP INJURY History of Present Illness The patient is a 86 year old female who presents to the Emergency Room with complaints of a fall occurring shortly prior to arrival. She states that she fell backwards on her back, but denies feeling dizzy prior to the episode. She reports that she uses a walker, and that the rollers on her walker caught on something which is how she fell. The patient states that she has abdominal pain , bilateral hip pain, and slight back pain. The patient denies hitting her head when she fell, and she also denies losing consciousness. She reports having numbness in her legs previously but that she is no longer having it. The patient denies having chest pain. She states that she has had leg edema for the past week and was told it may be caused from her glucose levels. Source of History: patient Onset: shortly prior to arrival Position: other (global) Quality: other (fall) Associated Symptoms: + abdominal pain, + back pain, No LOC Note: additional symptom: bilateral hip pain Review of Systems See HPI for pertinent positives & negatives. A total of 10 systems reviewed and were otherwise negative. Past Medical & Surgical Medical Problems: (1) CAD (coronary artery disease) (2) CHF exacerbation (3) CKD (chronic kidney disease) stage 3, GFR 30-59 ml/min (4) Diabetes mellitus type II, controlled (5) Dyslipidemia (6) GERD (gastroesophageal reflux disease) (7) PAF (paroxysmal atrial fibrillation) (8) Systolic CHF, chronic Surgical Problems: (1) H/O heart artery stent (2) History of appendectomy (3) History of section (4) History of cholecystectomy (5) History of hysterectomy (6) History of total left hip arthroplasty Family History No pertinent family history stated. Social History Smoking Status: Never Smoker Drug Use: none Marital Status: Occupation Status: retired Current/Historical Medications Scheduled Alum & Mag Hydrox-Simethicone (Maalox Advanced Maximum S), 30 ML PO HS Amiodarone HCl (Amiodarone HCl), 200 MG PO BID Aspirin (Aspirin Chewable), 81 MG PO QAM Cephalexin (Keflex), 1 CAP PO BID Citalopram Hydrobromide (Celexa), 10 MG PO DAILY Docusate Sodium (Colace), 1 CAP PO BID Ferrous Sulfate (Ferrous Sulfate), 325 MG PO QAM Furosemide (Furosemide), 40 MG PO DAILY Gabapentin (Gabapentin), 100 MG PO BID Insulin Aspart (Novolog Flexpen), 10 UNITS PO TIDM Insulin Glargine (Lantus), 16 SC HS Isosorbide Mononitrate (Isosorbide Mononitrate), 30 MG PO DAILY Levothyroxine Sodium (Levothyroxine Sodium), 112 MCG PO DAILY Metolazone (Zaroxolyn), 2.5 MG PO 3XWK Ondasetron Odt (Zofran Odt), 4 MG SL Q8 Pantoprazole (Pantoprazole Sodium), 20 MG PO BID Polyethylene Glycol 3350 (Polyethylene Glycol 3350), 17 GM PO DAILY Potassium Chloride (Potassium Chloride), 1 TAB PO DAILY Ranitidine (Zantac), 150 MG PO BID Simethicone (Cvs Gas Relief), 1 TAB PO TID Simvastatin (Zocor), 10 MG PO DAILY Spironolactone (Spironolactone), 12.5 MG PO DAILY Scheduled PRN Acetaminophen (Acetaminophen), 2 TABS PO Q8H PRN for Pain or Fever Hydrocodone/Acetaminophen 5MG/325MG ([place] 5MG/325MG), 1 TABLET PO Q4 PRN for Moderate Pain Allergies Coded Allergies: Ciprofloxacin (Unverified Allergy, Unknown, UNKNOWN, 03/08/17) Fexofenadine (Verified Allergy, Unknown, CONGESTION, 03/08/17) Hydromorphone (Verified Adverse Reaction, Unknown, Lethargic, 03/08/17) MD order Pain medication on 11 to 7 shift. Patient received once at 2AM with relief. When this RN came in, patient was crying in pain. Restless with agitation. Mental status unchanged. VSS. Medication was given per order. Monitor closely r/t renal function. MD was made aware of medication and pain. Order received to hold Dilaudid and other medication ordered r/t kidney function. Found lethargic with VSS. MD was made aware and Narcan was ordered. Physical Exam Vital Signs Date Time Temp Pulse Resp B/P (MAP) Pulse Ox O2 Delivery O2 Flow Rate FiO2 03/08/17 11:15 55 18 99/41 98 03/08/17 10:46 55 03/08/17 10:33 36.7 48 18 99/41 98 Nasal Cannula 2.0 03/08/17 08:47 52 18 142/83 98 Nasal Cannula 2.0 03/08/17 07:42 36.7 55 18 157/79 100 Nasal Cannula 4.0 03/08/17 07:04 36.7 53 18 144/73 97 Nasal Cannula 4.0 03/08/17 05:49 36.7 56 18 135/56 97 Nasal Cannula 4.0 Physical Exam GENERAL: alert, well appearing, well nourished, no distress, non-toxic. Poor historian secondary to dementia. EYE EXAM: normal conjunctiva, PERRL and EOM's grossly intact OROPHARYNX: no exudate, no erythema, lips, buccal mucosa, and tongue normal and mucous membranes are moist NECK: supple, no nuchal rigidity, no adenopathy, non-tender LUNGS: Clear to auscultation. Normal chest wall mechanics HEART: no murmurs, S1 normal and S2 normal ABDOMEN: generalized abdominal discomfort which was worse in bilateral lower quadrants, no organomegaly, no masses, no rebound or guarding. BACK: Back is symmetrical on inspection and there is no deformity, no midline tenderness, no CVA tenderness. SKIN: no rashes and no bruising UPPER EXTREMITIES: upper extremities are grossly normal. LOWER EXTREMITIES: Pain with palpation of bilateral hip worse on right side. Decreased range of motion of right hip secondary to pain. Bilateral lower extremity 1-2+ edema. Small bandaids bilateral pretibial region. Mild erythema distal bilateral lower extremities. No ulcerations, vesicles, or petechiae. Normal pulses. NEURO EXAM: Normal sensorium, cranial nerves II-XII grossly intact, normal speech, no gross weakness of arms, no gross weakness of legs. Patient mildly confused secondary to dementia. Medical Decision & Procedures ER Provider Diagnostic Interpretation: Radiology results have been interpreted by the radiologist and reviewed by me. CHEST ONE VIEW PORTABLE CLINICAL HISTORY: 86 years-old Female presenting with trauma. TECHNIQUE: Portable semiupright AP view of the chest was obtained. COMPARISON: 06/19/2016. FINDINGS: Atherosclerosis of aortic arch. Cardiac silhouette moderately enlarged as on prior exam. Prominence of pulmonary vasculature. Slight indistinctness of perihilar vasculature with vague perihilar opacity. Additionally few linear opacities noted in the left mid lung, unchanged. Small right and trace left pleural effusion suspected. No pneumothorax. Degenerative changes of the thoracic spine. Chronic deformity of the left humeral neck suggests prior fracture or Upper abdomen normal. IMPRESSION: 1. Cardiomegaly with volume overload and early pulmonary edema suspected. 2. Small right and trace left pleural effusions. 3. Chronic left mid lung atelectasis or scarring. Electronically signed by: Toy Neal M.D. 03/08/2017 6:57 AM Dictated Date/Time: 03/08/2017 6:55 AM HEAD WITHOUT CONTRAST (CT) CLINICAL HISTORY: 86 years-old Female presenting with fall, trauma. TECHNIQUE: Multidetector CT imaging of the head was performed without the use of intravenous contrast. IV contrast: None. A dose lowering technique was used consistent with the principles of ALARA (as low as reasonably achievable). COMPARISON: 02/28/2017. CT DOSE (mGy.cm): The estimated cumulative dose is 2136.[address] scans. FINDINGS: Building Carpenter Helper topogram: Unremarkable. Proportional ventricular and sulcal prominence, likely age-related parenchymal volume loss. Periventricular and subcortical white matter hypoattenuation, nonspecific but likely indicative of chronic small vessel ischemic change. No mass effect or midline shift. No hemorrhage or acute territorial infarct. No extra-axial fluid collection. Paranasal sinuses and mastoid air cells clear. Calvarium intact. Bilateral port gamble lenses are absent. IMPRESSION: 1. No acute intracranial abnormality. Electronically signed by: Toy Neal M.D. 03/08/2017 7:53 AM CERVICAL SPINE W/O CLINICAL HISTORY: 86 years-old Female presenting with fall, trauma. TECHNIQUE: Multidetector CT of the cervical spine was performed without the use of intravenous contrast. IV contrast: None. A dose lowering technique was used consistent with the principles of ALARA (as low as reasonably achievable). COMPARISON: None. CT DOSE (mGy.cm): The estimated cumulative dose is 2136.75 inclusive of multiple additional CT scans. FINDINGS: Building Carpenter Helper topogram: Total left hip arthroplasty. Cardiomegaly. Normal cervical lordosis. Prominent calcification along the right posterior thecal sac at the level of C4-5 measuring 8 mm in craniocaudal dimension and 3 mm in AP dimension and 3 mm in transverse dimension. This is likely within the ligamentum flavum. This results in mild effacement of the thecal sac. The greatest degree of degenerative changes also noted at C4-5 with less pronounced degenerative change at C5-6 and C6-7. Bony posterior spurring is greatest at C5-6 with resultant spinal canal narrowing. Degenerative changes of the atlantodental articulation also noted. No acute osseous injury or acute subluxation. Paraspinal musculature within normal limits. Atherosclerosis. Interlobular septal thickening at the lung apices. IMPRESSION: No acute osseous injury of the cervical spine. Multilevel degenerative changes most pronounced in the lower cervical spine as detailed above. ABD/PELVIS IV CONTRAST ONLY CLINICAL HISTORY: 86 years-old Female presenting with fall, trauma. TECHNIQUE: Multidetector CT of the abdomen and pelvis was performed after the administration of intravenous contrast. IV contrast: 93 mL of Optiray 320. A dose lowering technique was used consistent with the principles of ALARA (as low as reasonably achievable). COMPARISON: CT of the pelvis from 02/28/[address] abdomen and pelvis from 06/05/2016. CT DOSE (mGy.cm): The estimated cumulative dose is 2136.75 mGy.cm. FINDINGS: Building Carpenter Helper topogram: Total left hip arthroplasty. Cardiomegaly. Lung bases: Dependent consolidation with volume loss. Smooth interlobular septal thickening and patchy groundglass opacity. Multichamber enlargement of the heart. Coronary artery calcification. Moderate right and trace left pleural effusions. Liver: Normal morphology. Periportal edema. No focal lesion. The hepatic veins are not yet opacified. Biliary: Mild biliary ductal prominence likely a reservoir effect in the post cholecystectomy state. Gallbladder surgically absent. Pancreas: Moderate parenchymal atrophy. Spleen: Normal. Adrenal glands: Normal. Kidneys and ureters: The kidneys are mildly atrophic bilaterally with cortical thinning and numerous tiny cortical cysts suggested. No hydronephrosis. Renal vascular calcification. No nephrolithiasis. Limited evaluation of the distal ureters secondary to streak artifact arising from the hip arthroplasty. Bladder: Compress with a Ward catheter. Pelvic organs: Uterus surgically absent. No adnexal masses. Bowel: Moderate stool burden in the rectum. No rectal wall thickening. Limited diverticulosis of the proximal to mid sigmoid colon. Mild stool burden more proximally. No bowel obstruction. Peritoneal cavity: No free fluid or intraperitoneal gas. Lymph nodes: No enlarged lymph nodes in the abdomen or pelvis. Vasculature: Atherosclerosis of the normal caliber abdominal aorta. IVC patent. Extensive calcified atherosclerotic plaque along the superior mesenteric artery narrowing its lumen up to 50% within the proximal most 5 cm of its course. Abdominal wall: Small fat-containing ventral hernia in the right upper quadrant. Infraumbilical midline ventral postsurgical change. Mild skin thickening is suggested in this region. Musculoskeletal: Total left hip arthroplasty with regional streak artifact limiting evaluation. Degenerative changes of the pubic symphysis. Degenerative changes of the lumbar spine. Posterior height loss of L2 with compensatory hypertrophy of the posterior aspect of the superior endplate of L3, likely chronic deformity. Mild anterior vertebral body height loss of T12 as mentioned previously. Prominent Schmorl's nodes. Mild osteopenia. IMPRESSION: 1. No acute intra-abdominal injury. 2. 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 3. Renal atrophy. 4. Evidence of pulmonary edema in the setting of cardiomegaly. 5. Moderate right and trace left pleural effusions. 6. Mild anterior vertebral body height loss of T12, as mentioned previously, in the setting of mild osteopenia. Electronically signed by: Toy Neal M.D. 03/08/2017 8:16 AM Dictated Date/Time: 03/08/2017 8:05 AM Laboratory Results 03/08/17 06:41 Red Blood Count 3.62, Mean Corpuscular Volume 95.6, Mean Corpuscular Hemoglobin 31.8, Mean Corpuscular Hemoglobin Concent 33.2, Mean Platelet Volume 9.4, Neutrophils (%) (Auto) 77.8, Lymphocytes (%) (Auto) 10.3, Monocytes (%) (Auto) 8.3, Eosinophils (%) (Auto) 2.5, Basophils (%) (Auto) 0.7, Neutrophils # (Auto) 5.99, Lymphocytes # (Auto) 0.79, Monocytes # (Auto) 0.64, Eosinophils # (Auto) 0.19, Basophils # (Auto) 0.05 03/08/17 06:41 Test 03/08/17 06:35 03/08/17 06:41 Urine Color YELLOW Urine Appearance CLOUDY (CLEAR) Urine pH 6.5 (4.5-7.5) Urine Specific [place] 1.018 (1.000-1.030) Urine Protein NEG (NEG) Urine Glucose (UA) NEG (NEG) Urine Ketones NEG (NEG) Urine Occult Blood NEG (NEG) Urine Nitrite POS (NEG) Urine Bilirubin NEG (NEG) Urine Urobilinogen NEG (NEG) Urine Leukocyte Esterase SMALL (NEG) Urine WBC (Auto) 10-30 /hpf (0-5) Urine RBC (Auto) 0-4 /hpf (0-4) Urine Hyaline Casts (Auto) 1-5 /lpf (0-5) Urine Epithelial Cells (Auto) >30 /lpf (0-5) Urine Bacteria (Auto) 4+ (NEG) Urine Yeast (Auto) (NONE PRSENT) White Blood Count 7.69 K/uL (4.8-10.8) Red Blood Count 3.62 M/uL (4.2-5.4) Hemoglobin 11.5 g/dL (12.0-16.0) Hematocrit 34.6 % (37-47) Mean Corpuscular Volume 95.6 fL (80-100) Mean Corpuscular Hemoglobin 31.8 pg (25-34) Mean Corpuscular Hemoglobin Concent 33.2 g/dl (32-36) Platelet Count 174 K/uL (130-400) Mean Platelet Volume 9.4 fL (7.4-10.4) Neutrophils (%) (Auto) 77.8 % Lymphocytes (%) (Auto) 10.3 % Monocytes (%) (Auto) 8.3 % Eosinophils (%) (Auto) 2.5 % Basophils (%) (Auto) 0.7 % Neutrophils # (Auto) 5.99 K/uL (1.4-6.5) Lymphocytes # (Auto) 0.79 K/uL (1.2-3.4) Monocytes # (Auto) 0.64 K/uL (0.11-0.59) Eosinophils # (Auto) 0.19 K/uL (0-0.5) Basophils # (Auto) 0.05 K/uL (0-0.2) RDW Standard Deviation 48.6 fL (36.4-46.3) RDW Coefficient of Variation 13.8 % (11.5-14.5) Immature Granulocyte % (Auto) 0.4 % Immature Granulocyte # (Auto) 0.03 K/uL (0.00-0.02) Prothrombin Time 10.8 SECONDS (9.0-12.0) Prothromb Time International Ratio 1.0 (0.9-1.1) Anion Gap 6.0 mmol/L (3-11) Est Creatinine Clear Calc Drug Dose 25.5 ml/min Estimated GFR () 34.0 Estimated GFR (Non- 29.4 BUN/Creatinine Ratio 18.8 (10-20) Calcium Level 8.6 mg/dl (8.5-10.1) Total Bilirubin 0.6 mg/dl (0.2-1) Aspartate Amino Transf (AST/SGOT) 19 U/L (15-37) Alanine Aminotransferase (ALT/SGPT) 22 U/L (12-78) Alkaline Phosphatase 76 U/L (45-117) Troponin I 0.041 ng/ml (0-0.045) Pro-B-Type Natriuretic Peptide 12356 pg/ml (0-1800) Total Protein 7.1 gm/dl (6.4-8.2) Albumin 3.4 gm/dl (3.4-5.0) Globulin 3.7 gm/dl (2.5-4.0) Albumin/Globulin Ratio 0.9 (0.9-2) Laboratory results per my review. Medications Administered Medications (Trade) Dose Ordered Sig/Brock Route Start Time Stop Time Status Last Admin Dose Admin Ceftriaxone Sodium (Rocephin Inj) 1 gm NOW STAT IV 03/08/17 07:25 03/08/17 07:26 DC 03/08/17 07:54 1 GM ECG Rate (beats per minute): 53 Rhythm: sinus bradycardia Findings: LBBB, no acute ischemic change, other (normal axis) ED Course 0558: The patient was evaluated in room B4B. A complete history and physical exam was performed. 0840: Updated family at bedside on presentation this morning as well as all results. I feel BNP chronically elevated, patient does not appear to be in acute CHF. They state lower extremity edema found on exam today is chronic and has been unchanged. Patient is on chronic oxygen at 2 L/m. Patient with a history of falls, as they states she has a hard time recognizing that she needs help when she tries to get up and walk. Patient does require use of a walker to ambulate but occasionally does need additional systems. Discussed with them possible early UTI, and that it is unclear if this contributed to the events of this morning. They're comfortable with patient returning to the facility. Medical Decision Differential diagnosis: Etiologies such as fracture, dislocation, intra-abdominal, pneumothorax, intrathoracic , intracranial, neurologic, as well as other traumatic pathologies were entertained. Doubt additional occult traumatic injury. Pt in usual mental state per family. Pt with ambulatory dysfunction at baseline and hx of several prior falls. Family comfortable with evaluation and with pt returning to facility. Pt not anticoagulated. Aspirin only. Unclear given pt dementia if fall mechanical as described by patient or if there were other contributing factors or symptoms such as dizziness from a UTI. Doubt bacteremia/sepsis. Medication Reconcilliation Current Medication List: was personally reviewed by me Blood Pressure Screening Patient's blood pressure: Elevated blood pressure Blood pressure disposition: Elevated BP felt to be situational Impression Primary Impression: Fall Additional Impressions: Right hip pain UTI (urinary tract infection) CKD (chronic kidney disease) stage 3, GFR 30-59 ml/min Scribe Attestation The scribe's documentation has been prepared under my direction and personally reviewed by me in its entirety. I confirm that the note above accurately reflects all work, treatment, procedures, and medical decision making performed by me. Departure Information Dispostion Home / Self-Care Prescriptions Cephalexin (KEFLEX) 500 Mg Cap 1 CAP PO BID for 7 Days, #14 CAP Prov: Kristy Khan, DO 03/08/17 Referrals Kristine Blum P.A. (PCP) Patient Instructions [facility] Additional Instructions Please continue regular medications as prescribed. Please take the antibiotic daily until completed. Please use your walker at all times or wait for additional assistance before walking. If you develop dizziness, vomiting, fevers, abdominal pain, chest pain, trouble breathing, or you have any other new concerns, please return the emergency room. Problem Qualifiers Primary Impression: Fall Encounter type: initial encounter Qualified Codes: W19.XXXA - Unspecified fall, initial encounter Additional Impressions: UTI (urinary tract infection) Urinary tract infection type: acute cystitis Hematuria presence: without hematuria Qualified Codes: N30.00 - Acute cystitis without hematuria
[2017-03-08] MEDS ORDERED: OPTIRAY 320 IV PRN (06:30)
[2017-03-08 06:55] LABS: BASO % 0.7 %; BASO ABS # 0.05 K/uL (0-0.2); COMPLETE YES; EOS % 2.5 %; HEMATOCRIT 34.6 % (37-47); IG% 0.4 %; LYMPH % 10.3 %; LYMPH ABS # 0.79 K/uL (1.2-3.4); MEAN CELL VOLUME 95.6 fL (80-100); MEAN CORPUSCULAR HEMOGLOBIN 31.8 pg (25-34); MEAN CORPUSCULAR HGB CONC 33.2 g/dl (32-36); MEAN PLATELET VOLUME 9.4 fL (7.4-10.4); MONO % 8.3 %; NEUT % 77.8 %; PLATELET COUNT 174 K/uL (130-400); RED BLOOD COUNT 3.62 M/uL (4.2-5.4); WHITE BLOOD COUNT 7.69 K/uL (4.8-10.8)
--- NOTE | 2017-03-08 06:58 | DIAGNOSTIC IMAGING REPORT ---
CHEST ONE VIEW PORTABLE CLINICAL HISTORY: 86 years-old Female presenting with trauma. TECHNIQUE: Portable semiupright AP view of the chest was obtained. COMPARISON: 06/19/2016. FINDINGS: Atherosclerosis of aortic arch. Cardiac silhouette moderately enlarged as on prior exam. Prominence of pulmonary vasculature. Slight indistinctness of perihilar vasculature with vague perihilar opacity. Additionally few linear opacities noted in the left mid lung, unchanged. Small right and trace left pleural effusion suspected. No pneumothorax. Degenerative changes of the thoracic spine. Chronic deformity of the left humeral neck suggests prior fracture or Upper abdomen normal. IMPRESSION: 1. Cardiomegaly with volume overload and early pulmonary edema suspected. 2. Small right and trace left pleural effusions. 3. Chronic left mid lung atelectasis or scarring. Electronically signed by: Toy Neal M.D. 03/08/2017 6:57 AM Dictated Date/Time: 03/08/2017 6:55 AM
[2017-03-08 07:04] LABS: URINE APPEARANCE CLOUDY (CLEAR); URINE BILIRUBIN NEG (NEG); URINE COLOR YELLOW; URINE EPITHELIAL CELL AUTO >30 /lpf (0-5); URINE NITRITE POS (NEG); URINE PH 6.5 (4.5-7.5); URINE SPECIFIC GRAVITY 1.018 (1.000-1.030); UROBILINOGEN NEG (NEG)
[2017-03-08 07:04] LABS: PROTHROMBIN TIME (PATIENT) 10.8 SECONDS (9.0-12.0)
[2017-03-08 07:13] LABS: BUN/CREATININE RATIO 18.8 (10-20); CALCIUM 8.6 mg/dl (8.5-10.1); CREATININE 1.56 mg/dl (0.60-1.20); POTASSIUM 3.2 mmol/L (3.5-5.1)
[2017-03-08 07:13] LABS: MANUAL MICROSCOPIC REQUIRED? NO; REVIEW REQ? YES
[2017-03-08 07:18] LABS: ALB/GLOB RATIO 0.9 (0.9-2)
[2017-03-08] MEDS ORDERED: CEFTRIAXONE SOD INJ 1 GM ADDVIAL IV STA (07:25)
--- NOTE | 2017-03-08 07:55 | DIAGNOSTIC IMAGING REPORT ---
HEAD WITHOUT CONTRAST (CT) CLINICAL HISTORY: 86 years-old Female presenting with fall, trauma. TECHNIQUE: Multidetector CT imaging of the head was performed without the use of intravenous contrast. IV contrast: None. A dose lowering technique was used consistent with the principles of ALARA (as low as reasonably achievable). COMPARISON: 02/28/2017. CT DOSE (mGy.cm): The estimated cumulative dose is 2136.[address] scans. 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 Proportional ventricular and sulcal prominence, likely age-related parenchymal volume loss. Periventricular and subcortical white matter hypoattenuation, nonspecific but likely indicative of chronic small vessel ischemic change. No mass effect or midline shift. No hemorrhage or acute territorial infarct. No extra-axial fluid collection. Paranasal sinuses and mastoid air cells clear. Calvarium intact. Bilateral jackson lenses are absent. IMPRESSION: 1. No acute intracranial abnormality. Electronically signed by: Toy Neal M.D. 03/08/2017 7:53 AM Dictated Date/Time: 03/08/2017 7:51 AM
--- NOTE | 2017-03-08 08:06 | DIAGNOSTIC IMAGING REPORT ---
CERVICAL SPINE W/O CLINICAL HISTORY: 86 years-old Female presenting with fall, trauma. TECHNIQUE: Multidetector CT of the cervical spine was performed without the use of intravenous contrast. IV contrast: None. A dose lowering technique was used consistent with the principles of ALARA (as low as reasonably achievable). COMPARISON: None. CT DOSE (mGy.cm): The estimated cumulative dose is 2136.75 inclusive of multiple additional CT scans. 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 Cardiomegaly. Normal cervical lordosis. Prominent calcification along the right posterior thecal sac at the level of C4-5 measuring 8 mm in craniocaudal dimension and 3 mm in AP dimension and 3 mm in transverse dimension. This is likely within the ligamentum flavum. This results in mild effacement of the thecal sac. The greatest degree of degenerative changes also noted at C4-5 with less pronounced degenerative change at C5-6 and C6-7. Bony posterior spurring is greatest at C5-6 with resultant spinal canal narrowing. Degenerative changes of the atlantodental articulation also noted. No acute osseous injury or acute subluxation. Paraspinal musculature within normal limits. Atherosclerosis. Interlobular septal thickening at the lung apices. IMPRESSION: No acute osseous injury of the cervical spine. Multilevel degenerative changes most pronounced in the lower cervical spine as detailed above. Electronically signed by: Toy Neal M.D. 03/08/2017 8:05 AM Dictated Date/Time: 03/08/2017 8:01 AM
--- NOTE | 2017-03-08 08:17 | DIAGNOSTIC IMAGING REPORT ---
ABD/PELVIS IV CONTRAST ONLY CLINICAL HISTORY: 86 years-old Female presenting with fall, trauma. TECHNIQUE: Multidetector CT of the abdomen and pelvis was performed after the administration of intravenous contrast. IV contrast: 93 mL of Optiray 320. A dose lowering technique was used consistent with the principles of ALARA (as low as reasonably achievable). COMPARISON: CT of the pelvis from 02/28/[address] abdomen and pelvis from 06/05/2016. CT DOSE (mGy.cm): The estimated cumulative dose is 2136.75 mGy.cm. 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 Cardiomegaly. Lung bases: Dependent consolidation with volume loss. Smooth interlobular septal thickening and patchy groundglass opacity. Multichamber enlargement of the heart. Coronary artery calcification. Moderate right and trace left pleural effusions. Liver: Normal morphology. Periportal edema. No focal lesion. The hepatic veins are not yet opacified. Biliary: Mild biliary ductal prominence likely a reservoir effect in the post cholecystectomy state. Gallbladder surgically absent. Pancreas: Moderate parenchymal atrophy. Spleen: Normal. Adrenal glands: Normal. Kidneys and ureters: The kidneys are mildly atrophic bilaterally with cortical thinning and numerous tiny cortical cysts suggested. No hydronephrosis. Renal vascular calcification. No nephrolithiasis. Limited evaluation of the distal ureters secondary to streak artifact arising from the hip arthroplasty. Bladder: Compress with a Ward catheter. Pelvic organs: Uterus surgically absent. No adnexal masses. Bowel: Moderate stool burden in the rectum. No rectal wall thickening. Limited diverticulosis of the proximal to mid sigmoid colon. Mild stool burden more proximally. No bowel obstruction. Peritoneal cavity: No free fluid or intraperitoneal gas. Lymph nodes: No enlarged lymph nodes in the abdomen or pelvis. Vasculature: Atherosclerosis of the normal caliber abdominal aorta. IVC patent. Extensive calcified atherosclerotic plaque along the superior mesenteric artery narrowing its lumen up to 50% within the proximal most 5 cm of its course. Abdominal wall: Small fat-containing ventral hernia in the right upper quadrant. Infraumbilical midline ventral postsurgical change. Mild skin thickening is suggested in this region. Musculoskeletal: Total left hip arthroplasty with regional streak artifact limiting evaluation. Degenerative changes of the pubic symphysis. Degenerative changes of the lumbar spine. Posterior height loss of L2 with compensatory hypertrophy of the posterior aspect of the superior endplate of L3, likely chronic deformity. Mild anterior vertebral body height loss of T12 as mentioned previously. Prominent Schmorl's nodes. Mild osteopenia. IMPRESSION: 1. No acute intra-abdominal injury. 2. 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 3. Renal atrophy. 4. Evidence of pulmonary edema in the setting of cardiomegaly. 5. Moderate right and trace left pleural effusions. 6. Mild anterior vertebral body height loss of T12, as mentioned previously, in the setting of mild osteopenia. Electronically signed by: Toy Neal M.D. 03/08/2017 8:16 AM Dictated Date/Time: 03/08/2017 8:05 AM
[2017-03-08] MEDS ORDERED: CEPH-571 PO (08:46)
[2017-03-08 10:33] VITALS: TEMP 36.7
[2017-03-08 11:15] VITALS: BP 99/41; PULSE 55; O2SAT 98
== END 2017-03-08 11:22 | disposition home or self-care (01) ==
LOC: EDBD 05:45 → C.EDB 05:46
DX: M25.551 Pain in right hip (principal); N39.0 Urinary tract infection, site not specified; N18.3 Chronic kidney disease, stage 3 (moderate); R00.1 Bradycardia, unspecified; E11.9 Type 2 diabetes mellitus without complications; I25.10 Atherosclerotic heart disease of native coronary artery without angina pectoris; E78.5 Hyperlipidemia, unspecified; I48.91 Unspecified atrial fibrillation; I50.20 Unspecified systolic (congestive) heart failure; Z90.710 Acquired absence of both cervix and uterus; Z90.49 Acquired absence of other specified parts of digestive tract; Z98.61 Coronary angioplasty status; Z79.82 Long term (current) use of aspirin; Z79.4 Long term (current) use of insulin; Z79.899 Other long term (current) drug therapy; Z88.2 Allergy status to sulfonamides; Z88.5 Allergy status to narcotic agent; Z88.8 Allergy status to other drugs, medicaments and biological substances